=== PATIENT | male | born 1935 | race Caucasian/White ===

== ENCOUNTER → 2017-08-09 09:24 | Outpatient (CLI) | payer MEDICARE, SELFPAY ==
[2017-08-09 10:29] LABS: AST(SGOT) 42 U/L (15-37); Alanine Aminotransfer ALT/SGPT 37 U/L (16-61); Albumin, Serum 3.9 g/dL (3.2-5.0); Alkaline Phosphatase 66 U/L (45-117); Bilirubin, Direct 0.29 mg/dL (0.00-0.30); Cholesterol 109 mg/dL (200); High Density Lipoprotein 55 mg/dL; Protein, Total 6.9 g/dL (6.4-8.2); Triglycerides 60 mg/dL; Very Low Density Lipoprotein 12 mg/dL (5-40)
== END ==
PROVIDERS: Family Provider Family Medicine Geriatric Medicine; PCP Family Medicine Geriatric Medicine; Visit Provider Internal Medicine Cardiovascular Disease
DX: E78.00 Pure hypercholesterolemia, unspecified (principal)
CPT/HCPCS: 36415; 80061; 80076

== ENCOUNTER → 2017-08-15 10:15 | Outpatient (CLI) | payer MEDICARE, SELFPAY ==
[2017-08-15 13:43] LABS: Absolute Lymphocyte Count 0.82 X10^3/ul (0.83-4.51); Absolute Neutrophil Count 3.9 X10^3/uL (2.0-7.7); Basophil# 0.03 X10^3/uL; Basophil% 0.5 % (0-1); Eosinophils% 3.6 % (0-5); Hematocrit 41.7 % (40-54); Hemoglobin 14.1 g/dl (13.0-16.5); Lymphocyte # 0.82 X10^3/ul (4.0); Lymphocyte % 14.8 % (19-41); Mean Corp Hgb Conc 33.8 g/gl (32-36); Mean Corpuscular Hgb 30.3 pg (27.0-32.0); Mean Corpuscular Volume 89.5 fL (80-94); Mean Platelet Vol. 9.4 fl (6.2-12.0); Monocyte# 0.62 X10^3/uL; Monocyte% 11.2 % (0-10); Neutrophil # 3.86 X10^3/uL (2.7-7.7); Neutrophil % 69.5 % (47-70); POSITIVE COUNT NO; POSITIVE DIFFERENTIAL NO; POSITIVE MORPHOLOGY NO; Platelet Count 199 K/mm3 (150-450); RBC Distribution Width CV 14.3 % (11.6-14.6); RBC Distribution Width SD 46.4 fl (35.1-43.9); Red Blood Count 4.66 M/mm3 (4.6-6.2); White Blood Count 5.6 K/mm3 (4.4-11.0)
[2017-08-15 14:00] LABS: ALB/GLOB Ratio 1.3 RATIO (0.9-2.4); AST(SGOT) 45 U/L (15-37); Alanine Aminotransfer ALT/SGPT 50 U/L (16-61); Albumin, Serum 3.8 g/dL (3.2-5.0); Alkaline Phosphatase 59 U/L (45-117); Anion Gap 4 (5-15); BUN 15 mg/dL (7-18); BUN/Creat Ratio 14.3 RATIO (10-20); Calcium,Total 8.4 mg/dL (8.5-10.1); Chloride 107 mmol/L (98-107); Cholesterol 111 mg/dL (200); Creatinine, Serum 1.05 mg/dL (0.70-1.30); EST Glomerular Filtration Rate 72 mL/min (>60); Est Glom Filt Rate - Afr Amer 87 mL/min (>60); Globulin 2.9 g/dL (2.2-4.2); Glucose 94 mg/dL (74-106); High Density Lipoprotein 54 mg/dL; Potassium 4.6 mmol/L (3.5-5.1); Protein, Total 6.7 g/dL (6.4-8.2); Sodium Level 139 mmol/L (136-145); Thyroid Stim Hormone (TSH) 3.07 uIU/mL (0.358-3.74); Triglycerides 51 mg/dL; Very Low Density Lipoprotein 10 mg/dL (5-40)
[2017-08-16 09:57] LABS: Vitamin D,25 Hydroxy 23.2 ng/mL (29.95-100.01)
== END ==
PROVIDERS: Family Provider Family Medicine Geriatric Medicine; PCP Family Medicine Geriatric Medicine; Visit Provider Family Medicine Geriatric Medicine
DX: I10 Essential (primary) hypertension (principal); E78.4 Other hyperlipidemia; E55.9 Vitamin D deficiency, unspecified
CPT/HCPCS: 36415; 80053; 80061; 82306; 84443; 85025

== ENCOUNTER 2017-10-18 08:26 | Day surgery (SDC) | payer MEDICARE, SELFPAY ==
[2017-10-18] VITALS (9 sets, daily range): BP systolic 101–158; BP diastolic 64–89; PULSE 63–75; RESP 16–18; TEMP 36–36.3; O2SAT 93–98; BMI 25.1
--- NOTE | 2017-10-18 | COLBX_PTH ---
PATIENT: JR YE LOC: EN U#:[id number] AGE/SX: 82/M ROOM: RE10/18/[address]: Dr. Christiano Moreira MD : 1935 BED: DIS: 10/18/2017 SPEC #: [id number] RECD: 10/18/17 13:53 STATUS: KAVON MARIA M #: [id number] VAISHALI: 10/18/17 00:[address]: Christiano Moreira DEPT: SURGICAL PATHOLOGY RECD BY: Chriss Mixon ENTERED: 10/18/17 13:54 SP TYPE: COLON BX OTHR DR: MD Raymond Ramos MD Tissues: A - Duodenum, NOS B - Gastric mucous membrane C - Esophageal mucous membrane Procedures: Surgery Specimen Level IV HEADER OPERATION: Colonoscopy, EGD PRE-OP DIAGNOSIS: Nausea, change in bowel habits TISSUE SUBMITTED: A ? Duodenal biopsy, B ? Antral biopsy, C ? Distal esophageal biopsy MICROSCOPIC DIAGNOSIS A. 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 B. Antral biopsy: Mild gastritis. See microscopic description and comment. C. Distal esophageal biopsy: Fragments of squamous epithelium and mild chronic inflammation. SJ:kimo 10/21/17 COMMENT B. The results of immunohistochemistry for Helicobacter pylori will be reported separately ([id number]). MICROSCOPIC DESCRIPTION Slides are reviewed. B. The specimen shows fragments of gastric mucosa with chronic inflammatory cell infiltrates in the lamina propria consisting of lymphocytes and plasma cells, consistent with mild chronic gastritis. GROSS DESCRIPTION A - Received in fixative is one container labeled with the patient's name and designated duodenal biopsy. The specimen consists of two irregular fragments of light lee soft tissue that in aggregate measure 0.4 x 0.2 x 0.1 cm. The specimen is totally submitted in one cassette. B - Received in fixative is one container labeled with the patient's name and designated antral biopsy. The specimen consists of multiple irregular fragments of light lee soft tissue that in aggregate measure 0.5 x 0.2 x 0.1 cm. The specimen is totally submitted in one cassette. C - Received in fixative is one container labeled with the patient's name and designated distal esophageal biopsy. The specimen consists of two irregular fragments of light lee soft tissue that in aggregate measure 0.3 x 0.3 x 0.1 cm. The specimen is totally submitted in one cassette. / SJ:rg 10/18/17 TC:3 CPT: 19519 x3
--- NOTE | 2017-10-18 | IMM_PTH ---
PATIENT: JR YE LOC: EN U#:[id number] AGE/SX: 82/M ROOM: RE10/18/[address]: Dr. Christiano Moreira MD : 1935 BED: DIS: 10/18/2017 SPEC #: [id number] RECD: 10/21/17 11:53 STATUS: KAVON RECarolina #: [id number] VAISHALI: 10/18/17 00:[address]: Christiano Moreira DEPT: IMMUNOHISTOCHEMISTRY RECD BY: Rajeev Garcia ENTERED: 10/21/17 11:54 SP TYPE: IMMUNO OTHR DR: MD Raymond Ramos MD Tissues: Gastric mucous membrane Procedures: H Pylori (initial) PHYSICIAN & INSTITUTION [place] [id number] SPECIMEN INFORMATION: Tissue Source: B - Antral biopsy Clinical Info: Nausea, change in bowel habits Specimen Number: [id number] CPT code: 26413 METHODOLOGY: Deparaffinized sections of prefer/formalin-fixed tissue or PAP/DQ stained slides are incubated with monoclonal/polyclonal antibodies/oligonucleotide probes. Localization is made via biotin free immunoperoxidase method. Appropriate controls are performed and reacted as expected. Results on target cell population are indicated in the following table: RESULTS: ANTIBODY / CLONE RESULT H Pylori (polyclonal) negative These tests were developed and their performance characteristics determined by [facility]. They may not have been cleared or approved by the [place]. Food and Drug Administration. The FDA has determined that such clearance or approval is not necessary. INTERPRETATION: B. Antral biopsy: Negative for Helicobacter pylori organisms. SJ:kimo 10/22/17
--- NOTE | 2017-10-18 09:58 | PCM.OPRPT ---
Problem List (1) Change in bowel habit Status: Acute Report of Operation Date of Procedure: 10/18/17 Pre-Operative Diagnosis: Nausea, reflux symptoms, feeling of unwellness. Change of stool with pellet sized stool Post-Operative Diagnosis: Small hiatal hernia, minimal antral erythema, minimal duodenal erythema. Widely patent colorectal anastomosis, no acute colon pathology Surgery/Procedure Performed:: Esophagogastro duodenoscopy with cold forcep biopsies. colonoscopy Description of Surgical Findings:: Timeout and informed consent was obtained. 82-year-old gent was taken to the endoscopy suite. His oropharynx anesthetized with Topex. He was placed in a left lateral decubitus position. Throughout both the upper and lower procedure he received a total of 100 mg Demerol for 3.5 mg of Versed as intravenous sedation. Videogastroscope was inserted the proximal mid and even distal esophagus did not appear remarkable. The EG junction was at 41 cm. A small small hiatal hernia noted but I did not see any gross changes reflux. The scope was advanced in the stomach which had a very minimal amount of erythema of the antrum and body of the stomach. Scope was advanced through the pylorus. There was minimal erythema of the duodenum. The scope was nicely advanced in the second portion of the duodenum which otherwise did not appear to be remarkable. Scope was withdrawn back in the duodenal bulb and a biopsy was obtained. The scope was withdrawn back in the stomach and antral biopsy was obtained. The scope was retroflexed the EG junction cardia inspected. The small hiatal hernia noted. The scope was placed back in antegrade viewing position. The scope was withdrawn to the distal esophagus and a distal esophageal biopsy was obtained. The scope was then additionally removed without additional abnormality. The patient was kept in the left lateral decubitus position. Digital rectal exam performed. 2+ smooth prostate. No mass lesions. Flexible colonoscope inserted in the rectum advanced quite readily throughout the colon. The cecum ileocecal valve area was quite nicely achieved. Bowel prep was quite good. The cecum ileocecal valve was not remarkable. The scope was carefully withdrawn from the ascending transverse descending and rectosigmoid colon. There is evidence of a widely patent colon to distal rectosigmoid anastomosis at approximately 12 cm. Some remnant suture material noted in the small pouch. Widely patent anastomosis. No evidence of any obstruction whatsoever. Scope was retroflexed in the rectum this too was not remarkable. Excess fluid and air was aspirated free the procedure was completed with patient tolerating it well. Impression Very small hiatal hernia. Minimal erythema of the antrum and body of the stomach. Minimal erythema of the duodenum. None of these findings would seem to correlate well with the patient's symptoms. Biopsies are pending and the patient will be notified of results. Colon Appear to be quite normal. He has a remote history of colon polyps. Possible consideration for follow-up colonoscopy at 5 years pending the patient progress. Previous colonoscopy was July 16, 2012 The patient has known gallstones. Pending his progress might consider laparoscopic cholecystectomy if nausea persists. The patient may follow-up in the office at his discretion regarding that. Cc: Dr. Metcalf Medications were given at 0931. The upper scope was inserted 0934. The upper scope was completed at 0939. The colonoscopy was started at 0943. The cecum was reached at 0947. The procedure was completed at 0953 Christiano Moreira M.D., F.A.C.S. Type of Anesthesia:: IV Sedation
== END 2017-10-18 11:11 | disposition home or self-care (01) ==
LOC: EN 08:28 → AC 08:29
PROVIDERS: Family Provider Family Medicine; PCP Family Medicine; Visit Provider Surgery
PROC: 0DJD8ZZ Inspection of Lower Intestinal Tract, Via Natural or Artificial Opening Endoscopic (ICD-10-PCS; CPT 45378; principal; 2017-10-18 09:25)
DX: K29.70 Gastritis, unspecified, without bleeding (principal); K44.9 Diaphragmatic hernia without obstruction or gangrene; K57.30 Diverticulosis of large intestine without perforation or abscess without bleeding; K21.9 Gastro-esophageal reflux disease without esophagitis; I25.10 Atherosclerotic heart disease of native coronary artery without angina pectoris; G47.30 Sleep apnea, unspecified; E78.5 Hyperlipidemia, unspecified; I10 Essential (primary) hypertension; E07.9 Disorder of thyroid, unspecified; F41.9 Anxiety disorder, unspecified; F32.9 Major depressive disorder, single episode, unspecified; N40.0 Benign prostatic hyperplasia without lower urinary tract symptoms; Z79.82 Long term (current) use of aspirin; Z79.899 Other long term (current) drug therapy
CPT/HCPCS: 43239; 45378; 88305; 88342; 99152; 99153; J7120

== ENCOUNTER → 2017-11-26 09:33 | Outpatient (CLI) | payer MEDICARE, SELFPAY ==
[2017-11-27 08:50] LABS: Vitamin B12 377 pg/mL (211-911)
[2017-12-11 13:40] LABS: Fats, Neutral Normal (.); Fats, Total Normal (.)
== END ==
PROVIDERS: Family Provider Family Medicine; PCP Family Medicine; Visit Provider Family Medicine
DX: L30.9 Dermatitis, unspecified (principal); R19.4 Change in bowel habit
CPT/HCPCS: 36415; 82607; 82705

== ENCOUNTER → 2018-01-08 20:20 | Outpatient (CLI) | payer MEDICARE, SELFPAY ==
[2018-01-08] MEDS: Zolpidem Tartrate 5 MG Tablet PO (21:50)
== END ==
PROVIDERS: Family Provider Family Medicine; PCP Family Medicine; Visit Provider Internal Medicine Critical Care Medicine
DX: G47.33 Obstructive sleep apnea (adult) (pediatric) (principal)
CPT/HCPCS: 95811

== ENCOUNTER → 2018-01-15 14:11 | Outpatient (CLI) | payer MEDICARE, SELFPAY ==
[2018-01-21 04:08] LABS: Clam <0.10 kU/L (Class 0); Codfish <0.10 kU/L (Class 0); Corn <0.10 kU/L (Class 0); Egg, White <0.10 kU/L (Class 0); Milk (Cow) 0.17 kU/L (Class 0/I); Peanut <0.10 kU/L (Class 0); SCALLOP <0.10 kU/L (Class 0); Shrimp <0.10 kU/L (Class 0); Soybean <0.10 kU/L (Class 0); Walnut, (Food) <0.10 kU/L (Class 0); Wheat <0.10 kU/L (Class 0)
[2018-01-21 11:39] LABS: SESAME SEED <0.10 kU/L (Class 0)
== END ==
PROVIDERS: Family Provider Family Medicine; PCP Family Medicine; Referring Provider Otolaryngology; Visit Provider Otolaryngology
DX: T78.40XA Allergy, unspecified, initial encounter (principal)
CPT/HCPCS: 36415; 86003

== ENCOUNTER → 2018-03-03 15:52 | Outpatient (CLI) | payer MEDICARE, SELFPAY ==
[2018-03-03 17:10] LABS: Absolute Lymphocyte Count 0.95 X10^3/ul (0.83-4.51); Absolute Neutrophil Count 3.2 X10^3/uL (2.0-7.7); Basophil# 0.02 X10^3/uL; Basophil% 0.4 % (0-1); Eosinophil# 0.15 X10^3/uL; Eosinophils% 3.1 % (0-5); Hematocrit 39.8 % (40-54); Hemoglobin 13.1 g/dl (13.0-16.5); Lymphocyte # 0.95 X10^3/ul (4.0); Lymphocyte % 19.8 % (19-41); Mean Corp Hgb Conc 32.9 g/gl (32-36); Mean Corpuscular Hgb 29.8 pg (27.0-32.0); Mean Corpuscular Volume 90.5 fL (80-94); Mean Platelet Vol. 9.4 fl (6.2-12.0); Monocyte# 0.48 X10^3/uL; Neutrophil # 3.18 X10^3/uL (2.7-7.7); Neutrophil % 66.5 % (47-70); POSITIVE COUNT NO; POSITIVE DIFFERENTIAL NO; POSITIVE MORPHOLOGY NO; Platelet Count 177 K/mm3 (150-450); RBC Distribution Width CV 13.6 % (11.6-14.6); RBC Distribution Width SD 44.8 fl (35.1-43.9); White Blood Count 4.8 K/mm3 (4.4-11.0)
[2018-03-03 17:30] LABS: Vitamin D,25 Hydroxy 18.6 ng/mL (29.95-100.01)
[2018-03-03 17:32] LABS: ALB/GLOB Ratio 1.4 RATIO (0.9-2.4); AST(SGOT) 27 U/L (15-37); Alanine Aminotransfer ALT/SGPT 32 U/L (16-61); Albumin, Serum 3.7 g/dL (3.2-5.0); Alkaline Phosphatase 59 U/L (45-117); Anion Gap 10 (5-15); BUN 17 mg/dL (7-18); BUN/Creat Ratio 14.8 RATIO (10-20); Calcium,Total 8.1 mg/dL (8.5-10.1); Chloride 103 mmol/L (98-107); Cholesterol 117 mg/dL (200); Creatinine, Serum 1.15 mg/dL (0.70-1.30); EST Glomerular Filtration Rate 65 mL/min (>60); Est Glom Filt Rate - Afr Amer 79 mL/min (>60); Globulin 2.7 g/dL (2.2-4.2); Glucose 89 mg/dL (74-106); High Density Lipoprotein 47 mg/dL; Potassium 4.5 mmol/L (3.5-5.1); Protein, Total 6.4 g/dL (6.4-8.2); Sodium Level 139 mmol/L (136-145); Thyroid Stim Hormone (TSH) 3.25 uIU/mL (0.358-3.74); Triglycerides 167 mg/dL; Very Low Density Lipoprotein 33 mg/dL (5-40)
--- OUTSIDE RECORDS SUMMARY | 2018-04-15 14:27 | XMS RPT_ITS ---
:1935 Author Organization OHIP Support Name Relationship Address Phone SJ YE Unavailable Unavailable + EPHRAIM SJ Unavailable [address] + [place] [address] R Unavailable Unavailable Unavailable EPHRAIM SJ Unavailable [address] + [place] [address] R Unavailable Unavailable Unavailable DEMKEE SJ Unavailable [address] + [place] [address] R Unavailable Unavailable Unavailable DEMKEE, SJ Unavailable [address] + [place] [address] R Unavailable Unavailable Unavailable DEMKEE, SJ Unavailable [address] + [place] [address] R Unavailable Unavailable Unavailable DAVIDE SJ Unavailable [address] + [place] [address] R Unavailable Unavailable Unavailable CHRISTIEKEE SJ Unavailable Unavailable + EPHRAIM SJ Unavailable [address] + [place] [address] R Unavailable Unavailable Unavailable DEMKEE, SJ Unavailable [address] + [place] [address] R Unavailable Unavailable Unavailable DEMKEE, SJ Unavailable [address] + [place] [address] R Unavailable Unavailable Unavailable DEMKEE, SJ Unavailable [address] + [place] [address] R Unavailable Unavailable Unavailable DEMKEE, SJ Unavailable [address] + [place] [address] R Unavailable Unavailable Unavailable DEMKEE, SJ Unavailable [address] + [place] [address] R Unavailable Unavailable Unavailable DEMKEE, SJ Unavailable [address] + [place] [address] R Unavailable Unavailable Unavailable DEMKEE, SJ Unavailable [address] + [place] [address] R Unavailable Unavailable Unavailable DEMKEE, SJ Unavailable Unavailable + Care Team Providers Name Role Phone Christiano Moreira Attending Unavailable Dixon, Nj Chi Referring Unavailable Dixon, Nj Chi Primary Care Unavailable Kimberlyn Rosales Attending Unavailable Juan Eddie Attending Unavailable Dixon, Nj Chi Referring Unavailable Dixon, Nj Chi Primary Care Unavailable Blank Martinezl Attending Unavailable Juan, Menasha Referring Unavailable Dixon, Nj Chi Primary Care Unavailable Dixon, Nj Chi Attending Unavailable Dixon, Nj Chi Primary Care Unavailable Christiano Moreira Attending Unavailable Dixon, Nj Chi Referring Unavailable Dixon, Nj Chi Primary Care Unavailable CejeanlChristiano Attending Unavailable Cebul, Christiano Referring Unavailable Viera, Raymond Primary Care Unavailable CejeanlChristiano Attending Unavailable Cebul, Christiano Referring Unavailable Viera, Raymond Primary Care Unavailable Cejeanl Christiano Consulting Unavailable Viera, Raymond Attending Unavailable Viera, Raymond Primary Care Unavailable Phuc Stanley Attending Unavailable Dixon, Nj Chi Referring Unavailable Phuc Stanley Attending Unavailable Phuc Stanley Referring Unavailable Viera, Raymond Primary Care Unavailable Shayan Pedroza Attending Unavailable Shayan Pedroza Referring Unavailable Viera, Raymond Primary Care Unavailable Dixon, Nj Chi Attending Unavailable Phuc Stanley Attending Unavailable Dixon, Nj Chi Referring Unavailable STEPHANIE RAYGOZA Attending Unavailable STEPHANIE RAYGOZA Referring Unavailable Benitez Araiza Primary Care Unavailable STEPHANIE RAYGOZA Attending Unavailable STEPHANIE RAYGOZA Referring Unavailable Benitez Araiza Primary Care Unavailable STEPHANIE RAYGOZA Attending Unavailable *SELF, REFERRED Referring Unavailable Benitez Araiza Primary Care Unavailable PROBLEMS PROBLEMS DATE TYPE CONDITION / CODE ATTENDING STATUS SOURCE Unknown 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, 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 / Community E23.6(ICD-10) Hospital Repository Unknown E55.9 - Vitamin D Dixon, Nj Chi Active [place] 8 deficiency, unspecified / Community E55.9(ICD-10) Hospital Repository Unknown T78.40XA - Allergy, Shayan Pedroza Active [place] 8 unspecified, initial Community encounter / Hospital T78.40XA(ICD-10) Repository Unknown G47.33 - Obstructive Phuc Stanley Active [place] 8 sleep apnea (adult) Community (pediatric) / Hospital G47.33(ICD-10) Repository Unknown L30.9 - Dermatitis, Raymond Viera Active [place] 8 unspecified / Community L30.9(ICD-10) Hospital Repository Unknown R11.0 - Nausea / CebulChristiano Active [place] 8 R11.0(ICD-10) [facility] Hospital Repository Unknown R19.4 - Change in bowel CebulChristiano Active [place] 8 habit / R19.4(ICD-10) [facility] Hospital Repository Unknown E78.00 - Pure Juan, Eddie Active [place] 8 hypercholesterolemia, Community unspecified / Hospital E78.00(ICD-10) Repository Unknown E78.0 - Pure Juan, Menasha Active [place] 8 hypercholesterolemia / Community E78.0(ICD-10) Hospital Repository Unknown I10 - Essential (primary) Juan, Menasha Active [place] 8 hypertension / Community I10(ICD-10) Hospital Repository PROCEDURES PROCEDURES No Procedure Records FoundRESULTS RESULTS PULMONARY VISIT REPORT Observed: 03/11/2018 Status: F Source: [place] 9:05 AM [facility] of [address] [place] [address] OFFICE VISIT Date of Service: 03/11/18 MR#: [id number] Acct: [id number] Name: JR YE Rep #: [id number] : 1935 Provider: Phuc Stanley MD Age/Sex: 82/M Location: [facility] [place] Status: Signed Assessment AND Plan Problems 1. Obstructive sleep apnea syndrome G47.33 Plan Patient still has a significantly high AHI despite initiation of therapy. That being said, recommended pressures are very high. We will continue to step up pressure settings until recommended settings are achieved or patient's AHI is acceptable. Patient's pressure will be increased to 18/12 centimeters of water. Increased pressure settings. Follow with compliance reports. Plan Detail Follow Up 3 Months ([facility]) HPI 3 M FU: Chief Complaint: Follow-up test results Details: Patient is an 82-year-old male, currently in the care of Dr. Metcalf, who presents for evaluation secondary to recent test results. Since last visit, patient denies any ER visits, hospitalizations or prednisone burst. Patient has been initiated on BiPAP therapy and states that he has attempted it every night. Overall feels subjectively improved after initiation of BiPAP therapy. Patient feels that he rest better at night, but is still occasionally taking naps during the day. Patient has had to try a couple different mask, but in the end and ended up with his original design. Patient is currently being taken care of by [facility]. Patient denies any complications at the interface site, epistaxis or sore throat. No dry mouth has been reported. Patient states he actually turned off his ramp feel the pressure. Patient denies any change in weight. There is no increased dyspnea on exertion. Patient does feel that he wakes up approximately 1 time per night secondary to nocturia. Occasionally patient wake up at 5 AM and just stay up. Testing personally reviewed with the patient Split-night PSG (01/08/2018): Overall AHI of 16.9 events per hour titrated to BiPAP 20/14 centimeters of water. 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 DME Vendor: [facility] Accompanied by: Self Is patient in pain?: No Allergies No Known Allergies Allergy (Verified 03/11/18 07:10) Medications Levothyroxine [Synthroid] 75 mcg PO DAILY 03/19/14 [History Confirmed 03/11/18] B-complex with vitamin C tablet 1 tab PO QDAY 07/05/17 [History Confirmed 03/11/18] escitalopram 10 mg tablet 10 mg PO QDAY 07/05/17 [History Confirmed 03/11/18] folic acid 1 mg tablet 1 mg PO QDAY 07/05/17 [History Confirmed 03/11/18] lactobacillus combination no.8 3 billion cell capsule 3,000 mmu cells PO QDAY 07/05/17 [History Confirmed 03/11/18] lorazepam 1 mg tablet 1 mg PO QHS PRN tab 07/05/17 [History Confirmed 03/11/18] vitamin E (dl, acetate) 400 unit capsule 400 unit PO QDAY 07/05/17 [History Confirmed 03/11/18] zolpidem 5 mg tablet 5 mg PO HS PRN 07/05/17 [History Confirmed 03/11/18] clobetasol 0.05 % topical cream 0.05 applic TOPICAL PRN PRN 10 Days #45 08/09/17 [History Confirmed 03/11/18] coenzyme Q10 100 mg capsule 100 mg PO QDAY 08/09/17 [History Confirmed 03/11/18] Aspirin 81 mg PO DAILY 10/18/17 [History Confirmed 03/11/18] betamethasone dipropionate 0.05 % topical cream 1 applic TOPICAL DAILY PRN 11/28/17 [History Confirmed 03/11/18] colloidal oatmeal 2 % topical cream % TOPICAL QDAY PRN g 11/28/17 [History Confirmed 03/11/18] fluocinolone 0.01 % topical body oil 1 applic TOPICAL DAILY 11/28/17 [History Confirmed 03/11/18] vit C 250 mg-E 200 unit-zinc 40 mg-copper 1 di-pzjage-ygcegh capsule 1 tab PO ONCE cap 11/28/17 [History Confirmed 03/11/18] olmesartan 5 mg tablet 5 mg PO DAILY 11/29/17 [History Confirmed 03/11/18] Ultimate [place] 1 tab PO BID 03/11/18 [History Confirmed 03/11/18] atorvastatin 20 mg tablet 40 mg PO QHS tab 03/11/18 [History Confirmed 03/11/18] famotidine 20 mg tablet 20 mg PO DAILY 03/11/18 [History Confirmed 03/11/18] tacrolimus 0.1 % topical ointment 1 applic TOPICAL BID PRN g 03/11/18 [History Confirmed 03/11/18] PFSH Medical History Change in bowel habit (Acute) Nausea (Acute) Atherosclerotic heart disease of [place] coronary artery without angina pectoris (Chronic) Sleep apnea (Chronic) PVC's (premature ventricular contractions) (Chronic) Diverticular disease of colon (Chronic) Hyperlipidemia (Chronic) Hypertension (Chronic) Thyroid disease (Chronic) Extensor tendon laceration of hand with open wound (Acute) Back problem (Acute) Bronchitis (Acute) anxiety/dpression (Acute) BPH (benign prostatic hyperplasia) (Chronic) Chronic cough (Chronic) Coronary heart disease (Chronic) Depression (Chronic) Diverticulosis (Chronic) GERD (gastroesophageal reflux disease) (Chronic) Tinnitus (Chronic) Surgical History History of appendectomy (Chronic) Hx of squamous cell carcinoma excision (Chronic) Hx of transurethral resection of prostate (Chronic) H/O hernia repair (Resolved) History of colectomy (Resolved) Family History Father No problems noted. Social History household members: spouse housing: house current occupational status: retired pets and animals: No Smoking Status: Never smoker second hand exposure: No alcohol intake: current alcohol intake frequency: a few times a week Alcohol type: wine substance use type: does not use caffeine: Yes Type: coffee what type of physical activity do you participate in: other details: tredmill, walking frequency: 3-4 times per week duration: 30-45 minutes/day seatbelt use: always do you feel safe at home: Yes Review of Systems Const CONSTITUTIONAL: Negative anorexia, body ache, chills, daytime sleepiness, fever(s), night sweats, oral thrush, stops breathing during sleep, weight loss, sleeping in chair, fatigue, weight loss, weight gain, frequent colds, seasonal allergies, other, headache(s) or orthopnea EETM Ear Nose Throat Mouth: Positive hearing normal; negative hoarseness, dry mouth in morning, change in vision, itchy eyes, eye pain, swallowing Difficulty, ear pain, headache(s), mouth pain, nasal congestion, nasal discharge, sinus pain, sinus pressure, sore throat, other, hard of hearing, nose bleed or post nasal drip Cardio Cardiovascular: Negative chest pain, chest pain at rest, chest pain with activity, irregular heart rhythm, edema, shortness of breath when lying down, palpitations, other or murmur Resp Respiratory: Positive as per HPI; negative shortness of breath, pain with cough, wheezing, chest congestion, cough, chest tightness, pain on inspiration, inhalers, increase use of rescue inhalers, snoring, apnea or other Gastro Gastrointestional: Negative bloody stools, change in appetite, difficulty swallowing, reflux, hematemesis, melena stool, loose stool, constipation or other Genitourinary: Positive nocturia; negative blood in urine, pain with urination or other Musc Musculoskeletal: Negative body pain, back pain, neck pain or other Skin/Breast Skin/Breast: Negative dry skin, itching, unusual bruising, breast lump, other or rash Neuro Neurological: Negative restless legs, confusion, weakness or other Psych Psychocological: Negative abnormal sleep pattern, anxiety, thoughts of hurting self/others, hopelessness or other Lymph Lymphatic: Negative easy bleeding, easy bruising, other or swollen lymph nodes Exam Const Constitutional: Positive conversant, cooperative, in no acute respiratory distress, healthy appearing, well developed, well nourished and good hygiene; negative appears older than stated age, smells of smoke, wearing supplemental oxygen or ill appearing Head Head: Positive normocephalic and atraumatic; negative cyanosis of lips/distal nose, frontal sinus tenderness or maxillary sinus tenderness Eyes Eye: Positive clear conjunctiva; negative nystagmus, scleral abnormality or cataract present Ears Ear: Positive hearing normal and external ears normal; negative hard of hearing Nose Nose: Positive external nose normal, septum normal and no nasal discharge; negative epistaxis or nasal polyp Mouth Mouth: Positive oral mucosae normal, no lesions, good dentition and crowded posterior oropharynx; negative post nasal drip, malodorous breath or oral thrush present Mallampati Score: III: Mallampati Score Neck Neck: Positive normal visual inspection, full ROM and trachea midline; negative lymphadenopathy or JVD Chest Wall Chest: Positive normal inspection of the chest and symmetric chest movement; negative crepitus or tenderness Resp lung sounds: Positive clear to auscultation, good air exchange, normal expiratory time and normal respiratory effort; negative wheezes, rhonchi, rales, use of accessory muscles, wheeze present on forced exhalation or dullness to percussion Cardio Cardiac: Positive regular rate, regular rhythm, S1 normal and S2 normal; negative murmur, rub or gallop GI GI: Positive normal to inspection and normal bowel sounds; negative distended, ascites or epigastric tenderness Genitourinary: Positive deferred Musc Musculoskeletal: Positive steady gait; negative using an assistive device for ambulation, kyphosis or scoliosis Skin Pulmonary Skin Exam: Positive intact and dermal atrophy; negative rash, lesion, ulcers or erythema Pulses Pulse: Yes radial pulses present Extremities Extremities: Yes capillary refill normal, No clubbing, No cyanosis, No edema, No stasis dermatitis Neuro Neurologic: Yes conversant, Yes no focal neuro deficits, Yes normal concentration, Yes understands questions, Yes normal cognition, Yes normal coordination, Yes cooperative Lymph Lymphatic: No lymphadenopathy Psych Appearance: Positive grossly normal Mental Status: Positive mental status grossly normal Mood: Positive congruent mood Affect: Positive normal affect Coding Level of Care Code Off vis,est,level 3 Diagnoses Obstructive sleep apnea syndrome G47.33 Sleep apnea type: obstructive 03/11/18 0905 <Electronically signed by Phuc Stanley MD> Date Phuc Stanley MD Cosigner Signature: Date (if applicable) CC: Nj Metcalf MD CBC W/DIFF, AUTOMATED Collected: 03/03/2018 Status: F Source: [place] 3:55 PM [facility] REPOSITORY TYPE CODE TESTS RESULT OUT OF RANGE REFERENCE UNITS LAB L100.1000 4.4-11.0 K/mm3 Normal WBC 4.8 LAB L100.1200 4.6-6.2 M/mm3 Low RBC 4.40 LAB L100.1300 13.0-16.5 g/dl Normal HGB 13.1 LAB L100.1400 40-54 % Low HCT 39.8 LAB L100.1500 80-94 fL Normal MCV 90.5 LAB L100.1600 27.0-32.0 pg Normal MCH 29.8 LAB L100.1700 32-36 g/gl Normal MCHC 32.9 LAB L100.1810 11.6-14.6 % Normal RDW CV 13.6 LAB L100.1820 35.1-43.9 fl High RDW SD 44.8 LAB L100.1900 150-450 K/mm3 Normal PLT 177 LAB L100.2000 6.2-12.0 fl Normal MPV 9.4 LAB L100.2100 47-70 % Normal NEUT% 66.5 LAB L100.2200 19-41 % Normal LY% 19.8 LAB L100.2300 0-10 % Normal MONO% 10.0 LAB L100.2400 0-5 % Normal EO% 3.1 LAB L100.2500 0-1 % Normal BASO% 0.4 LAB L100.2550 0.0-0.9 % Normal IM GRAN % 0.200 Result Comment: IG% - Immature Granulocytes (promyelocytes, myelocytes and metamyelocytes) > 1% indicates that a LEFT SHIFT is Present. LAB L100.2620 2.0-7.7 X10 3/uL Normal Absolute Neut 3.2 LAB L100.2720 0.83-4.51 X10 3/ul Normal Absolute Lymph 0.95 Performed By: #### L100.0100 #### [facility] [address]. [place], [place], [address] VITAMIN D,25 HYDROXY Collected: 03/03/2018 Status: F Source: [place] 3:55 PM [facility] REPOSITORY TYPE CODE TESTS RESULT OUT OF REFERENCE UNITS RANGE LAB L506.1000 29.95-100.01 ng/mL Low Vitamin D 18.6 25-OH Result Comment: Vitamin D 25(OH) Status Range Deficiency <20 ng/mL (50nmol/L) Insuffciency 20 - 30 ng/mL (50 - 75 nmol/L) Sufficiency 30 - 100 ng/mL (75 - 250 nmol/L) Toxicity >100 ng/mL (>250 nmol/L) Performed By: #### L506.1000, L509.3000 #### [facility] [address] [place] [place], [address] TESTOSTERONE, SERUM TOTAL Collected: 03/03/2018 Status: F Source: [place] 3:55 PM [facility] REPOSITORY TYPE CODE TESTS RESULT OUT OF REFERENCE UNITS RANGE LAB L509.3000 ng/dL Testosterone Normal 168.73 Result Comment: NORMAL REFERENCE RANGES MALE AGE <50 123.06 - 813.86 ng/dL MALE AGE >50 89.98 - 780.10 ng/dL FEMALE PREMENOPAUSE AGE 21 - 60 9.01 - 47.94 ng/dL FEMALE POSTMENOPAUSE AGE 45 - 89 <7.00 - 45.62 ng/dL REFERENCE RANGE AND METHODOLOGY CHANGED 03/27/2017 Performed By: #### L506.1000, L509.3000 #### [facility] [place], [address] COMPREHENSIVE METABOLIC Collected: 03/03/2018 Status: F [facility] REPOS[facility] TYPE CODE TESTS RESULT OUT OF RANGE REFERENCE UNITS LAB L501.0100 74-106 mg/dL Normal GLU 89 Result Comment: Please note revised GLUCOSE reference range effective 2017. LAB L501.1000 7-18 mg/dL Normal BUN 17 LAB L501.1100 0.70-1.30 mg/dL Normal CREAT,SERUM 1.15 Result Comment: The validity of the calculated GFR AND GFRAA in patients over 70 years has not been determined. Clinical correlation is essential. LAB L501.1110 >60 mL/min Normal EST GFR 65 Result Comment: Non- GFR Calc LAB L501.1115 >60 mL/min Normal EST GFR - AA 79 Result Comment: GFR Calc LAB L501.1300 10-20 RATIO Normal BUN/CRE 14.8 LAB L501.1500 6.4-8.2 g/dL T Normal PROT 6.4 LAB L501.1800 3.2-5.0 g/dL Normal ALB 3.7 LAB L501.1950 2.2-4.2 g/dL Normal GLOB 2.7 LAB L501.2000 0.9-2.4 RATIO Normal A/G 1.4 LAB L501.2200 8.5-10.1 mg/dL Low CA 8.1 LAB L501.4100 15-37 U/L Normal AST 27 LAB L501.4305 45-117 U/L Normal ALK P 59 LAB L501.4405 16-61 U/L Normal ALT 32 LAB L501.4600 0.20-1.00 mg/dL High T BILI 1.10 LAB L501.5300 136-145 mmol/L NA Normal 139 LAB L501.5600 3.5-5.1 mmol/L K Normal 4.5 LAB L501.5900 98-107 mmol/L CL Normal 103 LAB L501.6100 21.0-32.0 mmol/L Normal CO2 26.0 LAB L501.6200 5-15 Normal GAP 10 Performed By: #### L500.4050, L500.4100, L501.9520 #### [facility] [address] [place], [place], [id number] LIPID PROFILE Collected: 03/03/2018 Status: F Source: [place] 3:55 PM [facility]POS[facility] TYPE CODE TESTS RESULT OUT OF RANGE REFERENCE UNITS LAB L501.4900 200 mg/dL Normal CHOL 117 Result Comment: <200 mg/dL Desirable 200-240 mg/dL Borderline >240 mg/dL High Risk LAB L501.5000 mg/dL Normal TRIG 167 Result Comment: The drugs N-Acetylcysteine and Metamizole may falsely depress this assay. Serum Triglycerides Reference Interval Normal <150 mg/dL Borderline high 150 - 199 mg/dL High 200 - 499 mg/dL Very High > or = 500 mg/dL LAB L501.6400 mg/dL Normal HDL 47 Result Comment: The drugs N-Acetylcysteine and Metamizole may falsely depress this assay. Reference Range HDL <40 mg/dL Low HDL Cholesterol HDL >or= 60 mg/dL High HDL Cholesterol LAB L501.6500 0-130 mg/dL Normal LDL 37 LAB L501.6600 5-40 mg/dL Normal VLDL 33 Performed By: #### L500.4050, L500.4100, L501.9520 #### [facility] [address] [place], [place], [id number] THYROID STIM HORMONE Collected: 03/03/2018 Status: F Source: [place] ([facility]) 3:55 PM [facility] REPOS[facility]ORY TYPE CODE TESTS RESULT OUT OF RANGE REFERENCE UNITS LAB L501.9520 0.358-3.74 uIU/mL Normal TSH 3.25 Performed By: #### L500.4050, L500.4100, L501.9520 #### [facility] [address] [place], [address] ALLERGEN, FOOD PROFILE Collected: 01/15/2018 Status: F Source: [place] 2:16 PM [facility]POS[facility] TYPE CODE TESTS RESULT OUT OF RANGE REFERENCE UNITS LAB L5500.3002 Class 0/I kU/L High MILK (COW) 0.17 LAB L5500.3004 Class 0 kU/L Normal WHEAT <0.10 LAB L5500.3008 Class 0 kU/L Normal CORN <0.10 LAB L5500.3013 Class 0 kU/L Normal PEANUT <0.10 LAB L5500.3014 Class 0 kU/L Normal SOYBEAN <0.10 LAB L5500.8100 . Normal RAST COMMENT Comment Result Comment: Levels of Specific IgE Class Description of Class ----- < 0.10 0 Negative 0.10 - 0.31 0/I Equivocal/Low 0.32 - 0.55 I Low 0.56 - 1.40 II Moderate 1.41 - 3.90 III High 3.91 - 19.00 IV Very High 19.01 - 100.00 V Very High >100.00 Very High LAB L5530.0430 Class 0 kU/L Normal CLAM <0.10 LAB L5530.0460 Class 0 kU/L Normal CODFISH <0.10 LAB L5530.0570 Class 0 kU/L Normal EGG,WHITE <0.10 LAB L5530.1430 Class 0 kU/L Normal Scallop <0.10 LAB L5530.1440 Class 0 kU/L Normal Sesame Seed <0.10 Result Comment: Performed at: - [facility] [address] [id number] Location Manager: Luís Alvarado MD, Phone: [phone] LAB L5530.1450 Class 0 kU/L Normal SHRIMP <0.10 LAB L5530.1650 Class 0 kU/L Normal WALNUT <0.10 Performed By: #### L5500.0410 #### [facility] (refer to report for specific site) refer to report for address and phone number PULMONARY VISIT REPORT Observed: 12/06/2017 Status: F Source: [place] 10:42 AM [facility] REPOS[facility] [place] [address] [place] [address] OFFICE VISIT Date of Service: 12/06/17 MR#: [id number] Acct: [id number] Name: JR YE Rep #: [id number] : 1935 Provider: Phuc Stanley MD Age/Sex: 82/M Location[place] [facility] Status: Signed Assessment AND Plan 1. Obstructive sleep apnea syndrome G47.33 Plan Patient has a very old CPAP machine. Patient denies any recent change in weight, but is requiring naps during the afternoon. Some concern the patient is continuing to have some obstructive symptoms. After review of the risks, benefits alternatives, patient has agreed to a split-night study. Await the results and then will provide a new machine. Patient may also change interface if another one is more comfortable Obtain split-night study Orders Orders: 2. 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 Patient does not give any trigger symptoms or nocturnal cough to suggest asthma at this time. After review the risks and benefits alternatives, patient was decided not to proceed with any pulmonary function testing. Patient is actively exercising and has noted no change in exercise tolerance through the various seasons. No workup at this time. PFT if patient develops allergy type symptoms. Plan Detail Follow Up 3 Months ([facility]) HPI COUGH,: Chief Complaint: Chronic cough Details: Patient is an 82-year-old male, currently under the care of Dr. Viera, who presents for evaluation secondary to a chronic cough. Patient reports a 3 to six-month history of chronic nonproductive cough that was sporadic throughout the day. Patient denies any trigger symptoms or nocturnal predominance. Patient does not wheeze on a routine basis. Patient states that he is an avid bike rider and has not noted any significant change in his exercise tolerance. Patient made his appointment and then his primary care physician and transitioned him from an VALDEMAR inhibitor to an ARB. In the interim, patient has had complete resolution of his chronic cough and has no cough during the day at this time. Patient does have a long history of obstructive sleep apnea. Patient is unclear as to his AHI her current pressure settings. Patient estimates that his machine is approximately 15 years old. Patient does report wearing a full facemask, but states he does occasionally have issues with leaking. Patient typically buys his supplies online. Patient is inquiring about the possibility of obtaining a new machine as technology is likely better, so the machine will be smaller quieter. Patient does report that he tends to take a nap approximately 130 2:00 every day. Patient is unclear if this is related to his age or failure of his CPAP to work efficiently. Documentation reviewed 3 pages of documentation were reviewed from Dr. Metcalf. Patient followed up with routine medical care. Patient was on an VALDEMAR inhibitor at baseline. Patient has been treated with testosterone shots in the past, but these were discontinued secondary to ineffectiveness. Intake Vital Signs12/06/17 Height 5 ft 11 in 12/06/17 Weight: 85.275 kg Intake Visit Reasons: COUGH, Accompanied by: Self Allergies No Known Allergies Allergy (Verified 12/06/17 09:56) Medications Levothyroxine [Synthroid] 75 mcg PO DAILY 03/19/14 [History Confirmed 11/28/17] B-complex with vitamin C tablet 1 tab PO QDAY 07/05/17 [History Confirmed 11/28/17] atorvastatin 20 mg tablet 20 mg PO QHS 07/05/17 [History Confirmed 11/28/17] escitalopram 10 mg tablet 10 mg PO QDAY 07/05/17 [History Confirmed 11/28/17] folic acid 1 mg tablet 1 mg PO QDAY 07/05/17 [History Confirmed 11/28/17] lactobacillus combination no.8 3 billion cell capsule 3,000 mmu cells PO QDAY 07/05/17 [History Confirmed 11/28/17] lorazepam 1 mg tablet 1 mg PO QHS PRN tab 07/05/17 [History Confirmed 11/28/17] vitamin E (dl, acetate) 400 unit capsule 400 unit PO QDAY 07/05/17 [History Confirmed 11/28/17] zolpidem 5 mg tablet 5 mg PO HS PRN 07/05/17 [History Confirmed 11/28/17] clobetasol 0.05 % topical cream 0.05 applic TOPICAL PRN PRN 10 Days #45 08/09/17 [History Confirmed 11/28/17] coenzyme Q10 100 mg capsule 100 mg PO QDAY 08/09/17 [History Confirmed 11/28/17] Aspirin 81 mg PO DAILY 10/18/17 [History Confirmed 11/28/17] betamethasone dipropionate 0.05 % topical cream 1 applic TOPICAL DAILY PRN 11/28/17 [History Confirmed 11/28/17] colloidal oatmeal 2 % topical cream % TOPICAL QDAY PRN g 11/28/17 [History Confirmed 11/28/17] escitalopram 10 mg tablet 10 mg PO DAILY 11/28/17 [History Confirmed 11/28/17] fluocinolone 0.01 % topical body oil 1 applic TOPICAL DAILY 11/28/17 [History Confirmed 11/28/17] tacrolimus 0.1 % topical ointment 1 applic TOPICAL TID g 11/28/17 [History Confirmed 11/28/17] vit C 250 mg-E 200 unit-zinc 40 mg-copper 1 by-etqahe-ngnizb capsule 1 tab PO ONCE cap 11/28/17 [History Confirmed 11/28/17] olmesartan 5 mg tablet 5 mg PO DAILY 11/29/17 [History] [facility] Medical History Change in bowel habit (Acute) Nausea (Acute) Atherosclerotic heart disease of [place] coronary artery without angina pectoris (Chronic) Sleep apnea (Chronic) PVC's (premature ventricular contractions) (Chronic) Diverticular disease of colon (Chronic) Hyperlipidemia (Chronic) Hypertension (Chronic) Thyroid disease (Chronic) Extensor tendon laceration of hand with open wound (Acute) Back problem (Acute) Bronchitis (Acute) anxiety/dpression (Acute) BPH (benign prostatic hyperplasia) (Chronic) Chronic cough (Chronic) Coronary heart disease (Chronic) Depression (Chronic) Diverticulosis (Chronic) GERD (gastroesophageal reflux disease) (Chronic) Tinnitus (Chronic) Surgical History History of appendectomy (Chronic) Hx of squamous cell carcinoma excision (Chronic) Hx of transurethral resection of prostate (Chronic) H/O hernia repair (Resolved) History of colectomy (Resolved) Family History Father No problems noted. Social History household members: spouse housing: house current occupational status: retired pets and animals: No Smoking Status: Never smoker second hand exposure: No alcohol intake: current alcohol intake frequency: a few times a week Alcohol type: wine substance use type: does not use caffeine: Yes Type: coffee what type of physical activity do you participate in: other details: tredmill, walking frequency: 3-4 times per week duration: 30-45 minutes/day seatbelt use: always do you feel safe at home: Yes Review of Systems Const CONSTITUTIONAL: Negative anorexia, body ache, chills, daytime sleepiness, fever(s), night sweats, oral thrush, stops breathing during sleep, weight loss, sleeping in chair, fatigue, weight loss, weight gain, frequent colds, seasonal allergies, other, orthopnea or headache(s) EETM Ear Nose Throat Mouth: Positive hard of hearing; negative hoarseness, dry mouth in morning, change in vision, itchy eyes, eye pain, swallowing Difficulty, ear pain, nose bleed, headache(s), mouth pain, nasal congestion, nasal discharge, post nasal drip, sinus pain, sinus pressure, sore throat or other Cardio Cardiovascular: Negative chest pain, chest pain at rest, chest pain with activity, irregular heart rhythm, edema, shortness of breath when lying down, palpitations, murmur or other Resp Respiratory: Positive as per HPI; negative shortness of breath, pain with cough, wheezing, chest congestion, cough, chest tightness, pain on inspiration, inhalers, increase use of rescue inhalers, snoring, apnea or other Gastro Gastrointestional: Negative bloody stools, change in appetite, difficulty swallowing, reflux, hematemesis, melena stool, loose stool, constipation or other Genitourinary: Negative blood in urine, nocturia, pain with urination or other Musc Musculoskeletal: Negative body pain, back pain, neck pain or other Skin/Breast Skin/Breast: Negative dry skin, itching, rash, unusual bruising, breast lump or other Neuro Neurological: Negative restless legs, confusion, weakness or other Psych Psychocological: Negative abnormal sleep pattern, anxiety, thoughts of hurting self/others, hopelessness or other Lymph Lymphatic: Negative easy bleeding, easy bruising, swollen lymph nodes or other Exam Const Constitutional: Positive conversant, cooperative, in no acute respiratory distress, healthy appearing, well developed, well nourished and good hygiene; negative wearing supplemental oxygen, ill appearing or dyspenic Head Head: Positive normocephalic and atraumatic; negative cyanosis of lips/distal nose, frontal sinus tenderness or maxillary sinus tenderness Eyes Eye: Positive clear conjunctiva; negative nystagmus, scleral abnormality or cataract present Ears Ear: Positive hard of hearing and external ears normal (Hearing aid in place) Nose Nose: Positive external nose normal, septum normal and no nasal discharge; negative epistaxis or nasal polyp Mouth Mouth: Positive oral mucosae normal and posterior oropharynx is adequate; negative post nasal drip, malodorous breath, no lesions or oral thrush present Mallampati Score: I: Mallampati Score Neck Neck: Positive normal visual inspection, full ROM and trachea midline; negative lymphadenopathy or JVD Chest Wall Chest: Positive normal inspection of the chest and symmetric chest movement; negative crepitus or tenderness Resp lung sounds: Positive clear to auscultation, good air exchange, normal expiratory time and normal respiratory effort; negative wheezes, rhonchi, rales, use of accessory muscles, dullness to percussion or wheeze present on forced exhalation Cardio Cardiac: Positive regular rate, regular rhythm, S1 normal and S2 normal; negative murmur, rub or gallop GI GI: Positive normal to inspection and normal bowel sounds; negative distended, ascites or epigastric tenderness Genitourinary: Positive deferred Musc Musculoskeletal: Positive steady gait; negative using an assistive device for ambulation, kyphosis or scoliosis Skin Pulmonary Skin Exam: Positive intact; negative rash, lesion, ulcers or erythema Pulses Pulse: Yes radial pulses present Extremities Extremities: Yes capillary refill normal, No clubbing, No cyanosis, No edema Neuro Neurologic: Yes conversant, Yes no focal neuro deficits, Yes normal concentration, Yes understands questions, Yes cooperative, Yes normal cognition, Yes normal coordination Lymph Lymphatic: No lymphadenopathy Psych Appearance: Positive grossly normal Mental Status: Positive mental status grossly normal Mood: Positive congruent mood Affect: Positive normal affect Coding Level of Care Code Off vis,new,level 3 Diagnoses Obstructive sleep apnea syndrome G47.33 Sleep apnea type: obstructive Chronic cough R05 12/06/17 1042 <Electronically signed by Phuc Stanley MD> Date Phuc Stanley MD Cosigner Signature: Date (if applicable) CC: aRymond Viera MD VITAMIN B12 Collected: 11/26/2017 Status: F Source: [place] 9:36 AM [facility] REPOSITORY TYPE CODE TESTS RESULT OUT OF RANGE REFERENCE UNITS LAB L503.0105 211-911 pg/mL Normal Vitamin B12 377 Performed By: #### L503.0105 #### [facility] [address] [place], [address] MISCELLANEOUS LAB Collected: 11/26/2017 Status: F Source: [place] PROCEDURE 9:36 AM [facility] REPOSITORY Order Comment: Comments: #[id number] OMEGA 3 FATTY ACID WB LAV RF Test(s) Ordered: B6 #4655 PLASMA FROZEN PFL TYPE CODE TESTS RESULT OUT OF RANGE REFERENCE UNITS LAB L801.1541 Normal [facility] TEST Result Comment: TEST RESULT LIMITS OmegaCheck(TM) (EPA+DPA+DHA) OmegaCheck(TM) 3.4 Low % by wt >5.4 Relative Risk: HIGH Increasing blood levels of long-chain n-3 fatty acids are associated with a lower risk of sudden cardiac (1). Based on the top (75th percentile) and bottom (25th percentile) quartiles of the CHL reference population, the following risk categories were established for OmegaCheck: A cut-off of >=5.5% by wt defines a population at low relative risk, 3.8-5.4% by wt defines a population at moderate relative risk, and <=3.7% by wt defines a population at high relative risk of sudden cardiac . The totality of the scientific evidence demonstrates that when consumption of fish oils is limited to 3 g/day or less of EPA and DHA, there is no significant risk for increased bleeding time beyond the normal range. A daily dosage of 1 gram of EPA and DHA lowers the circulating triglycerides by about 7-10% within 2 to 3 weeks. (Reference: 1-Kervin herrmann al. NEJ. 2002; 346: 6240-6967). Arachidonic Acid/EPA Ratio 25.8 High <5.0 Orrtanna-6/Orrtanna-3 Ratio 12.6 High <4.5 Orrtanna-3 total 3.4 % by wt EPA 0.5 Low % by wt >2.0 DPA 1.0 Low % by wt >1.0 DHA 1.9 Low % by wt >4.0 Orrtanna-6 total 42.7 % by wt [facility] measures a number of omega-6 fatty acids with AA and LA being the two most abundant forms reported. Arachidonic Acid 12.9 High % by wt <9.0 Linoleic Acid 26.2 High % by wt <20.0 This test is performed by a Liquid Chromatography-Tandem Mass Spectrometry (LC/MS/MS) method. This test was developed and its performance characteristics determined by the [facility] It has not been cleared or approved by the U.S. FDA. The [facility] is regulated under Clinical Laboratory Improvement Amendments (CLIA) as qualified to perform high-complexity testing. This test is used for clinical purposes. It should not be regarded as investigational or for research. TESTING PERFORMED AT [facility]. ORIGINAL REPORT ON FILE IN LAB CONTAINS ADDITIONAL TEST SITE INFORMATION. Performed By: #### L801.1541 #### [facility] [address] [place], [address] MISCELLANEOUS LAB Collected: 11/26/2017 Status: F Source: [place] PROCEDURE 2 9:36 AM [facility] REPOSITORY Order Comment: Comments: #[id number] OMEGA 3 FATTY ACID WB LAV RF List Test(s) Ordered by Physician: B3 #[id number] SERUM FROZEN TYPE CODE TESTS RESULT OUT OF RANGE REFERENCE UNITS LAB L801.1543 Normal [facility] TEST 2 Result Comment: TEST RESULT LIMITS Vitamin B3 (Niacin+Metabolite) Nicotinamide 6.6 ng/mL 5.2 - 72.1 Nicotinic Acid <5.0 ng/mL 0.0 - 5.0 TESTING PERFORMED AT [facility]. ORIGINAL REPORT ON FILE IN LAB CONTAINS ADDITIONAL TEST SITE INFORMATION. Performed By: #### L801.1543 #### [place] [facility] [address] [place], [id number] MISCELLANEOUS LAB Collected: 11/26/2017 Status: F Source: [place] PROCEDURE 3 9:36 AM [facility] REPOSITORY Order Comment: Comments: #[id number] OMEGA 3 FATTY ACID WB LAV RF List Test(s) Ordered by Physician: #[id number] OMEGA 3 FATTY ACID WB LAV RF TYPE CODE TESTS RESULT OUT OF RANGE REFERENCE UNITS LAB L801.1545 Normal [facility] TEST 3 Result Comment: TEST RESULT LIMITS Vitamin B6, Plasma Vitamin B6 22.4 ug/L 5.3 - 46.7 Disclaimer: This test was developed and its performance characteristics determined by [facility]. It has not been cleared or approved by the Food and Drug Administration. TESTING PERFORMED AT [facility]. ORIGINAL REPORT ON FILE IN LAB CONTAINS ADDITIONAL TEST SITE INFORMATION. Performed By: #### L801.1545 #### [place] [facility] [address] [place], [id number] FECAL FAT, QUALITATIVE Collected: 11/26/2017 Status: F Source: [place] 9:36 AM [facility] REPOSITORY TYPE CODE TESTS RESULT OUT OF RANGE REFERENCE UNITS LAB L7000.0400 . Normal FATS, NEUTRAL Normal Result Comment: Normal (<60 Droplets/HPF) LAB L7000.0500 . Normal FATS, TOTAL Normal Result Comment: Normal (<100 Droplets/HPF) Performed at: - [facility] [address] [id number] Location Manager: Tadeo Kinney PhD, Phone: [phone] Performed By: #### L7000.0300 #### [facility] (refer to report for specific site) refer to report for address and phone number OPERATIVE REPORT Observed: 10/18/2017 Status: F Source: [place] 10:06 AM [facility] REPOSITORY [facility] Medical Records Department [address] [place] [address] Operative Report 10/18/17 0958 MR#: [id number] Acct: [id number] Name: JR YE Rep #: [id number] : 1935 82 From: Christiano Moreira MD PCP: Maximiliano MERA,Raymond Status: [facility] [place] Location: [place] [address] Problem List (1) Change in bowel habit Status: Acute Report of Operation Date of Procedure: 10/18/17 Pre-Operative Diagnosis: Nausea, reflux symptoms, feeling of unwellness. Change of stool with pellet sized stool Post-Operative Diagnosis: Small hiatal hernia, minimal antral erythema, minimal duodenal erythema. Widely patent colorectal anastomosis, no acute colon pathology Surgery/Procedure Performed:: Esophagogastro duodenoscopy with cold forcep biopsies. colonoscopy Description of Surgical Findings:: Timeout and informed consent was obtained. 82-year-old gent was taken to the endoscopy suite. His oropharynx anesthetized with Topex. He was placed in a left lateral decubitus position. Throughout both the upper and lower procedure he received a total of 100 mg Demerol for 3.5 mg of Versed as intravenous sedation. Videogastroscope was inserted the proximal mid and even distal esophagus did not appear remarkable. The EG junction was at 41 cm. A small small hiatal hernia noted but I did not see any gross changes reflux. The scope was advanced in the stomach which had a very minimal amount of erythema of the antrum and body of the stomach. Scope was advanced through the pylorus. There was minimal erythema of the duodenum. The scope was nicely advanced in the second portion of the duodenum which otherwise did not appear to be remarkable. Scope was withdrawn back in the duodenal bulb and a biopsy was obtained. The scope was withdrawn back in the stomach and antral biopsy was obtained. The scope was retroflexed the EG junction cardia inspected. The small hiatal hernia noted. The scope was placed back in antegrade viewing position. The scope was withdrawn to the distal esophagus and a distal esophageal biopsy was obtained. The scope was then additionally removed without additional abnormality. The patient was kept in the left lateral decubitus position. Digital rectal exam performed. 2+ smooth prostate. No mass lesions. Flexible colonoscope inserted in the rectum advanced quite readily throughout the colon. The cecum ileocecal valve area was quite nicely achieved. Bowel prep was quite good. The cecum ileocecal valve was not remarkable. The scope was carefully withdrawn from the ascending transverse descending and rectosigmoid colon. There is evidence of a widely patent colon to distal rectosigmoid anastomosis at approximately 12 cm. Some remnant suture material noted in the small pouch. Widely patent anastomosis. No evidence of any obstruction whatsoever. Scope was retroflexed in the rectum this too was not remarkable. Excess fluid and air was aspirated free the procedure was completed with patient tolerating it well. Impression Very small hiatal hernia. Minimal erythema of the antrum and body of the stomach. Minimal erythema of the duodenum. None of these findings would seem to correlate well with the patient's symptoms. Biopsies are pending and the patient will be notified of results. Colon Appear to be quite normal. He has a remote history of colon polyps. Possible consideration for follow-up colonoscopy at 5 years pending the patient progress. Previous colonoscopy was July 16, 2012 The patient has known gallstones. Pending his progress might consider laparoscopic cholecystectomy if nausea persists. The patient may follow- up in the office at his discretion regarding that. Cc: Dr. Metcalf Medications were given at 0931. The upper scope was inserted 0934. The upper scope was completed at 0939. The colonoscopy was started at 0943. The cecum was reached at 0947. The procedure was completed at 0953 Christiano Moreira M.D., F.A.C.S. Type of Anesthesia:: IV Sedation 10/18/17 1006 <Electronically signed by Christiano Moreira MD> Date Christiano Moreira MD CC: Raymond Viera MD; Christiano Moreira MD; Nj Metcalf MD Signed COLON BIOPSY (CHOOSE Observed: 10/18/2017 Status: F Source: [place] SITE) 12:00 AM [facility] REPOSITORY Patient: JR YE : 1935 (82/M) Acct Num: [id number] Phys: Lillie MERA,Christiano Unit Num: [id number] Loc: EN Specimen: [id number] Received: 10/18/17 - 1353 Spec Type: COLON BX TISSUES TISSUES: A. Duodenum, NOS B. Gastric mucous membrane C. Esophageal mucous membrane COMMENT B. The results of immunohistochemistry for Helicobacter pylori will be reported separately ([id number]). GROSS DESCRIPTION A - Received in fixative is one container labeled with the patient's name and designated duodenal biopsy. The specimen consists of two irregular fragments of light lee soft tissue that in aggregate measure 0.4 x 0.2 x 0.1 cm. The specimen is totally submitted in one cassette. B - Received in fixative is one container labeled with the patient's name and designated antral biopsy. The specimen consists of multiple irregular fragments of light lee soft tissue that in aggregate measure 0.5 x 0.2 x 0.1 cm. The specimen is totally submitted in one cassette. C - Received in fixative is one container labeled with the patient's name and designated distal esophageal biopsy. The specimen consists of two irregular fragments of light lee soft tissue that in aggregate measure 0.3 x 0.3 x 0.1 cm. The specimen is totally submitted in one cassette. / RAMON:kimo 10/18/17 TC:3 CPT: 76195 x3 HEADER OPERATION: Colonoscopy, EGD PRE-OP DIAGNOSIS: Nausea, change in bowel habits TISSUE SUBMITTED: A Duodenal biopsy, B Antral biopsy, C Distal esophageal biopsy MICROSCOPIC DESCRIPTION Slides are reviewed. B. The specimen shows fragments of gastric mucosa with chronic inflammatory cell infiltrates in the lamina propria consisting of lymphocytes and plasma cells, consistent with mild chronic gastritis. MICROSCOPIC DIAGNOSIS A. 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 B. Antral biopsy: Mild gastritis. See microscopic description and comment. C. Distal esophageal biopsy: Fragments of squamous epithelium and mild chronic inflammation. SJ:kimo 10/21/17 Signed Castro Tyson 10/21/17 <signature on file> Performed By: #### PCOLBX #### [facility] [address] [place] [address]. [place], [place], [id number] IMMUNOHISTOCHEMISTRY Observed: 10/18/2017 Status: F Source: [place] 12:00 AM [facility] REPOSITORY Patient: JR YE : 1935 (82/M) Acct Num: [id number] Phys: Lillie MERA,Christiano Unit Num: [id number] Loc: EN Specimen: [id number] Received: 10/21/17 - 1153 Spec Type: IMMUNO TISSUES TISSUES: Gastric mucous membrane SPECIMEN INFORMATION: Tissue Source: B - Antral biopsy Clinical Info: Nausea, change in bowel habits Specimen Number: [id number] CPT code: 04354 METHODOLOGY: Deparaffinized sections of prefer/formalin-fixed tissue or PAP/DQ stained slides are incubated with monoclonal/polyclonal antibodies/oligonucleotide probes. Localization is made via biotin free immunoperoxidase method. Appropriate controls are performed and reacted as expected. Results on target cell population are indicated in the following table: RESULTS: ANTIBODY / CLONE RESULT H Pylori (polyclonal) negative These tests were developed and their performance characteristics determined by [facility]. They may not have been cleared or approved by the U.S. Food and Drug Administration. The FDA has determined that such clearance or approval is not necessary. INTERPRETATION: B. Antral biopsy: Negative for Helicobacter pylori organisms. SJ:kimo 10/22/17 [facility] [address] [address] Signed Castro Herrerain 10/22/17 <signature on file> Performed By: #### PIMM #### [facility] [address] [place], [address] SURGERY VISIT REPORT Observed: 10/08/2017 Status: F Source: [place] 1:18 PM [facility] REPOSITORY [facility] 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 Is patient in pain?: No Allergies No Known Allergies Allergy (Verified 10/08/17 12:37) Medications Levothyroxine [Synthroid] 75 mcg PO DAILY 03/19/14 [History Confirmed 10/08/17] lisinopril 10 mg tablet 10 mg PO DAILY #90 tab 04/02/17 [Rx Confirmed 10/08/17] B-complex with vitamin C tablet 1 tab PO QDAY 07/05/17 [History Confirmed 10/08/17] aspirin 325 mg tablet,delayed release 325 mg PO QDAY 07/05/17 [History Confirmed 10/08/17] atorvastatin 20 mg tablet 20 mg PO QHS 07/05/17 [History Confirmed 10/08/17] escitalopram 10 mg tablet 10 mg PO QDAY 07/05/17 [History Confirmed 10/08/17] folic acid 1 mg tablet 1 mg PO QDAY 07/05/17 [History Confirmed 10/08/17] lactobacillus combination no.8 3 billion cell capsule 3,000 mmu cells PO QDAY 07/05/17 [History Confirmed 10/08/17] lorazepam 1 mg tablet 1 mg PO QHS PRN tab 07/05/17 [History Confirmed 10/08/17] vitamin E (dl, acetate) 400 unit capsule 400 unit PO QDAY 07/05/17 [History Confirmed 10/08/17] vitamins A,C,B-tlkj-maleut 14,320 unit-226 mg-200 unit capsule cap PO .daily ea 07/05/17 [History Confirmed 10/08/17] zolpidem 5 mg tablet 5 mg PO HS PRN 07/05/17 [History Confirmed 10/08/17] clobetasol 0.05 % topical cream TOPICAL PRN 10 Days #45 08/09/17 [History Confirmed 10/08/17] coenzyme Q10 100 mg capsule 100 mg PO QDAY 08/09/17 [History Confirmed 10/08/17] PFSH Medical History Atherosclerotic heart disease of [place] coronary artery without angina pectoris (Chronic) Sleep apnea (Chronic) PVC's (premature ventricular contractions) (Chronic) Hyperlipidemia (Chronic) Hypertension (Chronic) Thyroid disease (Chronic) Extensor tendon laceration of hand with open wound (Acute) Back problem (Acute) anxiety/dpression (Acute) BPH (benign prostatic hyperplasia) (Chronic) Diverticulosis (Chronic) GERD (gastroesophageal reflux disease) (Chronic) Tinnitus (Chronic) Surgical History History of appendectomy (Chronic) History of colectomy (Chronic) Hx of squamous cell carcinoma excision (Chronic) Hx of transurethral resection of prostate (Chronic) Family History Father No problems noted. Social History Smoking Status: Never smoker alcohol intake: current alcohol intake frequency: a few times a week Alcohol type: wine substance use type: does not use caffeine: Yes Type: coffee what type of physical activity do you participate in: other details: tredmill, walking frequency: 3-4 times per week duration: 30-45 minutes/day seatbelt use: always do you feel safe at home: Yes HPI HPI HPI: JR YE, is a 82 M who presents to the office today for out of a concern that he more recently has not been feeling well. He complains of chronic nausea. This does not seem to be aggravated by food and in fact is improved by food. He has known cholelithiasis but a previous hepatobiliary scan demonstrated a normal ejection fraction. In addition to these symptoms he has had a change of bowel habits. His stool now is firm small palate in size. He has not had any bright red blood per rectum or melena. He has not had any unexpected weight loss. He does note that this is a distinct change in symptoms from his previous office visit of June 2017 which reflected the following: MR#:[id number] Name: JR YE [facility] #:[id number] : 1935 Provider:Christiano Moreira MD Age/Sex: 81/M Location:[facility] Status:Signed Intake Vital Signs 07/05/17 Height 5 ft 10 in 07/05/17 Weight: 185 lb 07/05/17 Body Mass Index (BMI) 26.5 07/05/17 Blood Pressure 133/74 07/05/17 Blood Pressure Location Rt brachial 07/05/17 Blood Pressure Position Sitting 07/05/17 Respiratory Rate 20 07/05/17 Pulse Rate 74 07/05/17 Pulse Source Monitor 07/05/17 Temperature 97.5 F 07/05/17 Temperature Source Oral 07/05/17 Pulse Ox 97 07/05/17 Oxygen Delivery Method room air Intake Visit Reasons: pt is requesting EGD/cscope 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 Is patient in pain?: No Allergies No Known Allergies Allergy (Verified 07/05/17 08:20) Medications Levothyroxine [Synthroid] 75 mcg PO DAILY 03/19/14 [History Confirmed 07/05/17] lisinopril 10 mg tablet 10 mg PO DAILY #90 tab 04/02/17 [Rx Confirmed 07/05/17] B-complex with vitamin C tablet 1 tab PO QDAY 07/05/17 [History Confirmed 07/05/17] aspirin 325 mg tablet,delayed release 325 mg PO QDAY 07/05/17 [History Confirmed 07/05/17] atorvastatin 20 mg tablet 20 mg PO QHS 07/05/17 [History Confirmed 07/05/17] escitalopram 10 mg tablet 10 mg PO QDAY 07/05/17 [History Confirmed 07/05/17] folic acid 1 mg tablet 1 mg PO QDAY 07/05/17 [History Confirmed 07/05/17] lactobacillus combination no.8 3 billion cell capsule 3,000 mmu cells PO QDAY 07/05/17 [History Confirmed 07/05/17] lorazepam 1 mg tablet 1 mg PO QHS PRN tab 07/05/17 [History Confirmed 07/05/17] vitamin E (dl, acetate) 400 unit capsule 400 unit PO QDAY 07/05/17 [History Confirmed 07/05/17] vitamins A,C,J-okcq-jvruma 14,320 unit-226 mg-200 unit capsule cap PO .daily ea 07/05/17 [History Confirmed 07/05/17] zolpidem 5 mg tablet 5 mg PO HS PRN 07/05/17 [History Confirmed 07/05/17] PFSH Medical History Hyperlipidemia (Chronic) Hypertension (Chronic) Thyroid disease (Chronic) Extensor tendon laceration of hand with open wound (Acute) Back problem (Acute) Diverticulosis (Acute) anxiety/dpression (Acute) Surgical History History of colectomy (Acute) Social History Smoking Status: Never smoker alcohol intake: current alcohol intake frequency: a few times a week substance use type: does not use HPI HPI HPI: JR YE, is a 81 M who presents to the office today for surgical consultation regarding possible screening colonoscopy I have records dated August 07, [address] Araiza. It states that Dr. Tyler Pollack June 2000 had performed a colonoscopy showing scattered diverticulosis but no other pathology. There is a office note dated September 29, [address] Araiza suggesting that a remote workup at the [facility] had also included an upper endoscopy showing some mild gastritis and a colonoscopy showing a colon polyp. There are no local records available suggesting what type of polyp that might of been. There is no continuation of trend throughout his charting to suggest the type of polyp. February 15, 2006 Dr. Byrd performed a upper and lower endoscopy. Those findings suggested antral gastritis. The colonoscopy suggested severe diverticular disease with some luminal narrowing. December 16, 2008 Dr. Byrd performed a upper and lower endoscopy. Small hiatal hernia noted. No active gastritis at that time. The colon did demonstrate a rectosigmoid anastomosis that was widely patent. Biopsies that time showed normal duodenum. Normal jejunum. Normal colon. It is of note that in approximately 2007 I performed a laparoscopic sigmoid colectomy for chronic non-resolving diverticular disease. There were no polyps or premalignancy at that time. The patient's most recent laboratory as February 14, 2017 shows a hemoglobin of 14.4 and a hematocrit of 41.7 The patient's most recent endoscopic examination was July 16, [address] Branden Otero. Upper endoscopy showed erythema of the antrum. Normal esophagus normal duodenum. The colonoscopy also performed at that time showed no remarkable findings. But then said return to GI clinic in 5 years. The biopsies obtained of the stomach showed reactive gastropathy with H pylori negative. More recently the patient has had some non-descriptive concerns about nausea. He is not able to pin down the symptoms. He does not suggest that they are postprandial in nature. He is vague about them. He denies epigastric or right upper quadrant pain. Because of the nausea on February 14, 2017 Dr. Metcalf had obtained a CT scan of the abdomen and pelvis at the [facility]. There are surgical changes noted in the distal colon. No acute inflammation. A few gallstones were noted in the gallbladder but no signs of acute inflammation. As of February 19, 2017 a gallbladder ultrasound also demonstrates some liver and renal cysts. Cholelithiasis noted with an uninflamed gallbladder. Finally on March 04, 2017 a hepatobiliary scan performed at the [facility] demonstrates an ejection fraction of 58% felt to be normal. Laboratory of February 14, 2017 demonstrates normal liver function tests.. ROS General General: No weight change, appetite, fatigue, colon cancer, breast cancer or weakness HEENT HEENT: No difficulty swallowing, eye injury, eye surgery, swollen glands or hoarseness Endo Endocrine: No thyroid disease, diabetes mellitus, thyroid cancer, Hair loss, heat intolerance or cold intolerance Skin Skin: No rash or changing moles Breast Breast: No left breast lump, right breast lump, nipple discharge, breast pain, abnormal mammogram, abnormal US or breast enlargement Musc Musculoskeletal: Yes back problems; no arthritis, rheumatoid arthritis, gout or joint pain Cardio Cardiovascular: Yes high blood pressure; no murmur, pacemaker, heart disease, atrial fibrillation, heart attack, heart stent, palpitations, shortness of breat with exertion or chest pain Psych Psychiatric: Yes depression and anxiety; no hearing voices Resp Respiratory: No shortness of breath, Yes sleep apnea, No cough, No COPD, No asthma, No emphysema, No wheezing Gastro Gastrointestinal: No abdominal pain, Yes nausea or vomiting, No diarrhea, No constipation, No blood in stool, Yes acid reflux, No hemorrhoids, No ulcers, Yes gallbladder problem, No black,tarry stools [place] Hematologic: No blood thinners, No blood disorders, No bleeding, No anemia, No blood clots Neuro Neurologic: No system reviewed and no additional complaints, except as docu, No as per HPI, No abnormal walking, No abnormal hearing, No abnormal movements, No abnormal speech, No behavioral changes, No burning sensations, No confusion, No seizure-like activity, No unsteadiness, No dizziness, No localized weakness, No frequent falls, No headache(s), No lack of coordination, No loss of vision, No memory loss, No numbness, No other visual disturbances, No radiating pain, No restless legs, No sensory deficit, No fainting, No tingling, No tremor(s), No weakness, No other Exam Const General: cooperative, healthy appearing, comfortable, no acute distress Nutritional Appearance: overweight Orientation: alert, awake [facility] Head: normal to inspection Eyes General: appearance normal, both eyes and all related structures Chest Chest palpation AND inspection: normal inspection of the chest Breast Palpation: No nipple discharge Resp Effort AND Inspection: normal respiratory effort Auscultation: clear to auscultation bilaterally Cardio Rate: regular rate Rhythm: regular rhythm Heart Sounds: no murmurs GI Inspection: normal to inspection Palpation: soft, no hepatosplenomegaly Auscultation: normal bowel sounds Other: Well-healed mini Pfannenstiel incision related to his previous colectomy for diverticular disease Neuro Cranial Nerves: CN's II-XI intact bilaterally Extrem General: no clubbing, cyanosis or edema Psych Affect: normal affect Assessment AND Plan 1. Diverticulosis of large intestine without hemorrhage K57.30 Plan 81-year-old gentleman. By tangential medical record reporting there is a suggestion of previous history of colon polyps dating prior to 2003. The patient has had at least 3 colonoscopies since that time with no polyps identified, he has had 3 upper endoscopies none demonstrating malignancy all consistent with mild gastritis. H. pylori has been negative. He has no family history of colon polyps or colon cancer. CT imaging has identified incidental cholelithiasis. I do not believe that he is symptomatic from that at this time. At this time I will not be recommending a screening colonoscopy to the patient. He is enjoying a good quality of life. One could certainly pursue future symptoms if warranted or perhaps consider screening colonoscopy in 2022. He has had an opportunity to ask and have questions answered. At this time I am also not recommending a elective laparoscopic cholecystectomy as his mild intermittent nausea is likely secondary to his already known chronic mild gastritis Cc: Dr. Dixon Moreira, Zohaib., F.A.C.S. Coding Level of Care Code Off vis,new,level 3 Diagnoses Diverticulosis of large intestine without hemorrhage K57.30 Diverticulosis bleeding: diverticulosis without bleeding 07/05/171807<Electronically signed by Christiano Moreira MD> Date Christiano Moreira MD ROS General General: No weight change, appetite, fatigue, colon cancer, breast cancer or weakness HEENT HEENT: No difficulty swallowing, eye injury, eye surgery, swollen glands or hoarseness Endo Endocrine: Yes thyroid disease; no diabetes mellitus, thyroid cancer, Hair loss, heat intolerance or cold intolerance Musc Musculoskeletal: Yes arthritis; no back problems, rheumatoid arthritis, gout or joint pain Cardio Cardiovascular: Yes high blood pressure; no murmur, pacemaker, heart disease, atrial fibrillation, heart attack, heart stent, palpitations, shortness of breat with exertion or chest pain Resp Respiratory: No shortness of breath, No sleep apnea, No cough, No COPD, No asthma, No emphysema, No wheezing Gastro Gastrointestinal: No abdominal pain, Yes nausea or vomiting, Yes diarrhea, Yes constipation, No blood in stool, No acid reflux, No hemorrhoids, No ulcers, No gallbladder problem, No black,tarry stools Neuro Neurologic: No weakness Exam Const General: cooperative, healthy appearing, well developed Nutritional Appearance: average body habitus Orientation: alert, awake [facility] Head: normal to inspection Eyes General: appearance normal, both eyes and all related structures Resp Effort AND Inspection: normal respiratory effort Auscultation: clear to auscultation bilaterally Cardio Rate: regular rate Rhythm: regular rhythm Heart Sounds: no murmurs GI Palpation: soft, no hepatosplenomegaly Auscultation: normal bowel sounds Neuro Cranial Nerves: CN's II-XI intact bilaterally Extrem General: no clubbing, cyanosis or edema Psych Affect: normal affect Assessment AND Plan Problems 1. Nausea R11.0 2. Change in bowel habit R19.4 Plan 82-year-old gentleman. He is very physically fit and active. He has noted a change in his feeling of well-being. The nausea and change of bowel habits. I am proposing for him a esophagogastroduodenoscopy with anticipated biopsies looking possibly for H. pylori or eosinophilic esophagitis. I am proposing for him a colonoscopy with possible biopsy or polypectomy is indicated. He has had a previous sigmoid colectomy for recurrent diverticular disease. Will carefully inspect the anastomosis and perform random biopsies if indicated. He has had an opportunity to ask and have questions answered. He remotely was on acid reducing medication but now only takes Tums on an as needed basis. He might require additional treatment in the future pending endoscopic findings. Christiano Moreira M.D., F.A.C.S. cc:Dr Metcalf Coding Level of Care Code Off vis,est,level 2 Diagnoses Nausea R11.0 Change in bowel habit R19.4 10/08/17 1318 <Electronically signed by Christiano Moreira MD> Date Christiano Moreira MD Cosigner Signature: Date (if applicable) CC: Nj Metcalf MD CBC W/DIFF, AUTOMATED Collected: 08/15/2017 Status: F Source: [place] 10:19 AM [facility] REPOSITORY TYPE CODE TESTS RESULT OUT OF RANGE REFERENCE UNITS LAB L100.1000 4.4-11.0 K/mm3 Normal WBC 5.6 LAB L100.1200 4.6-6.2 M/mm3 Normal RBC 4.66 LAB L100.1300 13.0-16.5 g/dl Normal HGB 14.1 LAB L100.1400 40-54 % Normal HCT 41.7 LAB L100.1500 80-94 fL Normal MCV 89.5 LAB L100.1600 27.0-32.0 pg Normal MCH 30.3 LAB L100.1700 32-36 g/gl Normal MCHC 33.8 LAB L100.1810 11.6-14.6 % Normal RDW CV 14.3 LAB L100.1820 35.1-43.9 fl High RDW SD 46.4 LAB L100.1900 150-450 K/mm3 Normal PLT 199 LAB L100.2000 6.2-12.0 fl Normal MPV 9.4 LAB L100.2100 47-70 % Normal NEUT% 69.5 LAB L100.2200 19-41 % Low LY% 14.8 LAB L100.2300 0-10 % High MONO% 11.2 LAB L100.2400 0-5 % Normal EO% 3.6 LAB L100.2500 0-1 % Normal BASO% 0.5 LAB L100.2550 0.0-0.9 % Normal IM GRAN % 0.400 Result Comment: IG% - Immature Granulocytes (promyelocytes, myelocytes and metamyelocytes) > 1% indicates that a LEFT SHIFT is Present. LAB L100.2620 2.0-7.7 X10 3/uL Normal Absolute Neut 3.9 LAB L100.2720 0.83-4.51 X10 3/ul Low Absolute Lymph 0.82 Performed By: #### L100.0100 #### [facility] [place], [address] COMPREHENSIVE METABOLIC Collected: 08/15/2017 Status: F Source: [facility] 10:19 AM [facility] REPOSITORY TYPE CODE TESTS RESULT OUT OF RANGE REFERENCE UNITS LAB L501.0100 74-106 mg/dL Normal GLU 94 Result Comment: Please note revised GLUCOSE reference range effective 2017. LAB L501.1000 7-18 mg/dL Normal BUN 15 LAB L501.1100 0.70-1.30 mg/dL Normal CREAT,SERUM 1.05 Result Comment: The validity of the calculated GFR AND GFRAA in patients over 70 years has not been determined. Clinical correlation is essential. LAB L501.1110 >60 mL/min Normal EST GFR 72 Result Comment: Non- GFR Calc LAB L501.1115 >60 mL/min Normal EST GFR - AA 87 Result Comment: GFR Calc LAB L501.1300 10-20 RATIO Normal BUN/CRE 14.3 LAB L501.1500 6.4-8.2 g/dL T Normal PROT 6.7 LAB L501.1800 3.2-5.0 g/dL Normal ALB 3.8 LAB L501.1950 2.2-4.2 g/dL Normal GLOB 2.9 LAB L501.2000 0.9-2.4 RATIO Normal A/G 1.3 LAB L501.2200 8.5-10.1 mg/dL Low CA 8.4 LAB L501.4100 15-37 U/L High AST 45 LAB L501.4305 45-117 U/L Normal ALK P 59 LAB L501.4405 16-61 U/L Normal ALT 50 LAB L501.4600 0.20-1.00 mg/dL High T BILI 1.40 LAB L501.5300 136-145 mmol/L NA Normal 139 LAB L501.5600 3.5-5.1 mmol/L K Normal 4.6 LAB L501.5900 98-107 mmol/L CL Normal 107 LAB L501.6100 21.0-32.0 mmol/L Normal CO2 28.0 LAB L501.6200 5-15 Low GAP 4 Performed By: #### L500.4050, L500.4100, L501.9520 #### [facility] [address] [place], [address] LIPID PROFILE Collected: 08/15/2017 Status: F Source: [place] 10:19 AM [facility] REPOSITORY TYPE CODE TESTS RESULT OUT OF RANGE REFERENCE UNITS LAB L501.4900 200 mg/dL Normal CHOL 111 Result Comment: <200 mg/dL Desirable 200-240 mg/dL Borderline >240 mg/dL High Risk LAB L501.5000 mg/dL Normal TRIG 51 Result Comment: The drugs N-Acetylcysteine and Metamizole may falsely depress this assay. Serum Triglycerides Reference Interval Normal <150 mg/dL Borderline high 150 - 199 mg/dL High 200 - 499 mg/dL Very High > or = 500 mg/dL LAB L501.6400 mg/dL Normal HDL 54 Result Comment: The drugs N-Acetylcysteine and Metamizole may falsely depress this assay. Reference Range HDL <40 mg/dL Low HDL Cholesterol HDL >or= 60 mg/dL High HDL Cholesterol LAB L501.6500 0-130 mg/dL Normal LDL 47 LAB L501.6600 5-40 mg/dL Normal VLDL 10 Performed By: #### L500.4050, L500.4100, L501.9520 #### [facility] [address] [place], [address] THYROID STIM HORMONE Collected: 08/15/2017 Status: F Source: [place] (TSH) 10:19 AM [facility] REPOSITORY TYPE CODE TESTS RESULT OUT OF RANGE REFERENCE UNITS LAB L501.9520 0.358-3.74 uIU/mL Normal TSH 3.07 Performed By: #### L500.4050, L500.4100, L501.9520 #### [facility] [address] [place], [address] VITAMIN D,25 HYDROXY Collected: 08/15/2017 Status: F Source: [place] 10:19 AM [facility] REPOSITORY TYPE CODE TESTS RESULT OUT OF REFERENCE UNITS RANGE LAB L506.1000 29.95-100.01 ng/mL Low Vitamin D 23.2 25-OH Result Comment: Vitamin D 25(OH) Status Range Deficiency <20 ng/mL (50nmol/L) Insuffciency 20 - 30 ng/mL (50 - 75 nmol/L) Sufficiency 30 - 100 ng/mL (75 - 250 nmol/L) Toxicity >100 ng/mL (>250 nmol/L) Performed By: #### L506.1000 #### [facility] [address] [place], [address] LIVER PROFILE Collected: 08/09/2017 Status: F Source: [place] 9:28 AM [facility] REPOSITORY Order Comment: Order Date: 07/23/16 Order Info: [id number] - *Lipid Profile CC PCP Comments: 12 hours fasting, may have water. TYPE CODE TESTS RESULT OUT OF RANGE REFERENCE UNITS LAB L501.1500 6.4-8.2 g/dL Normal T PROT 6.9 LAB L501.1800 3.2-5.0 g/dL Normal ALB 3.9 LAB L501.1950 2.2-4.2 g/dL Normal GLOB 3.0 LAB L501.4100 15-37 U/L High AST 42 LAB L501.4305 45-117 U/L Normal ALK P 66 LAB L501.4405 16-61 U/L Normal ALT 37 LAB L501.4600 0.20-1.00 mg/dL High T BILI 1.20 LAB L501.4700 0.00-0.30 mg/dL Normal D BILI 0.29 Performed By: #### L500.3400, L500.4100 #### [facility] [address] [place], [place], [id number] LIPID PROFILE Collected: 08/09/2017 Status: F Source: [place] 9:28 AM [facility] REPOSITORY Order Comment: Order Date: 07/23/16 Order Info: [id number] - *Lipid Profile CC PCP Comments: 12 hours fasting, may have water. TYPE CODE TESTS RESULT OUT OF RANGE REFERENCE UNITS LAB L501.4900 200 mg/dL Normal CHOL 109 Result Comment: <200 mg/dL Desirable 200-240 mg/dL Borderline >240 mg/dL High Risk LAB L501.5000 mg/dL Normal TRIG 60 Result Comment: The drugs N-Acetylcysteine and Metamizole may falsely depress this assay. Serum Triglycerides Reference Interval Normal <150 mg/dL Borderline high 150 - 199 mg/dL High 200 - 499 mg/dL Very High > or = 500 mg/dL LAB L501.6400 mg/dL Normal HDL 55 Result Comment: The drugs N-Acetylcysteine and Metamizole may falsely depress this assay. Reference Range HDL <40 mg/dL Low HDL Cholesterol HDL >or= 60 mg/dL High HDL Cholesterol LAB L501.6500 0-130 mg/dL Normal LDL 42 LAB L501.6600 5-40 mg/dL Normal VLDL 12 Performed By: #### L500.3400, L500.4100 #### [facility] [address] [place], [address] CARDIOLOGY VISIT Observed: 08/09/2017 Status: F Source: [place] REPORT 9:06 AM [facility] REPOSITORY [facility] [address] [place] [address] OFFICE VISIT Date of Service: 08/09/17 MR#: [id number] Acct: [id number] Name: JR YE Rep #: [id number] : 1935 Provider: Eddie Martinez MD Age/Sex: 81/M [place] [facility]: Signed HPI HPI Chief Complaint: Follow-up visit. Details: JR YE, is a 81 M who presents to the office today for follow-up visit. He is a gentleman with a history of hypertension minimal coronary artery disease hyperlipidemia on treatment who returns for follow-up visit. He denies any chest pain or shortness breath or paroxysmal nocturnal dyspnea pedal edema he still remains active around the house he has not had any major cardiac issues. He has been compliant with all his medications. His physical exam today demonstrates clear lung skelton regular rate and rhythm and no pedal edema. His blood pressure is under excellent control. Intake Vital Signs08/09/17 Height 5 ft 10 in 08/09/17 Weight: 187 lb 08/09/17 Body Mass Index (BMI) 26.8 08/09/17 Blood Pressure 112/72 08/09/17 Blood Pressure Location Lt brachial Intake Visit Reasons: 1 Y FU (we moved from -) 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 Accompanied by: None Is patient in pain?: No Allergies No Known Allergies Allergy (Verified 08/09/17 08:49) Medications Levothyroxine [Synthroid] 75 mcg PO DAILY 03/19/14 [History Confirmed 08/09/17] lisinopril 10 mg tablet 10 mg PO DAILY #90 tab 04/02/17 [Rx Confirmed 08/09/17] B-complex with vitamin C tablet 1 tab PO QDAY 07/05/17 [History Confirmed 08/09/17] aspirin 325 mg tablet,delayed release 325 mg PO QDAY 07/05/17 [History Confirmed 08/09/17] atorvastatin 20 mg tablet 20 mg PO QHS 07/05/17 [History Confirmed 08/09/17] escitalopram 10 mg tablet 10 mg PO QDAY 07/05/17 [History Confirmed 08/09/17] folic acid 1 mg tablet 1 mg PO QDAY 07/05/17 [History Confirmed 08/09/17] lactobacillus combination no.8 3 billion cell capsule 3,000 mmu cells PO QDAY 07/05/17 [History Confirmed 08/09/17] lorazepam 1 mg tablet 1 mg PO QHS PRN tab 07/05/17 [History Confirmed 08/09/17] vitamin E (dl, acetate) 400 unit capsule 400 unit PO QDAY 07/05/17 [History Confirmed 08/09/17] vitamins A,C,G-teru-zdpfni 14,320 unit-226 mg-200 unit capsule cap PO .daily ea 07/05/17 [History Confirmed 08/09/17] zolpidem 5 mg tablet 5 mg PO HS PRN 07/05/17 [History Confirmed 08/09/17] clobetasol 0.05 % topical cream TOPICAL PRN 10 Days #45 08/09/17 [History Confirmed 08/09/17] coenzyme Q10 100 mg capsule 100 mg PO QDAY 08/09/17 [History Confirmed 08/09/17] Ejection fraction %: 60 to 64 (63% per echo 08/17/2009 at [facility]) [facility] Medical History Atherosclerotic heart disease of [place] coronary artery without angina pectoris (Chronic) Sleep apnea (Chronic) PVC's (premature ventricular contractions) (Chronic) Hyperlipidemia (Chronic) Hypertension (Chronic) Thyroid disease (Chronic) Extensor tendon laceration of hand with open wound (Acute) Back problem (Acute) anxiety/dpression (Acute) BPH (benign prostatic hyperplasia) (Chronic) Diverticulosis (Chronic) GERD (gastroesophageal reflux disease) (Chronic) Tinnitus (Chronic) Surgical History History of appendectomy (Chronic) History of colectomy (Chronic) Hx of squamous cell carcinoma excision (Chronic) Hx of transurethral resection of prostate (Chronic) Family History Father No problems noted. Social History Smoking Status: Never smoker alcohol intake: current alcohol intake frequency: a few times a week Alcohol type: wine substance use type: does not use caffeine: Yes Type: coffee what type of physical activity do you participate in: other details: tredmill, walking frequency: 3-4 times per week duration: 30-45 minutes/day seatbelt use: always do you feel safe at home: Yes ROS Const Const: Negative for body ache, fever(s), chills, night sweats, daytime sleepiness, difficulty sleeping, weight gain, weight loss, increased appetite, poor appetite, anorexia, other, frequent falls, headache(s), weakness, fatigue or excessive sweating Eyes Eyes: Negative for blind spots, loss of peripheral vision, transient loss of vision, change in vision, floaters, tunnel vision, other, blurry vision or double vision ENT ENT: Positive for dry mouth; negative for hearing loss, tinnitus, Nosebleed/epistaxis, post nasal drip, bleeding gums, hoarseness, neck pain, other, balance problems, dizziness, headache(s), tongue swelling or lip swelling Cardio Chest Pain: No Palpitations: No Edema: None Muscle aches with walking: None Resp Respiratory: Negative for SOB with activity, SOB at rest, SOB orthopnea\SOB lying down, Cough, Coughing up blood/hemoptysis, chest congestion, pain on inspiration, snoring, stridor, wheezing, crackles, paroxysmal nocturnal dyspnea or other GI GI: Negative nausea, vomiting, heartburn, constipation, belching, bloating, cramping, vomiting blood/hematemesis, bright, red blood in stools, black,tarry stools, loose stools, Difficulty Swallowing or other : Negative for hematuria, frequent nighttime urination/ nocturia, erectile dysfunction or abnormal vaginal bleeding Musc Musc: Positive for muscle aches/ myalgia; negative for muscle weakness, joint pain or balance problems Skin Skin: Negative redness, non-healing lesions, unusual bruising, skin ulcer, wounds, jaundice, other or rash Neuro Neuro: Negative for dizziness, lightheadedness, near syncope, syncope, orthostatic symptoms, frequent falls, headache(s), weakness, confusion, memory loss, restless legs, blurry vision, double vision, vertigo, seizures, lack of coordination or other Morris Hematologic/Lymphatic: Negative for easy bleeding, easy bruising, enlarged lymph nodes or other Endo Endo: Negative for fatigue, cold intolerance, heat intolerance, excessive sweating, flushing, increased thirst/drinking, increased hunger, hair loss, hair growth or other Psych Psych: Positive for anxiety; negative for depression, thoughts of harming anyone, thoughts of harming yourself, visual hallucinations, panic attacks or audible hallucinations Allergy Allergy/Immunology: Negative for throat swelling, Negative for tongue swelling, Negative for hives, Negative for rash, Negative for lip swelling Cardiology Exam Const Appearance: cooperative, healthy appearing, well developed, well groomed and no acute distress Nutritional Appearance: well nourished and average body habitus Orientation: alert, awake and oriented x3 Head Head: normal to inspection, normocephalic and atraumatic Ears: hearing grossly normal bilaterally and external ears normal Nose: external nose normal, nasal mucous membranes and turbinates normal, nares normal, septum normal, no nasal discharge Face and Sinus: face symmetric Mouth: oral mucosae normal, tongue normal, oropharynx normal and moist mucous membranes Teeth and gingiva: dentition normal Throat: posterior oropharynx normal, tonsils normal and uvula midline Eyes General: appearance normal, both eyes and all related structures Eyelids: eyelids normal Conjunctivae: conjunctivae normal Pupils: PERRL, normal by confrontation and accommodation normal EOM: EOM intact bilaterally Neck Neck: normal visual inspection, trachea midline and no JVD JVD: +5 Carotids: normal carotid upstroke and bounding pulses Chest Chest inspection: normal inspection of the chest, symmetric chest movement and normal respiratory effort Auscultation: Bilateral: Clear to Auscultation Cardio Palpation: normal PMI Rate: regular rate Rhythm: regular rhythm Heart sounds: S1 normal, S2 normal and normal, physiologic split S2; negative rub, gallop or murmur GI GI: normal to inspection, soft, no hepatosplenomegaly and bowel sounds present Neuro General: alert, awake, oriented x3, no focal sensory deficit, gait normal and moves all extremities Skin Skin: no rashes or lesions noted Extremities Pulses: Normal: Right Femoral Pulse, Left Femoral Pulse, Right Dorsalis Pedis Pulse, Left Dorsalis Pedis Pulse, Right Posterior Tibial Pulse, Left Posterior Tibial Pulse, Right Radial Pulse, Left Radial Pulse Lower Extremity Edema: None: Bilateral Musculoskel Musculoskeletal: No joint tenderness Psych Psychological: normal affect Assessment AND Plan 1. Essential hypertension I10 Plan His blood pressure is under excellent control on the current medical therapy I would not recommend we make any changes 2. Pure hypercholesterolemia E78.00; E78.0 Plan His most recent lipid profile demonstrated a total cholesterol 118, LDL of 8 and HDL of 42. Liver function tests were within normal limits. A repeat lipid profile will be obtained. Thank you for allowing me to participate in the care of your patient. 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) Coding Level of Care Code Off vis,est,level 3 Diagnoses Essential hypertension I10 Hypertension type: essential hypertension Pure hypercholesterolemia E78.00; E78.0 Hyperlipidemia type: pure hypercholesterolemia Coding Level of Care Code Off vis,est,level 3 Diagnoses Essential hypertension I10 Hypertension type: essential hypertension Pure hypercholesterolemia E78.00; E78.0 Hyperlipidemia type: pure hypercholesterolemia 08/09/17 0906 <Electronically signed by Eddie Martinez MD> Date Eddie Martinez MD Cosigner Signature: Date (if applicable) CC: Nj Metcalf MD SURGERY VISIT REPORT Observed: 07/05/2017 Status: F Source: [place] 6:08 PM [facility] [address] [place] [address] OFFICE VISIT Date of Service: 07/05/17 MR#: [id number] Acct: [id number] Name: JR YE Rep #: [id number] : 1935 Provider: Christiano Moreira MD Age/Sex: 81/M Location: [facility] Status: Signed Intake Vital Signs07/05/17 Height 5 ft 10 in 07/05/17 Weight: 185 lb Intake Visit Reasons: pt is requesting EGD/cscope 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 Is patient in pain?: No Allergies No Known Allergies Allergy (Verified 07/05/17 08:20) Medications Levothyroxine [Synthroid] 75 mcg PO DAILY 03/19/14 [History Confirmed 07/05/17] lisinopril 10 mg tablet 10 mg PO DAILY #90 tab 04/02/17 [Rx Confirmed 07/05/17] B-complex with vitamin C tablet 1 tab PO QDAY 07/05/17 [History Confirmed 07/05/17] aspirin 325 mg tablet,delayed release 325 mg PO QDAY 07/05/17 [History Confirmed 07/05/17] atorvastatin 20 mg tablet 20 mg PO QHS 07/05/17 [History Confirmed 07/05/17] escitalopram 10 mg tablet 10 mg PO QDAY 07/05/17 [History Confirmed 07/05/17] folic acid 1 mg tablet 1 mg PO QDAY 07/05/17 [History Confirmed 07/05/17] lactobacillus combination no.8 3 billion cell capsule 3,000 mmu cells PO QDAY 07/05/17 [History Confirmed 07/05/17] lorazepam 1 mg tablet 1 mg PO QHS PRN tab 07/05/17 [History Confirmed 07/05/17] vitamin E (dl, acetate) 400 unit capsule 400 unit PO QDAY 07/05/17 [History Confirmed 07/05/17] vitamins A,C,F-llcd-qklbha 14,320 unit-226 mg-200 unit capsule cap PO .daily ea 07/05/17 [History Confirmed 07/05/17] zolpidem 5 mg tablet 5 mg PO HS PRN 07/05/17 [History Confirmed 07/05/17] PFSH Medical History Hyperlipidemia (Chronic) Hypertension (Chronic) Thyroid disease (Chronic) Extensor tendon laceration of hand with open wound (Acute) Back problem (Acute) Diverticulosis (Acute) anxiety/dpression (Acute) Surgical History History of colectomy (Acute) Social History Smoking Status: Never smoker alcohol intake: current alcohol intake frequency: a few times a week substance use type: does not use HPI HPI HPI: JR YE, is a 81 M who presents to the office today for surgical consultation regarding possible screening colonoscopy I have records dated August 07, [address] Araiza. It states that Dr. Tyler Pollack June 2000 had performed a colonoscopy showing scattered diverticulosis but no other pathology. There is a office note dated September 29, [address] Araiza suggesting that a remote workup at the [facility] had also included an upper endoscopy showing some mild gastritis and a colonoscopy showing a colon polyp. There are no local records available suggesting what type of polyp that might of been. There is no continuation of trend throughout his charting to suggest the type of polyp. February 15, 2006 Dr. Byrd performed a upper and lower endoscopy. Those findings suggested antral gastritis. The colonoscopy suggested severe diverticular disease with some luminal narrowing. December 16, 2008 Dr. Byrd performed a upper and lower endoscopy. Small hiatal hernia noted. No active gastritis at that time. The colon did demonstrate a rectosigmoid anastomosis that was widely patent. Biopsies that time showed normal duodenum. Normal jejunum. Normal colon. It is of note that in approximately 2007 I performed a laparoscopic sigmoid colectomy for chronic non-resolving diverticular disease. There were no polyps or premalignancy at that time. The patient's most recent laboratory as February 14, 2017 shows a hemoglobin of 14.4 and a hematocrit of 41.7 The patient's most recent endoscopic examination was July 16, [address] Branden Otero. Upper endoscopy showed erythema of the antrum. Normal esophagus normal duodenum. The colonoscopy also performed at that time showed no remarkable findings. But then said return to GI clinic in 5 years. The biopsies obtained of the stomach showed reactive gastropathy with H pylori negative. More recently the patient has had some non-descriptive concerns about nausea. He is not able to pin down the symptoms. He does not suggest that they are postprandial in nature. He is vague about them. He denies epigastric or right upper quadrant pain. Because of the nausea on February 14, 2017 Dr. Metcalf had obtained a CT scan of the abdomen and pelvis at the [facility]. There are surgical changes noted in the distal colon. No acute inflammation. A few gallstones were noted in the gallbladder but no signs of acute inflammation. As of February 19, 2017 a gallbladder ultrasound also demonstrates some liver and renal cysts. Cholelithiasis noted with an uninflamed gallbladder. Finally on March 04, 2017 a hepatobiliary scan performed at the [facility] demonstrates an ejection fraction of 58% felt to be normal. Laboratory of February 14, 2017 demonstrates normal liver function tests.. ROS General General: No weight change, appetite, fatigue, colon cancer, breast cancer or weakness HEENT HEENT: No difficulty swallowing, eye injury, eye surgery, swollen glands or hoarseness Endo Endocrine: No thyroid disease, diabetes mellitus, thyroid cancer, Hair loss, heat intolerance or cold intolerance Skin Skin: No rash or changing moles Breast Breast: No left breast lump, right breast lump, nipple discharge, breast pain, abnormal mammogram, abnormal US or breast enlargement Musc Musculoskeletal: Yes back problems; no arthritis, rheumatoid arthritis, gout or joint pain Cardio Cardiovascular: Yes high blood pressure; no murmur, pacemaker, heart disease, atrial fibrillation, heart attack, heart stent, palpitations, shortness of breat with exertion or chest pain Psych Psychiatric: Yes depression and anxiety; no hearing voices Resp Respiratory: No shortness of breath, Yes sleep apnea, No cough, No COPD, No asthma, No emphysema, No wheezing Gastro Gastrointestinal: No abdominal pain, Yes nausea or vomiting, No diarrhea, No constipation, No blood in stool, Yes acid reflux, No hemorrhoids, No ulcers, Yes gallbladder problem, No black,tarry stools Morris Hematologic: No blood thinners, No blood disorders, No bleeding, No anemia, No blood clots Neuro Neurologic: No system reviewed and no additional complaints, except as docu, No as per HPI, No abnormal walking, No abnormal hearing, No abnormal movements, No abnormal speech, No behavioral changes, No burning sensations, No confusion, No seizure-like activity, No unsteadiness, No dizziness, No localized weakness, No frequent falls, No headache(s), No lack of coordination, No loss of vision, No memory loss, No numbness, No other visual disturbances, No radiating pain, No restless legs, No sensory deficit, No fainting, No tingling, No tremor(s), No weakness, No other Exam Const General: cooperative, healthy appearing, comfortable, no acute distress Nutritional Appearance: overweight Orientation: alert, awake [facility] Head: normal to inspection Eyes General: appearance normal, both eyes and all related structures Chest Chest palpation AND inspection: normal inspection of the chest Breast Palpation: No nipple discharge Resp Effort AND Inspection: normal respiratory effort Auscultation: clear to auscultation bilaterally Cardio Rate: regular rate Rhythm: regular rhythm Heart Sounds: no murmurs GI Inspection: normal to inspection Palpation: soft, no hepatosplenomegaly Auscultation: normal bowel sounds Other: Well-healed mini Pfannenstiel incision related to his previous colectomy for diverticular disease Neuro Cranial Nerves: CN's II-XI intact bilaterally Extrem General: no clubbing, cyanosis or edema Psych Affect: normal affect Assessment AND Plan 1. Diverticulosis of large intestine without hemorrhage K57.30 Plan 81-year-old gentleman. By tangential medical record reporting there is a suggestion of previous history of colon polyps dating prior to 2003. The patient has had at least 3 colonoscopies since that time with no polyps identified, he has had 3 upper endoscopies none demonstrating malignancy all consistent with mild gastritis. H. pylori has been negative. He has no family history of colon polyps or colon cancer. CT imaging has identified incidental cholelithiasis. I do not believe that he is symptomatic from that at this time. At this time I will not be recommending a screening colonoscopy to the patient. He is enjoying a good quality of life. One could certainly pursue future symptoms if warranted or perhaps consider screening colonoscopy in 2022. He has had an opportunity to ask and have questions answered. At this time I am also not recommending a elective laparoscopic cholecystectomy as his mild intermittent nausea is likely secondary to his already known chronic mild gastritis Cc: Dr. Dixon Moreira M.D., F.A.C.S. Coding Level of Care Code Off vis,new,level 3 Diagnoses Diverticulosis of large intestine without hemorrhage K57.30 Diverticulosis bleeding: diverticulosis without bleeding 07/05/17 6395 <Electronically signed by Christiano Moreira MD> Date Christiano Moreira MD Cosigner Signature: Date (if applicable) CC: Nj Metcalf MD ALLERGIES ALLERGIES DATE TYPE / CODE NAME / CODE REACTION SEVERITY SOURCE 03/11/2018 Drug No Known Unknown [facility] Allergy/4160 Allergies/F00 Hospital 24601(SNOMED 7809385(RXNOR Repository CT) M) ENCOUNTERS ENCOUNTERS ADMIT/DISCHARGE ACCOUNT ADMITTING ENCOUNTER LOCATION SOURCE NUMBER CLASS 03/19/[id number] Repository 03/11/2018/03/11/20 [id number] Ambulatory BMSBuilding:B [place] 18 [facility] Repository 03/03/2018 [id number] Ambulatory [facility] Hospital ing:POLAB3 Repository 01/15/2018 [id number] Ambulatory [facility] Hospital ing:MTLAB Repository 01/08/2018 [id number] Ambulatory [facility] Hospital ing:SL Repository 12/06/2017/12/07/19 [id number] Ambulatory BMSBuilding:B [place] [facility] Repository 11/26/2017 [id number] Ambulatory [facility] Hospital ing:MFPLAB Repository 10/23/2017 [id number] Ambulatory [address] [place] [address] Repository 10/18/2017/10/19/19 [id number] Ambulatory [address] Hospital ing:EN Repository 10/18/2017 [id number] Ambulatory BMSBuilding:B [place] MS.[facility] Repository 10/08/2017/10/09/19 [id number] Ambulatory BMSBuilding:B [place] 18 [facility] Repository 08/15/2017 [id number] Ambulatory [facility] Hospital ing:POLAB3 Repository 08/09/2017 [id number] Ambulatory [facility] Hospital ing:LAB Repository 08/09/2017/08/10/19 [id number] Ambulatory BMSBuilding:B [place] 18 MS.[facility] Repository 08/05/2017 [id number] Ambulatory BMSBuilding:B [place] MS.[facility] Repository 07/05/2017/07/06/19 [id number] Ambulatory BMSBuilding:B [place] 18 MS.[facility] Repository 06/26/2017 [id number] Ambulatory [address] [place] [address] Repository PAYERS PAYERS ENCOUNTER GUARANTOR PAYER SUBSCRIBER SOURCE 03/19/2018 JR Mueller [facility] DEMKEEDOB: Insurance:[employer] Gold DEMKEEDOB: [facility] Number: [id number] [place] [address] [id number] [address] [place] [address] Date:Plan Name:[place], [place] [address]Rtg: [phone]: [phone] () 03/11/2018 JR E Primary JR Parekh [id number] Insurance:HUMANA DEMKEEDOB: Community [address] [employer] PPOPolicy [id number] Number: Repository [address]Nid: 330 [id number] [phone] () Date:[id number] [address]KR: 03/11/2018 Secondary NOT GIVENUNK [place] Insurance:SELF PAY [facility] Number: Effective Repository Date:2018-03-04 03/03/2018 JR E Primary JR E [place] [id number] Insurance:HUMANA DEMKEEDOB: Community [address] [employer] PPOPolicy [id number][place] Number: Repository [address]Lti: 330 [id number] [phone] () Date:[id number] [address]YR: 03/03/2018 Secondary NOT GIVENUNK [place] Insurance:SELF PAY [facility] Number: Effective Repository Date:2018-03-03 01/15/2018 JR E Primary JR E [place] [id number] Insurance:HUMANA DEMKEEDOB: Community [address] [employer] PPOPolicy [id number] Number: Repository [address]Peo: [phone] [id number] [phone] (HP) Date:4323-04-19ZI[address] [address]GT: 01/15/2018 Secondary NOT GIVENUNK [place] Insurance:SELF PAY [facility] Number: Effective Repository Date:2018-01-15 01/08/2018 JR E Primary JR E [place] [id number] Insurance:HUMANA DEMKEEDOB: Community [address] [employer] PPOPolicy [id number] [facility] [place] Number: Repository [address]Hne: 330 [id number] [phone] (HP) Date:3669-18-53TT [address] [address]YZ: 01/08/2018 Secondary NOT GIVENUNK [place] Insurance:SELF PAY [facility] Number: Effective Repository Date:2017-12-19 12/06/2017 JR E Primary JR E [place] [id number] Insurance:HUMANA DEMKEEDOB: Community [address] [employer] PPOPolicy [id number] [facility] Number: Repository [address]Dxc: 330 [id number] [phone] (HP) Date:7183-76-03ZV [address]4601WP: 12/06/2017 Secondary NOT GIVENUNK [place] Insurance:SELF PAY [facility] Number: Effective Repository Date:2017-11-28 11/26/2017 JR E Primary JR E [place] [id number] Insurance:HUMANA DEMKEEDOB: Community [address] [employer] PPOPolicy [id number] [facility]aritan [facility] Number: Repository [address]Hfz: 330 [id number] [phone] (HP) Date:2322-21-25WF [address] [address]YC: 11/26/2017 Secondary NOT GIVENUNK [place] Insurance:SELF PAY [facility] Number: Effective Repository Date:2017-11-25 10/23/2017 JR Primary [facility] DEMKEEDOB: Insurance:[employer] Gold DEMKEEDOB: [facility] Number: [id number] [place] [address] [id number] [address] [place] [address] Date:Plan Name:[facility] PAUL WIGGINS [address]Zso: [phone]: ([phone] (HP) 10/18/2017 JR E Primary JR E [place] [id number] Insurance:HUMANA DEMKEEDOB: Community [address] [employer] PPOPolicy [id number] Number: Repository [address]Gjp: 330 [id number] [phone] () Date:9294-42-44JN [address]4601WP: 10/18/2017 Secondary NOT GIVENUNK [place] Insurance:SELF PAY [facility] Number: Effective Repository Date:2017-10-08 10/18/2017 JR E Primary JR E [place] [id number] Insurance:HUMANA DEMKEEDOB: Community [address] [employer] PPOPolicy [id number] Number: Repository [address]Ygf: 330 [id number] [phone] () Date:6696-35-05PY [place] 622[address]WP: 10/18/2017 Secondary NOT GIVENUNK [place] Insurance:SELF PAY [facility] Number: Effective Repository Date:2017-10-18 10/08/2017 JR E Primary JR E [place] [id number] Insurance:HUMANA DEMKEEDOB: Community [address] [employer] PPOPolicy [id number], [place] Number: Repository [address]Ndh: 330 [id number] [phone] () Date:9028-34-01ZF [address] [address]LL: 10/08/2017 Secondary NOT GIVENUNK [place] Insurance:SELF PAY [facility] Number: Effective Repository Date:2017-10-08 08/15/2017 JR E Primary JR E [place] [id number] Insurance:HUMANA DEMKEEDOB: Community [address] [employer] PPOPolicy [id number] [facility] Number: Repository [address]Afo: [id number] [phone] Date:5624-67-49EL [address] () [address] [place] [address]WP: 08/15/2017 Secondary NOT GIVENUNK [place] Insurance:SELF PAY [facility] Number: Effective Repository Date:2017-08-15 08/09/2017 JR E Primary JR E [place] [id number] Insurance:HUMANA DEMKEEDOB: Community [address] [employer] PPOPolicy [id number] [facility]aritan [facility] Number: Repository [address]Fqo: [id number] [phone] Date:6412-30-59BH [address] () [address] [place], [place] [address]WP: 08/09/2017 Secondary NOT GIVENUNK [place] Insurance:SELF PAY [facility] Number: Effective Repository Date:2017-08-09 08/09/2017 JR E Primary JR E [place] [id number] Insurance:HUMANA DEMKEEDOB: Community [address] [employer] PPOPolicy [id number] [facility]aritan [facility] Number: Repository [address]Dra: [id number] [phone] Date:0965-65-51XS [address] () [id number] [place] [address]NN: 08/09/2017 Secondary NOT GIVENUNK [place] Insurance:SELF PAY [facility] Number: Effective Repository Date:2017-03-14 08/05/2017 JR E Primary JR E [place] [id number] Insurance:HUMANA DEMKEEDOB: Community [address] [employer] PPOPolicy [id number] [facility]aritan [facility] Number: Repository [address]Fok: [id number] [phone] Date:1252-84-74VB [address] () [address] [place] [address]JD: 08/05/2017 Secondary NOT GIVENUNK [place] Insurance:SELF PAY [facility] Effective Repository Date:2017-08-05 07/05/2017 [id number]:HUMANA DEMKEEDOB: Community [address] [employer] PPOPolicy [id number], [place] Number: Repository [id number]: [id number] [phone] Date:8103-85-04EU [address] () [address] [place] [address]CK: 07/05/2017 Secondary NOT GIVENUNK [place] Insurance:SELF PAY [facility] Number: Effective Repository Date:2017-07-04 06/26/2017 [facility] DEMKEEDOB: Insurance:[employer] Gold DEMKEEDOB: Hospitals [id number] [facility] Number: [id number] [place] [address] [id number] Date:Plan Name:[place], [place] [address]Uap: [phone]: () [phone]
== END ==
PROVIDERS: Visit Provider Family Medicine Geriatric Medicine
DX: E23.6 Other disorders of pituitary gland (principal); E55.9 Vitamin D deficiency, unspecified; I10 Essential (primary) hypertension; E78.49 Other hyperlipidemia
CPT/HCPCS: 36415; 80053; 80061; 82306; 84403; 84443; 85025

== ENCOUNTER → 2018-06-03 13:13 | Outpatient (CLI) | payer MEDICARE, SELFPAY ==
[2018-03-11 08:06] VITALS: BMI 26.9
== END ==
PROVIDERS: Family Provider Family Medicine Geriatric Medicine; PCP Family Medicine Geriatric Medicine; Referring Provider Nurse Practitioner Acute Care; Visit Provider Nurse Practitioner Acute Care
DX: R05 Cough (principal)
CPT/HCPCS: 87070; 87205; 87633

== ENCOUNTER → 2018-08-20 | Outpatient (CLI) | payer MEDICARE, SELFPAY ==
[2018-08-12 07:28] VITALS: BMI 27.1
--- NOTE | 2018-08-20 17:34 | STRESSREP ---
Stress Test Report Exercise stress test. Resting EKG demonstrates normal sinus rhythm with a rate of 63 bpm normal intervals are noted resting blood pressures 114/70 mmHg. The patient exercised according to regular Phuc protocol for total duration of 6 minutes and 30 seconds. The maximum heart rate attained was 120 bpm which was 85% of maximum predicted heart rate the maximum workload was 7.7 metabolic equivalents. At rest there were no ST or T wave changes noted suggest ischemia at peak exercise upsloping ST changes only were noted with no meet the criteria for ischemia. No clinical angina was noted. The test was terminated due to leg fatigue. There was good rate recovery post exercise. Conclusion: Exercise stress test with no EKG criteria for ischemia at a moderate workload.
== END | disposition home or self-care (01) ==
LOC: CVS 11:52
PROVIDERS: Family Provider Family Medicine Geriatric Medicine; PCP Family Medicine Geriatric Medicine; Visit Provider Internal Medicine Cardiovascular Disease
DX: I25.10 Atherosclerotic heart disease of native coronary artery without angina pectoris (principal)
CPT/HCPCS: 93017

== ENCOUNTER → 2018-09-02 09:11 | Outpatient (CLI) | payer MEDICARE, SELFPAY ==
[2018-08-12 07:28] VITALS: BMI 27.1
[2018-09-02 12:52] LABS: Basophil# 0.02 X10^3/uL; Basophil% 0.3 % (0-1); Eosinophil# 0.15 X10^3/uL; Eosinophils% 1.9 % (0-5); Hematocrit 38.8 % (40-54); Hemoglobin 12.9 g/dl (13.0-16.5); Lymphocyte % 11.6 % (19-41); Mean Corp Hgb Conc 33.2 g/gl (32-36); Mean Corpuscular Hgb 29.3 pg (27.0-32.0); Mean Corpuscular Volume 88.2 fL (80-94); Mean Platelet Vol. 9.1 fl (6.2-12.0); Monocyte# 0.67 X10^3/uL; Monocyte% 8.6 % (0-10); Neutrophil # 6.04 X10^3/uL (2.7-7.7); Neutrophil % 77.6 % (47-70); Platelet Count 198 K/mm3 (150-450); RBC Distribution Width CV 13.4 % (11.6-14.6); RBC Distribution Width SD 43.6 fl (35.1-43.9); White Blood Count 7.8 K/mm3 (4.4-11.0)
[2018-09-02 12:59] LABS: POSITIVE COUNT NO; POSITIVE DIFFERENTIAL NO; POSITIVE MORPHOLOGY NO
[2018-09-02 13:05] LABS: Vitamin D,25 Hydroxy 48.4 ng/mL (29.95-100.01)
[2018-09-02 13:18] LABS: Albumin, Serum 3.7 g/dL (3.2-5.0); BUN 15 mg/dL (7-18); EST Glomerular Filtration Rate 76 mL/min (>60); Est Glom Filt Rate - Afr Amer 92 mL/min (>60); Glucose 118 mg/dL (74-106); Protein, Total 6.7 g/dL (6.4-8.2)
[2018-09-02 13:19] LABS: ALB/GLOB Ratio 1.2 RATIO (0.9-2.4); AST(SGOT) 23 U/L (15-37); Alanine Aminotransfer ALT/SGPT 21 U/L (16-61); Alkaline Phosphatase 81 U/L (45-117); Anion Gap 5 (5-15); Calcium,Total 8.7 mg/dL (8.5-10.1); Chloride 104 mmol/L (98-107); Cholesterol 105 mg/dL (200); High Density Lipoprotein 49 mg/dL; Potassium 4.7 mmol/L (3.5-5.1); Sodium Level 136 mmol/L (136-145); Thyroid Stim Hormone (TSH) 2.97 uIU/mL (0.358-3.74); Triglycerides 66 mg/dL; Very Low Density Lipoprotein 13 mg/dL (5-40)
[2018-09-02 18:16] LABS: Erythrocyte Sedimentation Rate 9 mm/hr (0-20)
== END ==
PROVIDERS: Family Provider Family Medicine Geriatric Medicine; PCP Family Medicine Geriatric Medicine; Visit Provider Family Medicine Geriatric Medicine
DX: E55.9 Vitamin D deficiency, unspecified (principal); I10 Essential (primary) hypertension; M10.9 Gout, unspecified
CPT/HCPCS: 36415; 80053; 80061; 82306; 84403; 84443; 85025; 85652

== ENCOUNTER 2018-12-21 09:26 | Emergency (ER) | payer MEDICARE, SELFPAY ==
[2018-08-12 07:28] VITALS: BMI 27.1
[2018-12-21 09:28] VITALS: BP 101/54; PULSE 63; RESP 16; TEMP 36.4; O2SAT 96; BMI 25.7
--- NOTE | 2018-12-21 09:37 | NURSING ---
NO OLD EKGS
--- NOTE | 2018-12-21 09:47 | EKG12_ITS ---
Test Reason : NEAR SYNCOPE Blood Pressure : / mmHG Vent. Rate : 060 BPM Atrial Rate : 060 BPM P-R Int : 260 ms QRS Dur : 100 ms QT Int : 460 ms P-R-T Axes : 005 -37 -14 degrees QTc Int : 460 ms Sinus rhythm with 1st degree A-V block Left axis deviation Nonspecific ST and T wave abnormality Abnormal ECG Confirmed by DARVIN MERA, SHANT ([id number]), editor dictionary BILL LUONG ([id number]) on 12/22/2018 2:57:56 PM Referred By: HANNAH Confirmed By:SHANT BOSTON MD
--- NOTE | 2018-12-21 09:48 | ED.VIS.GEN ---
History of Present Illness Chief Complaint: Syncope Informant: Patient, Family Onset: Today Current Severity: Mild Narrative: History of hypertension pending left wrist carpal tunnel surgery tomorrow [facility] was in mu-ism today feeling fine when he suddenly felt slightly lightheaded he put his head down, other churchgoer's including a physician came to assess him they thought his pulse might be thready he was brought to the hospital, he indicates he did not have syncope he was awake and alert he has no head neck chest or abdominal pain he has been feeling fine he was fine when he went to mu-ism, fine when he woke up. He indicates he feels fine back to baseline now the reports he was quite active yesterday in the hot environment helping workers around the house with chores. He is eating and drinking well he has had normal bowel bladder habits he has no history of NV PE or DVT Past Medical History - Allergies and Home Meds Allergies/Adverse Reactions: Allergies No Known Allergies Allergy (Verified 12/21/18 09:32) Primary Care Physician: Nj Metcalf Chi, MD [Primary Care Provider] - Past Medical History: - Surgical History: appendectomy, colectomy - for diverticular disease. Smoking Status: Never smoker - Family History Paternal Family History: Family History (Last Reviewed 08/12/18 @ 09:01 by Eddie Martinez MD) Father No problems noted. Family History: Reports: No pertinent history Maternal Family History: Family History (Last Reviewed 08/12/18 @ 09:01 by Eddie Martinez MD) Father No problems noted. Family History: Reports: No pertinent history Review of Systems ROS: - As above General: Denies: Chills, Fever, Sweats Eyes: Denies: Visual changes - bilaterally, Diplopia ENT: Denies: Rhinorrhea, Sore throat Cardiovascular: Denies: Chest pain, Palpitations Respiratory: Denies: Dyspnea, Cough, Dyspnea on exertion Gastrointestinal: Denies: Abdominal pain, Nausea, Vomiting, Diarrhea, Melena, Hematochezia Genitourinary: Denies: Dysuria, Hematuria, Frequency Musculoskeletal: Denies: Back pain, Extremity Pain Skin: Denies: Rash, Wounds Neurological: Denies: Headache, Weakness, Numbness Physical Exam Vital Signs/Narrative: Vital Signs Temp Pulse Resp BP Pulse Ox 12/21/18 09:28 97.5 F L 63 16 101/54 L 96 General: Well nourished, Well developed, No Acute Distress Head: Normocephalic, Atraumatic Eyes: Perrl, EOMI ENT: Moist mucous membranes, No rhinorrhea Neck: Supple, Nontender Cardiovascular: Regular rate, Regular rhythm, No murmurs Respiratory: No distress, CTA bilaterally, Chest nontender Abdomen: Soft, Nontender, Nondistended, Normal bowel sounds Back: Nontender, Normal Inspection Extremities: Nontender, No edema Skin: Normal color, No rash Neurological: Alert, Oriented x3, Cranial nerves II-XII grossly intact, Normal Strength, Normal Sensation Psychological: Normal affect, Normal Mood Diagnostic/Tx/Re-eval - Medical Decision Making He is resting comfortably in the bed his blood pressure is 116/80 his pulse ox is 94% on room air he is eating chocolate cake indicating nothing is wrong with him he feels back to baseline His EKG shows a sinus rhythm rate 60 no acute injury pattern intervals are relatively within normal range nonacute Patient screening labs chest x-ray are all unremarkable he is walked around the emergency department room without any difficulty we discussed inpatient versus outpatient management he does not wish to be admitted he wants to go home, the physician who assisted him at the mu-ism did call in and thought that he was tachycardic, I discussed this with the patient the concept of SVT A. fib V. tach etc. discussed potential life-threatening nature of all the above with him and his discussed the concept of admission for the management again he prefers outpatient management he does not wish to be admitted he is going to have carpal tunnel surgery tomorrow I will provide him all of his labs his ALT EKG copy and he will follow-up with all of his outpatient providers and return for change in symptoms\ Final impression near syncope etiology unclear Home stable declined admission ED Disposition - Plan for ED Patient: Diagnosis: Syncope Instructions: SYNCOPE, Unk Cause, NEAR SYNCOPE, Vasovagal Referrals: Nj Metcalf Chi, MD [Primary Care Provider] -
--- NOTE | 2018-12-21 09:55 | RAD_ITS ---
STUDY: X-RAY CHEST REASON FOR EXAM: Male, 83 years old. Substernal chest pain TECHNIQUE: Single AP portable view of the chest. COMPARISON: 07/13/2016 FINDINGS: EKG leads overlie the chest. Stable elevation of the right hemidiaphragm. The lungs are clear and expanded. There is no demonstrated pleural abnormality. Normal size heart. Normal mediastinum and neisha. Normal visualized pulmonary arteries. Normal visualized aortic arch and descending thoracic aorta. Normal visualized thoracic spine. Normal visualized ribs, clavicles, and shoulders. There is no demonstrated abnormality of the visualized soft tissue structures of the upper abdomen. RAD/Chest 1 View (Portable) IMPRESSION: No acute pulmonary process Electronically Signed: Bossman Guzman MD at 10:20 EDT , Service support ,
[2018-12-21 10:00] LABS: Absolute Lymphocyte Count 0.78 X10^3/uL (0.83-4.51); Absolute Neutrophil Count 5.5 X10^3/uL (2.0-7.7); Basophil# 0.04 X10^3/uL; Basophil% 0.6 % (0-1); Eosinophil# 0.14 X10^3/uL; Eosinophils% 1.9 % (0-5); Hematocrit 37.9 % (40-54); Hemoglobin 12.8 g/dL (13.0-16.5); Lymphocyte # 0.78 X10^3/ul (4.0); Lymphocyte % 10.8 % (19-41); Mean Corp Hgb Conc 33.8 g/dL (32-36); Mean Corpuscular Volume 88.8 fL (80-94); Mean Platelet Vol. 8.8 fl (6.2-12.0); Monocyte# 0.72 X10^3/uL; Monocyte% 9.9 % (0-10); NRBC Flagged by Analyzer 0 % (0-5); Neutrophil # 5.52 X10^3/uL (2.7-7.7); Neutrophil % 76.2 % (47-70); Platelet Count 177 K/mm3 (150-450); RBC Distribution Width CV 13.3 % (11.6-14.6); RBC Distribution Width SD 43.8 fl (35.1-43.9); Red Blood Count 4.27 M/mm3 (4.6-6.2); White Blood Count 7.2 K/mm3 (4.4-11.0)
[2018-12-21 10:10] LABS: Anion Gap 6 (5-15); BUN 14 mg/dL (7-18); BUN/Creat Ratio 14.3 RATIO (10-20); Calcium,Total 8.5 mg/dL (8.5-10.1); Chloride 104 mmol/L (98-107); Creatinine, Serum 0.98 mg/dL (0.70-1.30); EST Glomerular Filtration Rate 78 mL/min (>60); Est Glom Filt Rate - Afr Amer 94 mL/min (>60); Estimated Creatinine Clearance 62.96 ml/min; Glucose 139 mg/dL (74-106); Potassium 4.1 mmol/L (3.5-5.1); Sodium Level 136 mmol/L (136-145)
[2018-12-21 10:52] LABS: BNP,B-Type NATRIURETIC PEPTIDE 18.6 pg/mL (0-100)
[2018-12-21 11:04] VITALS: BP 118/63; PULSE 61; RESP 17; O2SAT 95
[2018-12-21 11:29] VITALS: RESP 18
== END 2018-12-21 11:30 | disposition home or self-care (01) ==
LOC: ED 10:33
PROVIDERS: Emergency Provider Emergency Medicine; Family Provider Family Medicine Geriatric Medicine; PCP Family Medicine Geriatric Medicine
DX: R55 Syncope and collapse (principal)
CPT/HCPCS: 71045; 80048; 83880; 84484; 85025; 93005; 96360; 99285; J7030; J7040; A4216

== ENCOUNTER → 2018-12-24 | Outpatient (CLI) | payer MEDICARE, SELFPAY ==
[2018-12-21 09:28] VITALS: BMI 25.7
== END | disposition home or self-care (01) ==
LOC: PSN 11:27
PROVIDERS: Family Provider Family Medicine Geriatric Medicine; PCP Family Medicine Geriatric Medicine; Referring Provider Internal Medicine Cardiovascular Disease; Visit Provider Internal Medicine Cardiovascular Disease
DX: R55 Syncope and collapse (principal); I49.3 Ventricular premature depolarization; E78.5 Hyperlipidemia, unspecified; G47.30 Sleep apnea, unspecified; I10 Essential (primary) hypertension; I25.10 Atherosclerotic heart disease of native coronary artery without angina pectoris
CPT/HCPCS: 93225; 93226

== ENCOUNTER → 2019-03-18 12:48 | Outpatient (CLI) | payer MEDICARE, SELFPAY ==
[2019-03-18 14:19] LABS: Absolute Lymphocyte Count 0.88 X10^3/uL (0.83-4.51); Absolute Neutrophil Count 5.6 X10^3/uL (2.0-7.7); Basophil# 0.03 X10^3/uL; Basophil% 0.4 % (0-1); Eosinophil# 0.21 X10^3/uL; Eosinophils% 2.9 % (0-5); Hematocrit 42.6 % (40-54); Lymphocyte # 0.88 X10^3/ul (4.0); Mean Corp Hgb Conc 32.9 g/dL (32-36); Mean Corpuscular Hgb 29.7 pg (27.0-32.0); Mean Corpuscular Volume 90.4 fL (80-94); Mean Platelet Vol. 9.3 fl (6.2-12.0); Monocyte# 0.61 X10^3/uL; Monocyte% 8.3 % (0-10); NRBC Flagged by Analyzer 0 % (0-5); Neutrophil # 5.59 X10^3/uL (2.7-7.7); Neutrophil % 76.1 % (47-70); Platelet Count 200 K/mm3 (150-450); RBC Distribution Width CV 13.4 % (11.6-14.6); Red Blood Count 4.71 M/mm3 (4.6-6.2); White Blood Count 7.3 K/mm3 (4.4-11.0)
[2019-03-18 14:25] LABS: Vitamin D,25 Hydroxy 18.8 ng/mL (29.95-100.01)
[2019-03-18 14:30] LABS: ALB/GLOB Ratio 1.3 RATIO (0.9-2.4); AST(SGOT) 24 U/L (15-37); Alanine Aminotransfer ALT/SGPT 30 U/L (16-61); Albumin, Serum 3.9 g/dL (3.2-5.0); Alkaline Phosphatase 67 U/L (45-117); Anion Gap 6 (5-15); BUN 16 mg/dL (7-18); BUN/Creat Ratio 15.7 RATIO (10-20); Calcium,Total 8.3 mg/dL (8.5-10.1); Chloride 103 mmol/L (98-107); Cholesterol 123 mg/dL (200); Creatinine, Serum 1.02 mg/dL (0.70-1.30); EST Glomerular Filtration Rate 74 mL/min (>60); Est Glom Filt Rate - Afr Amer 90 mL/min (>60); Globulin 2.9 g/dL (2.2-4.2); Glucose 78 mg/dL (74-106); High Density Lipoprotein 53 mg/dL; Potassium 4.1 mmol/L (3.5-5.1); Protein, Total 6.8 g/dL (6.4-8.2); Sodium Level 137 mmol/L (136-145); Thyroid Stim Hormone (TSH) 3.34 uIU/mL (0.358-3.74); Triglycerides 105 mg/dL; Very Low Density Lipoprotein 21 mg/dL (5-40)
== END ==
PROVIDERS: Family Provider Family Medicine Geriatric Medicine; PCP Family Medicine Geriatric Medicine; Visit Provider Family Medicine Geriatric Medicine
DX: E23.6 Other disorders of pituitary gland (principal); E78.5 Hyperlipidemia, unspecified; E55.9 Vitamin D deficiency, unspecified; I10 Essential (primary) hypertension
CPT/HCPCS: 36415; 80053; 80061; 82306; 84403; 84443; 85025

== ENCOUNTER → 2019-09-16 | Outpatient (CLI) | payer MEDICARE, SELFPAY ==
[2019-09-16 12:32] LABS: Absolute Neutrophil Count 4.1 X10^3/uL (2.0-7.7); Basophil# 0.04 X10^3/uL; Basophil% 0.7 % (0-1); Eosinophil# 0.38 X10^3/uL; Eosinophils% 6.3 % (0-5); Hematocrit 36.4 % (40-54); Hemoglobin 12.4 g/dL (13.0-16.5); Lymphocyte % 13.3 % (19-41); Mean Corp Hgb Conc 34.1 g/dL (32-36); Mean Corpuscular Hgb 31.2 pg (27.0-32.0); Mean Corpuscular Volume 91.7 fL (80-94); Mean Platelet Vol. 9.4 fl (6.2-12.0); Monocyte# 0.63 X10^3/uL; Monocyte% 10.5 % (0-10); NRBC Flagged by Analyzer 0 % (0-5); Neutrophil # 4.14 X10^3/uL (2.7-7.7); Platelet Count 199 K/mm3 (150-450); RBC Distribution Width CV 13.1 % (11.6-14.6); RBC Distribution Width SD 43.8 fl (35.1-43.9); Red Blood Count 3.97 M/mm3 (4.6-6.2)
[2019-09-16 12:55] LABS: Vitamin D,25 Hydroxy 35.5 ng/mL
[2019-09-16 13:10] LABS: ALB/GLOB Ratio 1.5 RATIO (0.9-2.4); AST(SGOT) 25 U/L (15-37); Alanine Aminotransfer ALT/SGPT 27 U/L (16-61); Albumin, Serum 3.8 g/dL (3.2-5.0); Alkaline Phosphatase 64 U/L (45-117); Anion Gap 7 (5-15); BUN 12 mg/dL (7-18); BUN/Creat Ratio 11.5 RATIO (10-20); Calcium,Total 8.5 mg/dL (8.5-10.1); Chloride 100 mmol/L (98-107); Cholesterol 111 mg/dL (200); Creatinine, Serum 1.04 mg/dL (0.70-1.30); EST Glomerular Filtration Rate 73 mL/min (>60); Est Glom Filt Rate - Afr Amer 88 mL/min (>60); Globulin 2.6 g/dL (2.2-4.2); Glucose 103 mg/dL (74-106); High Density Lipoprotein 46 mg/dL; Potassium 4.4 mmol/L (3.5-5.1); Protein, Total 6.4 g/dL (6.4-8.2); Sodium Level 134 mmol/L (136-145); Triglycerides 93 mg/dL; Very Low Density Lipoprotein 19 mg/dL (5-40)
== END | disposition home or self-care (01) ==
LOC: POLAB3 11:23
PROVIDERS: PCP Family Medicine Geriatric Medicine; Visit Provider Family Medicine Geriatric Medicine
DX: E23.6 Other disorders of pituitary gland (principal); E78.5 Hyperlipidemia, unspecified; E55.9 Vitamin D deficiency, unspecified; I10 Essential (primary) hypertension
CPT/HCPCS: 36415; 80053; 80061; 82306; 84403; 84443; 85025

== ENCOUNTER → 2019-10-20 | Outpatient (CLI) | payer MEDICARE, SELFPAY ==
[2019-09-18 10:48] VITALS: BMI 25.7
== END | disposition home or self-care (01) ==
LOC: HPRAD 09:38
PROVIDERS: PCP Family Medicine Geriatric Medicine; Referring Provider Chiropractor; Visit Provider Chiropractor
DX: M99.03 Segmental and somatic dysfunction of lumbar region (principal)
CPT/HCPCS: 72100

== ENCOUNTER → 2020-02-01 | Outpatient (CLI) | payer MEDICARE, SELFPAY ==
[2020-01-06 08:37] VITALS: BMI 25.4
== END | disposition home or self-care (01) ==
LOC: MTDU 10:25
PROVIDERS: PCP Internal Medicine; Referring Provider Nurse Practitioner Family; Visit Provider Nurse Practitioner Family
DX: R05 Cough (principal); Z20.828 Contact with and (suspected) exposure to other viral communicable diseases
CPT/HCPCS: 87635; C9803; U0003

== ENCOUNTER → 2020-03-08 15:50 | Outpatient (CLI) | payer MEDICARE, SELFPAY ==
[2020-02-29 11:49] VITALS: BMI 25.4
--- NOTE | 2020-03-08 15:52 | CT_ITS ---
HISTORY: PELVIC PAIN. PARTIAL COLECTOMY DUE TO DIVERTICULITIS. APPENDECTOMY EXAMINATION: CT Pelvis W/ Contrast Injection TECHNIQUE: Helically acquired images were obtained of the pelvis. A radiation dose optimization technique was used for this scan. IV Contrast dosage and agent: Oral Tamp; IV Readi-CAT Tamp; 100mL Isovue-370 Oral contrast: None. COMPARISON: CT of the abdomen and pelvis on February 14, 2017 FINDINGS: LYMPH NODES: No enlarged pelvic lymph nodes. VISUALIZED BOWEL LOOPS: The visualized small bowel is unremarkable There is a prominent amount of fecal material seen within the rectum. There is an anastomosis seen at the rectosigmoid junction. Retained fecal material seen throughout the visualized portion of the colon Appendectomy URINARY BLADDER: Poorly distended REPRODUCTIVE ORGANS: No pelvic masses or pelvic ascites. ABDOMINAL WALL: No pelvic wall hernia. BONES: Degenerative changes are seen at L5-S1. Grade 1 anterior spondylolisthesis of L4 on L5 unchanged from prior study No acute osseous abnormality CT/Pelvis WITH IV Contrast IMPRESSION: Anastomosis at the rectosigmoid junction. There is a prominent amount of fecal material that is seen within the visualized colon including the rectum No wall thickening Degenerative changes in the lumbar spine similar to prior study Individualized dose optimization techniques were used for this CT. at 0307 Reported and signed by: Stephy Randle DO Electronically Signed: Stephy Randle DO at 3:06 EST Tel , Service support ,
[2020-03-08 16:11] LABS: CREATININE FINGERSTICK 0.9 mg/dL (0.70-1.30)
== END ==
PROVIDERS: PCP Internal Medicine; Referring Provider Surgery; Visit Provider Surgery
DX: R10.2 Pelvic and perineal pain (principal)
CPT/HCPCS: 72193; Q9967

== ENCOUNTER → 2020-03-10 | Outpatient (CLI) | payer MEDICARE, SELFPAY ==
[2020-02-29 11:49] VITALS: BMI 25.4
[2020-03-10 10:47] LABS: Bacteria 0 SEEN /hpf (None Seen); Mucous, Urine 0 SEEN /hpf (<or=2+); Red Blood Cells-Urine 0 SEEN /hpf (0-5); White Blood Cells 0 SEEN /hpf (0-5)
[2020-03-10 11:15] LABS: Glucose, Dipstick Normal (Normal); Ketone-Dipstick Negative (Negative); Leukocyte Esterase-Dipstick Negative /ul (Negative); Nitrite-Dipstick Negative (Negative); Protein-Dipstick Negative (Negative)
[2020-03-10 11:24] LABS: Color, Urine Yellow (Yellow); Occult Blood-Urine Negative /ul (Negative); Urine Bilirubin Dipstick Negative (Negative); Urine Clarity Clear (Clear); Urine Urobilinogen Normal (Normal)
[2020-03-10 11:40] LABS: Squamous Epithelial Cells - UA 0-5 SEEN /hpf (0-5); Transitional Epithelial - Ur 0 SEEN /hpf (0-5)
== END | disposition home or self-care (01) ==
LOC: LAB 10:45
PROVIDERS: PCP Internal Medicine; Referring Provider Surgery; Visit Provider Surgery
DX: N50.819 Testicular pain, unspecified (principal); R10.2 Pelvic and perineal pain
CPT/HCPCS: 81001

== ENCOUNTER → 2020-07-05 11:18 | Outpatient (CLI) | payer MEDICARE, SELFPAY ==
[2020-07-05 09:47] VITALS: BMI 24.8
[2020-07-05 12:08] LABS: Absolute Lymphocyte Count 0.91 X10^3/uL (0.83-4.51); Absolute Neutrophil Count 4.3 X10^3/uL (2.0-7.7); Basophil# 0.03 X10^3/uL; Basophil% 0.5 % (0-1); Eosinophil# 0.18 X10^3/uL; Hematocrit 42.3 % (40-54); Hemoglobin 13.9 g/dL (13.0-16.5); Lymphocyte # 0.91 X10^3/ul (4.0); Mean Corp Hgb Conc 32.9 g/dL (32-36); Mean Corpuscular Hgb 29.6 pg (27.0-32.0); Mean Corpuscular Volume 90.2 fL (80-94); Mean Platelet Vol. 9.1 fl (6.2-12.0); Monocyte% 9.9 % (0-10); NRBC Flagged by Analyzer 0 % (0-5); Neutrophil # 4.34 X10^3/uL (2.7-7.7); Neutrophil % 71.3 % (47-70); Platelet Count 201 K/mm3 (150-450); RBC Distribution Width CV 13.3 % (11.6-14.6); RBC Distribution Width SD 44.4 fl (35.1-43.9); Red Blood Count 4.69 M/mm3 (4.6-6.2); White Blood Count 6.1 K/mm3 (4.4-11.0)
[2020-07-05 13:12] LABS: ALB/GLOB Ratio 1.4 RATIO (0.9-2.4); AST(SGOT) 22 U/L (15-37); Alanine Aminotransfer ALT/SGPT 29 U/L (16-61); Alkaline Phosphatase 65 U/L (45-117); Anion Gap 3 (5-15); BUN 17 mg/dL (7-18); BUN/Creat Ratio 16.3 RATIO (10-20); Calcium,Total 9.5 mg/dL (8.5-10.1); Chloride 107 mmol/L (98-107); Cholesterol 132 mg/dL (200); Creatinine, Serum 1.04 mg/dL (0.70-1.30); EST Glomerular Filtration Rate 73 mL/min (>60); Est Glom Filt Rate - Afr Amer 88 mL/min (>60); Globulin 2.8 g/dL (2.2-4.2); Glucose 75 mg/dL (74-106); High Density Lipoprotein 51 mg/dL; PSA,Total - Annual Screen 0.46 ng/mL (0.00-4.00); Potassium 4.9 mmol/L (3.5-5.1); Protein, Total 6.8 g/dL (6.4-8.2); Sodium Level 138 mmol/L (136-145); Thyroid Stim Hormone (TSH) 3.23 uIU/mL (0.358-3.74); Triglycerides 108 mg/dL; Very Low Density Lipoprotein 22 mg/dL (5-40)
== END ==
PROVIDERS: PCP Internal Medicine; Referring Provider Internal Medicine; Visit Provider Internal Medicine
DX: E03.9 Hypothyroidism, unspecified (principal); E55.9 Vitamin D deficiency, unspecified; E78.5 Hyperlipidemia, unspecified; H93.19 Tinnitus, unspecified ear; I10 Essential (primary) hypertension; I25.10 Atherosclerotic heart disease of native coronary artery without angina pectoris; K21.9 Gastro-esophageal reflux disease without esophagitis; F32.9 Major depressive disorder, single episode, unspecified; F41.9 Anxiety disorder, unspecified; N40.0 Benign prostatic hyperplasia without lower urinary tract symptoms; Z12.5 Encounter for screening for malignant neoplasm of prostate
CPT/HCPCS: 36415; 80053; 80061; 82306; 84153; 84443; 85025; G0103

== ENCOUNTER → 2020-07-25 07:37 | Outpatient (CLI) | payer MEDICARE, SELFPAY ==
[2020-07-15 09:30] VITALS: BMI 25.0
--- NOTE | 2020-07-25 07:39 | ECHOD_ITS ---
Reason For Study: ABN EKG Procedure This was a 2D Doppler, Color Flow transthoracic echocardiogram. The study was technically difficult. Exam performed in department. Left Ventricle Normal LV size. Left ventricular systolic function is normal. The estimated ejection fraction is 60 %. Stage 1 diastolic dysfunction. No regional wall motion abnormalities noted. Right Ventricle Normal RV size. Normal systolic function. Atria Normal left atrium. Normal right atrium. Mitral Valve Normal mitral valve. Mild (1+) eccentric mitral valve insufficiency. Tricuspid Valve Normal tricuspid valve. Mild (1+) tricuspid valve insufficiency. Pulmonary artery systolic pressure is 30 mmHg. Aortic Valve Trisinus/trileaflet aortic valve. Mild diffuse aortic valve thickening. Mild (1+) aortic valve insufficiency. Pulmonic Valve Normal pulmonic valve. Trivial pulmonic valve insufficiency. Great Vessels Normal aortic root. The pulmonary artery is normal size. Normal inferior vena cava. Pericardium/Pleural No pericardial effusion. MMode/2D Measurements & Calculations LVIDd: 4.7 cm IVSd: 1.0 cm Ao root diam: 3.4 cm LVIDs: 3.0 cm LVPWd: 1.0 cm RVDd: 3.2 cm FS: 35.6 % LAV(MOD-bp): 31.1 ml LA A4 area: 11.8 cm2 LA dimension(2D): 4.1 cm LAV(MOD-bp) Indexed: 15.7 ml/m2 LAV(MOD-sp2): 45.4 ml LAV(MOD-sp4): 21.1 ml RA A4 area: 11.6 cm2 Time Measurements MV dec time: 0.39 sec Doppler Measurements & Calculations MV E max gabriele: 50.2 cm/sec Lat Peak E' Gabriele: 5.6 cm/sec Med Peak E' Gabriele: 4.3 cm/sec MV A max gabriele: 64.1 cm/sec E/E' lat: 8.9 E/E' med: 11.8 MV E/A: 0.78 Ao V2 max: 144.7 cm/sec AI max gabriele: 457.2 cm/sec LV V1 max: 92.2 cm/sec Ao max P.4 mmHg AI max P.6 mmHg LV V1 max P.4 mmHg AI dec slope: 229.2 cm/sec2 AI P1/2t: 584.2 msec PA V2 max: 78.8 cm/sec PI end-d gabriele: 116.7 cm/sec TR max gabriele: 259.1 cm/sec TR max P.9 mmHg ECHO/Echo Complete Interpretation Summary Normal LV size. Left ventricular systolic function is normal. The estimated ejection fraction is 60 %. Stage 1 diastolic dysfunction. Mild (1+) eccentric mitral valve insufficiency. Mild (1+) tricuspid valve insufficiency. Ordering Physician: Eddie Martinez Referring Physician: MAMADOU BOSE Performed By: Valorie Mendez, RDCS, RVT
== END ==
PROVIDERS: PCP Internal Medicine; Referring Provider Internal Medicine Cardiovascular Disease; Visit Provider Internal Medicine Cardiovascular Disease
DX: I25.10 Atherosclerotic heart disease of native coronary artery without angina pectoris (principal); I10 Essential (primary) hypertension; E78.5 Hyperlipidemia, unspecified; E03.9 Hypothyroidism, unspecified; K21.9 Gastro-esophageal reflux disease without esophagitis; G47.33 Obstructive sleep apnea (adult) (pediatric); R06.00 Dyspnea, unspecified; R94.31 Abnormal electrocardiogram [ECG] [EKG]
CPT/HCPCS: 93306

== ENCOUNTER → 2020-11-11 11:00 | Outpatient (CLI) | payer MEDICARE, SELFPAY ==
[2020-10-31 07:53] VITALS: BMI 24.1
== END ==
PROVIDERS: PCP Internal Medicine; Visit Provider Nurse Practitioner Acute Care
DX: R69 Illness, unspecified (principal)

== ENCOUNTER → 2020-11-21 | Outpatient (CLI) | payer MEDICARE, SELFPAY ==
[2020-11-21 12:41] VITALS: BMI 24.1
== END | disposition home or self-care (01) ==
LOC: LABSPEC 13:33
PROVIDERS: PCP Internal Medicine; Referring Provider Internal Medicine; Visit Provider Internal Medicine
DX: U07.1 COVID-19 (principal)
CPT/HCPCS: 87635; U0005; U0003

== ENCOUNTER 2020-11-23 15:19 | Outpatient (CLI) | payer MEDICARE, SELFPAY ==
[2020-11-23] MEDS: 0.9% Saline Lock 10 ML Syringe IV (15:33)
[2020-11-23 15:46] VITALS: BP 119/59; PULSE 60; RESP 16; TEMP 36.7; O2SAT 94; BMI 24.4
[2020-11-23 16:14] VITALS: BP 120/68; PULSE 59; RESP 16; TEMP 36.6; O2SAT 95
[2020-11-23 17:15] VITALS: BP 131/68; PULSE 60; RESP 16; TEMP 36.3
--- NOTE | 2020-11-23 17:52 | NURSING ---
Pt returned from ER. Pt deemed ok to finish infusion and dc home.
== END 2020-11-23 17:15 ==
LOC: ICUOUT 15:19 → ICU 15:20
PROVIDERS: PCP Internal Medicine; Referring Provider Nurse Practitioner Acute Care; Visit Provider Nurse Practitioner Acute Care
DX: Z23 Encounter for immunization (principal); U07.1 COVID-19
CPT/HCPCS: J7050; M0243; A4216; Q0244

== ENCOUNTER → 2021-01-03 10:26 | Outpatient (CLI) | payer MEDICARE, SELFPAY ==
[2021-01-03 12:28] LABS: Absolute Lymphocyte Count 0.77 X10^3/uL (0.83-4.51); Absolute Neutrophil Count 3.7 X10^3/uL (2.0-7.7); Basophil# 0.02 X10^3/uL; Basophil% 0.4 % (0-1); Eosinophil# 0.11 X10^3/uL; Eosinophils% 2.1 % (0-5); Hematocrit 40.1 % (40-54); Hemoglobin 13.2 g/dL (13.0-16.5); Lymphocyte # 0.77 X10^3/ul (0.83-4.51); Mean Corp Hgb Conc 32.9 g/dL (32-36); Mean Corpuscular Hgb 29.5 pg (27.0-32.0); Mean Corpuscular Volume 89.5 fL (80-94); Monocyte# 0.48 X10^3/uL; Monocyte% 9.4 % (0-10); NRBC Flagged by Analyzer 0 % (0-5); Neutrophil # 3.73 X10^3/uL (2.7-7.7); Neutrophil % 72.9 % (47-70); Platelet Count 215 K/mm3 (150-450); RBC Distribution Width CV 13.2 % (11.6-14.6); RBC Distribution Width SD 43.7 fl (35.1-43.9); Red Blood Count 4.48 M/mm3 (4.6-6.2); White Blood Count 5.1 K/mm3 (4.4-11.0)
[2021-01-03 13:04] LABS: ALB/GLOB Ratio 1.3 RATIO (0.9-2.4); AST(SGOT) 24 U/L (15-37); Alanine Aminotransfer ALT/SGPT 24 U/L (16-61); Albumin, Serum 3.9 g/dL (3.2-5.0); Alkaline Phosphatase 63 U/L (45-117); Anion Gap 6 (5-15); BUN 13 mg/dL (7-18); BUN/Creat Ratio 13.4 RATIO (10-20); Calcium,Total 8.7 mg/dL (8.5-10.1); Chloride 99 mmol/L (98-107); Creatinine, Serum 0.97 mg/dL (0.70-1.30); EST Glomerular Filtration Rate 79 mL/min (>60); Est Glom Filt Rate - Afr Amer 95 mL/min (>60); Glucose 111 mg/dL (74-106); Potassium 4.7 mmol/L (3.5-5.1); Protein, Total 6.9 g/dL (6.4-8.2); Sodium Level 133 mmol/L (136-145); Thyroid Stim Hormone (TSH) 3.48 uIU/mL (0.358-3.74)
[2021-01-04 12:33] LABS: Bilirubin, Direct 0.33 mg/dL (0.00-0.30)
== END ==
PROVIDERS: PCP Internal Medicine; Referring Provider Internal Medicine; Visit Provider Internal Medicine
DX: E03.9 Hypothyroidism, unspecified (principal); E78.00 Pure hypercholesterolemia, unspecified; I10 Essential (primary) hypertension; K21.9 Gastro-esophageal reflux disease without esophagitis; R17 Unspecified jaundice; R05 Cough
CPT/HCPCS: 36415; 80053; 82247; 82248; 84443; 85025

== ENCOUNTER 2021-02-09 08:55 | Outpatient (RCR) | payer MEDICARE, SELFPAY ==
--- NOTE | 2021-02-09 11:14 | HP.PTEVAL ---
Patient's Visit Information JR YE is a 85 year old M referred to Physical Therapy by Dr. Cassandra Keene MD with a diagnosis of Sciatica. Date of Evaluation: 02/09/21 Physical Therapist: Christine Burton DPT - Visit Plan Frequency: 2x /Week Duration: 4 Weeks Plan: Focus on LE and core strength/stabilization with functional mobility. Neutral spine exercises. HEP Given IE: Iso Abs, Bridge, Hip adduction, Hip abduction, postural education - Subjective Patient reports that he thinks that he is sciatica- it has started creeping up on him- he has had low back discomfort for a long time. If he does his exercises daily he is okay- (plank, superman, piriformis stretch). He works out in the basement at home. Sitting his symptoms are his low back is sore- and his left leg shows some weakness. Pain is located in the glut and does not radiate into the leg. Dully and achy pains. Worst: 5/10. Agg: walking up/down stairs- uses the railing more than he use to. He has lots of stairs in his home. Eases: nothing changes it it just goes away. Worst at night- side sleeper- hard to get comfortable. No N/T in the toes. He had x-rays taken about a year ago. Has had chiro with Dr. Correa but has not seen her in about a year. No MRI. No change in bowel or bladder. PMHx/Meds: see list. - Objective Sitting/Standing Posture: Fair- FH, RS, Increased kyphosis- can correct with verbal cues but unable to maintain. Gait: WFL no AD decreased trunk rotation. HR/TR: able with UE A. SLS: weight shift but no SLS due to lack of balance. ROM: WFL in all planes of lumbar and LE. Sensation: WFL. Reflex: 2+. Palpation: tender along gluts on the left side and parapsinals. Strength: Core: fair minus, Hip: Right: 4+/5 Left: 4/5, Knee: 4+/5 bilateral Ankle: 5/5. Flex: HS: severe, Gastroc: moderate. Special Test: Slump: negative, Dural Signs: negative - Balance/Special Test Scores Oswestry Low Back Score: 0 - Goals Goal 1:: Patient will be I with HEP and progression Goal Time Frame: 4-6 Weeks Goal 2:: Patient will maintain proper posture t/o tx session to demo increased core s/s Goal Time Frame: 4-6 Weeks Goal 3:: Patient will report no pain for 1 week Goal Time Frame: 4-6 Weeks - Rehabilitation Potential Physical Therapy Diagnosis: Patient presents with hypomobility- he has decreased LE and core strength/stabilization leading to poor posture and increased pain with ADL's. Rehabilitation Potential: Good - Anticipated Interventions Patient/Client Instruction: Educate patient on: Benefits of Fitness Program Therapeutic Exercise to Include: Strength training, Endurance training, Body mechanics, Postural training, Flexibilty training, Gait and locomotor training, Neuromotor development, Dynamic Lumbar Stabilization For the Purpose of:: To improve muscle performance and motor function Cryotherapy (ice pack, ice massage): Yes Thermo therapy (hot pack): Yes Thank you for the opportunity to evaluate your patient. For Medicare and Medicare HMO plans, please review the plan of care and approve it. It will need to be FAXED BACK to us at [phone] for Medicare purposes. For Medicare only, by signing this I certify the plan of care. Please let me know if there are questions or concerns regarding this plan of care. Physician Signature: Date:
--- NOTE | 2021-03-06 15:46 | HP.PT.NRP ---
JR YE was seen in my office for initial evaluation on 02/09/21. The following Plan of Care was established for this patient: Initial Frequency: 2x /Week Initial Duration: 4 Weeks Patient/Client Instruction: Educate patient on: Benefits of Fitness Program Therapeutic Exercise to Include: Strength training, Endurance training, Body mechanics, Postural training, Flexibilty training, Gait and locomotor training, Neuromotor development, Dynamic Lumbar Stabilization For the Purpose of:: To improve muscle performance and motor function Cryotherapy (ice pack, ice massage): Yes Thermo therapy (hot pack): Yes This patient was last seen in our office . Pertinent comments regarding their Physical therapy will appear below: Patient attended initial evaluation and has not returned for follow up visits. Appropriate for discharge and return to MD for further eval as needed. At this point I will be discontinuing this patient from physical therapy. I would be happy to see this patient again in the future if found appropriate by the physician. Thank you! Christine Burton, YANNAT Balance/Gait/Functional tests - Balance/Special Test Scores Oswestry Low Back Score: 0
== END 2021-02-09 19:00 | disposition home or self-care (01) ==
LOC: PT 08:55
PROVIDERS: PCP Internal Medicine; Referring Provider Internal Medicine; Visit Provider Internal Medicine
DX: M54.30 Sciatica, unspecified side (principal)
CPT/HCPCS: 97110; 97162

== ENCOUNTER → 2021-03-20 07:47 | Outpatient (CLI) | payer MEDICARE, SELFPAY ==
--- NOTE | 2021-03-20 07:48 | MRI_ITS ---
EXAM: MR HEAD WITHOUT INTRAVENOUS CONTRAST : 1935 CLINICAL INDICATION: Dementiamemory loss TECHNIQUE: Multiplanar and multisequence MR images of the brain were obtained without intravenous contrast. This report was created using [employer] technology. COMPARISON: None. FINDINGS: BRAIN AND EXTRA-AXIAL SPACES: Increased T2 signal intensity within the cerebral white matter consistent with gliosis/chronic microvascular disease. Ventricles and cortical sulci are prominent in size related to volume loss change. No intra- or extra-axial hemorrhage. No evidence of acute infarct. No intracranial mass or mass effect. There is preservation of the jameson/white matter interface. Posterior fossa structures are unremarkable. Basal cisterns are patent. SELLA: Unremarkable. Normal sella turcica, pituitary gland, infundibular stalk, optic chiasm and hypothalamus. AUDITORY SYSTEM: Unremarkable. The internal auditory canals are patent. BONES/JOINTS: Unremarkable. No discrete lytic or blastic abnormalities. SINUSES: Unremarkable as visualized. Clear. MASTOID AIR CELLS: Unremarkable as visualized. Clear. ORBITS: Unremarkable as visualized. Both globes, extraocular muscles, optic nerves and retrobulbar fat appear unremarkable. VASCULATURE: Unremarkable as visualized. Normal flow voids in the major intracranial circulation. MRI/Brain without Contrast IMPRESSION: 1. No acute abnormality. 2. Mild senescent changes. at 1103 Reported and signed by: Simon Ch MD Electronically Signed: Simon Ch MD at 11:02 EST Tel , Service support ,
== END ==
PROVIDERS: PCP Internal Medicine; Referring Provider Internal Medicine; Visit Provider Internal Medicine
DX: F03.90 Unspecified dementia, unspecified severity, without behavioral disturbance, psychotic disturbance, mood disturbance, and anxiety (principal)
CPT/HCPCS: 70551

== ENCOUNTER 2021-04-11 10:13 | Emergency (ER) | payer MEDICARE, SELFPAY ==
[2021-04-11 10:14] VITALS: BP 145/75; PULSE 55; RESP 18; TEMP 36; O2SAT 99; BMI 23.6
--- NOTE | 2021-04-11 11:05 | EKG12_ITS ---
Test Reason : CP Blood Pressure : / mmHG Vent. Rate : 056 BPM Atrial Rate : 056 BPM P-R Int : 262 ms QRS Dur : 104 ms QT Int : 468 ms P-R-T Axes : 011 -38 -21 degrees QTc Int : 451 ms Sinus bradycardia with 1st degree A-V block Left axis deviation Abnormal ECG Confirmed by CRUZ MERA, OZZY ([id number]), managing editor MAXX MONTIEL ([id number]) on 04/13/2021 11:04:03 AM Referred By: RONNIE Confirmed By:OZZY ARROYO MD
--- NOTE | 2021-04-11 11:06 | EDS_ITS ---
HPI History of Present Illness Chief Complaint: Chest Pain Informant: patient Onset/Context/Timing Onset: Today and Hours (Last several hours) Activity at onset: gradual and light activity (walking) Timing: Intermittent and Waxes and wanes Quality: Positive for Aching Location: - (left arm only) Current Severity: Gone Maximum Severity: Moderate Worsened By: Nothing Associated Symptoms: Positive for Nausea and Lightheadedness; Negative for Diaphoresis, Dyspnea, Cough, Fever, Acid Reflux and Palpitations Narrative Narrative: Patient was feeling well today, while doing some gentle walking he started having left arm discomfort and it has been off and on for the past hour and 1/2-2 hours since then. Mild lightheadedness no near syncope. No palpi tations, dyspnea, sweating. He is getting some dementia and is on donezepil for that, he states he did check his blood pressure but he cannot remember what it was. [facility] Medical History (Updated 04/11/21 @ 14:[address] Fady Lrema MD) Anxiety and depression Atherosclerotic heart disease of [place] coronary artery without angina pectoris Back problem BPH (benign prostatic hyperplasia) Bronchitis Candidiasis of mouth Change in bowel habit Chronic cough DDD (degenerative disc disease), lumbar Diverticulosis Eczema Eczema Essential (primary) hypertension Extensor tendon laceration of hand with open wound GERD (gastroesophageal reflux disease) Hyperlipidemia Hypothyroidism Nausea Obstructive sleep apnea PVC's (premature ventricular contractions) Right groin pain Scoliosis of lumbar spine Segmental and somatic dysfunction of lumbar region Segmental and somatic dysfunction of pelvic region Syncope and collapse Tinnitus Home Medications lactobacillus combination no.8 3 billion cell capsule 3,000 mmu cells PO QDAY 07/05/17 [History Last Taken 11/23/20] colloidal oatmeal 2 % topical cream 1 % TOPICAL QDAY PRN g 11/28/17 [History Last Taken Unknown] fluocinolone 0.01 % topical body oil 1 applic TOPICAL DAILY 11/28/17 [History Last Taken Unknown] Ultimate [place] 1 tab PO BID 03/11/18 [History Last Taken 11/23/20] tacrolimus 0.1 % topical ointment 1 applic TOPICAL BID PRN g 03/11/18 [History Last Taken Unknown] oxybutynin chloride 10 mg tablet,extended release 24 hr 10 mg PO DAILY 12/31/19 [History Last Taken 11/23/20] pimecrolimus 1 % topical cream 1 applic TOPICAL BID 12/31/19 [History Last Taken Unknown] olmesartan 5 mg tablet 5 mg PO DAILY #90 tab 07/05/20 [Rx Last Taken 11/23/20] atorvastatin 40 mg tablet 40 mg PO QHS #90 tab 12/14/20 [Rx Last Taken Unknown] escitalopram oxalate 10 mg tablet 10 mg PO DAILY #90 tab 12/14/20 [Rx Last Taken Unknown] betamethasone dipropionate 0.05 % topical cream 1 applic TOPICAL DAILY PRN 01/03/21 [History Last Taken Unknown] levothyroxine 75 mcg tablet 75 mcg PO DAILY #90 tablet 01/09/21 [Rx Last Taken Unknown] diazepam 5 mg tablet 5 mg PO QHS PRN #1 tab 03/08/21 [Rx Last Taken Unknown] donepezil 10 mg tablet 10 mg PO DAILY #30 tab 03/08/21 [Rx Last Taken Unknown] famotidine 40 mg tablet 40 mg PO DAILY 03/13/21 [History Last Taken Unknown] Allergy/AdvReac Type Severity Reaction Status Date / Time lactose Allergy Intermediate GI upset Verified 04/11/21 10:13 Family History Father No problems noted. Mother Alzheimer disease Anxiety Sister Alzheimer disease Surgical History H/O hernia repair History of appendectomy History of colectomy History of left heart catheterization (06/29/08) Hx of squamous cell carcinoma excision Hx of transurethral resection of prostate Social History household members: spouse housing: house current occupational status: retired pets and animals: No Smoking Status: Never smoker second hand exposure: No alcohol intake: current alcohol intake frequency: a few times a week Alcohol type: wine substance use type: does not use caffeine: Yes Type: coffee what type of physical activity do you participate in: walking and other details: tredmill frequency: 3-4 times per week duration: 30-45 minutes/day seatbelt use: always do you feel safe at home: Yes ROS ROS ED Constitutional Constitutional ED: Denies chills or fever(s) Eyes Eyes: Denies change in vision or diplopia ENT ENT ED: Denies rhinorrhea or sore throat Cardiovascular Cardiovascular: Denies chest pain or palpitations Respiratory/Chest Respiratory/Chest: Denies cough or dyspnea Gastrointestinal Gastrointestinal: Denies abdominal pain, diarrhea, nausea or vomiting Genitourinary Genitourinary ED: Denies dysuria or hematuria Musculoskeletal Musculoskeletal: Reports extremity pain; Denies back pain or neck pain Integumentary Denies abscess or rash Neurologic Neurologic: Denies headache(s), paresthesias or weakness Psychiatric Psychiatric: Denies anxiety or suicidal thoughts EXAM Physical Exam Const Vital Signs: 04/11/21 10:14 04/11/21 10:44 04/11/21 11:19 Temperature 96.8 F L Temperature Source Temporal Pulse Rate 55 L 58 L Respiratory Rate 18 17 Respiratory Effort Normal Non-Labored Respiratory Pattern Normal Blood Pressure 145/75 H 132/73 H Blood Pressure Mean 98 92 Pulse Ox 99 97 Oxygen Delivery Method Room Air Room Air 04/11/21 12:00 Temperature Temperature Source Pulse Rate 55 L Respiratory Rate 16 Respiratory Effort Respiratory Pattern Blood Pressure 136/72 H Blood Pressure Mean 93 Pulse Ox 98 Oxygen Delivery Method Room Air Positive well nourished and well developed General Appearance ED: well developed and NAD HEENT Reports moist mucous membranes normocephalic and atraumatic Eyes PERRL and EOMs intact bilaterally Neck full ROM and supple Resp normal respiratory effort and clear to auscultation bilaterally Cardio regular rate, regular rhythm and no murmurs Rate: bradycardia GI non-tender and non-distended Auscultation: normoactive bowel sounds Palpation: soft Back/Spine no CVA tenderness General Back: other FROM Extremity normal to inspection General Extremety ED: Negative for edema, pulses abnormal or tenderness General Extremity: Negative for edema or pulses abnormal Neuro oriented x3, CN's II-XII intact bilaterally and no sensory deficits noted Sensorium / Orientation: awake and alert Motor Exam: strength 5/5 throughout Skin no rashes or lesions noted and no wounds Heart Score History: Moderately Suspicious ECG: Nonspecific Repolarization Age: >/= 65 years Risk Factors: 1 or 2 Risk Factors Score: 5 MDM MDM MDM Narrative Medical decision making narrative: Patient did not have recurrent symptoms, his initial work-up was normal, I did a 2-hour delta troponin, it is negative as well, both troponins are negative, less than 3. Patient is stable clinically hemodynamically. I think he stable for discharge home, I would recommend outpatient follow-up possibly a stress test, he states his last one was 4 years ago. Discussed with his PCP Dr. Rincon who is in agreement, will see him as an outpatient in about a week, and request that he discontinue his Aricept in the meantime which is relatively new medication for him, as he sent a message to his PCP regarding some random symptoms such as coldness in his legs, muscle pains, that may or may not be related to this. Lab Data Attestation: I reviewed the patient's lab results. Labs: Laboratory Results - last 24 hr 04/11/21 04/11/21 04/11/21 11:20 11:20 13:35 WBC 6.8 RBC 4.51 L Hgb 13.4 Hct 39.8 L MCV 88.2 MCH 29.7 MCHC 33.7 RDW Std Deviation 42.4 RDW Coeff of [place] 13.2 Plt Count 167 MPV 8.9 Immature Gran % (Auto) 0.100 Neut % (Auto) 84.6 H Lymph % (Auto) 8.9 L [place] % (Auto) 5.6 Eos % (Auto) 0.4 Baso % (Auto) 0.4 Absolute Neuts (auto) 5.8 Absolute Lymphs (auto) 0.61 L Nucleated RBC % 0 Sodium 136 Potassium 4.2 Chloride 100 Carbon Dioxide 26.0 Anion Gap 10 BUN 13 Creatinine 1.02 Estim Creat Clear Calc 58.44 Est GFR (MDRD) Af Amer 90 Est GFR (MDRD) Non-Af 74 BUN/Creatinine Ratio 12.7 Glucose 122 H Calcium 9.2 Troponin I High Sens < 3 L < 3 L Radiography Diagnostic Testing: Clinical Impression(s) from Imaging Studies Chest X-Ray 04/11/21 11:25 IMPRESSION: Stable elevation of the right hemidiaphragm with stable increased linear markings at the right lung base suggestive of likely atelectasis and/or scarring. Electronically Signed: Moustapha Decker MD at 11:51 EST , Service support , EKG Initial EKG: Attestation: I personally reviewed and interpreted this EKG as follows: Interpretation: Sinus Bradycardia (56) and AV Block (1st deg) Prior EKG tracings: available for review Prior: Unchanged (AVB unchanged; axis more left now) Discharge Plan Triage Chief Complaint: Chest Pain ED Provider: Fady Lerma Dx/Rx/DC Orders Clinical Impression: Arm pain, left Instructions: ED Heart Disease Risk Factors Prescriptions: No Action lactobacillus combination no.8 [Adult Probiotic] 3 billion cell capsule 3,000 mmu cells PO QDAY RF: 0 colloidal oatmeal [Gold [employer] Ultimate Eczema Rlf] 2 % cream 1 % TOPICAL QDAY PRN (Reason: skin) RF: 0 fluocinolone 0.01 % topical body oil 0.01 % oil 1 applic TOPICAL DAILY RF: 0 tacrolimus 0.1 % ointment 1 applic TOPICAL BID PRN (Reason: Skin Cleansing) RF: 0 Ultimate [place] 1,280 mg capsule 1 tab PO BID RF: 0 oxybutynin chloride 10 mg tablet extended release 24hr 10 mg PO DAILY RF: 0 pimecrolimus 1 % cream 1 applic TOPICAL BID RF: 0 olmesartan [Benicar] 5 mg tablet 5 mg PO DAILY Qty: 90 RF: 1 betamethasone dipropionate 0.05 % cream 1 applic topical DAILY PRN (Reason: skin issue) RF: 0 donepezil [Aricept] 10 mg tablet 10 mg PO DAILY Qty: 30 RF: 2 diazepam [Valium] 5 mg tablet 5 mg PO QHS PRN (Reason: sedation) Qty: 1 RF: 0 famotidine 40 mg tablet 40 mg PO DAILY RF: 0 escitalopram oxalate 10 mg tablet 10 mg PO DAILY Qty: 90 RF: 3 atorvastatin 40 mg tablet 40 mg PO QHS Qty: 90 RF: 3 levothyroxine 75 mcg tablet 75 mcg PO DAILY Qty: 90 RF: 3 Primary Care Provider: Cassandra Keene Referrals: Cassandra Keene MD [Primary Care Provider] - 1 Week Activity Restrictions/Additional Instructions: Discontinue the Aricept and follow-up with your doctor Disposition Disposition: Home, Self Care
[2021-04-11 11:19] VITALS: BP 132/73; PULSE 58; RESP 17; O2SAT 97
--- NOTE | 2021-04-11 11:25 | RAD_ITS ---
STUDY: X-RAY CHEST REASON FOR EXAM: Male, 85 years old. Chest pain TECHNIQUE: Single AP portable view of the chest. COMPARISON: Comparison is made with prior study dated 12/21/2018. FINDINGS: EKG electrodes are seen. Stable elevation of the right hemidiaphragm with stable increased markings at the right lung base suggestive of a linear atelectasis and/or scarring. There is no demonstrated pleural abnormality. Normal size heart. Normal mediastinum and neisha. Normal visualized pulmonary arteries. Normal visualized aortic arch and descending thoracic aorta. There are degenerative changes of the visualized thoracic spine. Normal visualized ribs, clavicles, and shoulders. There is no demonstrated abnormality of the visualized soft tissue structures of the upper abdomen. RAD/Chest 1 View (Portable) IMPRESSION: Stable elevation of the right hemidiaphragm with stable increased linear markings at the right lung base suggestive of likely atelectasis and/or scarring. Electronically Signed: Moustapha Decker MD at 11:51 EST , Service support ,
[2021-04-11] MEDS: Aspirin 81 MG TAB.CHEW 324 MG PO (11:29)
[2021-04-11 11:30] LABS: Absolute Lymphocyte Count 0.61 X10^3/uL (0.83-4.51); Absolute Neutrophil Count 5.8 X10^3/uL (2.0-7.7); Basophil# 0.03 X10^3/uL; Basophil% 0.4 % (0-1); Eosinophil# 0.03 X10^3/uL; Eosinophils% 0.4 % (0-5); Hematocrit 39.8 % (40-54); Hemoglobin 13.4 g/dL (13.0-16.5); Lymphocyte # 0.61 X10^3/ul (0.83-4.51); Lymphocyte % 8.9 % (19-41); Mean Corp Hgb Conc 33.7 g/dL (32-36); Mean Corpuscular Hgb 29.7 pg (27.0-32.0); Mean Corpuscular Volume 88.2 fL (80-94); Mean Platelet Vol. 8.9 fl (6.2-12.0); Monocyte# 0.38 X10^3/uL; Monocyte% 5.6 % (0-10); NRBC Flagged by Analyzer 0 % (0-5); Neutrophil # 5.76 X10^3/uL (2.7-7.7); Neutrophil % 84.6 % (47-70); Platelet Count 167 K/mm3 (150-450); RBC Distribution Width CV 13.2 % (11.6-14.6); RBC Distribution Width SD 42.4 fl (35.1-43.9); Red Blood Count 4.51 M/mm3 (4.6-6.2); White Blood Count 6.8 K/mm3 (4.4-11.0)
[2021-04-11 11:45] LABS: Anion Gap 10 (5-15); BUN 13 mg/dL (7-18); BUN/Creat Ratio 12.7 RATIO (10-20); Calcium,Total 9.2 mg/dL (8.5-10.1); Chloride 100 mmol/L (98-107); Creatinine, Serum 1.02 mg/dL (0.70-1.30); EST Glomerular Filtration Rate 74 mL/min (>60); Est Glom Filt Rate - Afr Amer 90 mL/min (>60); Estimated Creatinine Clearance 58.44 ml/min; Glucose 122 mg/dL (74-106); Potassium 4.2 mmol/L (3.5-5.1); Sodium Level 136 mmol/L (136-145); Troponin-I HS < 3 pg/mL (3.0-78.0)
[2021-04-11 12:00] VITALS: BP 136/72; PULSE 55; RESP 16; O2SAT 98
[2021-04-11 13:00] VITALS: BP 138/75; PULSE 59; RESP 17; O2SAT 97
[2021-04-11 14:00] VITALS: BP 139/75; PULSE 57; RESP 18; O2SAT 96
[2021-04-11 14:22] LABS: Troponin-I HS < 3 pg/mL (3.0-78.0)
[2021-04-11 15:19] VITALS: BP 135/71; PULSE 58; RESP 16; O2SAT 97
== END 2021-04-11 15:20 | disposition home or self-care (01) ==
PROVIDERS: Emergency Provider Emergency Medicine; PCP Internal Medicine; Visit Provider Emergency Medicine
DX: M79.602 Pain in left arm (principal); F03.90 Unspecified dementia, unspecified severity, without behavioral disturbance, psychotic disturbance, mood disturbance, and anxiety; I25.10 Atherosclerotic heart disease of native coronary artery without angina pectoris; E78.5 Hyperlipidemia, unspecified; I10 Essential (primary) hypertension; R07.9 Chest pain, unspecified; R11.0 Nausea; R42 Dizziness and giddiness; N40.0 Benign prostatic hyperplasia without lower urinary tract symptoms; M51.36 Other intervertebral disc degeneration, lumbar region; K21.9 Gastro-esophageal reflux disease without esophagitis; G47.33 Obstructive sleep apnea (adult) (pediatric); M99.03 Segmental and somatic dysfunction of lumbar region; M99.05 Segmental and somatic dysfunction of pelvic region; M41.9 Scoliosis, unspecified; E03.9 Hypothyroidism, unspecified; Z79.899 Other long term (current) drug therapy; Z79.890 Hormone replacement therapy; I44.0 Atrioventricular block, first degree
CPT/HCPCS: 71045; 80048; 84484; 85025; 93005; 99285; A4216

== ENCOUNTER 2021-05-02 16:01 | Outpatient (CLI) | payer MEDICARE, SELFPAY | END 2021-05-02 23:59 | disposition short-term general hospital (02) | LOC: LABSPEC 16:01 | PROVIDERS: PCP Internal Medicine; Visit Provider Physician Assistant Surgical | DX: Z20.822 Contact with and (suspected) exposure to COVID-19 (principal) | CPT/HCPCS: 87635; U0003; U0005 ==

== ENCOUNTER 2021-07-04 08:57 | Outpatient (CLI) | payer MEDICARE, SELFPAY ==
[2021-07-04 12:47] LABS: ALB/GLOB Ratio 1.4 RATIO (0.9-2.4); AST(SGOT) 26 U/L (15-37); Alanine Aminotransfer ALT/SGPT 30 U/L (16-61); Alkaline Phosphatase 65 U/L (45-117); Anion Gap 5 (5-15); BUN 14 mg/dL (7-18); BUN/Creat Ratio 13.2 RATIO (10-20); Calcium,Total 8.8 mg/dL (8.5-10.1); Chloride 105 mmol/L (98-107); Creatinine, Serum 1.06 mg/dL (0.70-1.30); EST Glomerular Filtration Rate 71 mL/min (>60); Est Glom Filt Rate - Afr Amer 86 mL/min (>60); Globulin 2.8 g/dL (2.2-4.2); Glucose 112 mg/dL (74-106); Lipase 135 U/L (73-393); Potassium 4.2 mmol/L (3.5-5.1); Protein, Total 6.8 g/dL (6.4-8.2); Sodium Level 138 mmol/L (136-145)
== END 2021-07-04 23:59 | disposition home or self-care (01) ==
LOC: BIMLAB 08:58
PROVIDERS: PCP Internal Medicine; Referring Provider Internal Medicine; Visit Provider Internal Medicine
DX: R10.10 Upper abdominal pain, unspecified (principal)
CPT/HCPCS: 36415; 80053; 83690

== ENCOUNTER 2021-07-18 09:52 | Outpatient (CLI) | payer MEDICARE, SELFPAY ==
--- NOTE | 2021-07-18 09:56 | US_ITS ---
STUDY: ABDOMINAL ULTRASOUND - RIGHT UPPER QUADRANT REASON FOR VISIT: Male, 85 years old epigastric pain TECHNIQUE: Ultrasound evaluation of the right upper quadrant was performed with real-time and static jameson-scale imaging. TECHNICAL QUALITY: Limited. Examination limited by bowel gas. COMPARISON: None. FINDINGS: Liver: The liver is mildly enlarged and measures 18 cm. There is normal echogenicity of the liver. The bile ducts are within normal limits. There is hepatic color flow. The direction of portal flow is hepatopetal. There is a 1.2 cm x 1.1 cm x 1.1 cm cyst in the right lobe of the liver. Gallbladder: Normal distended gallbladder. The gallbladder wall measures 3.2 mm. There is a negative sonographic Pollack''s sign. There is no pericholecystic fluid. There is a solitary echogenic gallstone within the neck of the gallbladder. Common Bile Duct (C.B.D.): The common bile duct measures 4 mm. Pancreas: There is nonvisualization of the pancreas due to overlying bowel gas. Right Kidney: Normal size of the right kidney. The right kidney measures 9.8 cm x 5 cm x 4.7 cm. Normal renal cortex. The right cortex measures 1.6 cm. 2 renal cysts are seen measuring 1.5 cm x 1.5 cm x 1.3 cm. There is no right hydronephrosis. US/Gallbladder IMPRESSION: Mild degree of hepatomegaly. 1.2 cm x 1.1 cm x 1.1 cm cyst in the right lobe of the liver. Solitary gallstone measuring 1.8 cm x 1.7cm x 1.6 cm. This is in the region of the neck of the gallbladder. Electronically Signed: Moustapha Decker MD at 14:44 EDT ,
== END 2021-07-18 23:59 | disposition home or self-care (01) ==
LOC: US 09:55
PROVIDERS: PCP Internal Medicine; Referring Provider Surgery; Visit Provider Surgery
DX: R10.13 Epigastric pain (principal)
CPT/HCPCS: 76705

== ENCOUNTER 2021-09-20 08:22 | Day surgery (SDC) | payer MEDICARE, SELFPAY ==
--- NOTE | 2021-09-15 14:11 | EKG12_ITS ---
Test Reason : PREOP Blood Pressure : / mmHG Vent. Rate : 059 BPM Atrial Rate : 059 BPM P-R Int : 282 ms QRS Dur : 098 ms QT Int : 452 ms P-R-T Axes : 044 -40 -10 degrees QTc Int : 447 ms Sinus bradycardia with 1st degree A-V block Left axis deviation Abnormal ECG Confirmed by CRUZ MERA, OZZY ([id number]), photograph editor MARNIE FREEMAN ([id number]) on 09/18/2021 7:18:01 AM Referred By: Christiano Moreira Confirmed By:OZZY ARROYO MD
[2021-09-15 15:21] LABS: Hematocrit 37.2 % (40-54); Hemoglobin 12.8 g/dL (13.0-16.5); Mean Corp Hgb Conc 34.4 g/dL (32-36); Mean Corpuscular Hgb 30.4 pg (27.0-32.0); Mean Corpuscular Volume 88.4 fL (80-94); Mean Platelet Vol. 9.3 fl (6.2-12.0); Platelet Count 176 K/mm3 (150-450); RBC Distribution Width CV 13.1 % (11.6-14.6); RBC Distribution Width SD 42.2 fl (35.1-43.9); Red Blood Count 4.21 M/mm3 (4.6-6.2); White Blood Count 6.7 K/mm3 (4.4-11.0)
[2021-09-15 16:53] LABS: Anion Gap 5 (5-15); BUN 18 mg/dL (7-18); Calcium,Total 8.6 mg/dL (8.5-10.1); Chloride 104 mmol/L (98-107); EST Glomerular Filtration Rate 85 mL/min (>60); Est Glom Filt Rate - Afr Amer 103 mL/min (>60); Glucose 90 mg/dL (74-106); Potassium 4.3 mmol/L (3.5-5.1); Sodium Level 134 mmol/L (136-145); Thyroid Stim Hormone (TSH) 4.73 uIU/mL (0.358-3.74)
[2021-09-20] VITALS (8 sets, daily range): BP systolic 124–151; BP diastolic 57–86; PULSE 63–80; RESP 16; TEMP 36.2–36.8; O2SAT 92–96; BMI 24.5
--- NOTE | 2021-09-20 | GALL_PTH ---
PATIENT: JR YE [place] [facility] [id number] AGE/SX: 86/M ROOM: RE09/20/[address]: Dr. Christiano Moreira MD : [id number] BED: DIS: 09/20/2021 SPEC #: [id number] RECD: 09/20/21 13:44 STATUS: KAVON FRANZ #: [id number] VAISHALI: 09/20/21 00:[address]: Christiano Moreira DEPT: SURGICAL PATHOLOGY RECD BY: Chriss Mixon ENTERED: 09/21/21 08:48 SP TYPE: ROSAS HAWKINS DR: Dr. Cassandra Keene MD Tissues: Gallbladder, NOS Procedures: Surgery Specimen Level III HEADER OPERATION: Laparoscopic cholecystectomy with IOC PRE-OP DIAGNOSIS: Cholelithiasis with chronic cholecystitis TISSUE SUBMITTED: Gallbladder MICROSCOPIC DIAGNOSIS Gallbladder, cholecystectomy: Mild chronic cholecystitis and cholelithiasis. SJ:kimo 09/22/2021 MICROSCOPIC DESCRIPTION Slides are reviewed. GROSS DESCRIPTION Received is one container labeled with the patient's name and designated gallbladder. The specimen consists of a gallbladder measuring 6.5 cm in length and up to 2.5 cm in diameter. The external surface is pink-lee, smooth and glistening for the most part. Focally it is granular, hemorrhagic and contains cautery artifact. The gallbladder contains green-yellow mucoid bile and three irregular black stones measuring in aggregate 1.8 x 1 x 0.7 cm and 0.7 to 1 cm in greatest dimension. The mucosa is bile-stained and without any mass lesions. The gallbladder wall measures 0.1 cm in thickness. Orderlies Teacher sections from the gallbladder and the cystic duct are submitted in one cassette. / RAMON:kimo 09/21/2021 :3 [facility]: [id number]
[2021-09-20] MEDS: Lactated Ringers 1,000 ML 15 ML IV (08:40)
--- NOTE | 2021-09-20 09:58 | PCM.HP.BLA ---
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 g 11/28/17 [History Confirmed 07/20/21] fluocinolone 0.01 % topical body oil 1 applic TOPICAL DAILY 11/28/17 [History Confirmed 07/20/21] Ultimate [place] 1 tab PO BID 03/11/18 [History Confirmed 07/20/21] tacrolimus 0.1 % topical ointment 1 applic TOPICAL BID PRN? g 03/11/18 [History Confirmed 07/20/21] oxybutynin chloride 10 mg tablet,extended release 24 hr 10 mg PO DAILY 12/31/19 [History Confirmed 07/20/21] pimecrolimus 1 % topical cream 1 applic TOPICAL BID 12/31/19 [History Confirmed 07/20/21] atorvastatin 40 mg tablet 40 mg PO QHS #90 tab 12/14/20 [Rx Confirmed 07/20/21] escitalopram oxalate 10 mg tablet 10 mg PO DAILY #90 tab 12/14/20 [Rx Confirmed 07/20/21] betamethasone dipropionate 0.05 % topical cream 1 applic TOPICAL DAILY PRN 01/03/21 [History Confirmed 07/20/21] levothyroxine 75 mcg tablet 75 mcg PO DAILY #90 tablet 01/09/21 [Rx Confirmed 07/20/21] donepezil 10 mg tablet 10 mg PO DAILY #30 tab 03/08/21 [Rx Confirmed 07/20/21] famotidine 40 mg tablet 40 mg PO DAILY 03/13/21 [History Confirmed 07/20/21] olmesartan 5 mg tablet 5 mg PO DAILY #90 tab 04/19/21 [Rx Confirmed 07/20/21] PFSH Medical History? Anxiety and depression Arm pain, left Atherosclerotic heart disease of [place] coronary artery without angina pectoris Back problem BPH (benign prostatic hyperplasia) Bronchitis Candidiasis of mouth Change in bowel habit COVID-19 DDD (degenerative disc disease), lumbar Diverticulosis Eczema Essential (primary) hypertension Extensor tendon laceration of hand with open wound GERD (gastroesophageal reflux disease) Hyperlipidemia Hypothyroidism Nausea Obstructive sleep apnea PVC's (premature ventricular contractions) Right groin pain Sciatica Scoliosis of lumbar spine Segmental and somatic dysfunction of lumbar region Segmental and somatic dysfunction of pelvic region Syncope and collapse Tinnitus Surgical History? H/O hernia repair History of appendectomy History of colectomy History of left heart catheterization (06/29/08) Hx of squamous cell carcinoma excision Hx of transurethral resection of prostate Family History? Father ?? No problems noted. Mother Alzheimer disease AnxietySister Alzheimer disease Social History? household members:? spouse housing:? house current occupational status:? retired pets and animals:? No Smoking Status:? Never smoker second hand exposure:? No alcohol intake:? current alcohol intake frequency: a few times a week Alcohol type: wine substance use type:? does not use caffeine:? Yes Type: coffee what type of physical activity do you participate in:? walking and other details: tredmill frequency:? 3-4 times per week duration:? 30-45 minutes/day seatbelt use:? always do you feel safe at home:? Yes HPI HPI HPI: JR YE, is a 85 M who presents to the office today for surgical consultation regarding gallstone disease.? The patient is referred by Dr. Cassandra Keene written copy my surgical consult recommendations will return to him.? Dr. Cason was seen by Dr. Rincon on July 04, 2021.? This 85-year-old gentleman presented with chronic symptoms of GERD and hypothyroidism and hyperlipidemia and hypertension.? He has been having some intermittent upper abdominal pain.? He had had a gallbladder ultrasound done 2017 demonstrating gallstones with no wall thickening.? He had a hepatobiliary scan that had a normal ejection fraction.? His past history is that he had a laparoscopic sigmoid colectomy performed for chronic nonresolving diverticular disease.? His most recent upper and lower endoscopy dated October 18, 2017 as noted below.? Small hiatal hernia with minimal antral erythema.? The low colonic anastomosis widely patent.? No acute findings July 04, 2021 BUN 14 creatinine 1.06.? Total bilirubin 1.5.? AST 26, ALT 30, alkaline phosphatase 65, total protein 6.8, albumin 4, all normal.? Lipase 135 normal The patient notes that he has been having some abdominal pain and he points to approximately the right mid abdomen.? He does not detect a bulge or a mass.? He is able to still ride his bicycle without increased discomfort.? He does complain of fatty food intolerance aggravating the discomfort.? He notes that the discomfort can be in the right mid abdomen sometimes radiating to his back.? He has not any fever or chills.? There is been no nausea or vomiting.? No noted bright red blood per rectum or melena. He has had no history of COVID-19.? He has been vaccinated and he has received the fourth injection Date of Procedure: 10/18/17 Pre-Operative Diagnosis: Nausea, reflux symptoms, feeling of unwellness.? Change of stool with pellet sized stool Post-Operative Diagnosis: Small hiatal hernia, minimal antral erythema, minimal duodenal erythema.? Widely patent colorectal anastomosis, no acute colon pathology Surgery/Procedure Performed:: Esophagogastro duodenoscopy with cold forcep biopsies.? colonoscopy July 18, 2021 STUDY:? ABDOMINAL ULTRASOUND - RIGHT UPPER QUADRANT REASON FOR VISIT: ? Male, 85 years old? epigastric pain TECHNIQUE: ? Ultrasound evaluation of the right upper quadrant was performed with real-time and static jameson-scale imaging. TECHNICAL? QUALITY: ? Limited.? Examination limited by bowel gas. COMPARISON: ? None. FINDINGS: Liver:? The liver is mildly enlarged and measures 18 cm.? There is normal echogenicity of the liver.? The bile ducts are within normal limits.? There is hepatic color flow.? The direction of portal flow is hepatopetal.? There is a 1.2 cm x 1.1 cm x 1.1 cm cyst in the right lobe of the liver. Gallbladder:? Normal distended gallbladder.? The gallbladder wall measures 3.2 mm.? There is a negative sonographic Pollack''s sign.? There is no pericholecystic fluid.? There is a solitary echogenic gallstone within the neck of the gallbladder. Common Bile Duct (C.B.D.): ? The common bile duct measures 4 mm. Pancreas: ? There is nonvisualization of the pancreas due to overlying bowel gas. Right Kidney:? Normal size of the right kidney.? The right kidney measures 9.8 cm x 5 cm x 4.7 cm.? Normal renal cortex.? The right cortex measures 1.6 cm.? 2 renal cysts are seen measuring 1.5 cm x 1.5 cm x 1.3 cm.? There is no right hydronephrosis. US/Gallbladder IMPRESSION: Mild degree of hepatomegaly.? 1.2 cm x 1.1 cm x 1.1 cm cyst in the right lobe of the liver. Solitary gallstone measuring 1.8 cm x 1.7cm x 1.6 cm.? This is in the region of the neck of the gallbladder. ? Electronically Signed: Moustapha Decker MD at 14:44 EDT , ROS General General: No weight change, appetite, fatigue, colon cancer, breast cancer or weakness HEENT HEENT: No difficulty swallowing, eye injury, eye surgery, swollen glands or hoarseness Endo Endocrine: No thyroid disease, diabetes mellitus, thyroid cancer, Hair loss, heat intolerance or cold intolerance Skin Skin: Yes rash; No changing moles Breast Breast: No left breast lump, right breast lump, nipple discharge, breast pain, abnormal mammogram, abnormal US or breast enlargement Musc Musculoskeletal: Yes back problems; No arthritis, rheumatoid arthritis, gout or joint pain Cardio Cardiovascular: No murmur, pacemaker, heart disease, atrial fibrillation, high blood pressure, heart attack, heart stent, palpitations, shortness of breat with exertion or chest pain Psych Psychiatric: Yes depression and anxiety; No hearing voices Resp Respiratory: No shortness of breath, No sleep apnea, No cough, No COPD, No asthma, No emphysema and No wheezing Gastro Gastrointestinal: Yes abdominal pain, Yes nausea or vomiting, Yes diarrhea, No constipation, No blood in stool, No acid reflux, No hemorrhoids, No ulcers, Yes gallbladder problem and No black,tarry stools [place] Hematologic: No blood thinners, No blood disorders, No bleeding, No anemia and No blood clots Neuro Neurologic: No system reviewed and no additional complaints, except as documented, No as per HPI, No abnormal gait, No abnormal hearing, No abnormal movements, No abnormal speech, No behavioral changes, No burning sensations, No confusion, No convulsions, No disequilibrium, No dizziness, No localized weakness, No frequent falls, No headache(s), No lack of coordination, No loss of vision, No memory loss, No numbness, No other visual disturbances, No radicular pain, No restless legs, No sensory deficit, No syncope, No tingling, No tremor(s), No weakness and No other Exam Const General: cooperative, healthy appearing, comfortable and no acute distress Nutritional Appearance: overweight Orientation: alert and awake Other: Patient notes some slight memory deficit HENMT Head: normal to inspection Eyes General: appearance normal, both eyes and all related structures Neck Neck: normal visual inspection Resp Effort & Inspection: normal respiratory effort Auscultation: clear to auscultation bilaterally Cardio Rate: regular rate Rhythm: regular rhythm GI Palpation: soft and no hepatosplenomegaly Other: No palpable mass, no rebound, no guarding Musc Cervical Spine: normal cervical lordosis Skin General: no rashes or lesions noted Neuro General: patient alert and patient awake Extrem General: no calf tenderness Psych Appearance: grossly normal Assessment and Plan Assessment and Plan (1) Cholelithiasis with chronic cholecystitis: ?Status:?Chronic ?Qualifiers: ?Cholelithiasis location:?gallbladder??Biliary obstruction:?without biliary obstruction? Qualified Code(s):?K80.10 - Calculus of gallbladder with chronic cholecystitis without obstruction ?Plan - Dr. Christiano Moreira MD: 85-year-old gentleman with findings that seem to be consistent with biliary colic, chronic cholecystitis cholelithiasis.? I believe it is very reasonable to offer him a laparoscopic cholecystectomy with selective cholangiography and I have discussed technique, benefit, risk, alternatives.? He has had an opportunity to ask and have questions answered.? Fortunately the patient's health has been stable. There was confusion around his previous scheduling. After further discussion with him he has elected to reschedule and proceed. He has had an opportunity to ask and have questions answered. We will proceed as noted. Christiano Moreira M.D., F.A.C.S. Copy: Dr. Cassandra Moreira M.D., F.A.C.S
--- NOTE | 2021-09-20 10:32 | DCINST_ITS ---
Discharge Instructions Procedure General Surgery Diet Discharge Diet: Light diet - advance as tolerated (if you have questions about your diet instructions, please talk to you doctor.) Activity Discharge Activity: May Not Drive (for 3-5 days or while taking narcotic pain medicine.) May shower in (days): 1 Lifting Restrictions: 10 pounds Dressing / Incision Call your doctor if your incision/area has: Continuous Slow Oozing, Sudden Increased Bleeding, Increased Pain/ Swelling, Increased Redness and Foul Smelling Discharge Call your doctor if you observe: Fever of 101 or Higher Suture Line Care: Avoid Pulling/Pushing and Avoid Pinching/Bending Additional Dressing/Incision Instructions:: Change or remove dressing in 4 days. Leave steri-strips in place for 1 week. Follow Up Care Please Follow Up With: Christiano Moreira MD When: Call [phone] to make an appointment to be seen in about 7 days. Test Results: Test results from this visit will be discussed in further detail at your follow- up appointment, if applicable. Discharge Plan Admission Attending Provider: Christiano Moreira Primary Care Provider: Cassandra Keene Discharge Orders/Prescriptions Prescriptions: No Action colloidal oatmeal [Gold Barnes Ultimate Eczema Rlf] 2 % cream 1 % TOPICAL QDAY PRN (Reason: skin) fluocinolone 0.01 % topical body oil 0.01 % oil 1 applic TOPICAL DAILY tacrolimus 0.1 % ointment 1 applic TOPICAL BID PRN (Reason: Skin Cleansing) oxybutynin chloride 10 mg tablet extended release 24hr 10 mg PO DAILY pimecrolimus 1 % cream 1 applic TOPICAL BID betamethasone dipropionate 0.05 % cream 1 applic topical DAILY PRN (Reason: skin issue) donepezil [Aricept] 10 mg tablet 10 mg PO DAILY Qty: 30 2RF olmesartan 5 mg Tablet 5 mg PO QHS atorvastatin 40 mg tablet 40 mg PO QHS Qty: 90 3RF levothyroxine 75 mcg tablet 75 mcg PO DAILY Qty: 90 3RF Referrals / Follow Up: Cassandra Keene MD [Primary Care Provider] - Disposition Disposition (needs filled in before D/C Order can be placed): Home, Self Care
--- NOTE | 2021-09-20 10:35 | RAD_ITS ---
STUDY: INTRAOPERATIVE CHOLANGIOGRAM. REASON FOR EXAM: Male, 86 years old. PAIN, LAP ENDER WITH GRAMS FLUOROSCOPY TIME (if supplied): ( 24 seconds ) minutes/seconds. A cine loop of 168 images was submitted. TECHNIQUE: An intraoperative Cholangiogram was performed by the surgeon. Imaging was submitted. COMPARISON: None. FINDINGS: The visualized intrahepatic bile ducts are unremarkable. The common bile duct is not dilated. Free flow of contrast into the duodenum. No intraluminal filling defects are seen. RAD/Cholangiogram/ O R,Initial IMPRESSION: Unremarkable intraoperative cholangiogram. Electronically Signed: Moustapha Decker MD at 13:05 EDT ,
[2021-09-20] MEDS: Bupivacaine Mpf 0.5% 30 ML VIAL (10:39)
[2021-09-20] MEDS: Cefazolin 2 GM in 0.9% Normal Saline 100 ML IV (10:45)
--- NOTE | 2021-09-20 12:04 | PCM.OPRPT ---
Problems Associated Problem List Diagnoses (1) Cholelithiasis with chronic cholecystitis: Report of Operation Date of Procedure: 09/20/21 Pre-Operative Diagnosis: Chronic cholecystitis cholelithiasis Post-Operative Diagnosis: Same Surgery/Procedure Performed:: Laparoscopic cholecystectomy with cholangiograms Description of Surgical Findings:: Timeout informed consent was obtained. 86-year-old gentleman was taken to the operating placement table underwent general endotracheal intubation esthesia. Ancef 2 g were given intravenously. The abdomen sterilely prepped and draped. 0.5% Marcaine was used as a local anesthetic. Throughout the procedure total of 30 cc was used. Skin sites were. No ascites. A vertical infraumbilical incision was created holding sutures of 0 Vicryl placed varies needle inserted saline drop test performed the abdomen was inflated with CO2 to a pressure of 10 mmHg pressure. 10 mm trocar was inserted. 10 mm laparoscope inserted. No evidence of any trocar injuries. 5 mm ports were placed in the epigastric mid abdomen right upper quadrant. The gallbladder was distracted. Blunt dissection was used to release omental adhesions. Hemostasis was attained with Hem-o-gustavo clips. The infundibular was carefully dissected free until clearly the cystic duct cystic artery were identified. 2 Hem-o-gustavo clips were placed proximally 1 distally on the cystic artery prior to transecting it. Cystic duct was clipped by the gallbladder incision in the cystic duct and through a 14-gauge Angiocath cholangiogram catheter was inserted. Fluoroscopically controlled cholangiograms were obtained demonstrating normal ductal anatomy and free flow into the small bowel. Cholangiogram cath was removed and 2 Hem-o-gustavo clips were placed on the cystic duct stump prior to transecting it. The gallbladder was dissected free from the liver bed. Hem-o-gustavo clips were used for hemostasis. Very small amount of bile emanated from the dome of the gallbladder from the grasper sites. That was rapidly controlled. The gallbladder was released immediately placed in a retrieval bag. The right upper quadrant was irrigated and aspirated free of excess fluid. It was carefully inspected. Hemostasis was intact. The abdomen was allowed to deflate of the CO2. The gallbladder was released at the umbilicus. Remaining trochars were removed. The fascia at the umbilicus approximately 2-0 Vicryl [id number] suture. Skin edges approximated opted for Monocryl subdermal stitches. Steri-Strips Telfa OpSite dressings applied. Sponge and instrument and needle counts were reported to the surgeon to be correct. Specimen gallbladder. Drains none. Blood loss minimal. The patient was taken to the recovery area in satisfactory addition without apparent complication Christiano Moreira M.D., F.A.C.S. Surgeon: Christiano Moreira Type of Anesthesia: General and Local
--- NOTE | 2021-09-20 15:23 | SUR.PHASEII ---
PER DR. MARROQUIN VERBAL ORDER PT OK TO D/C AFTER PT VOIDS.
== END 2021-09-20 15:09 | disposition home or self-care (01) ==
LOC: SDC 08:23 → AC 08:24
PROVIDERS: PCP Internal Medicine; Referring Provider Surgery; Visit Provider Surgery
PROC: (CPT 47610; principal; 2021-09-20 10:15)
DX: K80.10 Calculus of gallbladder with chronic cholecystitis without obstruction (principal); K21.9 Gastro-esophageal reflux disease without esophagitis; I10 Essential (primary) hypertension; E03.9 Hypothyroidism, unspecified; E78.5 Hyperlipidemia, unspecified; I25.10 Atherosclerotic heart disease of native coronary artery without angina pectoris; N40.0 Benign prostatic hyperplasia without lower urinary tract symptoms; G47.33 Obstructive sleep apnea (adult) (pediatric); Z79.899 Other long term (current) drug therapy
CPT/HCPCS: 47563; 36415; 74300; 76000; 80048; 84443; 85027; 88304; 93005; J7120; J2405

== ENCOUNTER 2021-09-21 10:33 | Emergency (ER) | payer OTHER, SELFPAY ==
[2021-09-21 10:36] VITALS: BP 95/69; PULSE 67; RESP 14; TEMP 36.6; O2SAT 99; BMI 24.8
--- NOTE | 2021-09-21 10:54 | EDS_ITS ---
HPI <JONATHAN Leigh - Last Filed: 09/21/21 13:49> History of Present Illness Chief Complaint: Overdose Narrative Narrative: 86-year-old male had a cholecystectomy yesterday without complication and was discharged home. states he took one of her lorazepam at night as well as his sleep medication which she thinks is trazodone. She is also not sure if he took his prescribed narcotic medications after surgery. This morning he woke up around 5 AM and is very confused. He was stumbling and she had to catch him before he fell. He is not acting himself. No fever or illness, vomiting, diarrhea, or urinary complaints. [facility] <JONATHAN Leigh - Last Filed: 09/21/21 13:49> [facility] Medical History (Updated 09/21/21 @ 13:[address] Morales Coffey, ) Alcohol use Alzheimer disease Anxiety and depression Arm pain, left Atherosclerotic heart disease of [place] coronary artery without angina pectoris Back pain Back problem Bladder disease BPH (benign prostatic hyperplasia) Bronchitis Candidiasis of mouth Cardiology follow-up encounter Change in bowel habit COVID-19 CPAP (continuous positive airway pressure) dependence DDD (degenerative disc disease), lumbar Diverticulosis Eczema Essential (primary) hypertension Extensor tendon laceration of hand with open wound Gastric reflux GERD (gastroesophageal reflux disease) High cholesterol History of echocardiogram History of hiatal hernia History of Holter monitoring History of irregular heartbeat History of stress test Hyperlipidemia Hypertension Hypothyroidism Nausea Non-smoker Obstructive sleep apnea PVC's (premature ventricular contractions) Right groin pain Sciatica Scoliosis of lumbar spine Segmental and somatic dysfunction of lumbar region Segmental and somatic dysfunction of pelvic region Syncope and collapse Tinnitus Wears glasses Wears hearing aid Home Medications colloidal oatmeal 2 % topical cream (Gold Barnes Ultimate Eczema Relief) 1 % topical QDAY PRN skin 11/28/17 [History Last Taken Unknown] fluocinolone 0.01 % topical body oil 1 applic topical DAILY 11/28/17 [History Last Taken Unknown] tacrolimus 0.1 % topical ointment 1 applic topical BID PRN Skin Cleansing 03/11/18 [History Last Taken Unknown] oxybutynin chloride 10 mg tablet,extended release 24 hr 10 mg PO DAILY 12/31/19 [History Last Taken 11/23/20] pimecrolimus 1 % topical cream 1 applic topical BID 12/31/19 [History Last Taken Unknown] atorvastatin 40 mg tablet 40 mg PO QHS #90 tabs 12/14/20 [Rx Last Taken Unknown] betamethasone dipropionate 0.05 % topical cream 1 applic topical DAILY PRN skin issue 01/03/21 [History Last Taken Unknown] levothyroxine 75 mcg tablet 75 mcg PO DAILY #90 tabs 01/09/21 [Rx Last Taken 09/20/21] donepezil 10 mg tablet (Aricept) 10 mg PO DAILY #30 tabs 03/08/21 [Rx Last Taken Unknown] olmesartan 5 mg tablet 5 mg PO QHS 08/16/21 [History Last Taken Unknown] hydrocodone-acetaminophen 5-325mg 5mg-325mg 1 tab PO Q6H PRN pain 2 days #5 tabs 09/20/21 [Rx Last Taken Unknown] Allergy/AdvReac Type Severity Reaction Status Date / Time lactose Allergy Intermediate GI upset Verified 09/21/21 10:36 Family History Father No problems noted. Mother Alzheimer disease Anxiety Sister Alzheimer disease Surgical History (Updated 09/21/21 @ 11:12 by Kay Griffith) H/O hernia repair History of appendectomy History of colectomy History of left heart catheterization (06/29/08) Hx of cholecystectomy Hx of hand surgery Hx of squamous cell carcinoma excision Hx of transurethral resection of prostate Social History household members: spouse housing: house current occupational status: retired pets and animals: No Smoking Status: Never smoker second hand exposure: No alcohol intake: current alcohol intake frequency: a few times a week Alcohol type: wine substance use type: does not use caffeine: Yes Type: coffee what type of physical activity do you participate in: walking and other details: tredmill frequency: 3-4 times per week duration: 30-45 minutes/day seatbelt use: always do you feel safe at home: Yes ROS <JONATHAN Leigh - Last Filed: 09/21/21 13:49> ROS ED ROS Narrative Constitutional: Negative for fever, chills, malaise. Eyes: Negative for visual change. ENT: Negative for sore throat, ear pain, rhinorrhea. CVS: Negative for palpitations, chest pain, syncope. Respiratory: Negative for shortness of breath, cough, orthopnea. GI: Negative for abdominal pain, nausea, vomiting, diarrhea, constipation, melena, hematochezia. : Negative for dysuria, hematuria or frequency. Neuro: Negative for headache, motor/sensory dysfunction. Skin: Negative for rash, abscess, or wound. Musc: Negative for joint pain, swelling, trauma. Heme: Negative for easy bruising, bleeding, lymphadenopathy. EXAM <JONATHAN Leigh - Last Filed: 09/21/21 13:49> Physical Exam Narrative Exam Narrative: CONST: Patient sitting in no acute distress. EYES: Normal inspection. PERRLA, EOMI. ENT: Normal inspection, slightly dry mucous membranes. NECK: Normal inspection. RESP: No respiratory distress, CTAB. CVS: Regular rate and rhythm, no murmur, no gallop. ABD: Soft and nontender, no guarding or rebound, nondistended. Bandages over incisions intact with no bleeding or discharge. SKIN: Color normal, no rash, warm, dry, intact. EXTREMITIES: Normal appearance, no pedal edema. NEURO: Alert to self, states year is 2022, discussing tangential subjects. Moving all extremities, no upper or lower extremity drift. PSYCH: Normal affect. Const Vital Signs: 09/21/21 10:36 09/21/21 11:12 09/21/21 13:30 Temperature 98 F Temperature Source Temporal Pulse Rate 67 71 71 Respiratory Rate 14 16 16 Blood Pressure 95/69 140/60 H Blood Pressure Mean 77 86 Pulse Ox 99 98 98 Oxygen Delivery Method Room Air Room Air Room Air 09/21/21 14:00 Temperature Temperature Source Pulse Rate Respiratory Rate 18 Blood Pressure Blood Pressure Mean Pulse Ox Oxygen Delivery Method <Dr. Morales Coffey DO - Last Filed: 09/21/21 14:22> Physical Exam Const Vital Signs: 09/21/21 10:36 09/21/21 11:12 09/21/21 13:30 Temperature 98 F Temperature Source Temporal Pulse Rate 67 71 71 Respiratory Rate 14 16 16 Blood Pressure 95/69 140/60 H Blood Pressure Mean 77 86 Pulse Ox 99 98 98 Oxygen Delivery Method Room Air Room Air Room Air 09/21/21 14:00 Temperature Temperature Source Pulse Rate Respiratory Rate 18 Blood Pressure Blood Pressure Mean Pulse Ox Oxygen Delivery Method MDM <JONATHAN Leigh - Last Filed: 09/21/21 13:49> [facility] Narrative Medical decision making narrative: Patient presented with altered mental status after concern for polypharmacy. He has been on narcotics after cholecystectomy. He appears pleasantly confused but nontoxic. Alert to self only. Medical exam benign. Labs and UA are unremarkable. Urine drug screen positive for opiates. After IV fluids and observation in the ED patient was agitated and pulled out his IV. During reassessment he states he wants to go home. Initially, I was concerned he needs to stay for observation but he is AO x3 now and has a steady gait. feels comfortable taking him home but was counseled to call 911 if she has any new issues. He was discharged in stable condition. 1. Altered mental status 2. Medication side effects Lab Data Labs: Laboratory Results - last 24 hr 09/21/21 09/21/21 09/21/21 11:00 11:00 11:05 WBC 12.2 H RBC 4.17 L Hgb 12.4 L Hct 37.2 L MCV 89.2 MCH 29.7 MCHC 33.3 RDW Std Deviation 42.9 RDW Coeff of [place] 13.2 Plt Count 154 MPV 9.1 Immature Gran % (Auto) 0.300 Neut % (Auto) 80.2 H Lymph % (Auto) 10.5 L Tate % (Auto) 8.5 Eos % (Auto) 0.3 Baso % (Auto) 0.2 Absolute Neuts (auto) 9.8 H Absolute Lymphs (auto) 1.28 Nucleated RBC % 0 Sodium Potassium Chloride Carbon Dioxide Anion Gap BUN Creatinine Estim Creat Clear Calc Est GFR (MDRD) Af Amer Est GFR (MDRD) Non-Af BUN/Creatinine Ratio Glucose Calcium Total Bilirubin AST ALT Alkaline Phosphatase Total Protein Albumin Globulin Albumin/Globulin Ratio Urine Color Yellow Urine Clarity Clear Urine pH 6.0 Ur Specific [place] 1.010 Urine Protein Negative Urine Glucose (UA) Normal Urine Ketones Negative Urine Occult Blood Negative Urine Nitrite Negative Urine Bilirubin Negative Urine Urobilinogen Normal Ur Leukocyte Esterase Negative Urine RBC 0 SEEN Urine WBC 0 SEEN Ur Squamous Epith Cells 0 SEEN Urine Bacteria 0 SEEN Urine Mucus 0 SEEN Urine Opiates Screen POSITIVE H Urine Methadone Screen NEGATIVE Ur Barbiturates Screen NEGATIVE Ur Phencyclidine Scrn NEGATIVE Ur Amphetamines Screen NEGATIVE MDMA (Ecstasy) Screen NEGATIVE U Benzodiazepines Scrn NEGATIVE Urine Cocaine Screen NEGATIVE U Cannabinoids Screen NEGATIVE Ur Drug Screen Comment 09/21/21 11:05 WBC RBC Hgb Hct MCV MCH MCHC RDW Std Deviation RDW Coeff of [place] Plt Count MPV Immature Gran % (Auto) Neut % (Auto) Lymph % (Auto) Tate % (Auto) Eos % (Auto) Baso % (Auto) Absolute Neuts (auto) Absolute Lymphs (auto) Nucleated RBC % Sodium 133 L Potassium 4.7 Chloride 102 Carbon Dioxide 26.0 Anion Gap 5 BUN 11 Creatinine 1.03 Estim Creat Clear Calc 56.86 Est GFR (MDRD) Af Amer 89 Est GFR (MDRD) Non-Af 73 BUN/Creatinine Ratio 10.7 Glucose 99 Calcium 8.7 Total Bilirubin 1.20 H AST 73 H ALT 53 Alkaline Phosphatase 51 Total Protein 6.4 Albumin 3.6 Globulin 2.8 Albumin/Globulin Ratio 1.3 Urine Color Urine Clarity Urine pH Ur Specific [place] Urine Protein Urine Glucose (UA) Urine Ketones Urine Occult Blood Urine Nitrite Urine Bilirubin Urine Urobilinogen Ur Leukocyte Esterase Urine RBC Urine WBC Ur Squamous Epith Cells Urine Bacteria Urine Mucus Urine Opiates Screen Urine Methadone Screen Ur Barbiturates Screen Ur Phencyclidine Scrn Ur Amphetamines Screen MDMA (Ecstasy) Screen U Benzodiazepines Scrn Urine Cocaine Screen U Cannabinoids Screen Ur Drug Screen Comment Radiography Diagnostic Testing: Clinical Impression(s) from Imaging Studies Chest X-Ray 09/21/21 11:42 IMPRESSION: Stable examination. No acute abnormality is seen. Electronically Signed: Moustapha Decker MD at 12:30 EDT , <Dr. Morales Coffey, DO - Last Filed: 09/21/21 14:22> [facility] Narrative Medical decision making narrative: Patient presented with altered mental status after concern for polypharmacy. He has been on narcotics after cholecystectomy. He appears pleasantly confused but nontoxic. Alert to self only. Medical exam benign. Labs and UA are unremarkable. Urine drug screen positive for opiates. After IV fluids and observation in the ED patient was agitated and pulled out his IV. During reassessment he states he wants to go home. Initially, I was concerned he needs to stay for observation but he is AO x3 now and has a steady gait. feels comfortable taking him home but was counseled to call 911 if she has any new issues. He was discharged in stable condition. 1. Altered mental status 2. Medication side effects I performed a history and physical examination of the patient and discussed management plan with the physician assistant branch manager. I reviewed the physician assistant branch manager's note and agree with the documented findings and plan of care. Patient postop day 1 for a laparoscopic cholecystectomy by Dr. Moreira. states that he took an Ativan and possibly pain medication and trazodone. She found him confused. After several hours of observation and negative metabolic work-up he patient is ANO x3 he has improved thinking. He became agitated that he was in the department and he felt he did not need to be here did not believe that he had been confused so he took out his IV resulted in a lot of bleeding. Spoke to the and my thoughts were expressed that I think he should remain in the hospital until he is fully cleared. However he does not wish this and she states that she will take him home. I told her to please call 911 if there is any problems. Patient states he plans on going home eating and then going to bed. Morales Coffey DO, MS Lab Data Labs: Laboratory Results - last 24 hr 09/21/21 09/21/21 09/21/21 11:00 11:00 11:05 WBC 12.2 H RBC 4.17 L Hgb 12.4 L Hct 37.2 L MCV 89.2 MCH 29.7 MCHC 33.3 RDW Std Deviation 42.9 RDW Coeff of [place] 13.2 Plt Count 154 MPV 9.1 Immature Gran % (Auto) 0.300 Neut % (Auto) 80.2 H Lymph % (Auto) 10.5 L Tate % (Auto) 8.5 Eos % (Auto) 0.3 Baso % (Auto) 0.2 Absolute Neuts (auto) 9.8 H Absolute Lymphs (auto) 1.28 Nucleated RBC % 0 Sodium Potassium Chloride Carbon Dioxide Anion Gap BUN Creatinine Estim Creat Clear Calc Est GFR (MDRD) Af Amer Est GFR (MDRD) Non-Af BUN/Creatinine Ratio Glucose Calcium Total Bilirubin AST ALT Alkaline Phosphatase Total Protein Albumin Globulin Albumin/Globulin Ratio Urine Color Yellow Urine Clarity Clear Urine pH 6.0 Ur Specific [place] 1.010 Urine Protein Negative Urine Glucose (UA) Normal Urine Ketones Negative Urine Occult Blood Negative Urine Nitrite Negative Urine Bilirubin Negative Urine Urobilinogen Normal Ur Leukocyte Esterase Negative Urine RBC 0 SEEN Urine WBC 0 SEEN Ur Squamous Epith Cells 0 SEEN Urine Bacteria 0 SEEN Urine Mucus 0 SEEN Urine Opiates Screen POSITIVE H Urine Methadone Screen NEGATIVE Ur Barbiturates Screen NEGATIVE Ur Phencyclidine Scrn NEGATIVE Ur Amphetamines Screen NEGATIVE MDMA (Ecstasy) Screen NEGATIVE U Benzodiazepines Scrn NEGATIVE Urine Cocaine Screen NEGATIVE U Cannabinoids Screen NEGATIVE Ur Drug Screen Comment 09/21/21 11:05 WBC RBC Hgb Hct MCV MCH MCHC RDW Std Deviation RDW Coeff of [place] Plt Count MPV Immature Gran % (Auto) Neut % (Auto) Lymph % (Auto) Tate % (Auto) Eos % (Auto) Baso % (Auto) Absolute Neuts (auto) Absolute Lymphs (auto) Nucleated RBC % Sodium 133 L Potassium 4.7 Chloride 102 Carbon Dioxide 26.0 Anion Gap 5 BUN 11 Creatinine 1.03 Estim Creat Clear Calc 56.86 Est GFR (MDRD) Af Amer 89 Est GFR (MDRD) Non-Af 73 BUN/Creatinine Ratio 10.7 Glucose 99 Calcium 8.7 Total Bilirubin 1.20 H AST 73 H ALT 53 Alkaline Phosphatase 51 Total Protein 6.4 Albumin 3.6 Globulin 2.8 Albumin/Globulin Ratio 1.3 Urine Color Urine Clarity Urine pH Ur Specific [place] Urine Protein Urine Glucose (UA) Urine Ketones Urine Occult Blood Urine Nitrite Urine Bilirubin Urine Urobilinogen Ur Leukocyte Esterase Urine RBC Urine WBC Ur Squamous Epith Cells Urine Bacteria Urine Mucus Urine Opiates Screen Urine Methadone Screen Ur Barbiturates Screen Ur Phencyclidine Scrn Ur Amphetamines Screen MDMA (Ecstasy) Screen U Benzodiazepines Scrn Urine Cocaine Screen U Cannabinoids Screen Ur Drug Screen Comment Radiography Diagnostic Testing: Clinical Impression(s) from Imaging Studies Chest X-Ray 09/21/21 11:42 IMPRESSION: Stable examination. No acute abnormality is seen. Electronically Signed: Moustapha Decker MD at 12:30 EDT , Discharge Plan Triage Chief Complaint: Overdose ED Midlevel Provider: Denisse Gonzales ED Provider: Morales Coffey Dx/Rx/DC Orders Clinical Impression: Medication reaction, Delirium Instructions: What is Delirium? Prescriptions: No Action colloidal oatmeal [Gold Barnes Ultimate Eczema Rlf] 2 % cream 1 % TOPICAL QDAY PRN (Reason: skin) fluocinolone 0.01 % topical body oil 0.01 % oil 1 applic TOPICAL DAILY tacrolimus 0.1 % ointment 1 applic TOPICAL BID PRN (Reason: Skin Cleansing) oxybutynin chloride 10 mg tablet extended release 24hr 10 mg PO DAILY pimecrolimus 1 % cream 1 applic TOPICAL BID betamethasone dipropionate 0.05 % cream 1 applic topical DAILY PRN (Reason: skin issue) donepezil [Aricept] 10 mg tablet 10 mg PO DAILY Qty: 30 2RF olmesartan 5 mg Tablet 5 mg PO QHS hydrocodone-acetaminophen 5-325 mg tablet 1 tab PO Q6H PRN (Reason: pain) 2 Days Qty: 5 0RF atorvastatin 40 mg tablet 40 mg PO QHS Qty: 90 3RF levothyroxine 75 mcg tablet 75 mcg PO DAILY Qty: 90 3RF Primary Care Provider: Cassandra Keene Referrals: Cassandra Keene MD [Primary Care Provider] - As Needed Disposition Disposition: Home, Self Care Discharge Date/Time: 09/21/21 14:02
[2021-09-21] MEDS: 0.9% Normal Saline 1,000 ML 1000 ML IV (11:05)
[2021-09-21 11:12] VITALS: PULSE 71; RESP 16; O2SAT 98
[2021-09-21 11:17] LABS: Absolute Lymphocyte Count 1.28 X10^3/uL (0.83-4.51); Absolute Neutrophil Count 9.8 X10^3/uL (2.0-7.7); Basophil# 0.02 X10^3/uL; Basophil% 0.2 % (0-1); Eosinophil# 0.04 X10^3/uL; Eosinophils% 0.3 % (0-5); Hematocrit 37.2 % (40-54); Hemoglobin 12.4 g/dL (13.0-16.5); Lymphocyte # 1.28 X10^3/ul (0.83-4.51); Lymphocyte % 10.5 % (19-41); Mean Corp Hgb Conc 33.3 g/dL (32-36); Mean Corpuscular Hgb 29.7 pg (27.0-32.0); Mean Corpuscular Volume 89.2 fL (80-94); Mean Platelet Vol. 9.1 fl (6.2-12.0); Monocyte# 1.04 X10^3/uL; Monocyte% 8.5 % (0-10); NRBC Flagged by Analyzer 0 % (0-5); Neutrophil # 9.78 X10^3/uL (2.7-7.7); Neutrophil % 80.2 % (47-70); Platelet Count 154 K/mm3 (150-450); RBC Distribution Width CV 13.2 % (11.6-14.6); RBC Distribution Width SD 42.9 fl (35.1-43.9); Red Blood Count 4.17 M/mm3 (4.6-6.2); White Blood Count 12.2 K/mm3 (4.4-11.0)
[2021-09-21 11:34] LABS: ALB/GLOB Ratio 1.3 RATIO (0.9-2.4); AST(SGOT) 73 U/L (15-37); Alanine Aminotransfer ALT/SGPT 53 U/L (16-61); Albumin, Serum 3.6 g/dL (3.2-5.0); Alkaline Phosphatase 51 U/L (45-117); Anion Gap 5 (5-15); BUN 11 mg/dL (7-18); BUN/Creat Ratio 10.7 RATIO (10-20); Calcium,Total 8.7 mg/dL (8.5-10.1); Chloride 102 mmol/L (98-107); Creatinine, Serum 1.03 mg/dL (0.70-1.30); EST Glomerular Filtration Rate 73 mL/min (>60); Est Glom Filt Rate - Afr Amer 89 mL/min (>60); Estimated Creatinine Clearance 56.86 ml/min; Globulin 2.8 g/dL (2.2-4.2); Glucose 99 mg/dL (74-106); Potassium 4.7 mmol/L (3.5-5.1); Protein, Total 6.4 g/dL (6.4-8.2); Sodium Level 133 mmol/L (136-145)
[2021-09-21 11:42] LABS: Bacteria 0 SEEN /hpf (None Seen); Mucous, Urine 0 SEEN /hpf (<or=2+); Red Blood Cells-Urine 0 SEEN /hpf (0-5); Squamous Epithelial Cells - UA 0 SEEN /hpf (0-5); White Blood Cells 0 SEEN /hpf (0-5)
--- NOTE | 2021-09-21 11:42 | RAD_ITS ---
STUDY: X-RAY CHEST REASON FOR EXAM: Male, 86 years old. Confusion TECHNIQUE: Single AP portable view of the chest. COMPARISON: Comparison is made with prior study dated 04/11/2021. FINDINGS: Stable elevation of the diaphragm. Stable mild increased markings at the right lung base suggestive of a atelectasis and/or scarring. Stable blunting of the right costophrenic angle. Normal size heart. Normal mediastinum and neisha. Normal visualized pulmonary arteries. Normal visualized aortic arch and descending thoracic aorta. Normal visualized thoracic spine. Normal visualized ribs, clavicles, and shoulders. There is no demonstrated abnormality of the visualized soft tissue structures of the upper abdomen. RAD/Chest 1 View (Portable) IMPRESSION: Stable examination. No acute abnormality is seen. Electronically Signed: Moustapha Decker MD at 12:30 EDT ,
[2021-09-21 11:46] LABS: Color, Urine Yellow (Yellow); Glucose, Dipstick Normal (Normal); Ketone-Dipstick Negative (Negative); Leukocyte Esterase-Dipstick Negative /ul (Negative); Nitrite-Dipstick Negative (Negative); Occult Blood-Urine Negative /ul (Negative); Protein-Dipstick Negative (Negative); Urine Bilirubin Dipstick Negative (Negative); Urine Clarity Clear (Clear); Urine Urobilinogen Normal (Normal)
[2021-09-21 11:58] LABS: Amphetamine Urine VISTA NEGATIVE (<1000 ng/mL); Barbiturate Urine VISTA NEGATIVE (< 200 ng/mL); Benzodiazepine Urine VISTA NEGATIVE (< 200 ng/mL); Cocaine Urine VISTA NEGATIVE (< 300 ng/mL); Ecstacy Urine VISTA NEGATIVE (< 500 ng/mL); Methadone Urine VISTA NEGATIVE (< 300 ng/mL); PCP Urine VISTA NEGATIVE (< 25 ng/mL); THC Urine VISTA NEGATIVE (< 50 ng/mL); Vista UDS pH Range 6
[2021-09-21 13:30] VITALS: BP 140/60; PULSE 71; RESP 16; O2SAT 98
[2021-09-21 14:00] VITALS: RESP 18
== END 2021-09-21 14:02 | disposition home or self-care (01) ==
PROVIDERS: Physician Assistant; Emergency Provider Emergency Medicine; PCP Internal Medicine; Visit Provider Emergency Medicine
DX: R41.0 Disorientation, unspecified (principal); T50.905A Adverse effect of unspecified drugs, medicaments and biological substances, initial encounter; E78.00 Pure hypercholesterolemia, unspecified; I25.10 Atherosclerotic heart disease of native coronary artery without angina pectoris; E78.5 Hyperlipidemia, unspecified; Z90.49 Acquired absence of other specified parts of digestive tract; I10 Essential (primary) hypertension; Z86.16 Personal history of COVID-19; Z99.89 Dependence on other enabling machines and devices; G47.33 Obstructive sleep apnea (adult) (pediatric); Z79.899 Other long term (current) drug therapy
CPT/HCPCS: 71045; 80053; 80307; 81001; 85025; 96360; 96361; 99283; J7030; A4216

== ENCOUNTER → 2021-11-06 | Outpatient (CLI) | payer MEDICARE, OTHER, SELFPAY ==
--- NOTE | 2021-11-06 16:20 | RAD_ITS ---
STUDY: X-RAY - PELVIS AND BILATERAL HIP REASON FOR EXAM: Male, 86 years old. Bilateral hip arthritis, left greater than right TECHNIQUE: XR Hips Bilateral with Pelvis when performed; Min 5 Views COMPARISON: None. FINDINGS: There is a non-specific bowel gas pattern. Normal visualized soft tissue structures. There are degenerative changes of the lumbar spine. Normal bilateral iliac wings, sacroiliac joints and visualized sacrum. Normal bilateral superior and inferior pubic rami. Normal pubic symphysis. Normal bilateral ischial tuberosities. Normal visualized femoral head. Normal acetabulum. There is mild articular joint space narrowing of the hip. RAD/Hips B/L min 2 views w/ Pelvis IMPRESSION: There is mild articular joint space narrowing of the hip. Electronically Signed: Noel High MD at 16:34 EDT ,
[2021-11-06 17:40] LABS: Free T3 1.8 pg/mL (2.18-3.98); T4 Free Direct 0.98 ng/dL (0.76-1.46); Thyroid Stim Hormone (TSH) 5.35 uIU/mL (0.358-3.74)
== END | disposition home or self-care (01) ==
LOC: LAB 15:56
PROVIDERS: PCP Internal Medicine; Visit Provider Internal Medicine
DX: M16.0 Bilateral primary osteoarthritis of hip (principal); M25.552 Pain in left hip; E03.9 Hypothyroidism, unspecified
CPT/HCPCS: 36415; 73521; 84439; 84443; 84481

== ENCOUNTER → 2022-04-05 | Outpatient (CLI) | payer MEDICARE, SELFPAY ==
[2022-04-05 16:47] LABS: Absolute Lymphocyte Count 1.18 X10^3/uL (0.83-4.51); Absolute Neutrophil Count 5.4 X10^3/uL (2.0-7.7); Basophil# 0.03 X10^3/uL; Basophil% 0.4 % (0-1); Eosinophil# 0.22 X10^3/uL; Eosinophils% 2.9 % (0-5); Hematocrit 39.9 % (40-54); Hemoglobin 13.1 g/dL (13.0-16.5); Lymphocyte # 1.18 X10^3/ul (0.83-4.51); Lymphocyte % 15.4 % (19-41); Mean Corp Hgb Conc 32.8 g/dL (32-36); Mean Corpuscular Hgb 30.2 pg (27.0-32.0); Mean Corpuscular Volume 91.9 fL (80-94); Mean Platelet Vol. 9.3 fl (6.2-12.0); Monocyte# 0.86 X10^3/uL; Monocyte% 11.2 % (0-10); NRBC Flagged by Analyzer 0 % (0-5); Neutrophil # 5.38 X10^3/uL (2.7-7.7); Platelet Count 166 K/mm3 (150-450); RBC Distribution Width CV 13.6 % (11.6-14.6); Red Blood Count 4.34 M/mm3 (4.6-6.2); White Blood Count 7.7 K/mm3 (4.4-11.0)
[2022-04-05 17:20] LABS: ALB/GLOB Ratio 1.2 RATIO (0.9-2.4); AST(SGOT) 27 U/L (15-37); Alanine Aminotransfer ALT/SGPT 33 U/L (16-61); Albumin, Serum 3.7 g/dL (3.2-5.0); Alkaline Phosphatase 75 U/L (45-117); Anion Gap 3 (5-15); BUN 22 mg/dL (7-18); BUN/Creat Ratio 20.4 RATIO (10-20); Calcium,Total 8.7 mg/dL (8.5-10.1); Chloride 106 mmol/L (98-107); Creatinine, Serum 1.08 mg/dL (0.70-1.30); EST Glomerular Filtration Rate 69 mL/min (>60); Est Glom Filt Rate - Afr Amer 84 mL/min (>60); Globulin 3.1 g/dL (2.2-4.2); Glucose 114 mg/dL (74-106); Potassium 4.1 mmol/L (3.5-5.1); Protein, Total 6.8 g/dL (6.4-8.2); Sodium Level 139 mmol/L (136-145)
[2022-04-05 17:23] LABS: Vitamin B12 642 pg/mL (211-911)
[2022-04-11 12:22] LABS: Free T3 1.7 pg/mL (2.18-3.98); T4 Free Direct 1.08 ng/dL (0.76-1.46)
== END | disposition home or self-care (01) ==
LOC: LAB 15:59
PROVIDERS: PCP Internal Medicine; Referring Provider Internal Medicine; Visit Provider Internal Medicine
DX: I25.10 Atherosclerotic heart disease of native coronary artery without angina pectoris (principal); G31.84 Mild cognitive impairment of uncertain or unknown etiology; E78.5 Hyperlipidemia, unspecified; E03.9 Hypothyroidism, unspecified; R07.9 Chest pain, unspecified
CPT/HCPCS: 36415; 80053; 82607; 84439; 84443; 84481; 85025

== ENCOUNTER 2022-06-11 16:11 | Emergency (ER) | payer MEDICARE, SELFPAY ==
[2022-06-11 16:12] VITALS: BP 122/71; PULSE 70; RESP 14; TEMP 36.4; O2SAT 94; BMI 24.4
--- NOTE | 2022-06-11 16:34 | EKG12_ITS ---
Test Reason : Blood Pressure : / mmHG Vent. Rate : 067 BPM Atrial Rate : 067 BPM P-R Int : 260 ms QRS Dur : 098 ms QT Int : 428 ms P-R-T Axes : 027 -39 -04 degrees QTc Int : 452 ms Sinus rhythm with 1st degree A-V block Left axis deviation Low voltage QRS Cannot rule out Anterior infarct , age undetermined Abnormal ECG Confirmed by CRUZ MERA, OZZY ([id number]), videotape editor MARNIE FREEMAN ([id number]) on 06/13/2022 10:03:50 AM Referred By: JALIL Confirmed By:OZZY ARROYO MD
--- NOTE | 2022-06-11 16:47 | EDS_ITS ---
HPI History of Present Illness Chief Complaint: Confusion Informant: patient Narrative Narrative: Presents here for evaluation due to concerns of family per patient. 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 Has been helping her over the last 4 days. Reports he has been fatigued, yesterday due to fatigue he was walking bumped over a table. No injuries from this. There are concerns of him being confused however he states he is not confused he is just tired. Denies chest or abdominal pain. States mild cough, reports having urine frequency that is more than his typical baseline no fevers chills or sweats. No nausea or vomiting. PFSH PFSH Allergy/AdvReac Type Severity Reaction Status Date / Time No Known Allergies Allergy Verified 06/11/22 16:14 Social History Smoking Status: Unknown if ever smoked ROS ROS ED Constitutional Constitutional ED: Denies chills, fever(s) or sweats Eyes Eyes: Denies change in vision ENT ENT ED: Denies dysphagia or sore throat Cardiovascular Cardiovascular: Denies chest pain, leg edema, palpitations or racing heartbeat Respiratory/Chest Respiratory/Chest: Denies cough, dyspnea or dyspnea on exertion Gastrointestinal Gastrointestinal: Denies abdominal pain, diarrhea, nausea or vomiting Genitourinary Genitourinary ED: Reports urinary frequency; Denies dysuria or hematuria Musculoskeletal Musculoskeletal: Denies back pain, extremity pain or neck pain Integumentary Denies rash or wounds Neurologic Neurologic: Denies headache(s), paresthesias or weakness EXAM Physical Exam Const Vital Signs: 06/11/22 16:12 Temperature 97.6 F L Temperature Source Temporal Pulse Rate 70 Respiratory Rate 14 Blood Pressure 122/71 H Blood Pressure Mean 88 Pulse Ox 94 Oxygen Delivery Method Room Air Positive well nourished and well developed General Appearance ED: well developed and NAD HEENT Reports moist mucous membranes normocephalic and atraumatic Eyes PERRL, EOMs intact bilaterally and conjunctivae normal General Eye ED: Yes normal appearance of both eyes Neck no lymphadenopathy and supple General: Negative for tenderness Chest Wall Chest: Negative for tenderness Resp normal respiratory effort and normal air movement Effort and Inspection: symmetric chest movement; Negative for respiratory distress Cardio regular rate, regular rhythm and no murmurs Peripheral Pulses: pulses 2+ throughout GI normal to inspection, nondistended, normoactive bowel sounds and non-tender Palpation: Negative for guarding or rebound tenderness present Back/Spine no CVA tenderness and no thoracic nor lumbar tenderness Extremity normal to inspection General Extremety ED: Negative for edema or tenderness General Extremity: Negative for edema Neuro oriented x3, CN's II-XII intact bilaterally and no sensory deficits noted Sensorium / Orientation: awake and alert Skin no rashes or lesions noted and no wounds MDM MDM MDM Narrative Medical decision making narrative: Interventions / MDM: Differential diagnosis: UTI, electrolyte abnormalities, pneumonia Diagnosis considered but do not suspect: N/A My EKG interpretation: Sinus rate of 67, first-degree AV block, no ST changes or T wave inversions leads III and aVF. Imaging independently reviewed and interpreted by myself: 2 view chest x-ray: No acute process External documents reviewed: N/A Test considered but not ordered:N/A ED course: Patient a noted reported concerns for confusion. Reports urine frequency. Mild cough. Lab work-up stable sodium 132. Mixup in registration as a pull of his previous medical record number he had similar findings. Urine negative action chest ray negative. He is ambulating in the room with no difficulties. I did note from records years Alzheimer's dementia, currently A&O 3, he consented I reach out to his spouse who confirms she did recently have surgery he is helping somewhat however there is other help at home. She is concerned of him being unstable yesterday. I discussed results with her with things being stable and he is ambulating no difficulty. She confirmed that he did drive himself here. I discussed with her with Alzheimer's, family discussion needs to be discussed if he should be driving in the near future for safety reasons. She understands this. He will follow-up with his doctor. All questions were answered. Re-evaluation: stable Disposition discussed with patient/family/significant other: Patient and significant other Case discussed with consulting clinician: N/A History & Record Review Discussion w/independent historian: Patient Additional record(s) reviewed:: Prior outpatient record Lab Data Attestation: I reviewed the patient's lab results. Labs: Laboratory Results - last 24 hr 06/11/22 06/11/22 06/11/22 16:48 16:48 17:10 WBC 7.4 RBC 4.16 L Hgb 12.7 L Hct 37.3 L MCV 89.7 MCH 30.5 MCHC 34.0 RDW Std Deviation 42.3 RDW Coeff of [place] 12.9 Plt Count 248 MPV 8.7 Immature Gran % (Auto) 0.400 Neut % (Auto) 73.2 H Lymph % (Auto) 14.2 L [place] % (Auto) 9.9 Eos % (Auto) 1.9 Baso % (Auto) 0.4 Absolute Neuts (auto) 5.4 Absolute Lymphs (auto) 1.05 Nucleated RBC % 0 Sodium 132 L Potassium 4.3 Chloride 101 Carbon Dioxide 23.0 Anion Gap 8 BUN 16 Creatinine 1.12 Estim Creat Clear Calc 52.29 Est GFR (MDRD) Af Amer 80 Est GFR (MDRD) Non-Af 66 BUN/Creatinine Ratio 14.3 Glucose 116 H Calcium 8.3 L Urine Color Yellow Urine Clarity Clear Urine pH 6.5 Ur Specific [place] 1.010 Urine Protein Negative Urine Glucose (UA) Normal Urine Ketones Negative Urine Occult Blood Negative Urine Nitrite Negative Urine Bilirubin Negative Urine Urobilinogen Normal Ur Leukocyte Esterase Negative Urine RBC 0 SEEN Urine WBC 0 SEEN Ur Squamous Epith Cells 0 SEEN Urine Bacteria 0 SEEN Urine Mucus 0 SEEN Radiography Diagnostic Testing: Clinical Impression(s) from Imaging Studies Chest X-Ray 06/11/22 18:00 IMPRESSION: 1. Elevated right hemidiaphragm right basilar atelectasis. Electronically Signed: True Moreira DO at 18:33 EST Reading Location ID and State: [address] [place] [address] Tel [phone], Service support , Discharge Plan Triage Chief Complaint: Confusion ED Provider: Fausto Collins Dx/Rx/DC Orders Clinical Impression: Encounter for medical assessment, Fatigue, Hyponatremia Instructions: ED Hyponatremia Primary Care Provider: Cassandra Keene Referrals: Cassandra Keene MD [Primary Care Provider] - 3-5 Days Activity Restrictions/Additional Instructions: Chest x-ray negative urine negative for infection. Labs sodium 132 stable from previous. Follow-up with your doctor, return if worsening symptoms. Disposition Disposition: Home, Self Care Discharge Date/Time: 06/11/22 18:59
[2022-06-11 16:56] LABS: Absolute Lymphocyte Count 1.05 X10^3/uL (0.83-4.51); Absolute Neutrophil Count 5.4 X10^3/uL (2.0-7.7); Basophil# 0.03 X10^3/uL; Basophil% 0.4 % (0-1); Eosinophil# 0.14 X10^3/uL; Eosinophils% 1.9 % (0-5); Hematocrit 37.3 % (40-54); Hemoglobin 12.7 g/dL (13.0-16.5); Lymphocyte # 1.05 X10^3/ul (0.83-4.51); Lymphocyte % 14.2 % (19-41); Mean Corpuscular Hgb 30.5 pg (27.0-32.0); Mean Corpuscular Volume 89.7 fL (80-94); Mean Platelet Vol. 8.7 fl (6.2-12.0); Monocyte# 0.73 X10^3/uL; Monocyte% 9.9 % (0-10); NRBC Flagged by Analyzer 0 % (0-5); Neutrophil % 73.2 % (47-70); Platelet Count 248 K/mm3 (150-450); RBC Distribution Width CV 12.9 % (11.6-14.6); RBC Distribution Width SD 42.3 fl (35.1-43.9); Red Blood Count 4.16 M/mm3 (4.6-6.2); White Blood Count 7.4 K/mm3 (4.4-11.0)
[2022-06-11 17:15] LABS: Anion Gap 8 (5-15); BUN 16 mg/dL (7-18); BUN/Creat Ratio 14.3 RATIO (10-20); Calcium,Total 8.3 mg/dL (8.5-10.1); Chloride 101 mmol/L (98-107); Creatinine, Serum 1.12 mg/dL (0.70-1.30); EST Glomerular Filtration Rate 66 mL/min (>60); Est Glom Filt Rate - Afr Amer 80 mL/min (>60); Estimated Creatinine Clearance 52.29 ml/min; Glucose 116 mg/dL (74-106); Potassium 4.3 mmol/L (3.5-5.1); Sodium Level 132 mmol/L (136-145)
[2022-06-11 17:17] LABS: Bacteria 0 SEEN /hpf (None Seen); Mucous, Urine 0 SEEN /hpf (<or=2+); Red Blood Cells-Urine 0 SEEN /hpf (0-5); Squamous Epithelial Cells - UA 0 SEEN /hpf (0-5); White Blood Cells 0 SEEN /hpf (0-5)
[2022-06-11 17:42] LABS: Color, Urine Yellow (Yellow); Glucose, Dipstick Normal (Normal); Ketone-Dipstick Negative (Negative); Leukocyte Esterase-Dipstick Negative /ul (Negative); Nitrite-Dipstick Negative (Negative); Occult Blood-Urine Negative /ul (Negative); Protein-Dipstick Negative (Negative); Urine Bilirubin Dipstick Negative (Negative); Urine Clarity Clear (Clear); Urine Urobilinogen Normal (Normal); Urine pH 6.5 (5.0 - 8.0)
--- NOTE | 2022-06-11 18:00 | RAD_ITS ---
STUDY: X-RAY CHEST REASON FOR EXAM: Male, 86 years old. Cough. TECHNIQUE: PA and lateral views of the chest. COMPARISON: None. FINDINGS: Elevation of the right hemidiaphragm with right basilar atelectasis. The lungs appear otherwise clear. There is no demonstrated pleural abnormality. Normal size heart. Normal mediastinum and neisha. Normal visualized pulmonary arteries. Normal visualized aortic arch and descending thoracic aorta. There are diffuse degenerative changes of the visualized thoracic spine. Normal visualized ribs, clavicles, and shoulders. There is no demonstrated abnormality of the visualized soft tissue structures of the upper abdomen. RAD/Chest PA and Lateral IMPRESSION: 1. Elevated right hemidiaphragm right basilar atelectasis. Electronically Signed: True Moreira DO at 18:33 EST ,
== END 2022-06-11 18:59 | disposition home or self-care (01) ==
PROVIDERS: Emergency Provider Emergency Medicine; PCP Internal Medicine; Visit Provider Emergency Medicine
DX: R41.0 Disorientation, unspecified (principal); I44.0 Atrioventricular block, first degree; R35.0 Frequency of micturition; E87.6 Hypokalemia; R53.83 Other fatigue
CPT/HCPCS: 71046; 80048; 81001; 85025; 93005; 99283; A4216

== ENCOUNTER → 2022-06-26 | Outpatient (CLI) | payer MEDICARE, SELFPAY ==
[2022-06-26 11:04] LABS: BNP,B-Type NATRIURETIC PEPTIDE 45.1 pg/mL (0-100)
[2022-06-26 11:05] LABS: AST(SGOT) 27 U/L (15-37); Alanine Aminotransfer ALT/SGPT 26 U/L (16-61); Albumin, Serum 3.6 g/dL (3.2-5.0); Alkaline Phosphatase 65 U/L (45-117); Anion Gap 6 (5-15); BUN 13 mg/dL (7-18); BUN/Creat Ratio 11.6 RATIO (10-20); Bilirubin, Direct 0.29 mg/dL (0.00-0.30); Calcium,Total 8.6 mg/dL (8.5-10.1); Chloride 109 mmol/L (98-107); Cholesterol 105 mg/dL (200); Creatinine, Serum 1.12 mg/dL (0.70-1.30); EST Glomerular Filtration Rate 66 mL/min (>60); Est Glom Filt Rate - Afr Amer 80 mL/min (>60); Globulin 2.7 g/dL (2.2-4.2); Glucose 99 mg/dL (74-106); High Density Lipoprotein 40 mg/dL; Potassium 4.3 mmol/L (3.5-5.1); Protein, Total 6.3 g/dL (6.4-8.2); Sodium Level 141 mmol/L (136-145); Triglycerides 103 mg/dL; Very Low Density Lipoprotein 21 mg/dL (5-40)
[2022-06-26 11:23] LABS: T4 Free Direct 1.31 ng/dL (0.76-1.46); Thyroid Stim Hormone (TSH) 0.87 uIU/mL (0.358-3.74)
== END | disposition home or self-care (01) ==
PROVIDERS: PCP Internal Medicine; Referring Provider Internal Medicine Cardiovascular Disease; Visit Provider Internal Medicine Cardiovascular Disease
DX: R06.02 Shortness of breath (principal); I25.10 Atherosclerotic heart disease of native coronary artery without angina pectoris; R05.9 Cough, unspecified; R68.83 Chills (without fever); E03.9 Hypothyroidism, unspecified; Z20.822 Contact with and (suspected) exposure to COVID-19
CPT/HCPCS: 36415; 80048; 80061; 80076; 83880; 84439; 84443; 84481; 87635; C9803; U0003; U0005

== ENCOUNTER → 2022-08-08 | Outpatient (CLI) | payer MEDICARE, SELFPAY ==
--- NOTE | 2022-08-08 12:40 | CT_ITS ---
STUDY: CT ORBITS WITHOUT CONTRAST REASON FOR EXAM: Male, 86 years old. R ORBITAL PAIN. Sinus pain/pressure. RADIATION DOSAGE (If Supplied By Facility): CTDIvol = ( 29.38 ) mGy, DLP = ( 378.50 ) mGycm TECHNIQUE: The patient was scanned in a multi detector CT scanner. Transaxial imaging was performed without the administration of intravenous contrast material. Sagittal and coronal images were reconstructed. Individualized dose optimization techniques were used for this CT. COMPARISON: None. FINDINGS: Normal globes. Normal intraconal spaces. Normal optic nerve sheath complex. Normal bilateral extraocular muscles. Normal lacrimal glands. Normal bilateral medial and inferior orbital wal[place]. Normal bilateral maxillary bones. Normal bilateral frontozygomatic arches. Normal bilateral zygomatic temporal arches. Normal frontal sinus. Normal ethmoidal sinuses. Normal maxillary sinuses. Normal sphenoid sinuses. Nasal septal deviation towards the right side of the midline. Normal soft tissue structures. CT/Orb Sella Post Fossa Ear w/o IMPRESSION: No acute abnormality is seen. Nasal septal deviation towards the right side of the midline. Electronically Signed: Moustapha Decker MD at 14:38 EDT ,
== END | disposition home or self-care (01) ==
LOC: CT 12:38
PROVIDERS: PCP Internal Medicine; Referring Provider Ophthalmology; Visit Provider Ophthalmology
DX: H57.11 Ocular pain, right eye (principal)
CPT/HCPCS: 70480

== ENCOUNTER → 2022-10-20 | Outpatient (CLI) | payer MEDICARE, SELFPAY ==
--- NOTE | 2022-10-20 08:25 | MRI_ITS ---
STUDY: MRI BRAIN WITHOUT CONTRAST REASON FOR EXAM: Male, 87 years old. Dementia TECHNIQUE: Standardized multiplanar fat and water weighted pulse sequences were obtained. COMPARISON: 03/20/2021. BRAIN AND EXTRA-AXIAL SPACES: No intracranial mass, mass effect, or midline shift. No hemorrhage, territorial infarct or acute ischemia. White matter is unremarkable. Moderate cerebral atrophy with widening of the extra-axial spaces and ventricular dilation. No significant change. Basal cisterns are unremarkable. SELLA: Pituitary gland is normal in height. AUDITORY SYSTEM: Unremarkable. BONES/JOINTS: Unremarkable. SINUSES: Unremarkable as visualized. Clear. MASTOID AIR CELLS: Unremarkable as visualized. Clear. ORBITS: Unremarkable as visualized. VASCULATURE: Normal flow voids in the major intracranial circulation. MRI/Brain without Contrast IMPRESSION: 1. No acute findings. 2. Moderate atrophy. Electronically Signed: Lashae Dent MD at 23:08 EDT Reading Location ID and State: [id number] / Tel , Service support ,
== END | disposition home or self-care (01) ==
LOC: MRI 07:15
PROVIDERS: PCP Internal Medicine; Referring Provider Psychiatry & Neurology Neurology; Visit Provider Psychiatry & Neurology Neurology
DX: F03.90 Unspecified dementia, unspecified severity, without behavioral disturbance, psychotic disturbance, mood disturbance, and anxiety (principal)
CPT/HCPCS: 70551

== ENCOUNTER → 2022-11-01 | Outpatient (CLI) | payer MEDICARE, SELFPAY ==
[2022-11-01 10:09] LABS: Hematocrit 39.3 % (40-54); Hemoglobin 13.4 g/dL (13.0-16.5); Mean Corp Hgb Conc 34.1 g/dL (32-36); Mean Corpuscular Hgb 29.7 pg (27.0-32.0); Mean Corpuscular Volume 87.1 fL (80-94); Mean Platelet Vol. 9.9 fl (6.2-12.0); Platelet Count 212 K/mm3 (150-450); RBC Distribution Width CV 13.2 % (11.6-14.6); Red Blood Count 4.51 M/mm3 (4.6-6.2); White Blood Count 5.9 K/mm3 (4.4-11.0)
[2022-11-01 10:46] LABS: Vitamin B12 524 pg/mL (211-911)
[2022-11-01 11:08] LABS: ALB/GLOB Ratio 1.2 RATIO (0.9-2.4); AST(SGOT) 36 U/L (15-37); Alanine Aminotransfer ALT/SGPT 37 U/L (16-61); Albumin, Serum 3.5 g/dL (3.2-5.0); Alkaline Phosphatase 91 U/L (45-117); Anion Gap 6 (5-15); BUN 14 mg/dL (7-18); BUN/Creat Ratio 13.7 RATIO (10-20); Calcium,Total 8.6 mg/dL (8.5-10.1); Chloride 104 mmol/L (98-107); Creatinine, Serum 1.02 mg/dL (0.70-1.30); EST Glomerular Filtration Rate 74 mL/min (>60); Est Glom Filt Rate - Afr Amer 89 mL/min (>60); Globulin 2.9 g/dL (2.2-4.2); Glucose 106 mg/dL (74-106); Potassium 4.1 mmol/L (3.5-5.1); Protein, Total 6.4 g/dL (6.4-8.2); Sodium Level 136 mmol/L (136-145); T4 Free Direct 1.12 ng/dL (0.76-1.46); Thyroid Stim Hormone (TSH) 5.92 uIU/mL (0.358-3.74)
[2022-11-03 15:07] LABS: Vitamin D 1,25-Dihydroxy 38.5 pg/mL (24.8-81.5)
[2022-11-04 18:07] LABS: Vitamin B1, Thiamine 152.4 nmol/L (66.5-200.0)
== END | disposition home or self-care (01) ==
LOC: MTLAB 07:38
PROVIDERS: PCP Internal Medicine; Visit Provider Psychiatry & Neurology Neurology
DX: I10 Essential (primary) hypertension (principal); G30.9 Alzheimer's disease, unspecified; F02.80 Dementia in other diseases classified elsewhere, unspecified severity, without behavioral disturbance, psychotic disturbance, mood disturbance, and anxiety; E03.9 Hypothyroidism, unspecified; E55.9 Vitamin D deficiency, unspecified
CPT/HCPCS: 36415; 80053; 82607; 82652; 82746; 84425; 84439; 84443; 84481; 85027

== ENCOUNTER 2022-11-08 16:20 | Emergency (ER) | payer MEDICARE, SELFPAY ==
[2022-11-08 16:21] VITALS: BP 136/109; PULSE 65; RESP 17; TEMP 36.2; O2SAT 98; BMI 25.4
--- NOTE | 2022-11-08 16:58 | CT_ITS ---
INDICATION: abdominal pain, constipation EXAMINATION: CT Abdomen And Pelvis W/ Contrast Injection TECHNIQUE: Helically acquired images were obtained of the abdomen and pelvis after IV contrast. A radiation dose optimization technique was used for this scan. IV Contrast dosage and agent: IV 100mL [id number] Oral contrast: None. COMPARISON: None. FINDINGS: Visualized lung bases: Unremarkable Liver: Scattered subcentimeter hypodensities are too small to characterize but most likely cysts. Gallbladder: Surgically absent. Spleen: Unremarkable Pancreas: Unremarkable Adrenal Glands: Unremarkable Kidneys: Multiple bilateral simple cysts. Vasculature: Severe aortoiliac atherosclerotic disease. GI Tract: Colonic interposition. Lymphadenopathy: None Peritoneum: No ascites. Bladder: Unremarkable Reproductive organs: Unremarkable Bones/Soft tissues: There are diffuse degenerative changes of the spine. CT/Abdomen/Pelvis W IV Cont ONLY IMPRESSION: No acute abnormalities in the abdomen or pelvis. Electronically Signed: Yandel Solano MD at 19:09 EDT ,
--- NOTE | 2022-11-08 17:18 | EX.ED.DYSGE1 ---
HPI <JONATHAN Gonzalez - Last Filed: 11/08/22 21:40> History of Present Illness Chief Complaint: Constipation Narrative Narrative: Patient presenting today with concerns for constipation that he has had over the past 5 days. He reports that he had several bouts of loose stool 2 or 3 days ago but other than that has not had a solid bowel movement. He normally has a bowel movement every other day. He was sent in by his surgeon, Dr. Dooley with concerns for bowel obstruction. He denies any prior history of bowel obstruction. He reports that overall he just does not feel well and has had chills. He reports minimal abdominal pain to his left upper quadrant and nausea. He denies any vomiting, fever, and blood in the stool. He has not tried taking any asah-tps-midwohz medication for his constipation. 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 Back pain Bladder disease BPH (benign prostatic hyperplasia) Bronchitis Candidiasis of mouth Cardiology follow-up encounter Change in bowel habit Cholelithiasis with chronic cholecystitis COVID-19 (11/11/21) CPAP (continuous positive airway pressure) dependence DDD (degenerative disc disease), lumbar Diverticulosis Eczema Essential (primary) hypertension Extensor tendon laceration of hand with open wound Gastric reflux GERD (gastroesophageal reflux disease) History of echocardiogram History of hiatal hernia History of Holter monitoring History of irregular heartbeat History of stress test Hyperlipidemia Hypothyroidism Left hip pain Left-sided chest pain Nausea Non-smoker Obstructive sleep apnea PVC's (premature ventricular contractions) Right groin pain Sciatica Scoliosis of lumbar spine Segmental and somatic dysfunction of lumbar region Segmental and somatic dysfunction of pelvic region Syncope and collapse Tinnitus Wears glasses Wears hearing aid Home Medications tacrolimus 0.1 % topical ointment 1 applic topical BID PRN Skin Cleansing 03/11/18 [History Last Taken Unknown] olmesartan 5 mg tablet 5 mg PO QHS 08/16/21 [History Last Taken Unknown] Fishoil - [place] PO 1XD 11/06/21 [History Last Taken Unknown] PB8 PO 1XD 11/06/21 [History Last Taken Unknown] atorvastatin 40 mg tablet 40 mg PO QHS #90 tabs 12/26/21 [Rx Last Taken Unknown] cereve moisrurizing lotion topical 02/26/22 [History Last Taken Unknown] triamcinolone acetonide 0.1 % topical cream 1 applic topical DAILY PRN 02/26/22 [History Last Taken Unknown] escitalopram oxalate 10 mg tablet 10 mg PO DAILY 07/02/22 [History Last Taken Unknown] folic acid 1 mg tablet 1 mg PO DAILY 07/02/22 [History Last Taken Unknown] lysine 500 mg tablet (L-Lysine) 500 mg PO DAILY 07/02/22 [History Last Taken Unknown] pimecrolimus 1 % topical cream 1 applic topical BID PRN 07/02/22 [History Last Taken Unknown] fljobineph-OQ-ZZ-acetaminophen 6.25-5-10-325 mg/15 mL oral liquids,seq (Vicks DayQuil-NyQuil Cold-Flu) ml PO PRN 07/19/22 [History Last Taken Unknown] cholecalciferol (vitamin D3) 25 mcg (1,000 unit) capsule 25 mcg PO DAILY #90 caps 08/30/22 [Rx Last Taken Unknown] doxepin 25 mg capsule 25 mg PO QHS PRN sleep #30 caps 08/30/22 [Rx Last Taken Unknown] alprazolam 0.5 mg tablet 0.5 mg PO .COMPLEX #1 TAB 10/02/22 [Rx Last Taken Unknown] donepezil 5 mg tablet 5 mg PO QAM #30 tabs 10/23/22 [Rx Last Taken Unknown] levothyroxine 100 mcg tablet 100 mcg PO DAILY #90 tabs 11/01/22 [Rx Last Taken Unknown] famotidine 40 mg tablet 40 mg PO DAILY PRN 11/05/22 [History Last Taken Unknown] ondansetron 4 mg disintegrating tablet 4 mg PO Q8H PRN PRN Nausea #10 tabs 11/08/22 [Rx Last Taken Unknown] Allergy/AdvReac Type Severity Reaction Status Date / Time lactose AdvReac Intermediate GI upset Verified 11/08/22 16:21 milk AdvReac Intermediate Upset Verified 11/08/22 16:21 Stomach Family History Father No problems noted. Mother Alzheimer disease Anxiety Sister Alzheimer disease Surgical History H/O hernia repair History of appendectomy History of colectomy History of left heart catheterization (06/29/08) Hx of cholecystectomy Hx of hand surgery Hx of squamous cell carcinoma excision Hx of transurethral resection of prostate S/P laparoscopic cholecystectomy Social History household members: spouse housing: house current occupational status: retired pets and animals: No Smoking Status: Never smoker second hand exposure: No alcohol intake: current alcohol intake frequency: a few times a week Alcohol type: wine substance use type: does not use caffeine: Yes Type: coffee Number of servings: 1 what type of physical activity do you participate in: walking and other details: tredmill frequency: 3-4 times per week duration: 30-45 minutes/day seatbelt use: always do you feel safe at home: Yes ROS <JONATHAN Gonzalez - Last Filed: 11/08/22 21:40> ROS ED Constitutional Constitutional ED: Reports chills; Denies fever(s) or sweats Cardiovascular Cardiovascular: Denies chest pain or palpitations Respiratory/Chest Respiratory/Chest: Denies cough, dyspnea, tachypnea or wheezing Gastrointestinal Gastrointestinal: Reports abdominal pain, constipation and nausea; Denies diarrhea or vomiting Genitourinary Genitourinary ED: Denies dysuria, hematuria or urinary urgency Musculoskeletal Musculoskeletal: Denies arthralgias or myalgias Integumentary Denies abscess, Abrasions or rash Neurologic Neurologic: Denies paresthesias or weakness EXAM <JONATHAN Gonzalez - Last Filed: 11/08/22 21:40> Physical Exam Const Vital Signs: 11/08/22 16:21 11/08/22 19:46 11/08/22 19:46 Temperature 97.1 F L Temperature Source Temporal Pulse Rate 65 78 78 Respiratory Rate 17 16 16 Blood Pressure 136/109 H 127/68 H 127/68 H Blood Pressure Mean 118 87 Pulse Ox 98 98 98 Oxygen Delivery Method Room Air Positive well nourished, well developed and no apparent distress General Appearance ED: well developed HEENT Reports normocephalic and head/scalp atraumatic Mouth ED: Yes moist mucous membranes normal Eyes PERRL and EOMs intact bilaterally Neck full ROM and supple Chest Wall inspection of chest normal Resp normal respiratory effort and clear to auscultation bilaterally Cardio regular rate and regular rhythm GI soft to palpation, non-tender, non-distended and no masses GI Narrative: Minimal pain to palpation to the left upper quadrant without any rigidity or guarding. Auscultation: hypoactive bowel sounds Back/Spine normal ROM and normal to inspection Extremity normal to inspection and full ROM Neuro oriented x3, CN's II-XII intact bilaterally, moves all extremities, no focal motor deficits and no sensory deficits noted Sensorium / Orientation: awake and alert Psych mental status grossly normal and thought process normal Skin no rashes or lesions noted and no wounds <Dr. Sona Smith DO - Last Filed: 11/09/22 11:11> Physical Exam Const Vital Signs: 11/08/22 16:21 11/08/22 19:46 11/08/22 19:46 Temperature 97.1 F L Temperature Source Temporal Pulse Rate 65 78 78 Respiratory Rate 17 16 16 Blood Pressure 136/109 H 127/68 H 127/68 H Blood Pressure Mean 118 87 Pulse Ox 98 98 98 Oxygen Delivery Method Room Air [facility] <JONATHAN Gonzalez - Last Filed: 11/08/22 21:40> [facility] Narrative Medical decision making narrative: Patient presenting today with constipation that he has had for the past 5 days. He also reports that overall he just does not feel well and has had chills. He was sent in by his doctor with concerns for bowel obstruction. He is well-appearing and in no acute distress and vitals are unremarkable. He denies prior history of a bowel obstruction but he does have a history of diverticular disease as well as a sigmoid resection. He is reporting minimal left upper quadrant pain and has minimal pain to palpation to this area. He had several bouts of loose stool 2 or 3 days ago. Labs will be obtained to rule out leukocytosis, anemia, electrolyte abnormality, JSAON, and UTI. CT of the abdomen pelvis will be obtained to rule out bowel obstruction, diverticulitis, and other abnormality. He was given IV Zofran. CT and labs are unremarkable. On reexamination patient reports that he would like to go home. I have encouraged him to try taking MiraLAX for his constipation and I have given him a prescription for Zofran. He will be discharged home in stable condition and is comfortable with plan. He is to follow-up with his PCP and has been given return instructions. Lab Data Attestation: I reviewed the patient's lab results. Labs: Laboratory Results - last 24 hr 11/08/22 11/08/22 17:25 Unknown WBC 6.7 RBC 4.39 L Hgb 12.9 L Hct 38.0 L MCV 86.6 MCH 29.4 MCHC 33.9 RDW Std Deviation 41.7 RDW Coeff of [place] 13.2 Plt Count 200 MPV 9.1 Immature Gran % (Auto) 0.400 Neut % (Auto) 73.3 H Lymph % (Auto) 15.6 L [place] % (Auto) 8.8 Eos % (Auto) 1.5 Baso % (Auto) 0.4 Absolute Neuts (auto) 4.9 Absolute Lymphs (auto) 1.05 Nucleated RBC % 0 Sodium 138 Potassium 4.2 Chloride 104 Carbon Dioxide 25.0 Anion Gap 9 BUN 15 Creatinine 0.96 Estim Creat Clear Calc 58.09 Est GFR (MDRD) Af Amer 95 Est GFR (MDRD) Non-Af 79 BUN/Creatinine Ratio 15.6 Glucose 115 H Calcium 8.7 Total Bilirubin 1.30 H AST 30 ALT 35 Alkaline Phosphatase 85 Total Protein 6.6 Albumin 3.6 Globulin 3.0 Albumin/Globulin Ratio 1.2 Lipase 84 H Urine Color Straw Urine Clarity Clear Urine pH 7.0 Ur Specific [place] 1.005 Urine Protein 15 H Urine Glucose (UA) Normal Urine Ketones Negative Urine Occult Blood Negative Urine Nitrite Negative Urine Bilirubin Negative Urine Urobilinogen Normal Ur Leukocyte Esterase Negative Urine RBC 0 SEEN Urine WBC 0 SEEN Ur Squamous Epith Cells 0 SEEN Urine Bacteria 0 SEEN Urine Mucus 0 SEEN Radiography Diagnostic Testing: Clinical Impression(s) from Imaging Studies Abdomen/Pelvis CT 11/08/22 16:58 IMPRESSION: No acute abnormalities in the abdomen or pelvis. Electronically Signed: Yandel Solano MD at 19:09 EDT , <Dr. Sona Smith, DO - Last Filed: 11/09/22 11:11> [facility] MDM Narrative Medical decision making narrative: Patient presenting today with constipation that he has had for the past 5 days. He also reports that overall he just does not feel well and has had chills. He was sent in by his doctor with concerns for bowel obstruction. He is well-appearing and in no acute distress and vitals are unremarkable. He denies prior history of a bowel obstruction but he does have a history of diverticular disease as well as a sigmoid resection. He is reporting minimal left upper quadrant pain and has minimal pain to palpation to this area. He had several bouts of loose stool 2 or 3 days ago. Labs will be obtained to rule out leukocytosis, anemia, electrolyte abnormality, JASON, and UTI. CT of the abdomen pelvis will be obtained to rule out bowel obstruction, diverticulitis, and other abnormality. He was given IV Zofran. CT and labs are unremarkable. On reexamination patient reports that he would like to go home. I have encouraged him to try taking MiraLAX for his constipation and I have given him a prescription for Zofran. He will be discharged home in stable condition and is comfortable with plan. He is to follow-up with his PCP and has been given return instructions. I have personally performed a face to face assessment of the patient and have reviewed the ANETTE Note. I performed a substantive portion of the visit including all aspects of the following. My sandoval findings include: History is patient is a 89-year-old male with history of Alzheimer's dementia, hypertension, diverticulitis and prior cholecystectomy presenting with constipation. Patient not had a bowel movement the past 5 days. Has generalized malaise and chills. Complains of mild pain in his left upper quadrant. Denies a history of bowel obstruction. Exam is largely benign. He is well-appearing. Abdomen nondistended. Vital signs are normal. He does not appear to actually any means. Differential includes constipation, small bowel obstruction, diverticulitis. Lab work as well as CT of the abdomen pelvis is obtained. Lab work largely normal as well as urinalysis. CT of the abdomen and pelvis shows no acute abnormality. Likely this is uncomplicated constipation. Is no obvious signs of infection she does not have a leukocytosis, fever or other more localizing symptoms. He has not really been taking his MiraLAX or anything else for constipation. We will restart MiraLAX and is also given a prescription for Zofran. Patient not eager to go home with . Given return precautions. They verbalized agreement of transplant. Patient discharged home in stable condition. Other additions or changes: [None] Lab Data Labs: Laboratory Results - last 24 hr 11/08/22 11/08/22 17:25 Unknown WBC 6.7 RBC 4.39 L Hgb 12.9 L Hct 38.0 L MCV 86.6 MCH 29.4 MCHC 33.9 RDW Std Deviation 41.7 RDW Coeff of [place] 13.2 Plt Count 200 MPV 9.1 Immature Gran % (Auto) 0.400 Neut % (Auto) 73.3 H Lymph % (Auto) 15.6 L [place] % (Auto) 8.8 Eos % (Auto) 1.5 Baso % (Auto) 0.4 Absolute Neuts (auto) 4.9 Absolute Lymphs (auto) 1.05 Nucleated RBC % 0 Sodium 138 Potassium 4.2 Chloride 104 Carbon Dioxide 25.0 Anion Gap 9 BUN 15 Creatinine 0.96 Estim Creat Clear Calc 58.09 Est GFR (MDRD) Af Amer 95 Est GFR (MDRD) Non-Af 79 BUN/Creatinine Ratio 15.6 Glucose 115 H Calcium 8.7 Total Bilirubin 1.30 H AST 30 ALT 35 Alkaline Phosphatase 85 Total Protein 6.6 Albumin 3.6 Globulin 3.0 Albumin/Globulin Ratio 1.2 Lipase 84 H Urine Color Straw Urine Clarity Clear Urine pH 7.0 Ur Specific [place] 1.005 Urine Protein 15 H Urine Glucose (UA) Normal Urine Ketones Negative Urine Occult Blood Negative Urine Nitrite Negative Urine Bilirubin Negative Urine Urobilinogen Normal Ur Leukocyte Esterase Negative Urine RBC 0 SEEN Urine WBC 0 SEEN Ur Squamous Epith Cells 0 SEEN Urine Bacteria 0 SEEN Urine Mucus 0 SEEN Radiography Diagnostic Testing: Clinical Impression(s) from Imaging Studies Abdomen/Pelvis CT 11/08/22 16:58 IMPRESSION: No acute abnormalities in the abdomen or pelvis. Electronically Signed: Yandel Solano MD at 19:09 EDT , Discharge Plan Triage Chief Complaint: Constipation ED Midlevel Provider: Saida Parker ED Provider: Sona Smith Dx/Rx/DC Orders Clinical Impression: Nausea, Constipation Instructions: ED Constipation (Adult) Prescriptions: New ondansetron 4 mg tablet,disintegrating 4 mg PO Q8H PRN PRN (Reason: Nausea) Qty: 10 0RF No Action tacrolimus 0.1 % ointment 1 applic TOPICAL BID PRN (Reason: Skin Cleansing) Fishoil - [place] PO 1XD PB8 PO 1XD triamcinolone acetonide 0.1 % cream 1 applic topical DAILY PRN cereve moisrurizing lotion topical Rx Instructions: BID Vicks DayQuil-NyQuil Cold-Flu 6.25-5-10-325 mg/15 mL liquid, sequential PO PRN alprazolam 0.5 mg tablet 0.5 mg PO .COMPLEX Qty: 1 0RF Rx Instructions: Take 1 tablet orally 30 minutes prior to MRI. donepezil 5 mg tablet 5 mg PO QAM Qty: 30 4RF cholecalciferol (vitamin D3) 25 mcg (1,000 unit) capsule 25 mcg PO DAILY Qty: 90 3RF doxepin 25 mg capsule 25 mg PO QHS PRN (Reason: sleep) Qty: 30 0RF famotidine 40 mg tablet 40 mg PO DAILY PRN olmesartan 5 mg Tablet 5 mg PO QHS atorvastatin 40 mg tablet 40 mg PO QHS Qty: 90 3RF escitalopram oxalate 10 mg tablet 10 mg PO DAILY lysine [L-Lysine] 500 mg tablet 500 mg PO DAILY folic acid 1 mg tablet 1 mg PO DAILY pimecrolimus 1 % cream 1 applic topical BID PRN levothyroxine 100 mcg tablet 100 mcg PO DAILY Qty: 90 1RF Primary Care Provider: Cassandra Keene Referrals: Cassandra Keene MD [Primary Care Provider] - 3-5 Days Disposition Disposition: Home, Self Care Discharge Date/Time: 11/08/22 19:55
[2022-11-08 17:44] LABS: Absolute Lymphocyte Count 1.05 X10^3/uL (0.83-4.51); Absolute Neutrophil Count 4.9 X10^3/uL (2.0-7.7); Basophil# 0.03 X10^3/uL; Basophil% 0.4 % (0-1); Eosinophils% 1.5 % (0-5); Hemoglobin 12.9 g/dL (13.0-16.5); Lymphocyte # 1.05 X10^3/ul (0.83-4.51); Lymphocyte % 15.6 % (19-41); Mean Corp Hgb Conc 33.9 g/dL (32-36); Mean Corpuscular Hgb 29.4 pg (27.0-32.0); Mean Corpuscular Volume 86.6 fL (80-94); Mean Platelet Vol. 9.1 fl (6.2-12.0); Monocyte# 0.59 X10^3/uL; Monocyte% 8.8 % (0-10); NRBC Flagged by Analyzer 0 % (0-5); Neutrophil # 4.91 X10^3/uL (2.7-7.7); Neutrophil % 73.3 % (47-70); Platelet Count 200 K/mm3 (150-450); RBC Distribution Width CV 13.2 % (11.6-14.6); RBC Distribution Width SD 41.7 fl (35.1-43.9); Red Blood Count 4.39 M/mm3 (4.6-6.2); White Blood Count 6.7 K/mm3 (4.4-11.0)
[2022-11-08 18:01] LABS: ALB/GLOB Ratio 1.2 RATIO (0.9-2.4); AST(SGOT) 30 U/L (15-37); Alanine Aminotransfer ALT/SGPT 35 U/L (16-61); Albumin, Serum 3.6 g/dL (3.2-5.0); Alkaline Phosphatase 85 U/L (45-117); Anion Gap 9 (5-15); BUN 15 mg/dL (7-18); BUN/Creat Ratio 15.6 RATIO (10-20); Calcium,Total 8.7 mg/dL (8.5-10.1); Chloride 104 mmol/L (98-107); Creatinine, Serum 0.96 mg/dL (0.70-1.30); EST Glomerular Filtration Rate 79 mL/min (>60); Est Glom Filt Rate - Afr Amer 95 mL/min (>60); Estimated Creatinine Clearance 58.09 ml/min; Glucose 115 mg/dL (74-106); Lipase 84 U/L (13-75); Potassium 4.2 mmol/L (3.5-5.1); Protein, Total 6.6 g/dL (6.4-8.2); Sodium Level 138 mmol/L (136-145)
--- NOTE | 2022-11-08 18:02 | CM.ED ---
Social Work SW performed chart review, HCPOA and LW documents on file as of 2006. Patient's HCPOA is his , Gina with his alternates being his sons Liam and Micha. Carol Car MSW, OBDULIA
[2022-11-08] MEDS: Ondansetron 4 MG/2 ML Vial IV (18:06)
[2022-11-08 19:04] LABS: Bacteria 0 SEEN /hpf (None Seen); Mucous, Urine 0 SEEN /hpf (<or=2+); Red Blood Cells-Urine 0 SEEN /hpf (0-5); Squamous Epithelial Cells - UA 0 SEEN /hpf (0-5); White Blood Cells 0 SEEN /hpf (0-5)
[2022-11-08 19:15] LABS: Color, Urine Straw (Yellow); Glucose, Dipstick Normal (Normal); Ketone-Dipstick Negative (Negative); Leukocyte Esterase-Dipstick Negative /ul (Negative); Nitrite-Dipstick Negative (Negative); Occult Blood-Urine Negative /ul (Negative); Protein-Dipstick 15 mg/dl (Negative); Specific Gravity, Urine 1.005 (1.002-1.030); Urine Bilirubin Dipstick Negative (Negative); Urine Clarity Clear (Clear); Urine Urobilinogen Normal (Normal)
[2022-11-08 19:46] VITALS: BP 127/68; PULSE 78; RESP 16; O2SAT 98
== END 2022-11-08 19:55 | disposition home or self-care (01) ==
PROVIDERS: Physician Assistant; Emergency Provider Emergency Medicine; PCP Internal Medicine; Visit Provider Emergency Medicine
DX: K59.00 Constipation, unspecified (principal); E78.5 Hyperlipidemia, unspecified; R11.0 Nausea; I25.10 Atherosclerotic heart disease of native coronary artery without angina pectoris; I10 Essential (primary) hypertension; Z79.899 Other long term (current) drug therapy; F41.8 Other specified anxiety disorders; Z99.89 Dependence on other enabling machines and devices; E03.9 Hypothyroidism, unspecified; Z90.49 Acquired absence of other specified parts of digestive tract
CPT/HCPCS: 74177; 80053; 81001; 83690; 85025; 96374; 99282; Q9967; A4216; J2405

== ENCOUNTER 2022-11-12 14:04 | Outpatient (RCR) | payer MEDICARE, SELFPAY ==
--- NOTE | 2022-11-12 16:11 | HP.PTEVAL_ITS ---
Patient's Visit Information Visit Information Visit Information: JR YE is a 87 year old M referred to Physical Therapy by Dr. Cassandra Keene MD with a diagnosis of Left Hip Pain. Date of Evaluation: 11/12/22 Physical Therapist: Christine Burton DPT Visit Plan Frequency: 2x /Week Duration: 4 Weeks Plan: Focus on Posture and Core Strength/Stabilization HEP Given IE: Seated Marching, TA contraction, glut set, hip add, hip abd, HR/TR- posture while sitting watching TV Subjective Subjective: Patient reports that his left hip is bothering him for a couple of years- the pain comes and goes. The pain is located on the outside of the hip- and radiates to the mid thigh- and into the buttock area. He describes the pain as dull and achy. Worst: 7/10 Describes the pain as sore. Eases: getting up and moving around Agg: laying on it. Best: 0/10. Sleep: hard to get comfortable- can't sleep on the left side- back sleeper or right side. He does exercises at home every other day- all laying down. He is not very active anymore- the last 10 years he has not been very active. He sits in a soft sofa at home- it makes his lower back feel better-He has no N/T or back issues. MD took x-rays which were negative for OA. PMHx/Meds: no changes since ED visit. Objective Objective: Posture: FH, RS- can correct with verbal and tactile cues but does not maintain in sitting or standing Gait: slightly antalgic with a decreased stride length on the left- no AD HR/TR: able with UE A SLS: able with UE A- mild pelvic drop and reports discomfort on the left side ROM: Lumbar: WFL but does report discomfort with side bending and rotation to the left. Hip: IR/ER: diminished by 25 % with discomfort on the left. Strength: Core: fair minus, Hip: flexion: 4/5, Abd: 4/5, IR/ER: 4-/5, Extn: 4/5, Add: 4+/5, Knee: 4+/5, Ankle: 4+/5 Flex: HS: severe, Gastroc: moderate Palpation: tender along ITBand from the mid thigh to the greater troch on the left- into the glut med to the SI joint- to the lumbar parapsinals. Special Tests L/S Slump test left side: Positive L/S Left Straight Leg Raise: Negative R Hip Scour: Negative R Hip RADU - Intraarticular Pathology: Negative R Hip FADDIR - Labrum: Negative R Hip Trendelenberg - Glut Medius: Negative R Hip Elder - IT Band: Negative L Hip Scour: Positive L Hip RADU - Intraarticular Pathology: Positive L Hip FADDIR - Labrum: Positive L Hip Impingement Provocation - Labrum: Negative L Hip Trendelenberg - Glut Medius: Positive L Hip Elder - IT Band: Positive Balance/Special Test Scores Lower Extremity Functional Score: 45 Goals Goal 1:: Patient will be I with HEP and progression Goal Time Frame: 4-6 Weeks Goal 2:: Patient will maintain proper posture t/o tx session to demo increased core s/s Goal Time Frame: 4-6 Weeks Goal 3:: Patient will have no hip pain for 1 week Goal Time Frame: 4-6 Weeks Goal 4:: Patient will report sitting for no more than 1 hour at time Goal Time Frame: 4-6 Weeks Goal 5:: Patient will report 80% improvement Goal Time Frame: 4-6 Weeks Rehabilitation Potential Physical Therapy Diagnosis: Patient presents with hypomobility- he has decreased LE pain free ROM, LE and core strength/stabilization, flex and muscular endurance leading to poor posture and increased pain with ADL's. Rehabilitation Potential: Good Anticipated Interventions Patient/Client Instruction: Educate patient on: Benefits of Fitness Program Therapeutic Exercise to Include: Strength training, Endurance training, Balance training, Coordination, Agility training, Body mechanics, Postural training, Flexibilty training, Gait and locomotor training, Neuromotor development, Dynamic Lumbar Stabilization and Scapular Strength/Stabilization For the Purpose of:: To improve muscle performance and motor function Manual Therapy Techniques to Include: Soft tissue mobilization TENS: Yes Cryotherapy (ice pack, ice massage): Yes Thermo therapy (hot pack): Yes Ultrasound (thermal/non thermal): Yes For the Purpose of:: To decrease pain and To improve nutrient delivery to tissue Text: Thank you for the opportunity to evaluate your patient. For Medicare and Medicare HMO plans, please review the plan of care and approve it. It will need to be FAXED BACK to us at [phone] for Medicare purposes. For Medicare only, by signing this I certify the plan of care. Please let me know if there are questions or concerns regarding this plan of care. Physician Signature: Date:
--- NOTE | 2022-12-17 10:38 | HP.PT.NRP ---
Patient Information Patient Information: JR YE was seen in my office for initial evaluation on 11/12/22. The following Plan of Care was established for this patient: POC Established Initial Frequency: 2x /Week Initial Duration: 4 Weeks Anticipated Interventions Patient/Client Instruction: Educate patient on: Benefits of Fitness Program Therapeutic Exercise to Include: Strength training, Endurance training, Balance training, Coordination, Agility training, Body mechanics, Postural training, Flexibilty training, Gait and locomotor training, Neuromotor development, Dynamic Lumbar Stabilization and Scapular Strength/Stabilization For the Purpose of:: To improve muscle performance and motor function Manual Therapy Techniques to Include: Soft tissue mobilization TENS: Yes Cryotherapy (ice pack, ice massage): Yes Thermo therapy (hot pack): Yes Ultrasound (thermal/non thermal): Yes For the Purpose of:: To decrease pain and To improve nutrient delivery to tissue Last Seen Last Seen: This patient was last seen in our office . Pertinent comments regarding their Physical therapy will appear below: Patient has not attended PT due to illness and is appropriate to be d/c at this time. At this point I will be discontinuing this patient from physical therapy. I would be happy to see this patient again in the future if found appropriate by the physician. Thank you! Christine Burton, DPT Balance/Gait/Functional tests Balance/Special Test Scores Lower Extremity Functional Score: 45
== END 2022-11-12 19:00 | disposition home or self-care (01) ==
LOC: PT 14:04
PROVIDERS: PCP Internal Medicine; Referring Provider Internal Medicine; Visit Provider Internal Medicine
DX: M25.552 Pain in left hip (principal)
CPT/HCPCS: 97110; 97162

== ENCOUNTER → 2022-12-13 | Outpatient (CLI) | payer MEDICARE, SELFPAY ==
[2022-12-13 12:38] LABS: Absolute Lymphocyte Count 0.61 X10^3/uL (0.83-4.51); Absolute Neutrophil Count 5.3 X10^3/uL (2.0-7.7); Basophil# 0.02 X10^3/uL; Basophil% 0.3 % (0-1); Eosinophil# 0.06 X10^3/uL; Eosinophils% 0.9 % (0-5); Hematocrit 37.3 % (40-54); Hemoglobin 12.7 g/dL (13.0-16.5); Lymphocyte # 0.61 X10^3/ul (0.83-4.51); Lymphocyte % 9.1 % (19-41); Mean Corpuscular Hgb 29.9 pg (27.0-32.0); Mean Corpuscular Volume 87.8 fL (80-94); Monocyte# 0.73 X10^3/uL; Monocyte% 10.9 % (0-10); NRBC Flagged by Analyzer 0 % (0-5); Neutrophil # 5.28 X10^3/uL (2.7-7.7); Neutrophil % 78.5 % (47-70); Platelet Count 216 K/mm3 (150-450); RBC Distribution Width CV 13.7 % (11.6-14.6); RBC Distribution Width SD 44.1 fl (35.1-43.9); Red Blood Count 4.25 M/mm3 (4.6-6.2); White Blood Count 6.7 K/mm3 (4.4-11.0)
[2022-12-13 12:53] LABS: Vitamin B12 510 pg/mL (211-911); Vitamin D,25 Hydroxy 44.1 ng/mL
[2022-12-13 12:59] LABS: ALB/GLOB Ratio 1.3 RATIO (0.9-2.4); AST(SGOT) 32 U/L (15-37); Alanine Aminotransfer ALT/SGPT 32 U/L (16-61); Albumin, Serum 3.5 g/dL (3.2-5.0); Alkaline Phosphatase 74 U/L (45-117); Anion Gap 5 (5-15); BUN 15 mg/dL (7-18); BUN/Creat Ratio 15.2 RATIO (10-20); Calcium,Total 8.6 mg/dL (8.5-10.1); Chloride 105 mmol/L (98-107); Cholesterol 120 mg/dL (200); Creatinine, Serum 0.98 mg/dL (0.70-1.30); EST Glomerular Filtration Rate 77 mL/min (>60); Est Glom Filt Rate - Afr Amer 93 mL/min (>60); Globulin 2.7 g/dL (2.2-4.2); Glucose 123 mg/dL (74-106); High Density Lipoprotein 51 mg/dL; Potassium 4.1 mmol/L (3.5-5.1); Protein, Total 6.2 g/dL (6.4-8.2); Sodium Level 134 mmol/L (136-145); Triglycerides 80 mg/dL; Very Low Density Lipoprotein 16 mg/dL (5-40)
== END | disposition home or self-care (01) ==
LOC: MFPLAB 10:55
PROVIDERS: PCP Family Medicine; Visit Provider Family Medicine
DX: E78.00 Pure hypercholesterolemia, unspecified (principal); E03.9 Hypothyroidism, unspecified; I10 Essential (primary) hypertension; F32.9 Major depressive disorder, single episode, unspecified; R41.3 Other amnesia
CPT/HCPCS: 36415; 80053; 80061; 82306; 82607; 82746; 84443; 85025

== ENCOUNTER → 2023-01-31 | Outpatient (CLI) | payer MEDICARE, SELFPAY ==
--- NOTE | 2023-01-31 13:40 | ART_ITS ---
Reason For Study: Poor circulation of extremity Procedure A bilateral lower extremity continuous wave Doppler with analog waveform analysis,segmental pressures,and ankle brachial indexes with exercise. Left Segmental Pressures Left brachial= 159mmHg. Left posterior tibial artery = 226mmHg. Left dorsalis pedis artery = 225mmHg. Left digit = 179 mmHg. The left dorsalis pedis waveforms are triphasic. The left posterior tibial artery waveforms are triphasic. Right Segmental Pressures Right brachial= 164mmHg. Right posterior tibial artery = 223mmHg. Right dorsalis pedis artery = 224mmHg. Right digit = 182 mmHg. The right dorsalis pedis waveforms are triphasic. The right posterior tibial artery waveforms are triphasic. Indices The right ankle brachial index by the dorsalis pedis is 1.37. The right ankle brachial index by the posterior tibial artery is 1.36. The right digital-brachial index is 1.11. The right post exercise ankle brachial index is 1.41. The left ankle brachial index by the dorsalis pedis is 1.37. The left ankle brachial index by the posterior tibial artery is 1.38. The left digital-brachial index is 1.09. The left post exercise ankle brachial index is 1.55. VL/Lower Ext Art Exam w/ Exercise Interpretation Summary Right MOHAN 1.37, normal. TBI and Doppler/PVR waveforms of the right leg normal a t rest. Right lower extremity exhibits normal response to exercise. Left MOHAN 1.38, normal. TBI and Doppler/PVR waveforms of the left leg normal at rest. Left lower extremity exhibits normal response to exercise. Ordering Physician: Chetan Varghese Referring Physician: CHETAN VARGHESE MD Performed By: Nancy Norman RVT
== END | disposition home or self-care (01) ==
PROVIDERS: PCP Family Medicine; Referring Provider Family Medicine; Visit Provider Family Medicine
DX: R09.89 Other specified symptoms and signs involving the circulatory and respiratory systems (principal)
CPT/HCPCS: 93924

== ENCOUNTER → 2023-03-07 | Outpatient (CLI) | payer MEDICARE, SELFPAY | END | disposition home or self-care (01) | LOC: LABSPEC 16:22 | PROVIDERS: PCP Family Medicine; Referring Provider Urology; Visit Provider Urology | DX: R30.0 Dysuria (principal) | CPT/HCPCS: 87086 ==

== ENCOUNTER → 2023-03-26 | Outpatient (CLI) | payer MEDICARE, SELFPAY ==
--- NOTE | 2023-03-26 10:12 | RAD_ITS ---
STUDY: X-RAY - SACRUM/COCCYX REASON FOR EXAM: Male, 87 years old. BACK PAIN TECHNIQUE: 3 view(s) of the sacrum and coccyx were obtained. COMPARISON: None. FINDINGS: Normal bilateral sacroiliac joints. Normal visualized sacral ala and fused sacral bodies. Normal sacrococcygeal junction with a normal angulation. Normal coccygeal segments. The presacral soft tissue structures are unremarkable. RAD/Sacrum-Coccyx min 2 Views IMPRESSION: Normal x-rays of the sacrum and coccyx. Electronically Signed: Hugo Best MD at 19:26 EST ,
--- NOTE | 2023-03-26 10:24 | RAD_ITS ---
STUDY: X-RAY - LUMBAR SPINE REASON FOR EXAM: Male, 87 years old. BACK PAIN TECHNIQUE: 4 view(s) of the lumbar spine were obtained. COMPARISON: 10/20/2019 FINDINGS: Normal lumbar lordosis. Mild dextroscoliosis centered at L3. 2 mm of anterolisthesis of L4 on L5 which is unchanged. There is multilevel endplate spondylosis of the lumbar vertebrae. There is multi-level degenerative disc disease with multi-level disc space narrowing. There is multilevel facet hypertrophy. The soft tissue structures are unremarkable. RAD/L/S Spine Min 4 Views IMPRESSION: Mild dextroscoliosis with degenerative disc disease with 2 mm of anterolisthesis of L4 on L5 which is unchanged. MRI may be useful. Electronically Signed: Hugo Best MD at 19:24 EST ,
== END | disposition home or self-care (01) ==
LOC: MTRAD 10:10
PROVIDERS: PCP Family Medicine; Referring Provider Family Medicine; Visit Provider Family Medicine
DX: M54.50 Low back pain, unspecified (principal)
CPT/HCPCS: 72110; 72220

== ENCOUNTER → 2023-05-30 | Outpatient (CLI) | payer MEDICARE, SELFPAY ==
--- OUTSIDE RECORDS SUMMARY | 2023-05-30 08:40 | XMS RPT_ITS | CCD ---
Author Name Unknown Address [address] [place] [address] Organization [facility] Care Team Providers Care Real Estate Job Titles Name Role Phone STEPHANIE RAYGOZA Unavailable Unavailable STEPHANIE RAYGOZA Unavailable Unavailable Benitez Araiza Unavailable Unavailable STEPHANIE RAYGOZA Unavailable Unavailable STEPHANIE RAYGOZA Unavailable Unavailable Benitez Araiza Unavailable Unavailable STEPHANIE RAYGOZA Unavailable Unavailable *SELF, REFERRED Unavailable Unavailable Benitez Araiza Unavailable Unavailable Mamadou Keene MD Primary Care Provider MAMADOU KEENE Primary Care Unavailable CAROLINE FREIRE Referring Unavailable MAMADOU KEENE Primary Care Unavailable Medications Completed/Discontinued Medications Medication Drug Class(es) Dates Sig (Normalized) Sig (Original) aspirin 325 mg delayed release oral tablet (2 sources) Platelet Aggregation Inhibitor, Nonsteroidal Anti-inflammatory Drug Start: 03-22-2016 take 1 tablet by mouth once daily at mealtime aspirin, enteric coated (ECOTRIN) 325 mg EC tablet Take 1 tablet by mouth once daily. Take with food. 30 tablet 11 03/22/2016 Active Problems Active Problems Problem Classification Problem Date Documented Da te Episodic/Chronic Anxiety disorders (2 sources) Anxiety; Translations: [Anxiety disorder, unspecified] Onset: 06-30-2013 06-30-2013 Chronic Disorders of lipid metabolism (2 sources) Mixed hyperlipidemia; Translations: [Mixed hyperlipidemia] Onset: 01-08-2005 03-18-2015 Chronic Diverticulosis and diverticulitis (2 sources) Diverticulosis of colon; Translations: [Diverticulosis of large intestine without perforation or abscess without bleeding] 10-10-2005 Chronic Essential hypertension (2 sources) Essential hypertension; Translations: [Essential (primary) hypertension] Onset: 11-16-2014 03-18-2015 Chronic Nonspecific chest pain (2 sources) Pain of intercostal space; Translations: [Intercostal pain] Onset: 04-10-2022 Episodic Osteoarthritis (2 sources) Degenerative joint disease involving multiple joints; Translations: [Polyosteoarthritis, unspecified] Onset: 08-05-2007 08-05-2007 Chronic Other gastrointestinal disorders (2 sources) Irritable bowel syndrome; Translations: [Irritable bowel syndrome without diarrhea] Onset: 01-25-2006 01-25-2006 Chronic Other male genital disorders (2 sources) Male erectile dysfunction, unspecified; Translations: [Impotence of organic origin] Onset: 10-26-2010 10-26-2010 Chronic Residual codes; unclassified (2 sources) Obstructive sleep apnea syndrome; Translations: [Obstructive sleep apnea (adult) (pediatric)] Onset: 08-21-2013 08-21-2013 Chronic Spondylosis; intervertebral disc disorders; other back problems (4 sources) Degeneration of cervical intervertebral disc; Translations: [Other cervical disc degeneration, unspecified cervical region] Onset: 12-03-2012 12-03-2012 Chronic Thyroid disorders (2 sources) Acquired hypothyroidism; Translations: [Hypothyroidism, unspecified] Onset: 10-10-2005 03-18-2015 Chronic Past or Other Problems Problem Classification Problem Date Documented Da te Episodic/Chronic Diabetes mellitus without complication (2 sources) Hyperglycemia; Translations: [Hyperglycemia, unspecified] Onset: 07-02-2011 07-02-2011 Episodic Genitourinary symptoms and ill-defined conditions (2 sources) Nocturia; Translations: [Nocturia] Onset: 03-15-2010 03-15-2010 Episodic Residual codes; unclassified (2 sources) Insomnia; Translations: [Insomnia, unspecified] Onset: 01-25-2006 01-25-2006 Episodic Results Test Name Value Interpretation Reference Range Facil ity Vital Signs Date Time Vital Sign Value Performing Clinician Hai martinez 04-10-2022 08:47-0500 Body temperature 98.71 [degF] Caroline Freire APRN.CNP Work Phone: [facility] 04-10-2022 08:47-0500 Body weight 83.01 kg Caroline Freire APRN.CNP Work Phone: [facility] 04-10-2022 08:47-0500 Diastolic blood pressure 72 mm[Hg] Caroline Freire APRN.REINA Work Phone: [facility] 04-10-2022 08:47-0500 Heart rate 68 /min Caroline Freire FARM CONTRACTOR BUYER.DITCHING MACHINE OPERATOR Work Phone: [facility] 04-10-2022 08:47-0500 Respiratory rate 16 /min Caroline Freire FARM CONTRACTOR BUYER.DITCHING MACHINE OPERATOR Work Phone: [facility] 04-10-2022 08:47-0500 SaO2% (BldA) [Mass fraction] 95 % Caroline Freire FARM CONTRACTOR BUYER.DITCHING MACHINE OPERATOR Work Phone: [facility] 04-10-2022 08:47-0500 Systolic blood pressure 130 mm[Hg] Caroline Freire APRN.DITCHING MACHINE OPERATOR Work Phone: [facility] Encounters Encounter Date Encounter Type Care Provider Facility Start: 04-11-2022 Telephone encounter Caroline Browning APRN.DITCHING MACHINE OPERATOR Work Phone: [facility] Plan of Treatment Date Care Activity Detail Author Start: 03-10-2028 Urine microalbumin profile DTA P,TDAP,TD (4 - Td or Tdap) [facility] Start: 04-08-2022 ADVANCE DIRECTIVE DISCUSSION ADVANCE DIRECTIVE DISCUSSION [facility] Start: 04-08-2022 DEPRESSION ASSESSMENT DEPRESSION ASS ESSMENT [facility] Start: 02-15-2018 DIABETES SCREEN DIABETES SCREEN [facility] Start: 05-19-2008 SHINGRIX VACCINE (2 of 3) MORGAN GRIX VACCINE (2 of 3) [facility] Immunizations Immunization Date Immunization Notes Care Provider Sánchez madera 04-02-2022 COVID-19 original vaccine, full dose, monovalent (MODERNA) Caroline Freire APRN.DITCHING MACHINE OPERATOR Work Phone: [facility] 12-05-2020 influenza, high dose seasonal, preservative-free Caroline Freire FARM CONTRACTOR BUYER.DITCHING MACHINE OPERATOR Work Phone: [facility] 11-30-2019 influenza, high dose seasonal, preservative-free Caroline Freire FARM CONTRACTOR BUYER.DITCHING MACHINE OPERATOR Work Phone: [facility] Work Phone: 03-10-2018 pneumococcal polysaccharide vaccine, 23 valent Caroline Praisler-Wood FARM CONTRACTOR BUYER.DITCHING MACHINE OPERATOR Work Phone: [facility] 03-10-2018 tetanus toxoid, redu robinson diphtheria toxoid, and acellular pertussis vaccine, adsorbed Caroline Praisler-Wood FARM CONTRACTOR BUYER.DITCHING MACHINE OPERATOR Work Phone: [facility] 01-13-2018 influenza, high dose seasonal, preservative-free Caroline Praisler-Wood FARM CONTRACTOR BUYER.DITCHING MACHINE OPERATOR Work Phone: [facility] 02-18-2017 influenza, seasonal, injectable Caroline Praisler-Wood FARM CONTRACTOR BUYER.DITCHING MACHINE OPERATOR Work Phone: [facility] Work Phone: 02-18-2017 pneumococcal conjuga te vaccine, 13 valent Caroline Praisler-Wood FARM CONTRACTOR BUYER.DITCHING MACHINE OPERATOR Work Phone: [facility] Work Phone: 02-18-2017 tetanus toxoid, redu robinson diphtheria toxoid, and acellular pertussis vaccine, adsorbed Caroline Praisler-Wood FARM CONTRACTOR BUYER.[facility] Work Phone: [facility] Work Phone: 12-11-2016 influenza, high dose seasonal, preservative-free Caroline Praisler-Wood FARM CONTRACTOR BUYER.DITCHING MACHINE OPERATOR Work Phone: [facility] 01-25-2015 influenza, high dose seasonal, preservative-free Caroline Praisler-Wood FARM CONTRACTOR BUYER.DITCHING MACHINE OPERATOR Work Phone: [facility] 08-09-2014 pneumococcal conjuga te vaccine, 13 valent Caroline Praisler-Wood FARM CONTRACTOR BUYER.DITCHING MACHINE OPERATOR Work Phone: [facility] 12-23-2013 influenza, high dose seasonal, preservative-free Caroline Praisler-Wood FARM CONTRACTOR BUYER.DITCHING MACHINE OPERATOR Work Phone: [facility] 11-30-2012 influenza virus vacc ine, unspecified formulation Caroline Praisler-Wood FARM CONTRACTOR BUYER.DITCHING MACHINE OPERATOR Work Phone: [facility] 02-07-2012 influenza virus vacc ine, unspecified formulation Caroline Freire APRN.DITCHING MACHINE OPERATOR Work Phone: [facility] 03-24-2008 zoster vaccine, live Caroline Freire APRN.DITCHING MACHINE OPERATOR Work Phone: [facility] 02-12-2008 diphtheria and tetan us toxoids, adsorbed for pediatric use Caroline Freire APRN.DITCHING MACHINE OPERATOR Work Phone: [facility] Work Phone: 02-14-2006 influenza virus vacc ine, unspecified formulation Caroline Freire APRN.DITCHING MACHINE OPERATOR Work Phone: [facility] 02-06-2003 pneumococcal polysaccharide vaccine, 23 valent Caroline rFeire APRN.DITCHING MACHINE OPERATOR Work Phone: [facility] Payers Date Payer Category Payer Unknown [facility] [id number] 2021-Present [phone] [address] [place] [address] [facility] [id number] 2021 Unknown [id number] 1935 Unknown [id number] 1935 Unknown [id number] 1935 Unknown [id number] Private Health Insurance [id number] Social History Date Type Detail Facility Start: 09-14-2013 Tobacco smoking stat [email or web address] Never smoked tobacco [facility] Start: 09-14-2013 Tobacco use and exposure Smoke less tobacco non-user [facility] Start: 04-10-2022 Alcohol intake Current drinke r of alcohol (finding) [facility] Start: 04-10-2022 [facility] Start: 07-14-2012 Alcohol Comment 3-4 [facility] Start: 1935 Sex Assigned At Not on file C [facility] Note 04-11-2022 Telephone Encounter - Charlotte Hernandez MA - 04/11/2022 7:39 PM ESTTelephone Encounter - Charlotte Hernandez MA - 04/11/2022 7:17 PM EST Note Date & Type Note Facility 04-11-2022 Miscellaneous Notes Formattin g of this note might be different from the original. Left message for pt to call back. Charlotte Hernandez MA ----- Message from Caroline Freire APRN.DITCHING MACHINE OPERATOR sent at 04/10/2022 9:53 AM EST ----- Please advise patient the chest xray did not show any clear cause for his left sided chest pain. If his pain worsens he should be seen in the ER. Otherwise, follow up with his PCP. I did place a referral for him to establish care as a new patient if he wishes to obtain a PCP with [facility]. documented in this encounter [facility] Progress note 04-10-2022 Note Date & Type Note Facility 04-10-2022 Note HNO ID: [id number] Author: RT Dylon(R) Service: ? Author Type: Apron Operator Type: Progress Notes Filed: 04/10/2022 9:03 AM Note Text: Radiology Service Progress Note PATIENT NAME: Willy Pillai DATE OF SERVICE: April 10, 2022 TIME: 8:51 AM PATIENT IDENTITY VERIFICATION COMPLETED USING TWO (2) IDENTIFIERS: Name and Date of confirmed by patient verbally. FALL SCREENING: Has the patient had 2 falls in the last year or 1 fall with injury or currently using an Ambulatory Assistive Device (Walker, Cane, Wheelchair, Crutches, etc.)? No PATIENT GENDER DATA: Male PATIENT RELEVANT IMPLANT DATA REVIEWED: Yes RADIOLOGY DEPARTMENT: General X-ray: Exam(s) Completed: Chest X-Ray PERIPHERAL IV DATA: Not applicable SIGNED BY: Yuki Millan, RT(R) April 10, 2022 8:51 AM [facility] Progress note 04-10-2022 Note Date & Type Note Facility 04-10-2022 Note HNO ID: [id number] Author: Caroline Freire APRN.DITCHING MACHINE OPERATOR Service: ? Author Type: Nurse Practitioner Type: Progress Notes Filed: 04/10/2022 9:54 AM Note Text: Subjective HPI Willy Pillai is a 86 year old male who presents with 2 months of left sided chest pain. He is a patient of Dr. Keene of [facility] and Dr. Martinez for cardiology. He denies any associated cough, fever, diaphoresis. He states the pain occasionally radiates to his left arm. He has not taken any medication for this pain. Review of Systems Constitutional: Negative for chills and fever. Respiratory: Negative for cough and shortness of breath. Cardiovascular: Positive for chest pain. Musculoskeletal: Negative for myalgias. BP 130/72 Pulse 68 Temp 37.1 ?C (98.7 ?F) Resp 16 Wt 83 kg (183 lb) SpO2 95% BMI 27.83 kg/m? PAST MEDICAL HISTORY Diagnosis Date Cervicalgia 08/13/2007 Diverticulitis of colon (without mention of hemorrhage)(562.11) 07/25/2006 Diverticulosis of colon (without mention of hemorrhage) Esophageal reflux Generalized osteoarthrosis, unspecified site 08/05/2007 Hemorrhage of gastrointestinal tract, unspecified Hypertrophy of prostate without urinary obstruction and other lower urinary tract symptoms (LUTS) Insomnia, unspecified 01/25/2006 Internal hemorrhoids without mention of complication Intestinal infection due to Clostridium difficile 08/02/2006 Irritable bowel syndrome 01/25/2006 Other and unspecified hyperlipidemia Personal history of colonic polyps SCC (squamous cell carcinoma) Right jaw area Unspecified constipation Unspecified hypothyroidism 10/10/2005 PAST SURGICAL HISTORY Procedure Laterality Date COLONOSCOPY FLX DX W/COLLJ SPEC WHEN PFRMD 06/10/00 Colonoscopy COLONOSCOPY FLX DX W/COLLJ SPEC WHEN PFRMD 02/15/2006 Colonoscopy COLONOSCOPY FLX DX W/COLLJ SPEC WHEN PFRMD 12/16/08 Colonoscopy COLONOSCOPY FLX DX W/COLLJ SPEC WHEN PFRMD 07/16/12 Colonoscopy ESOPHAGOGASTRODUODENOSCOPY TRANSORAL DIAGNOSTIC 02/23/02 EGD ESOPHAGOGASTRODUODENOSCOPY TRANSORAL DIAGNOSTIC 02/15/2006 EGD ESOPHAGOGASTRODUODENOSCOPY TRANSORAL DIAGNOSTIC 12/16/08 EGD ESOPHAGOGASTRODUODENOSCOPY TRANSORAL DIAGNOSTIC 07/16/12 EGD LAPAROSCOPY COLECTOMY PARTIAL W/ANASTOMOSIS 07/29/06 LAPS MOBLJ SPLENIC FLXR PFRMD W/PRTL COLECTOMY 07/29/06 PAST SURGICAL HISTORY OF 1963 hernia repair PAST SURGICAL HISTORY OF 1997 cardiac cath PAST SURGICAL HISTORY OF 11/25/03 IANDD L lower leg PAST SURGICAL HISTORY OF 03/19/2014 Repair extensor digitorum communis tendon laceration, dorsum right hand at MP joint. [facility] TETANUS DIPTHERIA STRESS TEST 11/15/14 [facility] Dr Martinez ALLERGIES Patient has no known allergies. MEDICATIONS oxybutynin ER (DITROPAN XL) 10 mg 24 hr tablet olmesartan (BENICAR) 5 mg tablet Fluocinolone Acetonide 0.01 % external oil Betamethasone Dipropionate 0.05 % lotion levothyroxine (SYNTHROID) 75 mcg tablet take 1 tablet by mouth once daily ketoconazole (NIZORAL) 2 % shampoo Lather and apply to skin for 3 to 5 minutes then rinse off daily as needed zolpidem (AMBIEN) 10 mg tab Take 1 tablet by mouth at bedtime as needed. LORazepam (ATIVAN) 1 mg tablet Take 1 tablet by mouth daily at bedtime. escitalopram oxalate (LEXAPRO) 10 mg tablet Take 1 tablet by mouth once daily. dispense generic triamcinolone acetonide (KENALOG) 0.1 % ointment Apply to affected areas twice daily x 2 weeks on 1 week off as needed aspirin, enteric coated (ECOTRIN) 325 mg EC tablet Take 1 tablet by mouth once daily. Take with food. methylcellulose, with sugar, (CITRUCEL, SUCROSE,) oral powder Take 2 scoops by mouth once daily. Not with sugar lisinopril (ZESTRIL, PRINIVIL) 10 mg tablet Take 1 tablet by mouth once daily. alpha tocopheryl acetate (VITAMIN E) 400 unit capsule Take 1 capsule by mouth twice daily. COMPOUNDED PRESCRIPTION chobani 5.2 qd COMPOUNDED PRESCRIPTION preser vision- areds lutein 1 tab qd COMPOUNDED PRESCRIPTION CPAP supplies folic acid 1 mg tablet Take 1 mg by mouth once daily. atorvastatin (LIPITOR) 40 mg tablet Take 1 tablet (40 mg) every other day and 1/2 tablet (20 mg) on the other days. vitamin b complex (SUPER B-50 COMPLEX PLUS) Tab Take 1 tablet by mouth once daily. FAMILY HISTORY Problem Relation Age of Onset other (Glaucoma [Other]) Mother Emphysema Father Alzheimer's Disease Sister Social History Tobacco Use Smoking status: Never Smokeless tobacco: Never Substance Use Topics Alcohol use: Yes Alcohol/week: 1.7 standard drinks Comment: 3-4 Drug use: No Objective Physical Exam Vitals and nursing note reviewed. Constitutional: Appearance: Normal appearance. Cardiovascular: Rate and Rhythm: Normal rate and regular rhythm. Heart sounds: Normal heart sounds. Pulmonary: Effort: Pulmonary effort is normal. No respiratory distress. Breath sounds: Normal breath sounds. No wheezing or rales. Skin: General: Skin i (more content not included)... [facility] Instructions 04-10-2022 Patient Instructions Note Date & Type Note Facility 04-10-2022 Instructions Caroline Freire APRN.DITCHING MACHINE OPERATOR - 04/10/2022 9:48 AM EST ASSESSMENT/PLAN: 1. Intercostal pain - ICD9: 786.59, ICD10: R07.82 Atypical chest pain, symptoms are not consistent with cardiac ischemia due to nonexertional nature of symptom, pleuritic nature of pain, and localization of the pain possible etiology include Costochondritis/chest wall pain, musculoskeletal, and Pleurisy - XR CHEST 2V FRONTAL/LAT. Radiologist RESULT: Lines, tubes, and devices: None. Lungs and pleura: Elevation of the right hemidiaphragm. Right basilar atelectasis. No consolidation. No lung mass. No pleural effusion. No pneumothorax. Cardiomediastinal silhouette: Normal cardiomediastinal silhouette. Bones and soft tissues: Unremarkable. IMPRESSION: Elevation of the right hemidiaphragm. Right basilar atelectasis. Mold Shaker: BRYAN Transcribe Date/Time: Apr 10 2022 9:31A Dictated by : CHELSEY SUBRAMANIAN MD - ESTABLISH WITH PRIMARY CARE - NEW PATIENT Caroline Freire APRN.DITCHING MACHINE OPERATOR documented in this encounter [facility] History of Present illness Narrative 04-10-2022 Caroline RAJI Freire - 04/10/2022 8:46 AM EST Note Date & Type Note Facility 04-10-2022 History of Presen t illness Narrative Subjective HPI Willy Pillai is a 86 year old male who presents with 2 months of left sided chest pain. He is a patient of Dr. Keene of [facility] and Dr. Martinez for cardiology. He denies any associated cough, fever, diaphoresis. He states the pain occasionally radiates to his left arm. He has not taken any medication for this pain. Review of Systems Constitutional: Negative for chills and fever. Respiratory: Negative for cough and shortness of breath. Cardiovascular: Positive for chest pain. Musculoskeletal: Negative for myalgias. BP 130/72 Pulse 68 Temp 37.1 C (98.7 F) Resp 16 Wt 83 kg (183 lb) SpO2 95% BMI 27.83 kg/m PAST MEDICAL HISTORY Diagnosis Date Cervicalgia 08/13/2007 Diverticulitis of colon (without mention of hemorrhage)(562.11) 07/25/2006 Diverticulosis of colon (without mention of hemorrhage) Esophageal reflux Generalized osteoarthrosis, unspecified site 08/05/2007 Hemorrhage of gastrointestinal tract, unspecified Hypertrophy of prostate without urinary obstruction and other lower urinary tract symptoms (LUTS) Insomnia, unspecified 01/25/2006 Internal hemorrhoids without mention of complication Intestinal infection due to Clostridium difficile 08/02/2006 Irritable bowel syndrome 01/25/2006 Other and unspecified hyperlipidemia Personal history of colonic polyps SCC (squamous cell carcinoma) Right jaw area Unspecified constipation Unspecified hypothyroidism 10/10/2005 PAST SURGICAL HISTORY Procedure Laterality Date COLONOSCOPY FLX DX W/COLLJ SPEC WHEN PFRMD 06/10/00 Colonoscopy COLONOSCOPY FLX DX W/COLLJ SPEC WHEN PFRMD 02/15/2006 Colonoscopy COLONOSCOPY FLX DX W/COLLJ SPEC WHEN PFRMD 12/16/08 Colonoscopy COLONOSCOPY FLX DX W/COLLJ SPEC WHEN PFRMD 07/16/12 Colonoscopy ESOPHAGOGASTRODUODENOSCOPY TRANSORAL DIAGNOSTIC 02/23/02 EGD ESOPHAGOGASTRODUODENOSCOPY TRANSORAL DIAGNOSTIC 02/15/2006 EGD ESOPHAGOGASTRODUODENOSCOPY TRANSORAL DIAGNOSTIC 12/16/08 EGD ESOPHAGOGASTRODUODENOSCOPY TRANSORAL DIAGNOSTIC 07/16/12 EGD LAPAROSCOPY COLECTOMY PARTIAL W/ANASTOMOSIS 07/29/06 LAPS MOBLJ SPLENIC FLXR PFRMD W/PRTL COLECTOMY 07/29/06 PAST SURGICAL HISTORY OF 1963 hernia repair PAST SURGICAL HISTORY OF 1997 cardiac cath PAST SURGICAL HISTORY OF 11/25/03 I&D L lower leg PAST SURGICAL HISTORY OF 03/19/2014 Repair extensor digitorum communis tendon laceration, dorsum right hand at MP joint. PCHG TETANUS DIPTHERIA STRESS TEST 11/15/14 [facility] Dr Martinez ALLERGIES Patient has no known allergies. MEDICATIONS oxybutynin ER (DITROPAN XL) 10 mg 24 hr tablet olmesartan (BENICAR) 5 mg tablet Fluocinolone Acetonide 0.01 % external oil Betamethasone Dipropionate 0.05 % lotion levothyroxine (SYNTHROID) 75 mcg tablet take 1 tablet by mouth once daily ketoconazole (NIZORAL) 2 % shampoo Lather and apply to skin for 3 to 5 minutes then rinse off daily as needed zolpidem (AMBIEN) 10 mg tab Take 1 tablet by mouth at bedtime as needed. LORazepam (ATIVAN) 1 mg tablet Take 1 tablet by mouth daily at bedtime. escitalopram oxalate (LEXAPRO) 10 mg tablet Take 1 tablet by mouth once daily. dispense generic triamcinolone acetonide (KENALOG) 0.1 % ointment Apply to affected areas twice daily x 2 weeks on 1 week off as needed aspirin, enteric coated (ECOTRIN) 325 mg EC tablet Take 1 tablet by mouth once daily. Take with food. methylcellulose, with sugar, (CITRUCEL, SUCROSE,) oral powder Take 2 scoops by mouth once daily. Not with sugar lisinopril (ZESTRIL, PRINIVIL) 10 mg tablet Take 1 tablet by mouth once daily. alpha tocopheryl acetate (VITAMIN E) 400 unit capsule Take 1 capsule by mouth twice daily. COMPOUNDED PRESCRIPTION chobani 5.2 qd COMPOUNDED PRESCRIPTION preser vision- areds lutein 1 tab qd COMPOUNDED PRESCRIPTION CPAP supplies folic acid 1 mg tablet Take 1 mg by mouth once daily. atorvastatin (LIPITOR) 40 mg tablet Take 1 tablet (40 mg) every other day and 1/2 tablet (20 mg) on the other days. vitamin b complex (SUPER B-50 COMPLEX PLUS) Tab Take 1 tablet by mouth once daily. FAMILY HISTORY Problem Relation Age of Onset other (Glaucoma [Other]) Mother Emphysema Father Alzheimer's Disease Sister Social History Tobacco Use Smoking status: Never Smokeless tobacco: Never Substance Use Topics Alcohol use: Yes Alcohol/week: 1.7 standard drinks Comment: 3-4 Drug use: No Objective Physical Exam Vitals and nursing note reviewed. Constitutional: Appearance: Normal appearance. Cardiovascular: Rate and Rhythm: Normal rate and regular rhythm. Heart sounds: Normal heart sounds. Pulmonary: Effort: Pulmonary effort is normal. No respiratory distress. Breath sounds: Normal breath sounds. No wheezing or rales. Skin: General: Skin is warm and dry. Findings: No erythema or rash. Neurological: Mental Status: He is alert. ASSESSMENT/PLAN: 1. Intercostal pain - ICD9: 786.59, ICD10: R07.82 Atypical chest pain, symptoms are not consistent with cardiac ischemia due to nonexertional nature of symptom, pleuritic nature of pain, and localization of the pain possible etiology include Costochondritis/chest wall pain, musculoskeletal, and Pleurisy - XR CHEST 2V FRONTAL/LAT. Radiologist RESULT: Lines, tubes, and devices: None. Lungs and pleura: Elevation of the right hemidiaphragm. Right basilar atelectasis. No consolidation. No lung mass. No pleural effusion. No pneumothorax. Cardiomediastinal silhouette: Normal cardiomediastinal silhouette. Bones and soft tissues: Unremarkable. IMPRESSION: Elevation of the right hemidiaphragm. Right basilar atelectasis. Mold Shaker: BRYAN Transcribe Date/Time: Apr 10 2022 9:31A Dictated by : CHELSEY SUBRAMANIAN MD - ESTABLISH WITH PRIMARY CARE - NEW PATIENT Caroline Freire APRN.DITCHING MACHINE OPERATOR documented in this encounter [facility] History of Past illness Narrative 11-16-2014 Note Date & Type Note Facility documented as of this encounter (statuses as of 04/12/2022) [facility] History of Past illness Narrative 11-16-2014 Note Date & Type Note Facility documented as of this encounter (statuses as of 04/13/2022) [facility] Evaluation note Note Date & Type Note Facility documented in this encounter [facility] Summary Purpose Family History No Family History Records FoundNo Family History Records Found Advance Directives No Advanced Directives Records FoundNo Advanced Directives Records Found Reason for Referral Specialty Diagnoses / Procedures Referred By Mario t Referred To Contact Diagnoses Intercostal pain Procedures ESTABLISH WITH PRIMARY CARE NEW PATIENT OFFICE/OUTPATIENT NEW HIGH MDM 60-74 MINUTES Caroline Freire APRN.DITCHING MACHINE OPERATOR [address] [place] [address] Referral ID Status Reason Start Date Expiration Date Visits Requested Visits Authorized [id number] Pending Review PCP Requested Referral 04/10/2022 04/10/2023 1 1 Additional Source Comments (unrecognized sect ion and content) No Status Records FoundNo Status Records Found INFORMATION SOURCE (unrecogn ized section and content) DATE CREATED AUTHOR AUTHOR'S ORGANIZ ATION 04/13/2022 [facility] Source Comments (unrecognize d section and content) In the event this informatio n is protected by the Federal Confidentiality of Alcohol and Drug Abuse Patient Records regulations: The Federal rules restrict any use of the information to criminally investigate or prosecute any alcohol or drug abuse patient.[facility] the event this information is protected by the Federal Confidentiality of Alcohol and Drug Abuse Patient Records regulations: The Federal rules restrict any use of the information to criminally investigate or prosecute any alcohol or drug abuse patient.[facility] Reason for Visit (unrecogniz ed section and content) Reason Comments Results Care Teams (unrecognized sec tion and content) [employer] Estate Job Titles Relationship Specialty Start Date End Date Mamadou Keene MD [address] [place] [address] PCP - General Internal Medicine 04/10/22 FOR RECORDS PERTAINING TO PATIENTS WHO ARE OR HAVE BEEN ENROLLED IN A CHEMICAL DEPENDENCY/SUBSTANCEABUSE PROGRAM, SOME INFORMATION MAY BE OMITTED. This clinical summary was aggregated from multiple sources. Caution should be exercised in using it in the provision of clinical care. This summary normalizes information from multiple sources, and as a consequence, information in this document may materially change the coding, format and clinical context of patient data. In addition, data may be omitted in some cases. CLINICAL DECISIONS SHOULD BE BASED ON THE PRIMARY CLINICAL RECORDS. [facility]. provides no warranty or guarantee of the accuracy or completeness of information in this document.
== END | disposition home or self-care (01) ==
LOC: SL 08:16
PROVIDERS: PCP Family Medicine; Referring Provider Nurse Practitioner Acute Care; Visit Provider Nurse Practitioner Acute Care
DX: Z00.00 Encounter for general adult medical examination without abnormal findings (principal)

== ENCOUNTER → 2023-08-05 | Outpatient (CLI) | payer MEDICARE, SELFPAY ==
--- NOTE | 2023-08-05 14:40 | STRESSREP_ITS ---
Stress Test Report Exercise myocardial perfusion stress test. 87-year-old man with a history of chest pain Stress protocol: Resting EKG demonstrates normal sinus rhythm with a rate of 60 bpm resting blood pressure is 118/82 mmHg. The patient exercised according to the regular Phuc protocol for a total duration of 6 minutes and 15 seconds attaining a maximum heart rate of 105 bpm which was 90% of maximum predicted heart rate; the maximum workload was 7.7 metabolic equivalents. At rest there were no ST or T wave changes noted to suggest ischemia and at peak exercise upsloping ST changes only were noted which did not meet the criteria for ischemia. No clinical angina was noted the test was terminated due to the target heart rate being achieved/fatigu e. The peak blood pressure was 152/74 mmHg. Rate-pressure product was 15,700. Myocardial perfusion protocol. 11.6 mCi of technetium 99m sestamibi was injected at rest. The patient exercised according to regular Phuc protocol for total duration of 6 minutes and 15 seconds and at peak exercise 33.3 mCi of technetium 99m sestamibi was injected stress images were obtained stress and rest images were reconstructed in comparing the short axis vertical long and horizontal long axis. Gated images were also obtained. Perfusion SPECT analysis: Review of the stress images demonstrate normal uptake of tracer noted in all areas of the myocardium. The resting images similarly demonstrate normal uptake of tracer noted in all areas of the myocardium. No areas of reversibility are noted to suggest ischemia no previous infarct was noted. Gated SPECT analysis: The gated ejection fraction is 73%. Conclusion: Normal exercise myocardial perfusion stress test at a moderate workload Preserved ejection fraction.
== END | disposition home or self-care (01) ==
LOC: CVS 06:31
PROVIDERS: PCP Family Medicine; Referring Provider Internal Medicine Cardiovascular Disease; Visit Provider Internal Medicine Cardiovascular Disease
DX: I25.10 Atherosclerotic heart disease of native coronary artery without angina pectoris (principal)
CPT/HCPCS: 78452; 93017; A9500; A4216

== ENCOUNTER → 2023-09-19 | Outpatient (CLI) | payer MEDICARE, SELFPAY ==
--- NOTE | 2023-09-19 09:20 | RAD_ITS ---
EXAM: XR CHEST, 2 VIEWS CLINICAL INDICATION: Productive cough TECHNIQUE: Frontal and lateral views of the chest. COMPARISON: June 11, 2022 FINDINGS: LUNGS AND PLEURAL SPACES: Elevated right hemidiaphragm with pleural parenchymal scarring at both lung bases. No pleural effusion. No consolidation. No pneumothorax. Central bronchial wall thickening. HEART: Unremarkable. Cardiac silhouette not enlarged. MEDIASTINUM: Central airways and mediastinal contour are unremarkable. BONES/JOINTS: Degenerative changes of the spine. Degenerative changes of the acromioclavicular joints. No acute fracture. SOFT TISSUES: Unremarkable. VASCULATURE: Atherosclerotic calcifications of the nonenlarged thoracic aortic arch. RAD/Chest PA and Lateral IMPRESSION: 1. No acute cardiopulmonary disease. 2. Bronchitis, age-indeterminate. 3. Ancillary findings as above. Electronically Signed: Dusty Calle MD at 4:29 EDT ,
== END | disposition home or self-care (01) ==
LOC: MTRAD 09-09 13:22 → RAD 09:17 → MTRAD 09:19
PROVIDERS: PCP Family Medicine; Referring Provider Family Medicine; Visit Provider Family Medicine
DX: R05.8 Other specified cough (principal)
CPT/HCPCS: 71046

== ENCOUNTER → 2023-10-16 | Outpatient (CLI) | payer MEDICARE, SELFPAY ==
--- NOTE | 2023-10-16 13:38 | CT_ITS ---
STUDY: CT FACIAL BONES WITH CONTRAST REASON FOR EXAM: Male, 88 years old. PAIN BEHIND R EYE RADIATION DOSAGE (If Supplied By Facility): CTDIvol = ( 33.06 ) mGy, DLP = ( 858.64 ) mGycm TECHNIQUE: The patient was scanned in a multi detector CT scanner. Transaxial imaging was performed following the intravenous administration of iv-100 ml [id number]. Sagittal and coronal images were reconstructed. Individualized dose optimization techniques were used for this CT. COMPARISON: None. FINDINGS: Normal soft tissue structures. Normal orbital walton and orbital contents. Normal nasal bones and anterior nasal spine. Normal facial bones. There is no demonstrated fracture. Normal visualized paranasal sinuses. Nasal septal deviation towards the left side of the midline. CT/Sinus/Facial Bone WITH Contras IMPRESSION: Normal enhanced CT of the facial bones. Electronically Signed: Moustapha Decker MD at 15:50 EDT ,
--- NOTE | 2023-10-16 13:38 | CT_ITS ---
STUDY: CT ORBITS WITH CONTRAST REASON FOR EXAM: Male, 88 years old. Chronic intermittent right orbital pain. RADIATION DOSAGE (If Supplied By Facility): CTDIvol = ( 67.58 ) mGy, DLP = ( 612.03 ) mGycm TECHNIQUE: The patient was scanned in a multi detector CT scanner. Transaxial imaging was performed following the intravenous administration of iv-100 ml [id number]. Sagittal and coronal images were reconstructed. Individualized dose optimization techniques were used for this CT. COMPARISON: None. FINDINGS: Normal globes. Normal intraconal spaces. Normal optic nerve sheath complex. Normal bilateral extraocular muscles. Normal lacrimal glands. Normal bilateral medial and inferior orbital walton. Normal bilateral maxillary bones. Normal bilateral frontozygomatic arches. Normal bilateral zygomatic temporal arches. Normal frontal sinus. Normal ethmoidal sinuses. Normal maxillary sinuses. Normal sphenoid sinuses. Normal soft tissue structures. There is no demonstrated abnormal enhancement. Atherosclerotic calcification of the cavernous portions of the internal carotid arteries bilaterally. CT/Orb Sella Post Fossa Ear W/CON IMPRESSION: Normal enhanced CT examination of the bilateral orbits. Electronically Signed: Moustapha Decker MD at 15:47 EDT ,
[2023-10-16 14:04] LABS: CREATININE FINGERSTICK 1.1 mg/dL (0.70-1.30); EGFR FINGERSTICK > 60.0000 mL/min (>60)
== END | disposition home or self-care (01) ==
LOC: CT 13:36
PROVIDERS: PCP Family Medicine; Referring Provider Ophthalmology; Visit Provider Ophthalmology
DX: H57.11 Ocular pain, right eye (principal)
CPT/HCPCS: 70481; 70487; Q9967

== ENCOUNTER → 2024-01-03 | Outpatient (CLI) | payer MEDICARE, SELFPAY ==
--- NOTE | 2024-01-03 12:55 | RAD_ITS ---
STUDY: X-RAY - LUMBAR SPINE REASON FOR EXAM: Male, 88 years old. Back pain with numbness in legs TECHNIQUE: 3 view(s) of the lumbar spine were obtained. COMPARISON: None FINDINGS: Normal lumbar lordosis. Mild dextroscoliosis centered at L2/L3. There is a normal alignment of the vertebrae. There is multilevel endplate spondylosis of the lumbar vertebrae. There is multi-level degenerative disc disease with multi-level disc space narrowing. There is multilevel facet hypertrophy. The soft tissue structures are unremarkable. RAD/Lumbar Spine 2 or 3 Views IMPRESSION: Mild dextroscoliosis with diffuse degenerative disc disease. Electronically Signed: Hugo Best MD at 19:55 EDT ,
--- NOTE | 2024-01-03 13:20 | RAD_ITS ---
STUDY: X-RAY - ACUTE ABDOMINAL SERIES REASON FOR EXAM: Male, 88 years old. LUQ pain TECHNIQUE: Single view of the chest. Supine, and erect view(s) of the abdomen were obtained. COMPARISON: None. FINDINGS: The lungs are clear and expanded. Elevated right hemidiaphragm. Normal size heart. Normal mediastinum and neisha. Normal visualized pulmonary arteries. Normal visualized aortic arch and descending thoracic aorta. There is a non-specific bowel gas pattern. The soft tissue structures of the abdomen and pelvis are unremarkable. Dextroscoliosis of the lumbar spine. RAD/Acute Abdomen Inc Chest IMPRESSION: Normal x-ray examination of the chest, abdomen, and pelvis. Electronically Signed: Hugo Best MD at 17:54 EDT ,
[2024-01-03 15:15] LABS: Absolute Lymphocyte Count 1.07 X10^3/uL (0.83-4.51); Basophil# 0.05 X10^3/uL; Basophil% 0.8 % (0-1); Eosinophil# 0.22 X10^3/uL; Eosinophils% 3.7 % (0-5); Hematocrit 36.6 % (40-54); Hemoglobin 11.9 g/dL (13.0-16.5); Lymphocyte # 1.07 X10^3/ul (0.83-4.51); Lymphocyte % 18.1 % (19-41); Mean Corp Hgb Conc 32.5 g/dL (32-36); Mean Corpuscular Hgb 29.5 pg (27.0-32.0); Mean Corpuscular Volume 90.8 fL (80-94); Mean Platelet Vol. 9.3 fl (6.2-12.0); Monocyte# 0.54 X10^3/uL; Monocyte% 9.2 % (0-10); NRBC Flagged by Analyzer 0 % (0-5); Neutrophil # 4.01 X10^3/uL (2.7-7.7); Platelet Count 175 K/mm3 (150-450); RBC Distribution Width CV 13.2 % (11.6-14.6); RBC Distribution Width SD 43.8 fl (35.1-43.9); Red Blood Count 4.03 M/mm3 (4.6-6.2); White Blood Count 5.9 K/mm3 (4.4-11.0)
[2024-01-03 16:13] LABS: ALB/GLOB Ratio 1.4 RATIO (0.9-2.4); AST(SGOT) 23 U/L (15-37); Alanine Aminotransfer ALT/SGPT 23 U/L (16-61); Albumin, Serum 3.8 g/dL (3.2-5.0); Alkaline Phosphatase 79 U/L (45-117); Anion Gap 5 (5-15); BUN 14 mg/dL (7-18); Calcium,Total 8.7 mg/dL (8.5-10.1); Chloride 104 mmol/L (98-107); Cholesterol 98 mg/dL (200); Creatinine, Serum 1.08 mg/dL (0.70-1.30); EST Glomerular Filtration Rate 69 mL/min (>60); Est Glom Filt Rate - Afr Amer 83 mL/min (>60); Globulin 2.7 g/dL (2.2-4.2); Glucose 93 mg/dL (74-106); High Density Lipoprotein 47 mg/dL; PSA,Total - Annual Screen 0.23 ng/mL (0.00-4.00); Potassium 4.4 mmol/L (3.5-5.1); Protein, Total 6.5 g/dL (6.4-8.2); Sodium Level 135 mmol/L (136-145); Triglycerides 141 mg/dL; Very Low Density Lipoprotein 28 mg/dL (5-40)
== END | disposition home or self-care (01) ==
LOC: MTRAD 12:55 → MTLAB 12:58
PROVIDERS: PCP Family Medicine; Referring Provider Family Medicine; Visit Provider Family Medicine
DX: Z12.5 Encounter for screening for malignant neoplasm of prostate (principal); E03.9 Hypothyroidism, unspecified; I10 Essential (primary) hypertension
CPT/HCPCS: 36415; 72100; 74022; 80053; 80061; 84153; 84443; 85025; G0103

== ENCOUNTER 2024-01-17 09:50 | Inpatient (IN) | payer MEDICARE, SELFPAY ==
[2024-01-17] VITALS (14 sets, daily range): BP systolic 146–184; BP diastolic 64–87; PULSE 61–78; RESP 16–22; TEMP 36.2–37; O2SAT 92–100; BMI 25.2
[2024-01-17] MEDS: Lidocaine 1% (20 ml mdv) 20 ML Vial 10 ML INFILT (10:29)
[2024-01-17] MEDS: Ondansetron 4 MG/2 ML Vial IV (10:29)
[2024-01-17] MEDS: Morphine 4 MG/ML Syringe IV ×2 (10:29→11:57)
[2024-01-17 10:30] LABS: Absolute Lymphocyte Count 0.82 X10^3/uL (0.83-4.51); Absolute Neutrophil Count 7.6 X10^3/uL (2.0-7.7); Basophil# 0.03 X10^3/uL; Basophil% 0.3 % (0-1); Eosinophil# 0.05 X10^3/uL; Eosinophils% 0.6 % (0-5); Hematocrit 39.4 % (40-54); Hemoglobin 13.5 g/dL (13.0-16.5); Lymphocyte # 0.82 X10^3/ul (0.83-4.51); Lymphocyte % 9.1 % (19-41); Mean Corp Hgb Conc 34.3 g/dL (32-36); Mean Corpuscular Hgb 29.9 pg (27.0-32.0); Mean Corpuscular Volume 87.2 fL (80-94); Mean Platelet Vol. 8.8 fl (6.2-12.0); Monocyte% 5.5 % (0-10); NRBC Flagged by Analyzer 0 % (0-5); Neutrophil # 7.61 X10^3/uL (2.7-7.7); Neutrophil % 84.3 % (47-70); Platelet Count 207 K/mm3 (150-450); RBC Distribution Width CV 12.9 % (11.6-14.6); Red Blood Count 4.52 M/mm3 (4.6-6.2)
--- NOTE | 2024-01-17 10:52 | NURSING ---
CONSENT SIGNED. AT 1040 DR MATHEW, DR. 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 VITALS STABLE (SEE CHART). LIDOCAINE GIVEN AT [phone]. [phone] INCISION MADE AND 16 F CHEST TUBE PLACED BY DR. MATHEW. PTS VITALS STABLE (SEE CHART). DR. MATHEW SECURED THE CHEST TUBE AND SET UP TO SUCTION. X-RAY TO BE ORDERED TO VERIFY PLAACEMENT
[2024-01-17 10:56] LABS: Anion Gap 7 (5-15); BUN 13 mg/dL (7-18); BUN/Creat Ratio 12.5 RATIO (10-20); Calcium,Total 8.9 mg/dL (8.5-10.1); Chloride 96 mmol/L (98-107); Creatinine, Serum 1.04 mg/dL (0.70-1.30); EST Glomerular Filtration Rate 72 mL/min (>60); Est Glom Filt Rate - Afr Amer 87 mL/min (>60); Glucose 149 mg/dL (74-106); Potassium 4.2 mmol/L (3.5-5.1); Sodium Level 128 mmol/L (136-145); Troponin-I HS < 3 pg/mL (3.0-78.0)
--- NOTE | 2024-01-17 11:05 | RAD_ITS ---
STUDY: X-RAY CHEST REASON FOR EXAM: Male, 88 years old. S/p chest tube TECHNIQUE: Single AP portable view of the chest. COMPARISON: Comparison is made with prior chest radiograph earlier today. FINDINGS: A right-sided small caliber chest tube has been placed. The tip of the chest tube is in the right lateral upper abdomen. Stable appearance of the large right pneumothorax. RAD/Chest 1 View (Portable) IMPRESSION: Stable large right pneumothorax. The tip of the small caliber chest tube is in the right upper quadrant laterally. Electronically Signed: Moustapha Decker MD at 12:53 EDT ,
--- OUTSIDE RECORDS SUMMARY | 2024-01-17 11:33 | XMS RPT_ITS | CCD ---
Author Organization [facility] Care Team Providers Care Jockey Room Custodian Name Role Phone STEPHANIE RAYGOZA Unavailable Unavailable STEPHANIE RAYGOZA Unavailable Unavailable Benitez Araiza Unavailable Unavailable STEPHANIE RAYGOZA Unavailable Unavailable STEPHANIE RAYGOZA Unavailable Unavailable Benitez Araiza Unavailable Unavailable STEPHANIE RAYGOZA Unavailable Unavailable *SELF, REFERRED Unavailable Unavailable Benitez Araiza Unavailable Unavailable Mamadou Bose MD Primary Care Provider MAMADOU BOSE Primary Care Unavailable CAROLINE FREIRE Referring Unavailable MAMADOU BOSE Primary Care Unavailable Mamadou Bose MD Primary Care Provider Medications Current Medications Medication Drug Class(es) Dates Sig (Normalized) Sig (Original) aspirin 325 mg delayed release oral tablet (3 sources) Platelet Aggregation Inhibitor, Nonsteroidal Anti-inflammatory Drug Start: 03-22-2016 take 1 tablet by mouth once daily at mealtime aspirin, enteric coated (ECOTRIN) 325 mg EC tablet Take 1 tablet by mouth once daily. Take with food. 30 tablet 11 03/22/2016 Active Comment on above: Take 1 tablet by tremaine once daily. Take with food. atorvastatin 40 mg oral tablet (3 sources) HMG-CoA Reductase Inhibitor Start: 11-29-2015 atorvastatin (LIPITOR) 40 mg tablet Take 1 tablet (40 mg) every other day and 1/2 tablet (20 mg) on the other days. 90 tablet 3 11/29/2015 Active Comment on above: Take 1 tablet (40 mg ) every other day and 1/2 tablet (20 mg) on the other days. betamethasone 0.5 mg/ml topical lotion (3 sources) Corticosteroid Start: 02-13-2019 Betamethasone Dipropionate 0.05 % lotion 02/13/2019 Active COMPOUNDED PRESCRIPTION (9 sources) Start: 02-04-2014 COMPOUNDED PRESCRIPTION chobani 5.2 qd 0 02/04/2014 Active Start: 02-04-2014 COMPOUNDED PRE SCRIPTION preser vision- areds lutein 1 tab qd 0 02/04/2014 Active Start: 08-21-2013 COMPOUNDED PRE SCRIPTION CPAP supplies 1 Units 0 08/21/2013 Active Comment on above: CPAP supplies chobani 5.2 qd preser vision- areds lutein 1 tab qd escitalopram 10 mg oral tablet (3 sources) Serotonin Reuptake Inhibitor Start: take 1 tablet by mouth once daily escitalopram oxalate (LEXAPRO) 10 mg tablet Take 1 tablet by mouth once daily. dispense generic 30 tablet 11 08/27/2016 Active Comment on above: Take 1 tablet by tremaine th once daily. dispense generic fluocinolone acetonide 0.1 mg/ml topical oil (3 sources) Corticosteroid Start: Fluocinolone Acetonide 0.01 % external oil 04/27/2019 Active folic acid 1 mg oral tablet (3 sources) take 1 tablet by mouth once daily folic acid 1 mg tablet Take 1 mg by mouth once daily. Active Comment on above: Take 1 mg by mouth o nce daily. ketoconazole 20 mg/ml medicated shampoo (3 sources) Azole Antifungal Start: ketoconazole (NIZORAL) 2 % shampoo Lather and apply to skin for 3 to 5 minutes then rinse off daily as needed 120 mL 1 12/11/2016 Active Comment on above: Lather and apply to skin for 3 to 5 minutes then rinse off daily as needed levothyroxine sodium 0.075 mg oral tablet (3 sources) l-Thyroxine Start: 018 take 1 tablet by mouth once daily levothyroxine (SYNTHROID) 75 mcg tablet take 1 tablet by mouth once daily 90 tablet 1 08/20/2017 Active Comment on above: take 1 tablet by tremaine th once daily lisinopril 10 mg oral tablet (3 sources) Angiotensin Converting Enzyme Inhibitor Start: 015 take 1 tablet by mouth once daily lisinopril (ZESTRIL, PRINIVIL) 10 mg tablet Take 1 tablet by mouth once daily. 90 tablet 3 03/28/2015 Active Comment on above: Take 1 tablet by tremaine th once daily. LORazepam 1 mg oral tablet (3 sources) Benzodiazepine Start: 017 take 1 tablet by mouth once daily at bedtime LORazepam (ATIVAN) 1 mg tablet Take 1 tablet by mouth daily at bedtime. 90 tablet 11/02/2016 Active Comment on above: Take 1 tablet by tremaine daily at bedtime. methylcellulose 2000 mg powder for oral suspension (3 sources) Start: 016 methylcellulose, with sugar, (CITRUCEL, SUCROSE,) oral powder Take 2 scoops by mouth once daily. Not with sugar 0 10/27/2015 Active Comment on above: Take 2 scoops by tremaine once daily. Not with sugar olmesartan medoxomil 5 mg oral tablet (3 sources) Angiotensin 2 Receptor Laura Start: olmesartan (BENICAR) 5 mg tablet 05/05/2019 Active 24 hr oxybutynin chloride 10 mg extended release oral tablet (3 sources) Cholinergic Muscarinic Antagonist Start: 020 oxybutynin ER (DITROPAN XL) 10 mg 24 hr tablet 05/04/2019 Active triamcinolone acetonide 0.001 mg/mg topical ointment (3 sources) Corticosteroid Start: 017 triamcinolone acetonide (KENALOG) 0.1 % ointment Apply to affected areas twice daily x 2 weeks on 1 week off as needed 85 g 2 07/30/2016 Active Comment on above: Apply to affected ar eas twice daily x 2 weeks on 1 week off as needed Vitamin B Complex (3 sources) Start: 012 take 1 tablet by mouth once daily vitamin b complex (SUPER B-50 COMPLEX PLUS) Tab Take 1 tablet by mouth once daily. 0 11/16/2011 Active Comment on above: [facility] vitamin e 268 mg oral capsule (3 sources) Start: 014 take 1 capsule by mouth twice daily alpha tocopheryl acetate (VITAMIN E) 400 unit capsule Take 1 capsule by mouth twice daily. 0 02/04/2014 Active Comment on above: Take 1 capsule by mo [facility] twice daily. zolpidem tartrate 10 mg oral tablet (3 sources) gamma-Aminobutyric Acid-ergic Agonist Start: 017 take 1 tablet by mouth every twenty-four hours as needed zolpidem (AMBIEN) 10 mg tab Take 1 tablet by mouth at bedtime as needed. 90 tablet 1 12/11/2016 Active Comment on above: Take 1 tablet by tremaine th at bedtime as needed. Problems Active Problems Problem Classification Problem Date Documented Da te Episodic/Chronic Anxiety disorders (3 sources) Anxiety; Translations: [Anxiety disorder, unspecified] Onset: 06-30-2013 06-30-2013 Chronic Disorders of lipid metabolism (3 sources) Mixed hyperlipidemia; Translations: [Mixed hyperlipidemia] Onset: 01-08-2005 03-18-2015 Chronic Diverticulosis and diverticulitis (4 sources) Diverticulosis of colon; Translations: [Diverticulosis of large intestine without perforation or abscess without bleeding] Onset: 07-25-2006 Resolved: 05-12-2008 10-10-2005 Chronic Essential hypertension (3 sources) Essential hypertension; Translations: [Essential (primary) hypertension] Onset: 11-16-2014 03-18-2015 Chronic Nonspecific chest pain (4 sources) Pain of intercostal space; Translations: [Intercostal pain] Onset: 11-16-2014 Resolved: 03-22-2016 Episodic Osteoarthritis (3 sources) Degenerative joint disease involving multiple joints; Translations: [Polyosteoarthritis, unspecified] Onset: 08-05-2007 08-05-2007 Chronic Other gastrointestinal disorders (3 sources) Irritable bowel syndrome; Translations: [Irritable bowel syndrome without diarrhea] Onset: 01-25-2006 01-25-2006 Chronic Other male genital disorders (3 sources) Male erectile dysfunction, unspecified; Translations: [Impotence of organic origin] Onset: 10-26-2010 10-26-2010 Chronic Residual codes; unclassified (3 sources) Obstructive sleep apnea syndrome; Translations: [Obstructive sleep apnea (adult) (pediatric)] Onset: 08-21-2013 08-21-2013 Chronic Spondylosis; intervertebral disc disorders; other back problems (6 sources) Degeneration of cervical intervertebral disc; Translations: [Other cervical disc degeneration, unspecified cervical region] Onset: 12-03-2012 12-03-2012 Chronic Thyroid disorders (3 sources) Acquired hypothyroidism; Translations: [Hypothyroidism, unspecified] Onset: 10-10-2005 03-18-2015 Chronic Past or Other Problems Problem Classification Problem Date Documented Da te Episodic/Chronic Abdominal pain (3 sources) Abdominal pain; Translations: [Unspecified abdominal pain] Onset: 6 Resolved: 4 05-12-2008 Episodic Allergic reactions (2 sources) Radiation-induced dermatosis; Translations: [Other skin changes due to chronic exposure to nonionizing radiation] Onset: 7 Resolved: 6 06-14-2013 Episodic Coronary atherosclerosis and other heart disease (1 source) Disorder of cardiovascular system; Translations: [Atherosclerotic heart disease of [place] coronary artery without angina pectoris] Onset: 6 Resolved: 6 03-22-2016 Chronic Diabetes mellitus without complication (3 sources) Hyperglycemia; Translations: [Hyperglycemia, unspecified] Onset: 2 07-02-2011 Episodic Diseases of mouth; excluding dental (1 source) Disorder of lip; Translations: [Diseases of lips] Onset: 7 Resolved: 6 03-22-2016 Episodic Esophageal disorders (1 source) Gastroesophageal reflux disease; Translations: [Gastro-esophageal reflux disease without esophagitis] Onset: 6 Resolved: 9 05-12-2008 Chronic Genitourinary symptoms and ill-defined conditions (4 sources) Nocturia; Translations: [Nocturia] Onset: 5 Resolved: 9 03-15-2010 Episodic Hemorrhoids (1 source) Thrombosed external hemorrhoids; Translations: [Perianal venous thrombosis] Onset: 2 Resolved: 6 03-22-2016 Episodic Hyperplasia of prostate (1 source) Benign prostatic hypertrophy without outflow obstruction; Translations: [Benign prostatic hyperplasia without lower urinary tract symptoms] Onset: 5 Resolved: 9 05-12-2008 Chronic Intestinal infection (1 source) Enterocolitis due to Clostridium difficile, not specified as recurrent; Translations: [Intestinal infection due to Clostridium difficile] Onset: 7 Resolved: 9 05-12-2008 Episodic Mycoses (1 source) Candidiasis; Translations: [Candidiasis of skin and nail] Onset: 7 Resolved: 4 06-14-2013 Episodic Other and unspecified benign neoplasm (1 source) History of polyp of colon; Translations: [Personal history of colonic polyps] Resolved: 9 05-12-2008 Episodic Other and unspecified benign neoplasm (1 source) Blue nevus of skin; Translations: [Other benign neoplasm of skin, unspecified] Onset: 0 Resolved: 6 03-22-2016 Episodic Other gastrointestinal disorders (1 source) Flatulence, eructation and gas pain; Translations: [Flatulence] Onset: 6 Resolved: 9 05-12-2008 Episodic Other gastrointestinal disorders (2 sources) Diarrhea; Translations: [Diarrhea, unspecified] Onset: 6 Resolved: 4 05-12-2008 Episodic Other gastrointestinal disorders (1 source) Constipation; Translations: [Constipation, unspecified] Onset: 6 Resolved: 9 05-12-2008 Episodic Other injuries and conditions due to external causes (1 source) Open wound; Translations: [Other injury of unspecified body region, initial encounter] Onset: 1 Resolved: 4 06-14-2013 Episodic Other lower respiratory disease (1 source) Cough; Translations: [Cough] Onset: 8 Resolved: 9 05-12-2008 Episodic Other skin disorders (1 source) Actinic keratosis; Translations: [Actinic keratosis] Onset: 7 Resolved: 6 03-22-2016 Episodic Other skin disorders (1 source) Seborrheic keratosis; Translations: [Other seborrheic keratosis] Onset: 7 Resolved: 6 03-22-2016 Episodic Other skin disorders (1 source) Disorder of skin pigmentation; Translations: [Disorder of pigmentation, unspecified] Onset: 7 Resolved: 4 06-14-2013 Episodic Other skin disorders (2 sources) Inflamed seborrheic keratosis; Translations: [Inflamed seborrheic keratosis] Onset: 0 Resolved: 6 06-08-2013 Episodic Other skin disorders (1 source) Foreign body granuloma of skin; Translations: [Foreign body granuloma of the skin and subcutaneous tissue] Onset: 0 Resolved: 6 03-22-2016 Episodic Other skin disorders (1 source) Solar lentigo; Translations: [Other melanin hyperpigmentation] Onset: 4 Resolved: 6 03-22-2016 Episodic Other skin disorders (1 source) Superficial ulcer of skin; Translations: [Disorder of the skin and subcutaneous tissue, unspecified] Onset: 4 Resolved: 6 03-22-2016 Episodic Residual codes; unclassified (3 sources) Insomnia; Translations: [Insomnia, unspecified] Onset: 6 01-25-2006 Episodic Spondylosis; intervertebral disc disorders; other back problems (1 source) Neck pain; Translations: [Cervicalgia] Onset: 8 Resolved: 9 05-12-2008 Episodic Results Test Name Value Interpretation Reference Range Facility [facility] 04-11-2022 CNPN Telephone (UCWSTR) JR PILLAI ([id number]) 1935 M Date Time Provider Department 04/11/22 CAROLINE FREIRE [facility] During your visit today, we recorded the following information about you: Charlotte Hernandez MA 04/11/2022 7:17 PM Signed ----- Message from Caroline Freire APRN.STOCK CHASER sent at 04/10/2022 9:53 AM EST ----- [...] he wishes to obtain a PCP with [facility]. Charlotte Hernandez MA 04/11/2022 7:40 PM Signed Left message for pt to call back. JURGEN Rubi MA 04/13/2022 7:05 AM Signed Second call attempt, left instructing patient to return call to receive results. Will also send letter to listed address today. Maureen Bradley MA Allergies As of Date: 04/11/2022 (No Known Allergies) Date Reviewed: 04/10/2022 Reviewed by: Karrie Espinoza - Fully Assessed Reason for Visit: Results [95] Prescriptions as of 04/13/2022 - oxybutynin ER (DITROPAN XL) 10 mg 24 hr tablet - olmesartan (BENICAR) 5 mg tablet - Fluocinolone Acetonide 0.01 % external oil - Betamethasone Dipropionate 0.05 % lotion - levothyroxine (SYNTHROID) 75 mcg tablet take 1 tablet by mouth once daily - ketoconazole (NIZORAL) 2 % shampoo Lather and apply to skin for 3 to 5 minutes then rinse off daily as needed - zolpidem (AMBIEN) 10 mg tab Take 1 tablet by mouth at bedtime as needed. - LORazepam (ATIVAN) 1 mg tablet Take 1 tablet by mouth daily at bedtime. - escitalopram oxalate (LEXAPRO) 10 mg tablet Take 1 tablet by mouth once daily. dispense generic - triamcinolone acetonide (KENALOG) 0.1 % ointment Apply to affected areas twice daily x 2 weeks on 1 week off as needed - aspirin, enteric coated (ECOTRIN) 325 mg EC tablet Take 1 tablet by mouth once daily. Take with food. - atorvastatin (LIPITOR) 40 mg tablet Take 1 tablet (40 mg) every other day and 1/2 tablet (20 mg) on the other days. - methylcellulose, with sugar, (CITRUCEL, SUCROSE,) oral powder Take 2 scoops by mouth once daily. Not with sugar - lisinopril (ZESTRIL, PRINIVIL) 10 mg tablet Take 1 tablet by mouth once daily. - alpha tocopheryl acetate (VITAMIN E) 400 unit capsule Take 1 capsule by mouth twice daily. - COMPOUNDED PRESCRIPTION chobani 5.2 qd - COMPOUNDED PRESCRIPTION preser vision- areds lutein 1 tab qd - COMPOUNDED PRESCRIPTION CPAP supplies - folic acid 1 mg tablet Take 1 mg by mouth once daily. - vitamin b complex (SUPER B-50 COMPLEX PLUS) Tab Take 1 tablet by mouth once daily. Meds Comments as of 05/08/2010: listed allergy of baycol removed from list per patient request, stated not an allergy he quit the drug because so many people had problems with it 05/08/2010- pt states stopped all meds except metoprolol d/t tinnitus. Junito Cain Faith Doctor Problem List As Of Date 04/11/2022 Noted Resolved BPH W/O URINARY OBS/LUTS [N40.0] 01/08/2005 05/12/2008 NOCTURIA [R35.1] 01/08/2005 05/12/2008 Mixed hyperlipidemia [E78.2] 01/08/2005 PERS HX COLONIC POLYPS [Z86.010] 05/12/2008 DIVERTICULOSIS OF COLON W/O BLEED [K57.30] Unspecified cardiovascular disease [I25.10] 10/10/2005 03/22/2016 Acquired hypothyroidism [E03.9] 10/10/2005 ABDOMINAL PAIN UNSPEC SITE [R10.9] 01/25/2006 05/12/2008 IRRITABLE COLON [K58.9] 01/25/2006 INSOMNIA NOS [G47.00] 01/25/2006 ESOPHAGEAL REFLUX [K21.9] 02/07/2006 05/12/2008 ABDOMINAL BLOATING [R14.3, R14.1, R14.2] 02/07/2006 05/12/2008 DIARRHEA NOS [R19.7] 02/07/2006 05/12/2008 CONSTIPATION NOS [K59.00] 02/07/2006 05/12/2008 ABDOMINAL PAIN( Left Lower Quadrant) [R10.32] 02/07/2006 05/12/2008 DIVERTICULITIS COLON - NO HEMORRHAGE [K57.32] 07/25/2006 05/12/2008 CLOSTRIDIUM ENTERITIS [A04.72] 08/02/2006 05/12/2008 ACTINIC KERATOSES (Premalignant AK's) [L57.0] 01/24/2007 03/22/2016 Seborrheic Keratoses [L82.1] 01/24/2007 03/22/2016 CHEILITIS///DISEASES OF LIPS [K13.0] 01/24/2007 03/22/2016 Candidiasis of skin and nails [B37.2] 01/24/2007 06/14/2013 ACTINIC DAMAGE///CHR SOLAR SKIN DAMAGE NOS [L57*01/24/2007 06/14/2013 SOLAR LENTIGINES///DYSCHROMI A OTHER [L81.9] 01/24/2007 06/14/2013 GENERAL OSTEOARTHROSIS [M15.9] 08/05/2007 CERVICALGIA [M54.2] 08/13/2007 05/12/2008 COUGH [R05.9] 09/24/2007 05/12/2008 Abdominal pain, epigastric [R10.13] 12/16/2008 06/08/2013 Diarrhea [R19.7] 12/16/2008 06/08/2013 Irritated//Inflamed Seborrheic Keratosis [L82.0]12/20/2009 06/08/2013 Blue Nevus: melanocytic nevi moles vs ?NUB-?DN *12/20/2009 03/22/2016 Foreign body granuloma of skin [L92.3] 12/20/2009 03/22/2016 Nocturia [R35.1] 03/15/2010 Open wound(s) (multiple) of unspecified site(s)*05/08/2010 06/14/2013 ED (erectile dysfunction) [N52. (more content not included)... Normal [facility] CNOVon 04-10-2022 CNOV Office Visit (UCWSTR ) JR PILLAI ([id number]) 1935 M Date Time Provider Department 04/10/22 8:45 AM [facility] your visit today, we recorded the following information about you: Temperature Pulse Respiration Blood pressure 98.7 degrees 68/minute 16/minute 130/72 Weight 83 kg Caroline Freire APRN.STOCK CHASER 04/10/2022 9:54 AM Signed Subjective HPI Jr Pillai is a 86 year old male who presents with 2 months of left sided chest pain. He is a patient of Dr. Bose of [facility] and Dr. Martinez for cardiology. He denies [...] DX W/COLLJ SPEC WHEN PFRMD 07/16/12 Colonoscopy ESOPHAGOGASTRODUODENOS COPY TRANSORAL DIAGNOSTIC 02/23/02 EGD ESOPHAGOGASTRODUODENOS COPY TRANSORAL DIAGNOSTIC 02/15/2006 EGD ESOPHAGOGASTRODUODENOS COPY TRANSORAL DIAGNOSTIC 12/16/08 EGD ESOPHAGOGASTRODUODENOS COPY TRANSORAL DIAGNOSTIC 07/16/12 EGD LAPAROSCOPY COLECTOMY PARTIAL W/ANASTOMOSIS 07/29/06 LAPS MOBLJ SPLENIC FLXR PFRMD W/PRTL COLECTOMY 07/29/06 PAST SURGICAL HISTORY OF 1963 hernia repair PAST SURGICAL HISTORY OF 1997 cardiac cath PAST SURGICAL HISTORY OF 11/25/03 IANDD L lower leg PAST SURGICAL HISTORY OF 03/19/2014 Repair extensor digitorum communis tendon laceration, dorsum right hand at MP joint. PCHG TETANUS DIPTHERIA STRESS TEST 11/15/[address] [facility] [address] Martinez ALLERGIES Patient has no known [...] Exam Vitals and nursing note reviewed. Constitutional: Appeara (more content not included)... Normal [facility] XR CHEST 2V FRONTAL/LATon XR CHEST 2V FRONTAL/LAT * * *Final Report* * * DATE OF EXAM: Apr 10 2022 9:03AM WOX [id number] - XR CHEST 2V FRONTAL/LAT / PROCEDURE REASON: Intercostal pain * * * * Physician Interpretation * * * * EXAMINATION: CHEST RADIOGRAPH (2 VIEW FRONTAL and LATERAL) CLINICAL HISTORY: Intercostal pain MQ: XC2_6 EXAM DATE/TIME: 04/10/2022 9:03 AM COMPARISON: No relevant prior studies available. RESULT: Lines, tubes, and devices: None. Lungs and pleura: Elevation of the right hemidiaphragm. Right basilar atelectasis. No consolidation. No lung mass. No pleural effusion. No pneumothorax. Cardiomediastinal silhouette: Normal cardiomediastinal silhouette. Bones and soft tissues: Unremarkable. IMPRESSION: Elevation of the right hemidiaphragm. Right basilar atelectasis. Coffee Blender: [employer] Transcribe Date/Time: Apr 10 2022 9:31A Dictated by : CHELSEY SUBRAMANIAN MD This examination was interpreted and the report reviewed and electronically signed by: CHELSEY SUBRAMANIAN MD on Apr 10 2022 9:34AM EST [id number] Normal [facility] XR Chest PA and Lateralon IMPRESSION: Elevation of the right hemidiaphragm. Right basilar atelectasis. Coffee Blender: [employer] Transcribe Date/Time: Apr 10 2022 9:31A Dictated by : CHELSEY SUBRAMANIAN MD This examination was interpreted and the report reviewed and electronically signed by: CHELSEY SUBRAMANIAN MD on Apr 10 2022 9:34AM EST DIVISION OF RADIOLOGY * * *Final Report* * * DATE OF EXAM: Apr 10 2022 9:03AM WOX [id number] - XR CHEST 2V FRONTAL/LAT / PROCEDURE REASON: Intercostal pain * * * * Physician Interpretation * * * * EXAMINATION: CHEST RADIOGRAPH (2 VIEW FRONTAL & LATERAL) CLINICAL HISTORY: Intercostal pain MQ: XC2_6 EXAM DATE/TIME: 04/10/2022 9:03 AM COMPARISON: No relevant prior studies available. RESULT: Lines, tubes, and devices: None. Lungs and pleura: Elevation of the right hemidiaphragm. Right basilar atelectasis. No consolidation. No lung mass. No pleural effusion. No pneumothorax. Cardiomediastinal silhouette: Normal cardiomediastinal silhouette. Bones and soft tissues: Unremarkable. DIVISION OF RADIOLOGY Provider, Mathieu [facility] - 04/10/2022 * * *Final Report* * * DATE OF EXAM: Apr 10 2022 9:03AM WOX [id number] - XR CHEST 2V FRONTAL/LAT / PROCEDURE REASON: Intercostal pain * * * * Physician Interpretation * * * * EXAMINATION: CHEST RADIOGRAPH (2 VIEW FRONTAL & LATERAL) CLINICAL HISTORY: Intercostal pain MQ: XC2_6 EXAM DATE/TIME: 04/10/2022 9:03 AM COMPARISON: No relevant prior studies available. RESULT: Lines, tubes, and devices: None. Lungs and pleura: Elevation of the right hemidiaphragm. Right basilar atelectasis. No consolidation. No lung mass. No pleural effusion. No pneumothorax. Cardiomediastinal silhouette: Normal cardiomediastinal silhouette. Bones and soft tissues: Unremarkable. IMPRESSION IMPRESSION: Elevation of the right hemidiaphragm. Right basilar atelectasis. Coffee Blender: BRYAN Transcribe Date/Time: Apr 10 2022 9:31A Dictated by : CHELSEY SUBRAMANIAN MD This examination was interpreted and the report reviewed and electronically signed by: CHELSEY SUBRAMANIAN MD on Apr 10 2022 9:34AM EST [facility] Radiology Study observation (narrative) [facility] XR Chest PA and LateralOrder ed By: [facility]cf Provider on 04-10-2022 [facility] Vital Signs Date Time Vital Sign Value Performing Clinician Sandrai juan 04-10-2022 08:47-0500 Body temperature 98.71 [degF] Caroline Freire APRN.CNP Work Phone: [facility] 04-10-2022 08:47-0500 Body weight 83.01 kg Caroline Praisler-Wood [employer] SUPERVISOR.STOCK CHASER Work Phone: [facility] 04-10-2022 08:47-0500 Diastolic blood pressure 72 mm[Hg] Caroline Praisler-Wood [employer] SUPERVISOR.STOCK CHASER Work Phone: [facility] 04-10-2022 08:47-0500 Heart rate 68 /min Caroline Praisler-Wood [employer] SUPERVISOR.STOCK CHASER Work Phone: [facility] 04-10-2022 08:47-0500 Respiratory rate 16 /min Caroline Praisler-Wood [employer] SUPERVISOR.STOCK CHASER Work Phone: [facility] 04-10-2022 08:47-0500 SaO2% (BldA) [Mass fraction] 95 % Caroline Praisler-Wood [employer] SUPERVISOR.STOCK CHASER Work Phone: [facility] 04-10-2022 08:47-0500 Systolic blood pressure 130 mm[Hg] Caroline Praisler-Wood [employer] SUPERVISOR.STOCK CHASER Work Phone: [facility] Encounters Encounter Date Encounter Type Care Provider Facility Start: 04-11-2022 Telephone encounter Carolinesaba alonzo-Fran [employer] SUPERVISOR.STOCK CHASER Work Phone: [facility] Comment on above: Results Start: 04-10-2022 End: 04-10-2022 ambulatory MAMADOU BOSE Facility:[facility] Start: 04-10-2022 End: 04-10-2022 Subsequent hospital visit by physician Dequan [facility] Work Phone: Radiology Comment on above: Intercostal pain [R0 7.82] Start: 04-10-2022 End: 04-10-2022 Patient encounter procedure Caroline Praisler-Wood [employer] SUPER[employer]OR.STOCK CHASER Work Phone: [facility] Comment on above: Intercostal pain (Pr imary Dx) Start: 03-19-2018 Patient encounter procedure STEPHANIE RAYGOZA Facility:[id number] Start: 10-23-2017 Patient encounter procedure STEPHANIE Nava RAYGOZA Facility:[id number] Start: 06-26-2017 Patient encounter procedure STEPHANIE RAYGOZA Facility:[id number] Start: 10-06-2013 End: 03-22-2016 Patient encounter procedure Xr [place] Work Phone: [facility] Procedures Date Procedure Procedure Detail Performing Clinician Start: 04-10-2022 Radiologic exam ches t 2 views Caroline Freire APRN.CNP Work Phone: Plan of Treatment Date Care Activity Detail Author Start: 03-10-2028 Urine microalbumin profile [facility] Start: 12-08-2023 Covid-19 Vaccine () Covid-19 Vaccine () [facility] Start: 12-08-2023 Influenza vaccination Influenza Vacc ine (#1) [facility] Start: 04-08-2023 Advance Directive Discussion Advance Directive Discussion [facility] Start: 04-08-2022 ADVANCE DIRECTIVE DISCUSSION ADVANCE DIRECTIVE DISCUSSION [facility] Start: 04-08-2022 DEPRESSION ASSESSMENT DEPRESSION ASS ESSMENT [facility] Start: 02-15-2018 DIABETES SCREEN DIABETES SCREEN [facility] Start: 02-15-2018 Diabetes Screening Diabetes Screenin g [facility] Start: 2012 RSV Vaccine (1 - 1-d ose 75+ series) RSV Vaccine (1 - 1-dose 75+ series) [facility] Start: 05-19-2008 SHINGRIX VACCINE (2 of 3) MORGAN GRIX VACCINE (2 of 3) [facility] Start: [birth year]-31-1955 Depression Screening Depression Scre ening [facility] Immunizations Immunization Date Immunization Notes Care Provider Fa santy 04-02-2022 COVID-19 original vaccine, full dose, monovalent (MODERNA) Caroline Freire APRN.CNP Work Phone: [facility] 12-27-2021 influenza virus vacc ine, unspecified formulation Xr [place] Work Phone: [facility] 12-05-2020 influenza, high dose seasonal, preservative-free Caroline Freire APRN.STOCK CHASER Work Phone: [facility] 11-30-2019 influenza, high dose seasonal, preservative-free Caroline Freire APRN.REINA Work Phone: [facility] Work Phone: 03-10-2018 pneumococcal polysaccharide vaccine, 23 valent Caroline Praisler-Wood [employer]ANT SUPERVISOR.STOCK CHASER Work Phone: [facility] 03-10-2018 tetanus toxoid, redu robinson diphtheria toxoid, and acellular pertussis vaccine, adsorbed Caroline Praisler-Wood [employer] SUPERVISOR.STOCK CHASER Work Phone: [facility] 01-13-2018 influenza, high dose seasonal, preservative-free Caroline Praisler-Wood [employer] SUPERVISOR.STOCK CHASER Work Phone: [facility] 02-18-2017 influenza, seasonal, injectable Caroline Praisler-Wood [employer] SUPERVISOR.STOCK CHASER Work Phone: [facility] Work Phone: 02-18-2017 pneumococcal conjuga te vaccine, 13 valent Caroline Praisler-Wood [employer]UM[employer] SUPERVISOR.STOCK CHASER Work Phone: [facility] Work Phone: 02-18-2017 tetanus toxoid, redu robinson diphtheria toxoid, and acellular pertussis vaccine, adsorbed Caroline Praisler-Wood [employer]ANT SUPERVISOR.STOCK CHASER Work Phone: [facility] Work Phone: 12-11-2016 influenza, high dose seasonal, preservative-free Caroline Praisler-Wood ALUM[employer] PLANT SUPERVISOR.STOCK CHASER Work Phone: [facility] 01-25-2015 influenza, high dose seasonal, preservative-free Caroline Praisler-Wood AL[employer]ANT SUPERVISOR.STOCK CHASER Work Phone: [facility] 08-09-2014 pneumococcal conjuga te vaccine, 13 valent Caroline Praisler-Wood AL[employer]ANT SUPERVISOR.STOCK CHASER Work Phone: [facility] 12-23-2013 influenza, high dose seasonal, preservative-free Caroline Praisler-Wood [employer]ANT SUPERVISOR.STOCK CHASER Work Phone: [facility] 11-30-2012 influenza virus vacc ine, unspecified formulation Caroline Praisler-Wood [employer] SUPERVISOR.STOCK CHASER Work Phone: [facility] 02-07-2012 influenza virus vacc ine, unspecified formulation Caroline Praisler-Wood [employer] SUPERVISOR.STOCK CHASER Work Phone: [facility] 03-24-2008 zoster vaccine, live Caroline Freire APRN.STOCK CHASER Work Phone: [facility] 02-12-2008 diphtheria and tetan us toxoids, adsorbed for pediatric use Caroline Freire APRN.STOCK CHASER Work Phone: [facility] Work Phone: 02-14-2006 influenza virus vacc ine, unspecified formulation Caroline Freire APRN.STOCK CHASER Work Phone: [facility] 02-06-2003 pneumococcal polysaccharide vaccine, 23 valent Caroline Freire APRN.STOCK CHASER Work Phone: [facility] Payers Date Payer Category Payer Unknown [id number] 2021 Unknown [id number] 1935 Unknown [id number] 1935 Unknown [id number] 1935 Unknown [id number] Private Health Insurance [id number] Social History Date Type Detail Facility [facility]: [facility] Start: 09-14-2013 Tobacco use and exposure Smoke less tobacco non-user [facility] Start: 04-10-2022 Alcohol intake Current drinke r of alcohol (finding) [facility] Start: 04-10-2022 Alcohol intake [facility] Start: 07-14-2012 [facility] Start: 1935 Sex Assigned At Not on file [facility] Start: 04-10-2022 Tobacco use panel [facility] Note 04-11-2022 Telephone Encounter - Charlotte Hernandez MA - 04/11/2022 7:39 PM ESTTelephone Encounter - Charlotte Hernandez MA - 04/11/2022 7:17 PM EST Note Date & Type Note Facility 04-11-2022 Miscellaneous Notes Formattin g of this note might be different from the original. Left message for pt to call back. Charlotte Hernandez MA ----- Message from Caroline Freire APRN.STOCK CHASER sent at 04/10/2022 9:53 AM EST ----- [...] he wishes to obtain a PCP with [facility]. documented in this encounter [facility] Progress note 04-10-2022 Note Date & Type Note Facility 04-10-2022 Note HNO ID: [id number] Author: RT Dylon(R) Service: ? Author Type: Senior Materials Planner Type: Progress Notes Filed: 04/10/2022 9:03 AM Note Text: Radiology Service Progress Note PATIENT NAME: Jr Pillai DATE OF SERVICE: April 10, 2022 [...] PERIPHERAL IV DATA: Not applicable SIGNED BY: RT Dylon(R) April 10, 2022 8:51 AM [facility] Progress note 04-10-2022 Note Date & Type Note Facility 04-10-2022 Note HNO ID: [id number] Author: Caroline Freire APRN.STOCK CHASER Service: ? Author Type: Nurse Practitioner Type: Progress Notes Filed: 04/10/2022 9:54 AM Note Text: Subjective HPI Jr Pillai is a 86 year old male who presents with 2 months of left sided chest pain. He is a patient of Dr. Bose of [facility] and Dr. Martinez for cardiology. He denies [...] joint. PCHG TETANUS DIPTHERIA STRESS TEST 11/15/[address] [facility] [address] Martinez ALLERGIES Patient has no known [...] General: Skin i (more content not included)... [facility] Instructions 04-10-2022 Patient Instructions Note Date & Type Note Facility 04-10-2022 Instructions Caroline Freire APRN.REINA - 04/10/2022 9:48 AM EST ASSESSMENT/PLAN: 1. [...] of the right hemidiaphragm. Right basilar atelectasis. Coffee Blender: BRYAN Transcribe Date/Time: Apr 10 2022 9:31A Dictated by : CHELSEY SUBRAMANIAN MD - ESTABLISH WITH PRIMARY CARE - NEW PATIENT Caroline Freire APRN.REINA documented in this encounter [facility] History of Present illness Narrative 04-10-2022 Caroline Freire APRN.STOCK CHASER - 04/10/2022 8:46 AM EST Note Date & Type Note Facility 04-10-2022 History of Presen t illness Narrative Subjective HPI Jr Pillai is a 86 year old male who presents with 2 months of left sided chest pain. He is a patient of Dr. Bose of [facility] and Dr. Martinez for cardiology. He denies [...] joint. PCHG TETANUS DIPTHERIA STRESS TEST 11/15/[address] [facility] [address] Martinez ALLERGIES Patient has no known [...] of the right hemidiaphragm. Right basilar atelectasis. Coffee Blender: BRYAN Transcribe Date/Time: Apr 10 2022 9:31A Dictated by : CHELSEY SUBRAMANIAN MD - ESTABLISH WITH PRIMARY CARE - NEW PATIENT Caroline Freire APRN.STOCK CHASER documented in this encounter [facility] History of Past illness Narrative 11-16-2014 Note Date & Type Note Facility 11-16-2014 History of Past i llness Narrative Problem Noted Date Resolved Date Exertional chest pain 11/16/2014 03/22/2016 Overview: Stress Test 11/15/[address] [facility] [address] Martinez (scanned) No evidence of ischemia noted at a high workload. Good functional work capacity. Nuclear image no evidence of ischemia. No arrhythmias noted. Preserved ejection fraction present. Medicare annual wellness visit, initial 10/07/19 14 03/22/2016 Skin erosion 07/30/2013 03/22/2016 Irritated//Inflamed Seborrheic Keratoses 014 03/22/2016 Overview: Actinic skin damage 06/14/2013 03/22/2016 Solar Lentigines 06/14/2013 03/22/2016 Thrombosed external hemorrhoid 06/03/2011 1 05/23/2015 Open wound(s) (multiple) of unspecified site(s), without mention of complication 05/08/2010 06/14/2013 Irritated//Inflamed Seborrheic Keratosis 010 06/08/2013 Blue Nevus: melanocytic nevi moles vs ?NUB-?DN 0 12/20/2009 03/22/2016 Foreign body granuloma of skin 12/20/2009 1 05/23/2015 Abdominal pain, epigastric 12/16/200806/08 Diarrhea 12/16/2008 06/08/2013 Cough 09/24/2007 05/12/2008 Cervicalgia 08/13/2007 05/12/2008 ACTINIC KERATOSES (Premalignant AK's) 01/24/2007 03/22/2016 Seborrheic Keratoses 01/24/2007 03/22/2016 CHEILITIS///DISEASES OF LIPS 01/24/2007 Candidiasis of skin and nails 01/24/2007 ACTINIC DAMAGE///CHR SOLAR SKIN DAMAGE NOS 01/2406/14/2013 SOLAR LENTIGINES///DYSCHROMIA OTHER 01/24/2007 06/14/2013 CLOSTRIDIUM ENTERITIS 08/02/2006 05/12/2008 DIVERTICULITIS COLON - NO HEMORRHAGE 07/25/2006 05/12/2008 Esophageal reflux 02/07/2006 05/12/2008 ABDOMINAL BLOATING 02/07/2006 05/12/2008 Diarrhea 02/07/2006 05/12/2008 Unspecified constipation 02/07/2006 009 ABDOMINAL PAIN( Left Lower Quadrant) 02/07/2006 05/12/2008 Abdominal pain, unspecified site 01/25/2006 05/12/2008 Unspecified cardiovascular disease 10/10/2005 03/22/2016 Hypertrophy of prostate with out urinary obstruction and other lower urinary tract symptoms (LUTS) 01/08/2005 05/12/2008 Nocturia 01/08/2005 05/12/2008 Personal history of colonic polyps 05/12/2008 documented as of this encounter (statuses as of 04/12/2022) [facility] History of Past illness Narrative 11-16-2014 Note Date & Type Note Facility 11-16-2014 History of Past i llness Narrative Problem Noted Date Resolved Date Exertional chest pain 11/16/2014 03/22/2016 Overview: Stress Test 11/15/[address] [facility] [address] Martinez (scanned) No evidence of ischemia noted at a high workload. Good functional work capacity. Nuclear image no evidence of ischemia. No arrhythmias noted. Preserved ejection fraction present. Medicare annual wellness visit, initial 10/07/19 14 03/22/2016 Skin erosion 07/30/2013 03/22/2016 Irritated//Inflamed Seborrheic Keratoses 014 03/22/2016 Overview: Actinic skin damage 06/14/2013 03/22/2016 Solar Lentigines 06/14/2013 03/22/2016 Thrombosed external hemorrhoid 06/03/2011 1 05/23/2015 Open wound(s) (multiple) of unspecified site(s), without mention of complication 05/08/2010 06/14/2013 Irritated//Inflamed Seborrheic Keratosis 010 06/08/2013 Blue Nevus: melanocytic nevi moles vs ?NUB-?DN 0 12/20/2009 03/22/2016 Foreign body granuloma of skin 12/20/2009 1 05/23/2015 Abdominal pain, epigastric 12/16/200806/08 Diarrhea 12/16/2008 06/08/2013 Cough 09/24/2007 05/12/2008 Cervicalgia 08/13/2007 05/12/2008 ACTINIC KERATOSES (Premalignant AK's) 01/24/2007 03/22/2016 Seborrheic Keratoses 01/24/2007 03/22/2016 CHEILITIS///DISEASES OF LIPS 01/24/2007 Candidiasis of skin and nails 01/24/2007 ACTINIC DAMAGE///CHR SOLAR SKIN DAMAGE NOS 01/2406/14/2013 SOLAR LENTIGINES///DYSCHROMIA OTHER 01/24/2007 06/14/2013 CLOSTRIDIUM ENTERITIS 08/02/2006 05/12/2008 DIVERTICULITIS COLON - NO HEMORRHAGE 07/25/2006 05/12/2008 Esophageal reflux 02/07/2006 05/12/2008 ABDOMINAL BLOATING 02/07/2006 05/12/2008 Diarrhea 02/07/2006 05/12/2008 Unspecified constipation 02/07/2006 009 ABDOMINAL PAIN( Left Lower Quadrant) 02/07/2006 05/12/2008 Abdominal pain, unspecified site 01/25/2006 05/12/2008 Unspecified cardiovascular disease 10/10/2005 03/22/2016 Hypertrophy of prostate with out urinary obstruction and other lower urinary tract symptoms (LUTS) 01/08/2005 05/12/2008 Nocturia 01/08/2005 05/12/2008 Personal history of colonic polyps 05/12/2008 documented as of this encounter (statuses as of 04/13/2022) [facility] Evaluation note Note Date & Type Note Facility Evaluation note Diagnosis Intercostal pain- Primary Other chest pain documented in this encounter [facility] Evaluation note Note Date & Type Note Facility Evaluation note Diagnosis Intercostal pain Other chest pain documented in this encounter [facility] Summary Purpose Family History No Family History Records FoundNo Family History Records Found Advance Directives No Advanced Directives Records FoundNo Advanced Directives Records Found Reason for Referral Specialty Diagnoses / Procedures Referred By Contac t Referred To Contact Diagnoses Intercostal pain Procedures ESTABLISH WITH PRIMARY CARE NEW PATIENT OFFICE/OUTPATIENT [facility] MDM 60-74 MINUTES Caroline Freire, ALUMINA PLANT SUPERVISOR.STOCK CHASER [address] [place] [address] Referral ID Status Reason Start Date Expiration Date Visits Requested Visits Authorized [id number] Pending Review PCP Requested Referral 04/10/2022 04/10/2023 1 1 Additional Source Comments (unrecognized sect ion and content) No Status Records FoundNo Status Records Found INFORMATION SOURCE (unrecogn ized section and content) DATE CREATED AUTHOR 03/21/2018 [facility] DATE CREATED AUTHOR 'S ORGANIZ ATION 04/13/2022 [facility] Source Comments (unrecognize d section and content) In the event this informatio n is protected by the Federal Confidentiality of Alcohol and Drug Abuse Patient Records regulations: The Federal rules restrict any use of the information to criminally investigate or prosecute any alcohol or drug abuse patient.[facility] the event this information is protected by the Federal Confidentiality of Alcohol and Drug Abuse Patient Records regulations: The Federal rules restrict any use of the information to criminally investigate or prosecute any alcohol or drug abuse patient.[facility] the event this information is protected by the Federal Confidentiality of Alcohol and Drug Abuse Patient Records regulations: The Federal rules restrict any use of the information to criminally investigate or prosecute any alcohol or drug abuse patient.[facility] Reason for Visit (unrecogniz ed section and content) Reason Comments Pain chest area x several months Reason Comments Results Care Teams (unrecognized sec tion and content) Jockey Room Custodian Relationship Specialty Start Date End Date Mamadou Bose MD [address] [place] [address] PCP - General Internal Medicine 04/10/22 Jockey Room Custodian Relationship Specialty Start Date End Date Mamadou Bose MD [address] [place], [place] [id number] PCP - General Internal Medicine 04/10/22 Jockey Room Custodian Relationship Specialty Start Date End Date Mamadou Bose MD [address] [place], [place] [id number] PCP - General Internal Medicine 04/10/22 FOR [...] BE BASED ON THE PRIMARY CLINICAL RECORDS. [employer] [facility]. provides no warranty or guarantee of the accuracy or completeness of information in this document.
--- NOTE | 2024-01-17 13:21 | RAD_ITS ---
STUDY: X-RAY CHEST REASON FOR EXAM: Male, 88 years old. Chest tube eval TECHNIQUE: Single AP portable view of the chest. COMPARISON: Comparison is made with prior examination done earlier today. FINDINGS: A small caliber right-sided chest tube is seen overlying the inferior right chest. Elevation of the right hemidiaphragm. The right-sided pneumothorax has improved although there is residual 20% pneumothorax with bibasilar atelectasis. RAD/Chest 1 View (Portable) IMPRESSION: Elevation of the right hemidiaphragm. The small-caliber right-sided chest tube is seen overlying the right lower chest. Residual 20% right pneumothorax. Electronically Signed: Moustapha Decker MD at 13:46 EDT ,
--- NOTE | 2024-01-17 13:42 | CT_ITS ---
STUDY: CT CHEST WITHOUT CONTRAST REASON FOR EXAM: Male, 88 years old. pneumothorax RADIATION DOSAGE (If Supplied By Facility): CTDIvol = ( 15.85 ) mGy, DLP = ( 562.51 ) mGycm TECHNIQUE: Transaxial imaging was performed without the administration of intravenous contrast material. Multiplanar coronal and sagittal images were reformatted. Individualized dose optimization techniques were used for this CT. COMPARISON: Comparison made with prior chest radiograph done earlier today. FINDINGS: CHEST There is elevation of the right hemidiaphragm. Residual 10% right apical pneumothorax. Atelectasis and/or infiltrate in the right lower lobe. There are calcifications of the coronary arteries. Normal mediastinum. Normal hilar regions. Normal unenhanced pulmonary arteries. There is atherosclerotic calcification of the aortic arch. There are degenerative changes of the thoracic spine. There is no demonstrated abnormality of the visualized upper abdomen. CT/Chest without Contrast IMPRESSION: Persistent 10% right apical pneumothorax. Elevation of the right hemidiaphragm with atelectasis and/or infiltrate in the right lower lobe. Electronically Signed: Moustapha Decker MD at 15:06 EDT ,
--- NOTE | 2024-01-17 13:42 | CT_ITS ---
STUDY: CT ABDOMEN AND PELVIS WITH CONTRAST REASON FOR EXAM: Male, 88 years old. Eval of chest tube RADIATION DOSAGE (If Supplied By Facility): CTDIvol = ( 15.21 ) mGy, DLP = ( 1029.45 ) mGycm TECHNIQUE: Transaxial images were obtained from the dome of the diaphragm to the symphysis pubis without oral contrast. IV 100mL Isovue-300 was administered. Sagittal and coronal images were reconstructed. Individualized dose optimization techniques were used for this CT. COMPARISON: None. FINDINGS: Right lower lobe consolidation and/or infiltrate. Small residual anterior pneumothorax. The right-sided small caliber chest tube is seen along the inferior lateral aspect of the right pleural space. There is elevation of the right hemidiaphragm. Status post cholecystectomy. Small hepatic cysts. Normal spleen. Normal pancreas. Normal bilateral adrenal glands. Bilateral renal cysts. Normal visualized stomach. Normal small intestine. Moderate amount of fecal material is seen throughout the colon. The appendix is visualized and appears normal. There is diffuse atherosclerotic calcification of the abdominal aorta, without a demonstrated aneurysm. Normal inferior vena cava. Normal retroperitoneum. Distended urinary bladder. Normal abdominal wall. There are diffuse degenerative changes of the visualized lumbar spine. CT/Abdomen/Pelvis W IV Cont ONLY IMPRESSION: The tip of the small caliber right-sided chest tube is noted in the inferior lateral aspect of the right pleural space. Hepatic cysts. Bilateral renal cysts. Electronically Signed: Moustapha Decker MD at 15:09 EDT ,
--- NOTE | 2024-01-17 14:48 | EX.ED.DYSGE1 ---
HPI History of Present Illness Chief Complaint: Shortness of Breath Narrative Narrative: Patient is a 88-year-old male with a past medical history of Alzheimer's disease, cell carcinoma, alcohol use, hypothyroidism, hypertension who presents to the emergency department with a chief complaint of collapsed lung. According to the patient he was sent in by his primary care physician for a pneumothorax. Patient states that he has been feeling short of breath for approximately 4 to 5 days now. He states that on Saturday he felt some discomfort in the right side of his chest and had progressively worsening shortness of breath. He originally followed up with cardiology team and was sent home he then followed up with her primary care physician today who did a chest x-ray saw the pneumothorax sent him here. He states that he does have some shortness of breath still. [facility] Medical History SCC (squamous cell carcinoma) Left-sided chest pain COVID-19 (11/11/21) Left hip pain Wears glasses Wears hearing aid Alzheimer disease Alcohol use Bladder disease Back pain History of hiatal hernia Gastric reflux Non-smoker CPAP (continuous positive airway pressure) dependence History of Holter monitoring History of echocardiogram History of stress test History of irregular heartbeat Cardiology follow-up encounter Cholelithiasis with chronic cholecystitis Arm pain, left Sciatica Eczema Obstructive sleep apnea Right groin pain Scoliosis of lumbar spine DDD (degenerative disc disease), lumbar Segmental and somatic dysfunction of pelvic region Segmental and somatic dysfunction of lumbar region Syncope and collapse Hypothyroidism Anxiety and depression Candidiasis of mouth Essential (primary) hypertension Bronchitis Change in bowel habit Nausea Tinnitus GERD (gastroesophageal reflux disease) BPH (benign prostatic hyperplasia) Atherosclerotic heart disease of [place] coronary artery without angina pectoris PVC's (premature ventricular contractions) Diverticulosis Hyperlipidemia Extensor tendon laceration of hand with open wound Home Medications ?Medication ?Instructions ?Recorded ?Last Taken ?Type olmesartan 5 mg tablet 5 mg PO QHS 08/16/21 Unknown History atorvastatin 40 mg tablet 40 mg PO QHS #90 tabs 12/26/21 Unknown Rx cereve moisrurizing lotion topical 02/26/22 Unknown History pimecrolimus 1 % topical cream 1 applic topical BID PRN 07/02/22 Unknown History cholecalciferol (vitamin D3) 25 25 mcg PO DAILY #90 caps 08/30/22 Unknown Rx mcg (1,000 unit) capsule famotidine 40 mg tablet 40 mg PO DAILY PRN 11/05/22 Unknown History donepezil 5 mg tablet 5 mg PO 05/28/23 Unknown History levothyroxine 100 mcg tablet 112 mcg PO DAILY 05/28/23 Unknown History sertraline 50 mg tablet 50 mg PO QDAY 01/09/24 Unknown History Allergy/AdvReac Type Severity Reaction Status Date / Time lactose AdvReac Intermediate GI upset Verified 01/17/24 09:56 milk AdvReac Intermediate Upset Verified 01/17/24 09:56 Stomach Family History Father No problems noted. Mother Alzheimer disease Anxiety Sister Alzheimer disease Surgical History S/P laparoscopic cholecystectomy Hx of cholecystectomy Hx of hand surgery History of left heart catheterization (06/29/08) H/O hernia repair Hx of squamous cell carcinoma excision Hx of transurethral resection of prostate History of appendectomy History of colectomy Social History household members: spouse housing: house current occupational status: retired pets and animals: No Smoking Status: Never smoker second hand exposure: No alcohol intake: current alcohol intake frequency: a few times a week Alcohol type: wine substance use type: does not use caffeine: Yes Type: coffee Number of servings: 1 what type of physical activity do you participate in: walking and other details: tredmill frequency: 3-4 times per week duration: 30-45 minutes/day seatbelt use: always do you feel safe at home: Yes ROS ROS ED ROS Narrative Constitutional: Denies any fevers, chills, headaches, lightness, dizziness Eyes: Denies change in vision double vision blurry vision Cardiovascular: Denies chest pain or palpitations Respiratory: Complains of shortness of breath denies coughing wheezing Abdomen: Denies abdominal pain nausea vomit diarrhea : Denies any urinary symptoms Neurological: Denies numbness, wheeze, tingling Musculoskeletal: Denies back pain Skin: Denies rashes or lesions EXAM Physical Exam Narrative Exam Narrative: General: Patient lying in bed rest comfortably did not appear to be acute distress Head: Atraumatic, normocephalic Eyes: PERRL bilateral, EOMI bladder, no conjunctival injection noted Neck: Soft, supple, trachea midline Cardiovascular: Regular rate and rhythm no murmurs gallops rubs noted Respiratory: Clear to auscultation bilaterally no rales rhonchi or wheezes noted Abdomen: Soft, nondistended, nontender to palpation, bowel sounds present x 4 Extremities: +5/5 strength noted in the bilateral upper and lower extremities, no pedal edema no exam Neurological: Patient is following commands knew that he was at [facility] year is 2023 Skin: Warm, dry, intact Const Vital Signs: 01/17/24 09:53 01/17/24 10:20 01/17/24 10:40 Temperature 98 F Temperature Source Oral Pulse Rate 65 62 Respiratory Rate 18 17 Blood Pressure 184/64 H 149/79 H Blood Pressure Mean 104 102 Pulse Ox 92 99 97 Oxygen Delivery Method Room Air Nasal Cannula Nasal Cannula Oxygen Flow Rate (L/min) 2 2 01/17/24 10:45 01/17/24 11:00 01/17/24 12:00 Temperature Temperature Source Pulse Rate 63 69 65 Respiratory Rate 17 22 H 16 Blood Pressure 160/87 H 153/78 H 167/76 H Blood Pressure Mean 111 103 106 Pulse Ox 97 93 93 Oxygen Delivery Method Nasal Cannula Room Air Room Air Oxygen Flow Rate (L/min) 2 01/17/24 13:00 01/17/24 14:00 01/17/24 15:00 Temperature Temperature Source Pulse Rate 69 78 69 Respiratory Rate 16 16 18 Blood Pressure 147/76 H 146/78 H 150/86 H Blood Pressure Mean 99 100 107 Pulse Ox 94 94 95 Oxygen Delivery Method Room Air Room Air Room Air Oxygen Flow Rate (L/min) 01/17/24 15:47 01/17/24 15:48 Temperature 98.6 F 98.6 F Temperature Source Oral Pulse Rate 69 69 Respiratory Rate 18 18 Blood Pressure 150/86 H 157/78 H Blood Pressure Mean 107 104 Pulse Ox 95 100 Oxygen Delivery Method Non-Rebreather Oxygen Flow Rate (L/min) MDM MDM MDM Narrative Medical decision making narrative: Patient is a 88-year-old male who presented to the emergency department from his primary care physician for the chief complaint of a pneumothorax. Patient's chest x-ray was reviewed and did reveal evidence of pneumothorax. Once again the patient states that he did not have any fall or traumas and approximately on Saturday noted that he had some discomfort on the right side of his chest with progressive shortness of breath through the week. Patient will have a pigtail catheter placed and then have a repeat x-ray obtained. Blood work will be obtained. Patient CBC reviewed and was largely unremarkable no evidence leukocytosis white blood count normal at 9, hemoglobin stable 13.5, platelet count normal at 207. Patient sodium was noted to be 128 indicating hyponatremia, potassium was normal at 4.2, creatinine normal at 1.04. Patient's troponin was noted to be normal at less than 3. Patient's EKG was reviewed as well and showed sinus rhythm with a rate of 65 bpm. Patient's post pigtail catheter placement was reviewed and was read as stable large right pneumothorax tip is small caliber chest tube is in the right upper quadrant laterally. I had low suspicion for this being in his abdomen in the right upper quadrant as I placed this in the fourth fifth intercostal space at the nipple line anterior axillary line with minimal entrance into the chest cavity with the pigtail catheter needle. I then laid the patient down in preparation to take his chest tube out and he had persistent leak noted into the atrium I laid him down for approximately 15 minutes and repeated a chest x-ray. The repeat chest x-ray showed elevation of the right hemidiaphragm small caliber right-sided chest tube seen overlying the right lower chest residual 20% right pneumothorax noted. I then added on a CT chest abdomen pelvis to further evaluate his pigtail catheter on the right side. Patient CT abdomen pelvis with IV contrast was reviewed and showed to be a small caliber right-sided chest tube is noted inferior lateral aspect of the right pleural space hepatic cyst bilateral renal cyst noted. Patient CT chest showed a persistent 10% right apical pneumothorax with elevation of the right hemidiaphragm with atelectasis and/or infiltrate in the right lower lobe. This is likely atelectasis from his lung being collapsed for several days. I called and discussed case with on-call general surgery Dr. Snell and he states to place the patient on oxygen which she was placed on nonrebreather and observe the patient. Did discuss case with hospitalist Dr. Quezada who accept patient for admission. I discussed the results with the patient and significant other at bedside. They are agreeable with the plan all question concerns answered bedside. Patient states that he does feel much improved currently. Lab Data Labs: Laboratory Results - last 24 hr 01/17/24 10:00 WBC 9.0 RBC 4.52 L Hgb 13.5 Hct 39.4 L MCV 87.2 MCH 29.9 MCHC 34.3 RDW Std Deviation 41.0 RDW Coeff of [place] 12.9 Plt Count 207 MPV 8.8 Immature Gran % (Auto) 0.200 Neut % (Auto) 84.3 H Lymph % (Auto) 9.1 L Rogers % (Auto) 5.5 Eos % (Auto) 0.6 Baso % (Auto) 0.3 Absolute Neuts (auto) 7.6 Absolute Lymphs (auto) 0.82 L Nucleated RBC % 0 Sodium 128 L Potassium 4.2 Chloride 96 L Carbon Dioxide 25.0 Anion Gap 7 BUN 13 Creatinine 1.04 Estim Creat Clear Calc 54.30 Est GFR (MDRD) Af Amer 87 Est GFR (MDRD) Non-Af 72 BUN/Creatinine Ratio 12.5 Glucose 149 H Calcium 8.9 Troponin I High Sens < 3 L Radiography Diagnostic Testing: Clinical Impression(s) from Imaging Studies Chest X-Ray 01/17/24 11:05 IMPRESSION: Stable large right pneumothorax. The tip of the small caliber chest tube is in the right upper quadrant laterally. Electronically Signed: Moustapha Decker MD at 12:53 EDT , Chest X-Ray 01/17/24 13:21 IMPRESSION: Elevation of the right hemidiaphragm. The small-caliber right-sided chest tube is seen overlying the right lower chest. Residual 20% right pneumothorax. Electronically Signed: Moustapha Decker MD at 13:46 EDT , Abdomen/Pelvis CT 01/17/24 13:42 IMPRESSION: The tip of the small caliber right-sided chest tube is noted in the inferior lateral aspect of the right pleural space. Hepatic cysts. Bilateral renal cysts. Electronically Signed: Moustapha Decker MD at 15:09 EDT , Chest CT 01/17/24 13:42 IMPRESSION: Persistent 10% right apical pneumothorax. Elevation of the right hemidiaphragm with atelectasis and/or infiltrate in the right lower lobe. Electronically Signed: Moustapha Decker MD at 15:06 EDT , Discharge Plan Triage Chief Complaint: Shortness of Breath ED Provider: Jake Allison Dx/Rx/DC Orders Clinical Impression: Pneumothorax on right Prescriptions: No Action cereve moisrurizing lotion topical Rx Instructions: BID cholecalciferol (vitamin D3) 25 mcg (1,000 unit) capsule 25 mcg PO DAILY Qty: 90 3RF famotidine 40 mg tablet 40 mg PO DAILY PRN donepezil 5 mg tablet 5 mg PO Patient Comments: TAKE 1 TABLET BY MOUTHYONCE DAILYDY levothyroxine 100 mcg tablet 112 mcg PO DAILY sertraline 50 mg tablet 50 mg PO QDAY olmesartan 5 mg Tablet 5 mg PO QHS atorvastatin 40 mg tablet 40 mg PO QHS Qty: 90 3RF pimecrolimus 1 % cream 1 applic topical BID PRN Primary Care Provider: Chetan Varghese Referrals: Chetan Varghese MD [Primary Care Provider] - Print Language: Tongan
--- OUTSIDE RECORDS SUMMARY | 2024-01-17 15:59 | XMS RPT_ITS | CCD ---
Author Organization [facility] Care Team Providers Care Integrity Analyst Name Role Phone STEPHANIE RAYGOZA Unavailable Unavailable STEPHANIE RAYGOZA Unavailable Unavailable Benitez Araiza Unavailable Unavailable STEPHANIE RAYGOZA Unavailable Unavailable STEPHANIE RAYGOZA Unavailable Unavailable Benitez Araiza Unavailable Unavailable STEPHANIE RAYGOZA Unavailable Unavailable *SELF, REFERRED Unavailable Unavailable Benitez Araiza Unavailable Unavailable Mamadou Bose MD Primary Care Provider [phone] MAMADOU BOSE Primary Care Unavailable CAROLINE FREIRE [...] Comment on above: [facility]. vitamin e 268 mg oral capsule (3 sources) Start: 014 take 1 capsule by mouth twice daily alpha tocopheryl acetate (VITAMIN E) 400 unit capsule Take 1 capsule by mouth twice daily. 0 02/04/2014 Active Comment on above: Take 1 capsule by mo [facility] twice daily. zolpidem tartrate 10 mg oral [...] cardiovascular system; Translations: [Atherosclerotic heart disease of [place] coronary artery without angina pectoris] Onset: 6 [...] Test Name Value Interpretation Reference Range Facility [facility] 04-11-2022 CNPN Telephone (UCWSTR) JR PILLAI ([id number]) 1935 M Date Time Provider Department 04/11/22 CAROLINE FREIRE [facility] During your visit today, we recorded the following information about you: Charlotte Hernandez MA 04/11/2022 7:17 PM Signed ----- Message from Caroline Freire APRN.SYNTHETIC STAPLE EXTRUDER sent at 04/10/2022 9:53 AM EST ----- [...] he wishes to obtain a PCP with [facility]. Charlotte Hernandez MA 04/11/2022 7:40 [...] meds except metoprolol d/t tinnitus. Junito Cain Search Optimization Analyst Problem List As Of Date 04/11/2022 Noted [...] dysfunction) [N52. (more content not included)... Normal [facility] CNOVon 04-10-2022 CNOV Office Visit (UCWSTR ) JR PILLAI ([id number]) 1935 M Date Time Provider Department 04/10/22 8:45 AM CAR[facility]INE [facility] During your visit today, we recorded the following information about you: Temperature Pulse Respiration Blood pressure 98.7 degrees 68/minute 16/minute 130/72 Weight 83 kg Caroline Freire APRN.SYNTHETIC STAPLE EXTRUDER 04/10/2022 9:54 AM Signed Subjective HPI Jr Pillai is a 86 year old male who presents with 2 months of left sided chest pain. He is a patient of Dr. Bose of [facility] and Dr. Martinez for cardiology. He denies [...] joint. PCHG TETANUS DIPTHERIA STRESS TEST 11/15/[address] [facility] [address] Martinez ALLERGIES Patient has no [...] Constitutional: Appeara (more content not included)... Normal [facility] XR CHEST 2V FRONTAL/LATon XR CHEST 2V [...] of the right hemidiaphragm. Right basilar atelectasis. Percussion Instrument Tuner: [employer] Transcribe Date/Time: Apr 10 2022 9:31A Dictated by : CHELSEY SUBRAMANIAN MD This examination was interpreted and the report reviewed and electronically signed by: CHELSEY SUBRAMANIAN MD on Apr 10 2022 9:34AM EST [id number] Normal [facility] XR Chest PA and Lateralon IMPRESSION: Elevation of the right hemidiaphragm. Right basilar atelectasis. Percussion Instrument Tuner: [employer] Transcribe Date/Time: Apr 10 2022 9:31A Dictated [...] tissues: Unremarkable. DIVISION OF RADIOLOGY Provider, Math[facility] - 04/10/2022 * * *Final Report* * [...] of the right hemidiaphragm. Right basilar atelectasis. Percussion Instrument Tuner: BRYAN Transcribe Date/Time: Apr 10 2022 9:31A Dictated by : CHELSEY SUBRAMANIAN MD This examination was interpreted and the report reviewed and electronically signed by: CHELSEY SUBRAMANIAN MD on Apr 10 2022 9:34AM EST [facility] Radiology Study observation (narrative) [facility] XR Chest PA and LateralOrder ed By: Ccf Provider on 04-10-2022 [facility] Vital Signs Date Time Vital Sign Value Performing Clinician Sandrai juan 04-10-2022 08:47-0500 Body temperature 98.71 [degF] Caroline Freire APRN.CNP Work Phone: [facility] 04-10-2022 08:47-0500 Body weight 83.01 kg Caroline Praisler-Wood SUPERVISOR STATEMENT CLERKS.SYNTHETIC STAPLE EXTRUDER Work Phone: [facility] 04-10-2022 08:47-0500 Diastolic blood pressure 72 mm[Hg] Caroline Praisler-Wood SUPERVISOR STATEMENT CLERKS.SYNTHETIC STAPLE EXTRUDER Work Phone: [facility] 04-10-2022 08:47-0500 Heart rate 68 /min Caroline Praisler-Wood SUPERVISOR STATEMENT CLERKS.SYNTHETIC STAPLE EXTRUDER Work Phone: [facility] 04-10-2022 08:47-0500 Respiratory rate 16 /min Caroline Praisler-Wood SUPERVISOR STATEMENT CLERKS.SYNTHETIC STAPLE EXTRUDER Work Phone: [facility] 04-10-2022 08:47-0500 SaO2% (BldA) [Mass fraction] 95 % Caroline Praisler-Wood SUPERVISOR STATEMENT CLERKS.SYNTHETIC STAPLE EXTRUDER Work Phone: [facility] 04-10-2022 08:47-0500 Systolic blood pressure 130 mm[Hg] Caroline Praisler-Wood SUPERVISOR STATEMENT CLERKS.SYNTHETIC STAPLE EXTRUDER Work Phone: [facility] Encounters Encounter Date Encounter Type Care Provider Facility Start: 04-11-2022 Telephone encounter Carolinesaba alonzo-Fran SUPERVISOR STATEMENT CLERKS.SYNTHETIC STAPLE EXTRUDER Work Phone: [facility] Comment on above: Results Start: 04-10-2022 End: 04-10-2022 ambulatory MAMADOU BOSE Facility:[facility] Start: 04-10-2022 End: 04-10-2022 Subsequent hospital visit by physician Dequan [facility] [place] Work Phone: Radiology Comment on above: Intercostal pain [R0 7.82] Start: 04-10-2022 End: 04-10-2022 Patient encounter procedure Caroline Praisler-Wood SUPERVISOR STATEMENT CLERKS.SYNTHETIC STAPLE EXTRUDER Work Phone: [facility] Comment on above: Intercostal pain (Pr imary Dx) Start: 03-19-2018 Patient encounter procedure STEPHANIE RAYGOZA Facility:[id number] Start: 10-23-2017 Patient encounter procedure STEPHANIE Nava RAYGOZA Facility:[id number] Start: 06-26-2017 Patient encounter procedure STEPHANIE RAYGOZA Facility:[id number] Start: 10-06-2013 End: 03-22-2016 Patient encounter procedure Xr [facility] Work Phone: [facility] Procedures Date Procedure Procedure Detail Performing Clinician Start: 04-10-2022 Radiologic exam ches t 2 views Caroline Freire APRN.CNP Work Phone: Plan of Treatment Date Care Activity Detail Author Start: 03-10-2028 Urine microalbumin profile [facility] Start: 12-08-2023 Covid-19 Vaccine () Covid-19 Vaccine () [facility] Start: 12-08-2023 Influenza vaccination Influenza Vacc ine (#1) [facility] Start: 04-08-2023 Advance Directive Discussion Advance Directive Discussion [facility] Start: 04-08-2022 ADVANCE DIRECTIVE DISCUSSION ADVANCE DIRECTIVE DISCUSSION [facility] Start: 04-08-2022 DEPRESSION ASSESSMENT DEPRESSION ASS ESSMENT [facility] Start: 02-15-2018 DIABETES SCREEN DIABETES SCREEN [facility] Start: 02-15-2018 Diabetes Screening Diabetes Screenin g [facility] Start: 2012 RSV Vaccine (1 - 1-d ose 75+ series) RSV Vaccine (1 - 1-dose 75+ series) [facility] Start: 05-19-2008 SHINGRIX VACCINE (2 of 3) MORGAN GRIX VACCINE (2 of 3) [facility] Start: 08-31-1955 Depression Screening Depression Scre ening [facility] Immunizations Immunization Date Immunization Notes Care Provider Fa santy 04-02-2022 COVID-19 original vaccine, full dose, monovalent (MODERNA) Caroline Freire APRN.CNP Work Phone: [facility] 12-27-2021 influenza virus vacc ine, unspecified formulation Xr [facility] Work Phone: [facility] 12-05-2020 influenza, high dose seasonal, preservative-free Caroline Freire APRN.SYNTHETIC STAPLE EXTRUDER Work Phone: [facility] 11-30-2019 influenza, high dose seasonal, preservative-free Caroline Freire APRN.REINA Work Phone: [facility] Work Phone: 03-10-2018 pneumococcal polysaccharide vaccine, 23 valent Caroline Praisler-Wood SUPERVISOR STATEMENT CLERKS.SYNTHETIC STAPLE EXTRUDER Work Phone: [facility] 03-10-2018 tetanus toxoid, redu robinson diphtheria toxoid, and acellular pertussis vaccine, adsorbed Caroline Praisler-Wood SUPERVISOR STATEMENT CLERKS.SYNTHETIC STAPLE EXTRUDER Work Phone: [facility] 01-13-2018 influenza, high dose seasonal, preservative-free Caroline Praisler-Wood SUPERVISOR STATEMENT CLERKS.SYNTHETIC STAPLE EXTRUDER Work Phone: [facility] 02-18-2017 influenza, seasonal, injectable Caroline Praisler-Wood SUPERVISOR STATEMENT CLERKS.SYNTHETIC STAPLE EXTRUDER Work Phone: [facility] Work Phone: 02-18-2017 pneumococcal conjuga te vaccine, 13 valent Caroline Praisler-Wood SUPERVISOR STATEMENT CLERKS.SYNTHETIC STAPLE EXTRUDER Work Phone: [facility] Work Phone: 02-18-2017 tetanus toxoid, redu robinson diphtheria toxoid, and acellular pertussis vaccine, adsorbed Caroline Praisler-Wood SUPERVISOR STATEMENT CLERKS.SYNTHETIC STAPLE EXTRUDER Work Phone: [facility] Work Phone: 12-11-2016 influenza, high dose seasonal, preservative-free Caroline Praisler-Wood SUPERVISOR STATEMENT CLERKS.SYNTHETIC STAPLE EXTRUDER Work Phone: [facility] 01-25-2015 influenza, high dose seasonal, preservative-free Caroline Praisler-Wood SUPERVISOR STATEMENT CLERKS.SYNTHETIC STAPLE EXTRUDER Work Phone: [facility] 08-09-2014 pneumococcal conjuga te vaccine, 13 valent Caroline Praisler-Wood SUPERVISOR STATEMENT CLERKS.SYNTHETIC STAPLE EXTRUDER Work Phone: [facility] 12-23-2013 influenza, high dose seasonal, preservative-free Caroline Praisler-Wood SUPERVISOR STATEMENT CLERKS.SYNTHETIC STAPLE EXTRUDER Work Phone: [facility] 11-30-2012 influenza virus vacc ine, unspecified formulation Caroline Praisler-Wood SUPERVISOR STATEMENT CLERKS.SYNTHETIC STAPLE EXTRUDER Work Phone: [facility] 02-07-2012 influenza virus vacc ine, unspecified formulation Caroline Praisler-Wood SUPERVISOR STATEMENT CLERKS.SYNTHETIC STAPLE EXTRUDER Work Phone: [facility] 03-24-2008 zoster vaccine, live Caroline Freire APRN.SYNTHETIC STAPLE EXTRUDER Work Phone: [facility] 02-12-2008 diphtheria and tetan us toxoids, adsorbed for pediatric use Caroline Freire APRN.SYNTHETIC STAPLE EXTRUDER Work Phone: [facility] Work Phone: 02-14-2006 influenza virus vacc ine, unspecified formulation Caroline Freire APRN.SYNTHETIC STAPLE EXTRUDER Work Phone: [facility] 02-06-2003 pneumococcal polysaccharide vaccine, 23 valent Caroline Freire APRN.SYNTHETIC STAPLE EXTRUDER Work Phone: [facility] Payers Date Payer Category Payer Unknown [id number] 2021 Unknown [id number] 1935 Unknown [id number] 1935 Unknown [id number] 1935 Unknown [id number] [id number] Private Health Insurance [id number] Social History Date Type Detail Facility Start: 09-14-2013 [facility] Start: 09-14-2013 Tobacco use and exposure Smoke less tobacco non-user [facility] Start: 04-10-2022 Alcohol intake Current drinke r of alcohol (finding) [facility] Start: 04-10-2022 Alcohol intake Yandy griffin [facility] Start: 07-14-2012 [facility] Start: 1935 Sex Assigned At Not on file [facility] Start: 04-10-2022 Tobacco use panel [facility] Note 04-11-2022 Telephone Encounter - Charlotte Hernandez MA - 04/11/2022 7:39 PM ESTTelephone Encounter - Charlotte Hernandez MA - 04/11/2022 7:17 PM EST Note Date & Type Note Facility 04-11-2022 Miscellaneous Notes Formattin g of this note might be different from the original. Left message for pt to call back. Charlotte Hernandez MA ----- Message from Caroline Freire APRN.SYNTHETIC STAPLE EXTRUDER sent at 04/10/2022 9:53 AM EST ----- [...] he wishes to obtain a PCP with [facility]. documented in this encounter [facility] Progress note 04-10-2022 Note Date & Type Note Facility 04-10-2022 Note HNO ID: [id number] Author: RT Dylon(R) Service: ? Author Type: Guest Relations Representative Type: Progress Notes Filed: 04/10/2022 9:03 AM [...] RT Dylon(R) April 10, 2022 8:51 AM [facility] Progress note 04-10-2022 Note Date & Type Note Facility 04-10-2022 Note HNO ID: [id number] Author: Caroline Freire APRN.SYNTHETIC STAPLE EXTRUDER Service: ? Author Type: Nurse Practitioner Type: Progress Notes Filed: 04/10/2022 9:54 AM Note Text: Subjective HPI Jr Pillai is a 86 year old male who presents with 2 months of left sided chest pain. He is a patient of Dr. Bose of [facility] and Dr. Martinez for cardiology. He denies [...] joint. PCHG TETANUS DIPTHERIA STRESS TEST 11/15/[address] [facility] [address] Martinez ALLERGIES Patient has no [...] General: Skin i (more content not included)... [facility] Instructions 04-10-2022 Patient Instructions Note Date & [...] of the right hemidiaphragm. Right basilar atelectasis. Percussion Instrument Tuner: BRYAN Transcribe Date/Time: Apr 10 2022 9:31A Dictated by : CHELSEY SUBRAMANIAN MD - ESTABLISH WITH PRIMARY CARE - NEW PATIENT Caroline Freire APRN.REINA documented in this encounter [facility] History of Present illness Narrative 04-10-2022 Caroline Freire APRN.SYNTHETIC STAPLE EXTRUDER - 04/10/2022 8:46 AM EST Note Date & Type Note Facility 04-10-2022 History of Presen t illness Narrative Subjective HPI Jr Pillai is a 86 year old male who presents with 2 months of left sided chest pain. He is a patient of Dr. Bose of [facility] and Dr. Martinez for cardiology. He denies [...] joint. PCHG TETANUS DIPTHERIA STRESS TEST 11/15/[address] [facility] [address] Martinez ALLERGIES Patient has no [...] of the right hemidiaphragm. Right basilar atelectasis. Percussion Instrument Tuner: BRYAN Transcribe Date/Time: Apr 10 2022 9:31A Dictated by : CHELSEY SUBRAMANIAN MD - ESTABLISH WITH PRIMARY CARE - NEW PATIENT Caroline Freire APRN.SYNTHETIC STAPLE EXTRUDER documented in this encounter [facility] History of Past illness Narrative 11-16-2014 Note Date & Type Note Facility 11-16-2014 History of Past i llness Narrative Problem Noted Date Resolved Date Exertional chest pain 11/16/2014 03/22/2016 Overview: Stress Test 11/15/[address] [facility] [address] Martinez (scanned) No evidence of [...] of this encounter (statuses as of 04/12/2022) [facility] History of Past illness Narrative 11-16-2014 Note Date & Type Note Facility 11-16-2014 History of Past i llness Narrative Problem Noted Date Resolved Date Exertional chest pain 11/16/2014 03/22/2016 Overview: Stress Test 11/15/[address] [facility] [address] Martinez (scanned) No evidence of [...] of this encounter (statuses as of 04/13/2022) [facility] Evaluation note Note Date & Type Note Facility Evaluation note Diagnosis Intercostal pain- Primary Other chest pain documented in this encounter [facility] Evaluation note Note Date & Type Note Facility Evaluation note Diagnosis Intercostal pain Other chest pain documented in this encounter [facility] Summary Purpose Family History No Family History Records FoundNo Family History Records Found Advance Directives No Advanced Directives Records FoundNo Advanced Directives Records Found Reason for Referral Specialty Diagnoses / Procedures Referred By Contac t Referred To Contact Diagnoses Intercostal pain Procedures ESTABLISH WITH PRIMARY CARE NEW PATIENT OFFICE/OUTPATIENT [facility] MDM 60-74 MINUTES Caroline Freire, SUPERVISOR STATEMENT CLERKS.SYNTHETIC STAPLE EXTRUDER [address] [place] [address] Referral ID Status Reason Start Date Expiration Date Visits Requested Visits Authorized [id number] Pending Review PCP Requested Referral 04/10/2022 04/10/2023 1 1 Additional Source Comments (unrecognized sect ion and content) No Status Records FoundNo Status Records Found INFORMATION SOURCE (unrecogn ized section and content) DATE CREATED AUTHOR 03/21/2018 [facility] DATE CREATED AUTHOR 'S ORGANIZ ATION 04/13/2022 [facility] Source Comments (unrecognize d section and content) In the event this informatio n is protected by the Federal Confidentiality of Alcohol and Drug Abuse Patient Records regulations: The Federal rules restrict any use of the information to criminally investigate or prosecute any alcohol or drug abuse patient.[facility] the event this information is protected by the Federal Confidentiality of Alcohol and Drug Abuse Patient Records regulations: The Federal rules restrict any use of the information to criminally investigate or prosecute any alcohol or drug abuse patient.[facility] the event this information is protected by the Federal Confidentiality of Alcohol and Drug Abuse Patient Records regulations: The Federal rules restrict any use of the information to criminally investigate or prosecute any alcohol or drug abuse patient.[facility] Reason for Visit (unrecogniz ed section and content) Reason Comments Pain chest area x several months Reason Comments Results Care Teams (unrecognized sec tion and content) Integrity Analyst Relationship Specialty Start Date End Date Mamadou Bose MD [address] [place] [address] PCP - General Internal Medicine 04/10/22 Integrity Analyst Relationship Specialty Start Date End Date Mamadou Bose MD [address] [place], [place] [id number] PCP - General Internal Medicine 04/10/22 Integrity Analyst Relationship Specialty Start Date End Date Mamadou Bose MD [address] [place], [place] [id number] PCP - General Internal Medicine 04/10/22 FOR [...] BE BASED ON THE PRIMARY CLINICAL RECORDS. [employer] [facility]. provides no warranty or guarantee of the accuracy or completeness of information in this document.
--- NOTE | 2024-01-17 16:17 | PCM.HP.STD ---
HPI - General General Date of Admission: 01/17/24 Date of Service: 01/17/24 Chief Complaint: SOB, pneumothorax HPI Narrative JR YE, is a 88 M with history of GERD, hypothyroidism, hypertension who presented [facility] ED 01/17/2024 with concerns of right-sided pneumothorax. On Saturday he began feeling unwell, Saturday he had some right sided chest pain and then Saturday he began to have some shortness of breath. Today he saw his primary care physician and there was concern for pneumothorax so they obtained a chest x-ray which did not indeed show pneumothorax so he was sent to the ED. In the ED he had chest tube placed and hospitalist contacted for admission. Patient reports feeling much better now, earlier this morning he was nauseous and had a headache but the symptoms have improved and currently has no focal complaints. Denies any fever cough. No longer feeling short of breath [facility], LAT[facility] Medical History SCC (squamous cell carcinoma) Left-sided chest pain COVID-19 (11/11/21) Left hip pain Wears glasses Wears hearing aid Alzheimer disease Alcohol use Bladder disease Back pain History of hiatal hernia Gastric reflux Non-smoker CPAP (continuous positive airway pressure) dependence History of Holter monitoring History of echocardiogram History of stress test History of irregular heartbeat Cardiology follow-up encounter Cholelithiasis with chronic cholecystitis Arm pain, left Sciatica Eczema Obstructive sleep apnea Right groin pain Scoliosis of lumbar spine DDD (degenerative disc disease), lumbar Segmental and somatic dysfunction of pelvic region Segmental and somatic dysfunction of lumbar region Syncope and collapse Hypothyroidism Anxiety and depression Candidiasis of mouth Essential (primary) hypertension Bronchitis Change in bowel habit Nausea Tinnitus GERD (gastroesophageal reflux disease) BPH (benign prostatic hyperplasia) Atherosclerotic heart disease of [place] coronary artery without angina pectoris PVC's (premature ventricular contractions) Diverticulosis Hyperlipidemia Extensor tendon laceration of hand with open wound Home Medications ?Medication ?Instructions ?Recorded ?Last Taken ?Type olmesartan 5 mg tablet 5 mg PO QHS 08/16/21 Unknown History atorvastatin 40 mg tablet 40 mg PO QHS #90 tabs 12/26/21 Unknown Rx cereve moisrurizing lotion topical 02/26/22 Unknown History pimecrolimus 1 % topical cream 1 applic topical BID PRN 07/02/22 Unknown History cholecalciferol (vitamin D3) 25 25 mcg PO DAILY #90 caps 08/30/22 Unknown Rx mcg (1,000 unit) capsule famotidine 40 mg tablet 40 mg PO DAILY PRN 11/05/22 Unknown History donepezil 5 mg tablet 5 mg PO 05/28/23 Unknown History levothyroxine 100 mcg tablet 112 mcg PO DAILY 05/28/23 Unknown History sertraline 50 mg tablet 50 mg PO QDAY 01/09/24 Unknown History Allergy/AdvReac Type Severity Reaction Status Date / Time lactose AdvReac Intermediate GI upset Verified 01/17/24 09:56 milk AdvReac Intermediate Upset Verified 01/17/24 09:56 Stomach Family History Father No problems noted. Mother Alzheimer disease Anxiety Sister Alzheimer disease Surgical History S/P laparoscopic cholecystectomy Hx of cholecystectomy Hx of hand surgery History of left heart catheterization (06/29/08) H/O hernia repair Hx of squamous cell carcinoma excision Hx of transurethral resection of prostate History of appendectomy History of colectomy Social History household members: spouse housing: house current occupational status: retired pets and animals: No Smoking Status: Never smoker second hand exposure: No alcohol intake: current alcohol intake frequency: a few times a week Alcohol type: wine substance use type: does not use caffeine: Yes Type: coffee Number of servings: 1 what type of physical activity do you participate in: walking and other details: tredmill frequency: 3-4 times per week duration: 30-45 minutes/day seatbelt use: always do you feel safe at home: Yes ROS ROS Narrative General: Denies fever/chills HENT: Denies headache, denies stuffy nose, denies sore throat EYES: Denies changes in vision Resp: Denies cough, shortness of breath improved Cardiac: Denies chest pain GI: Denies abdominal pain, denies changes in bowel, denies nausea/vomiting : Denies changes in urination Extremity: Denies swelling MSK: Denies weakness Neuro: Denies any numbness/tingling Heme: Denies any bleeding or bruising Skin: Denies rashes Psychiatric: No complaints voiced Vital Signs Vital Signs Vital Signs: 01/17/24 09:53 01/17/24 10:20 01/17/24 10:40 Temperature 98 F Temperature Source Oral Pulse Rate 65 62 Respiratory Rate 18 17 Blood Pressure 184/64 H 149/79 H Blood Pressure Mean 104 102 Pulse Ox 92 99 97 Oxygen Delivery Method Room Air Nasal Cannula Nasal Cannula Oxygen Flow Rate (L/min) 2 2 01/17/24 10:45 01/17/24 11:00 01/17/24 12:00 Temperature Temperature Source Pulse Rate 63 69 65 Respiratory Rate 17 22 H 16 Blood Pressure 160/87 H 153/78 H 167/76 H Blood Pressure Mean 111 103 106 Pulse Ox 97 93 93 Oxygen Delivery Method Nasal Cannula Room Air Room Air Oxygen Flow Rate (L/min) 2 01/17/24 13:00 01/17/24 14:00 01/17/24 15:00 Temperature Temperature Source Pulse Rate 69 78 69 Respiratory Rate 16 16 18 Blood Pressure 147/76 H 146/78 H 150/86 H Blood Pressure Mean 99 100 107 Pulse Ox 94 94 95 Oxygen Delivery Method Room Air Room Air Room Air Oxygen Flow Rate (L/min) 01/17/24 15:47 01/17/24 15:48 Temperature 98.6 F 98.6 F Temperature Source Oral Pulse Rate 69 69 Respiratory Rate 18 18 Blood Pressure 150/86 H 157/78 H Blood Pressure Mean 107 104 Pulse Ox 95 100 Oxygen Delivery Method Non-Rebreather Oxygen Flow Rate (L/min) Weight Weight: 82.2 kg Body Mass Index (BMI) 25.2 Physical Exam Narrative General: Alert, oriented, no apparent distress HEENT: Atraumatic, normocephalic Eyes: Anicteric, normal conjunctiva, extraocular movements grossly intact Neck: Supple Respiratory: Chest tube noted, no wheezes or rhonchi, normal respiratory effort Cardiovascular: Regular rate and rhythm GI: Soft, nontender, nondistended Extremities: No edema Musculoskeletal: Moving all extremities Neuro: No overt focal neurological deficits Skin: No rashes appreciated Psych: Cooperative Results Lab / Micro Data 01/17/24 10:00 01/17/24 10:00 Labs: Laboratory Results - last 24 hr 01/17/24 10:00: WBC 9.0, RBC 4.52 L, Hgb 13.5, Hct 39.4 L, MCV 87.2, MCH 29.9, MCHC 34.3, RDW Std Deviation 41.0, RDW Coeff of [place] 12.9, Plt Count 207, MPV 8.8, Immature Gran % (Auto) 0.200, Neut % (Auto) 84.3 H, Lymph % (Auto) 9.1 L, [place] % (Auto) 5.5, Eos % (Auto) 0.6, Baso % (Auto) 0.3, Absolute Neuts (auto) 7.6, Absolute Lymphs (auto) 0.82 L, Nucleated RBC % 0, Sodium 128 L, Potassium 4.2, Chloride 96 L, Carbon Dioxide 25.0, Anion Gap 7, BUN 13, Creatinine 1.04, Estim Creat Clear Calc 54.30, Est GFR (MDRD) Af Amer 87, Est GFR (MDRD) Non-Af 72, BUN/Creatinine Ratio 12.5, Glucose 149 H, Calcium 8.9, Troponin I High Sens < 3 L Imaging Radiology Impression Chest X-Ray 01/17/24 11:05 IMPRESSION: Stable large right pneumothorax. The tip of the small caliber chest tube is in the right upper quadrant laterally. Electronically Signed: Moustapha Decker MD at 12:53 EDT , Chest X-Ray 01/17/24 13:21 IMPRESSION: Elevation of the right hemidiaphragm. The small-caliber right-sided chest tube is seen overlying the right lower chest. Residual 20% right pneumothorax. Electronically Signed: Moustapha Decker MD at 13:46 EDT , Abdomen/Pelvis CT 01/17/24 13:42 IMPRESSION: The tip of the small caliber right-sided chest tube is noted in the inferior lateral aspect of the right pleural space. Hepatic cysts. Bilateral renal cysts. Electronically Signed: Moustapha Decker MD at 15:09 EDT , Chest CT 01/17/24 13:42 IMPRESSION: Persistent 10% right apical pneumothorax. Elevation of the right hemidiaphragm with atelectasis and/or infiltrate in the right lower lobe. Electronically Signed: Moustapha Decker MD at 15:06 EDT , Assessment & Plan Assessment/Plan (1) Pneumothorax on right: PLAN: Plan # Spontaneous right-sided pneumothorax -Seen on chest x-ray -Chest tube placed in ED -Pain control -Surgery consult for further chest tube management -There was some right lower lobe atelectasis on CT scan, patient denied any fevers or cough or infectious symptoms do not think that this was pneumonia and do not think patient needs empirically treated with antibiotics #Hypothyroidism -Continue Synthroid #Hypertension -Continue olmesartan, awaiting home med reconciliation verification # MCI -Continue donepezil #DVT ppx: SCDs Beckie Quezada MD Charges/Coding Visit Charges Inpatient E&M: 89649 Init Hosp L1
[2024-01-17] MEDS: Donepezil HCl 5 MG Tablet PO (20:58)
[2024-01-17] MEDS: Acetaminophen 500 MG Tablet 1000 MG PO (20:58)
[2024-01-17] MEDS: Atorvastatin Calcium 40 MG Tablet PO (20:58)
[2024-01-18 04:00] VITALS: BP 115/69; PULSE 60; RESP 15; TEMP 36.6; O2SAT 96
[2024-01-18] MEDS: Acetaminophen 500 MG Tablet 1000 MG PO ×2 (05:03→13:51)
[2024-01-18] MEDS: Levothyroxine 112 MCG Tablet PO (05:03)
--- NOTE | 2024-01-18 06:05 | RAD_ITS ---
STUDY: X-RAY CHEST REASON FOR EXAM: Male, 88 years old. Known pneumothorax TECHNIQUE: Single AP portable view of the chest. COMPARISON: Yesterday FINDINGS: EKG leads overlie the chest. A previously noted right-sided pneumothorax has decreased in size since the previous study. Subjectively it affects approximately 5% of the right hemithorax. There is no mediastinal shift. There is stable elevation of the right hemidiaphragm with persistent atelectatic change in the right phrenic angle The left lung is clear and expanded. There is no demonstrated pleural abnormality. Normal size heart. Normal mediastinum and neisha. Normal visualized pulmonary arteries. Normal visualized aortic arch and descending thoracic aorta. Normal visualized thoracic spine. Normal visualized ribs, clavicles, and shoulders. There is no demonstrated abnormality of the visualized soft tissue structures of the upper abdomen. RAD/Chest 1 View (Portable) IMPRESSION: Small right-sided pneumothorax with significant decrease in size since the previous study. No mediastinal shift Stable right cardiophrenic angle atelectasis Left lung is clear Electronically Signed: Bossman Guzman MD at 15:30 EDT ,
[2024-01-18 07:08] LABS: Absolute Lymphocyte Count 0.75 X10^3/uL (0.83-4.51); Absolute Neutrophil Count 6.4 X10^3/uL (2.0-7.7); Basophil# 0.01 X10^3/uL; Basophil% 0.1 % (0-1); Eosinophil# 0.11 X10^3/uL; Eosinophils% 1.4 % (0-5); Hematocrit 34.5 % (40-54); Hemoglobin 11.8 g/dL (13.0-16.5); Lymphocyte # 0.75 X10^3/ul (0.83-4.51); Lymphocyte % 9.5 % (19-41); Mean Corp Hgb Conc 34.2 g/dL (32-36); Mean Corpuscular Hgb 29.7 pg (27.0-32.0); Mean Corpuscular Volume 86.9 fL (80-94); Mean Platelet Vol. 8.8 fl (6.2-12.0); Monocyte# 0.64 X10^3/uL; Monocyte% 8.1 % (0-10); NRBC Flagged by Analyzer 0 % (0-5); Neutrophil # 6.39 X10^3/uL (2.7-7.7); Neutrophil % 80.5 % (47-70); Platelet Count 184 K/mm3 (150-450); RBC Distribution Width CV 12.7 % (11.6-14.6); RBC Distribution Width SD 40.5 fl (35.1-43.9); Red Blood Count 3.97 M/mm3 (4.6-6.2); White Blood Count 7.9 K/mm3 (4.4-11.0)
[2024-01-18 08:28] LABS: ALB/GLOB Ratio 1.6 RATIO (0.9-2.4); AST(SGOT) 109 U/L (15-37); Alanine Aminotransfer ALT/SGPT 139 U/L (16-61); Albumin, Serum 3.6 g/dL (3.2-5.0); Alkaline Phosphatase 103 U/L (45-117); Anion Gap 9 (5-15); BUN 12 mg/dL (7-18); BUN/Creat Ratio 14.5 RATIO (10-20); Calcium,Total 8.6 mg/dL (8.5-10.1); Chloride 95 mmol/L (98-107); Creatinine, Serum 0.82 mg/dL (0.70-1.30); EST Glomerular Filtration Rate 94 mL/min (>60); Est Glom Filt Rate - Afr Amer 114 mL/min (>60); Estimated Creatinine Clearance 66.77 ml/min; Globulin 2.2 g/dL (2.2-4.2); Glucose 108 mg/dL (74-106); Potassium 4.1 mmol/L (3.5-5.1); Protein, Total 5.8 g/dL (6.4-8.2); Sodium Level 127 mmol/L (136-145)
[2024-01-18 10:00] VITALS: BP 142/65; PULSE 58; RESP 16; TEMP 36.9; O2SAT 97
[2024-01-18] MEDS: Losartan Potassium 25 MG Tablet 12.5 MG PO (10:31)
[2024-01-18] MEDS: Sertraline 50 MG Tablet PO (10:32)
--- NOTE | 2024-01-18 11:00 | CASEMGMT ---
MICHELLE FITZGERALD Face to Face with patient for initial transition planning/care coordination assessment. RN CM introduced self and role at [facility]. Patient sitting in chair, alert and oriented, at bedside. Patient and willing to participate in assessment and is able to answer all questions appropriately. Care providers, pharmacy, and demographics verified. Strata: 1 PCP: Abimael Specialists: Juan, concrete puddler; Zion, urologist; Preferred Pharmacy: [facility] Retail Insurance: [employer] Prescription Benefit: yes Living Will/HPOA: yes, Gina Pillai LNOK: Living Arrangements: Patient lives with in a 2 story home. Patient states he is independent and able to ambulate stairs at home. Transportation: DME/HHC: Zenia has grab bars, cpap, and pulse ox at home. No previous HHC or SNF. Will monitor for home oxygen, prefers [employer]. Patient wishes to discharge home, denies need for home health at this time. Patient states he has no further needs or concerns at this time. CM to follow for discharge planning needs that may arise. Disposition Plan: Patient to discharge home with family support and follow-up plans in place. Nancy SCHWAB, RN, CM
--- NOTE | 2024-01-18 11:45 | EX.PCM.CON.S ---
Assessment & Plan Assessment/Plan (1) Pneumothorax on right: PLAN: Plan The patient is an 88-year-old male who was admitted for a right sided spontaneous pneumothorax. He denied any type of fall or recent trauma. He has no previous history of lung issues or smoking history. A right-sided chest tube was successfully placed in the emergency department. Patient has been on -20 suction since last evening. Repeat chest x-ray this morning was performed. I do not appreciate any obvious right-sided pneumothorax however final radiologist reading is still pending. He remains clinically without shortness of breath or chest pain since chest tube placement. My recommendation would be to possibly place chest tube to waterseal if indeed there is no residual pneumothorax on today's chest x-ray. I would repeat another chest x-ray tomorrow to be sure that the right lung remained inflated. I talked to the patient and his and stated that if we do place the chest tube to waterseal today, that if he has any shortness of breath or chest pains he should notify his nurse and the chest tube could be placed back to suction. We will continue to follow along and advise accordingly. Thank you for this consultation. HPI Consult Data Date of Consult: 01/18/24 HPI Narrative Reason for Consultation: Spontaneous right sided pneumothorax/chest tube management HPI Narrative: JR YE, is a 88 M who presented yesterday to the [facility] emergency department for concerns of a right-sided pneumothorax. He has a past medical history of gastroesophageal reflux, hypothyroidism, and hypertension. He denies any lung issues such as COPD, emphysema or significant smoking history. Earlier this week on Saturday he began feeling unwell and then on Saturday he began having some right sided chest pains. By Saturday of this week he developed some shortness of breath. Yesterday he saw his primary care physician and there was concern for possible pneumothorax. Chest x-ray was performed and confirmed pneumothorax. He was sent to the emergency department for further evaluation and treatment. When seen in the emergency room, the ER physician was able to place a right-sided chest tube. This provided significant improvement to the patient's symptoms. Immediate postprocedure chest x-ray showed about a 20% remaining pneumothorax. Chest CT was then performed and showed a 10% remaining pneumothorax. I was contacted at that point by the ER staff and recommended admission. I did not feel that any additional chest tube was warranted at that time. Instead I recommended -20 suction and repeat chest x-ray in a.m. This morning he states he continues to do well. He denies any shortness of breath or chest pain or discomfort. A general surgery consult was obtained to assist with chest tube management [facility] Medical History SCC (squamous cell carcinoma) Left-sided chest pain COVID-19 (11/11/21) Left hip pain Wears glasses Wears hearing aid Alzheimer disease Alcohol use Bladder disease Back pain History of hiatal hernia Gastric reflux Non-smoker CPAP (continuous positive airway pressure) dependence History of Holter monitoring History of echocardiogram History of stress test History of irregular heartbeat Cardiology follow-up encounter Cholelithiasis with chronic cholecystitis Arm pain, left Sciatica Eczema Obstructive sleep apnea Right groin pain Scoliosis of lumbar spine DDD (degenerative disc disease), lumbar Segmental and somatic dysfunction of pelvic region Segmental and somatic dysfunction of lumbar region Syncope and collapse Hypothyroidism Anxiety and depression Candidiasis of mouth Essential (primary) hypertension Bronchitis Change in bowel habit Nausea Tinnitus GERD (gastroesophageal reflux disease) BPH (benign prostatic hyperplasia) Atherosclerotic heart disease of [place] coronary artery without angina pectoris PVC's (premature ventricular contractions) Diverticulosis Hyperlipidemia Extensor tendon laceration of hand with open wound Home Medications ?Medication ?Instructions ?Recorded ?Last Taken ?Type olmesartan 5 mg tablet 5 mg PO QHS 08/16/21 Unknown History atorvastatin 40 mg tablet 40 mg PO QHS #90 tabs 12/26/21 Unknown Rx cereve moisrurizing lotion topical 02/26/22 Unknown History pimecrolimus 1 % topical cream 1 applic topical BID PRN 07/02/22 Unknown History cholecalciferol (vitamin D3) 25 25 mcg PO DAILY #90 caps 08/30/22 Unknown Rx mcg (1,000 unit) capsule famotidine 40 mg tablet 40 mg PO DAILY PRN 11/05/22 Unknown History donepezil 5 mg tablet 5 mg PO 05/28/23 Unknown History levothyroxine 100 mcg tablet 112 mcg PO DAILY 05/28/23 Unknown History sertraline 50 mg tablet 50 mg PO QDAY 01/09/24 Unknown History Allergy/AdvReac Type Severity Reaction Status Date / Time lactose AdvReac Intermediate GI upset Verified 01/17/24 09:56 milk AdvReac Intermediate Upset Verified 01/17/24 09:56 Stomach Family History Father No problems noted. Mother Alzheimer disease Anxiety Sister Alzheimer disease Surgical History S/P laparoscopic cholecystectomy Hx of cholecystectomy Hx of hand surgery History of left heart catheterization (06/29/08) H/O hernia repair Hx of squamous cell carcinoma excision Hx of transurethral resection of prostate History of appendectomy History of colectomy Social History household members: spouse housing: house current occupational status: retired pets and animals: No Smoking Status: Never smoker second hand exposure: No alcohol intake: current alcohol intake frequency: a few times a week Alcohol type: wine substance use type: does not use caffeine: Yes Type: coffee Number of servings: 1 what type of physical activity do you participate in: walking and other details: tredmill frequency: 3-4 times per week duration: 30-45 minutes/day seatbelt use: always do you feel safe at home: Yes ROS Eyes Eyes: Reports systems reviewed and no addt'l complaints, except as documented ENT HEENT: Reports systems reviewed and no addt'l complaints, except as documented Cardiovascular Cardiovascular: Reports systems reviewed and no addt'l complaints, except as documented Respiratory/Chest Respiratory/Chest: Reports systems reviewed and no addt'l complaints, except as documented Gastrointestinal Gastrointestinal: Reports systems reviewed and no addt'l complaints, except as documented Genitourinary Genitourinary: Reports systems reviewed and no addt'l complaints, except as documented Physical Exam Const oriented x3 and no apparent distress General Appearance: cooperative HEENT normocephalic Eyes PERRL Neck full ROM Chest inspection of chest normal Chest Narrative: Right-sided chest tube in place. There did not appear to be any evidence of air leak either on -20 suction or on waterseal Resp normal respiratory effort Effort and Inspection: able to speak in complete sentences Lab / Micro Data 01/18/24 06:13 01/18/24 06:13 Labs: Laboratory Results - last 24 hr 01/18/24 06:13: WBC 7.9, RBC 3.97 L, Hgb 11.8 L, Hct 34.5 L, MCV 86.9, MCH 29.7, MCHC 34.2, RDW Std Deviation 40.5, RDW Coeff of [place] 12.7, Plt Count 184, MPV 8.8, Immature Gran % (Auto) 0.400, Neut % (Auto) 80.5 H, Lymph % (Auto) 9.5 L, [place] % (Auto) 8.1, Eos % (Auto) 1.4, Baso % (Auto) 0.1, Absolute Neuts (auto) 6.4, Absolute Lymphs (auto) 0.75 L, Nucleated RBC % 0, Sodium 127 L, Potassium 4.1, Chloride 95 L, Carbon Dioxide 23.0, Anion Gap 9, BUN 12, Creatinine 0.82, Estim Creat Clear Calc 66.77, Est GFR (MDRD) Af Amer 114, Est GFR (MDRD) Non-Af 94, BUN/Creatinine Ratio 14.5, Glucose 108 H, Calcium 8.6, Total Bilirubin 1.60 H, AST 109 H, ALT 139 H, Alkaline Phosphatase 103, Total Protein 5.8 L, Albumin 3.6, Globulin 2.2, Albumin/Globulin Ratio 1.6 Imaging Radiology Impression Chest X-Ray 01/17/24 11:05 IMPRESSION: Stable large right pneumothorax. The tip of the small caliber chest tube is in the right upper quadrant laterally. Electronically Signed: Moustapha Decker MD at 12:53 EDT , Chest X-Ray 01/17/24 13:21 IMPRESSION: Elevation of the right hemidiaphragm. The small-caliber right-sided chest tube is seen overlying the right lower chest. Residual 20% right pneumothorax. Electronically Signed: Moustapha Decker MD at 13:46 EDT , Abdomen/Pelvis CT 01/17/24 13:42 IMPRESSION: The tip of the small caliber right-sided chest tube is noted in the inferior lateral aspect of the right pleural space. Hepatic cysts. Bilateral renal cysts. Electronically Signed: Moustapha Decker MD at 15:09 EDT , Chest CT 01/17/24 13:42 IMPRESSION: Persistent 10% right apical pneumothorax. Elevation of the right hemidiaphragm with atelectasis and/or infiltrate in the right lower lobe. Electronically Signed: Moustapha Decker MD at 15:06 EDT , Charges/Coding Visit Charges Inpatient E&M: 61800 Init Hosp L3
--- OUTSIDE RECORDS SUMMARY | 2024-01-18 14:36 | XMS RPT_ITS | CCD ---
Author Organization [facility] Care Team Providers Care Floor Coverings Salesperson Name Role Phone STEPHANIE RAYGOZA Unavailable Unavailable [...] on above: Take 1 tablet by [facility] once daily. vitamin e 268 mg oral capsule (3 sources) Start: 014 take 1 capsule by mouth twice daily alpha tocopheryl acetate (VITAMIN E) 400 unit capsule Take 1 capsule by mouth twice daily. 0 02/04/2014 Active Comment on above: Take 1 capsule by mo [facility] twice daily. zolpidem tartrate 10 [...] cardiovascular system; Translations: [Atherosclerotic heart disease of [place] coronary artery without angina pectoris] Onset: 6 [...] Test Name Value Interpretation Reference Range Facility [facility] 04-11-2022 CNPN Telephone (UCWSTR) JR PILLAI ([id number]) 1935 M Date Time Provider Department 04/11/22 CAROLINE FREIRE [facility] During your visit today, we recorded the following information about you: Charlotte Hernandez MA 04/11/2022 7:17 PM Signed ----- Message from Caroline Freire APRN.TERMITE TREATER HELPER sent at 04/10/2022 9:53 AM EST ----- [...] he wishes to obtain a PCP with [facility]. Charlotte Hernandez MA 04/11/2022 7:40 PM Signed [...] meds except metoprolol d/t tinnitus. Junito Cain Architectural Modeler Problem List As Of Date 04/11/2022 Noted [...] [N52. (more content not included)... Normal [facility] CNOVon 04-10-2022 CNOV Office Visit (UCWSTR ) JR PILLAI ([id number]) 1935 M Date Time Provider Department 04/10/22 8:45 AM [facility] During your visit today, we recorded the following information about you: Temperature Pulse Respiration Blood pressure 98.7 degrees 68/minute 16/minute 130/72 Weight 83 kg Caroline Freire APRN.TERMITE TREATER HELPER 04/10/2022 9:54 AM Signed Subjective HPI Jr Pillai is a 86 year old male who presents with 2 months of left sided chest pain. He is a patient of Dr. Bose of [facility] and Dr. Martinez for cardiology. He [...] joint. PCHG TETANUS DIPTHERIA STRESS TEST 11/15/[address] [facility] [address] Martinez ALLERGIES Patient has no [...] Appeara (more content not included)... Normal [facility] XR CHEST 2V FRONTAL/LATon XR CHEST [...] of the right hemidiaphragm. Right basilar atelectasis. Master Automotive Technician: VouchAR Transcribe Date/Time: Apr 10 2022 9:31A Dictated by : CHELSEY SUBRAMANIAN MD This examination was interpreted and the report reviewed and electronically signed by: CHELSEY SUBRAMANIAN MD on Apr 10 2022 9:34AM EST [id number] Normal [facility] XR Chest PA and Lateralon IMPRESSION: Elevation of the right hemidiaphragm. Right basilar atelectasis. Master Automotive Technician: VouchAR Transcribe Date/Time: Apr 10 2022 9:31A Dictated [...] OF RADIOLOGY Provider, Mathieu [facility] - 04/10/2022 * * *Final [...] of the right hemidiaphragm. Right basilar atelectasis. Master Automotive Technician: BRYAN Transcribe Date/Time: Apr 10 2022 9:31A Dictated by : CHELSEY SUBRAMANIAN MD This examination was interpreted and the report reviewed and electronically signed by: CHELSEY SUBRAMANIAN MD on Apr 10 2022 9:34AM EST [facility] Radiology Study observation (narrative) [facility] XR Chest PA and LateralOrder ed By: Ccf Provider on 04-10-2022 [facility] Vital Signs Date Time Vital Sign Value Performing Clinician Sandrai juan 04-10-2022 08:47-0500 Body temperature 98.71 [degF] Caroline Freire APRN.CNP Work Phone: [facility] 04-10-2022 08:47-0500 Body weight 83.01 kg Caroline Praisler-Wood SALES REPRESENTATIVE [employer].TERMITE TREATER HELPER Work Phone: [facility] 04-10-2022 08:47-0500 Diastolic blood pressure 72 mm[Hg] Caroline Praisler-Wood SALES REPRESENTATIVE [employer].TERMITE TREATER HELPER Work Phone: [facility] 04-10-2022 08:47-0500 Heart rate 68 /min Caroline Praisler-Wood SALES REPRESENTATIVE [employer].TERMITE TREATER HELPER Work Phone: [facility] 04-10-2022 08:47-0500 Respiratory rate 16 /min Caroline Praisler-Wood SALES REPRESENTATIVE [employer].TERMITE TREATER HELPER Work Phone: [facility] 04-10-2022 08:47-0500 SaO2% (BldA) [Mass fraction] 95 % Caroline Praisler-Wood SALES REPRESENTATIVE [employer].TERMITE TREATER HELPER Work Phone: [facility] 04-10-2022 08:47-0500 Systolic blood pressure 130 mm[Hg] Caroline Praisler-Wood SALES REPRESENTATIVE [employer].TERMITE TREATER HELPER Work Phone: [facility] Encounters Encounter Date Encounter Type Care Provider Facility Start: 04-11-2022 Telephone encounter Carolinesaba alonzo-Fran SALES REPRESENTATIVE [employer].TERMITE TREATER HELPER Work Phone: [facility] Comment on above: Results Start: 04-10-2022 End: 04-10-2022 ambulatory MAMADOU BOSE Facility:[facility] Start: 04-10-2022 End: 04-10-2022 Subsequent hospital visit by physician Dequan [facility] [place] Work Phone: Radiology Comment on above: Intercostal pain [R0 7.82] Start: 04-10-2022 End: 04-10-2022 Patient encounter procedure Caroline Praisler-Wood SALES REPRESENTATIVE [employer].TERMITE TREATER HELPER Work Phone: [facility] Comment on above: Intercostal pain (Pr imary Dx) Start: 03-19-2018 Patient encounter procedure STEPHANIE RAYGOZA Facility:[id number] Start: 10-23-2017 Patient encounter procedure STEPHANIE Nava RAYGOZA Facility:[id number] Start: 06-26-2017 Patient encounter procedure STEPHANIE RAYGOZA Facility:[id number] Start: 10-06-2013 End: 03-22-2016 Patient encounter procedure Xr [place] Work Phone: [facility] Procedures Date Procedure Procedure Detail Performing Clinician Start: 04-10-2022 Radiologic exam ches t 2 views Caroline Freire APRN.CNP Work Phone: Plan of Treatment Date Care Activity Detail Author Start: 03-10-2028 Urine microalbumin profile [facility] Start: 12-08-2023 Covid-19 Vaccine () Covid-19 Vaccine () [facility] Start: 12-08-2023 Influenza vaccination Influenza Vacc ine (#1) [facility] Start: 04-08-2023 Advance Directive Discussion Advance Directive Discussion [facility] Start: 04-08-2022 ADVANCE DIRECTIVE DISCUSSION ADVANCE DIRECTIVE DISCUSSION [facility] Start: 04-08-2022 DEPRESSION ASSESSMENT DEPRESSION ASS ESSMENT [facility] Start: 02-15-2018 DIABETES SCREEN DIABETES SCREEN [facility] Start: 02-15-2018 Diabetes Screening Diabetes Screenin g [facility] Start: 2012 RSV Vaccine (1 - 1-d ose 75+ series) RSV Vaccine (1 - 1-dose 75+ series) [facility] Start: 05-19-2008 SHINGRIX VACCINE (2 of 3) MORGAN GRIX VACCINE (2 of 3) [facility] Start: 08-31-1955 Depression Screening Depression Scre ening [facility] Immunizations Immunization Date Immunization Notes Care Provider Fa santy 04-02-2022 COVID-19 original vaccine, full dose, monovalent (MODERNA) Caroline Freire APRN.CNP Work Phone: [facility] 12-27-2021 influenza virus vacc ine, unspecified formulation Xr [place] Work Phone: [facility] 12-05-2020 influenza, high dose seasonal, preservative-free Caroline Freire APRN.TERMITE TREATER HELPER Work Phone: [facility] 11-30-2019 influenza, high dose seasonal, preservative-free Caroline Freire APRN.REINA Work Phone: [facility] Work Phone: 03-10-2018 pneumococcal polysaccharide vaccine, 23 valent Caroline Praisler-Wood SALES REPRESENTATIVE [employer].TERMITE TREATER HELPER Work Phone: [facility] 03-10-2018 tetanus toxoid, redu robinson diphtheria toxoid, and acellular pertussis vaccine, adsorbed Caroline Praisler-Wood SALES REPRESENTATIVE [employer].TERMITE TREATER HELPER Work Phone: [facility] 01-13-2018 influenza, high dose seasonal, preservative-free Caroline Praisler-Wood SALES REPRESENTATIVE [employer].TERMITE TREATER HELPER Work Phone: [facility] 02-18-2017 influenza, seasonal, injectable Caroline Praisler-Wood SALES REPRESENTATIVE [employer].TERMITE TREATER HELPER Work Phone: [facility] Work Phone: 02-18-2017 pneumococcal conjuga te vaccine, 13 valent Caroline Praisler-Wood SALES REPRESENTATIVE [employer].TERMITE TREATER HELPER Work Phone: [facility] Work Phone: 02-18-2017 tetanus toxoid, redu robinson diphtheria toxoid, and acellular pertussis vaccine, adsorbed Caroline Praisler-Wood SALES REPRESENTATIVE [employer].TERMITE TREATER HELPER Work Phone: [facility] Work Phone: 12-11-2016 influenza, high dose seasonal, preservative-free Caroline Praisler-Wood SALES REPRESENTATIVE [employer].TERMITE TREATER HELPER Work Phone: [facility] 01-25-2015 influenza, high dose seasonal, preservative-free Caroline Praisler-Wood SALES REPRESENTATIVE [employer].TERMITE TREATER HELPER Work Phone: [facility] 08-09-2014 pneumococcal conjuga te vaccine, 13 valent Caroline Praisler-Wood SALES REPRESENTATIVE [employer].TERMITE TREATER HELPER Work Phone: [facility] 12-23-2013 influenza, high dose seasonal, preservative-free Caroline Praisler-Wood SALES REPRESENTATIVE [employer].TERMITE TREATER HELPER Work Phone: [facility] 11-30-2012 influenza virus vacc ine, unspecified formulation Caroline Praisler-Wood SALES REPRESENTATIVE [employer].TERMITE TREATER HELPER Work Phone: [facility] 02-07-2012 influenza virus vacc ine, unspecified formulation Caroline Praisler-Wood SALES REPRESENTATIVE [employer].TERMITE TREATER HELPER Work Phone: [facility] 03-24-2008 zoster vaccine, live Caroline Freire APRN.TERMITE TREATER HELPER Work Phone: [facility] 02-12-2008 diphtheria and tetan us toxoids, adsorbed for pediatric use Caroline Freire APRN.TERMITE TREATER HELPER Work Phone: [facility] Work Phone: 02-14-2006 influenza virus vacc ine, unspecified formulation Caroline Freire APRN.TERMITE TREATER HELPER Work Phone: [facility] 02-06-2003 pneumococcal polysaccharide vaccine, 23 valent Caroline Freire APRN.TERMITE TREATER HELPER Work Phone: [facility] Payers Date Payer Category Payer Unknown [id number] 2021 Unknown [id number] 1935 Unknown [id number] 1935 Unknown [id number] 1935 Unknown [id number] Private Health Insurance [id number] Social History Date Type Detail Facility [facility]: [facility] Start: 09-14-2013 Tobacco use and exposure Smoke less tobacco non-user [facility] Start: 04-10-2022 Alcohol intake Current drinke r of alcohol (finding) [facility] Start: 04-10-2022 Alcohol intake Yandy griffin [facility] Start: 07-14-2012 Alcohol Comment 3-4 [facility] Start: 1935 Sex Assigned At Not on file [facility] Start: 04-10-2022 Tobacco use panel [facility] Note 04-11-2022 Telephone Encounter - Charlotte Hernandez MA - 04/11/2022 7:39 PM ESTTelephone Encounter - Charlotte Hernandez MA - 04/11/2022 7:17 PM EST Note Date & Type Note Facility 04-11-2022 Miscellaneous Notes Formattin g of this note might be different from the original. Left message for pt to call back. Charlotte Hernandez MA ----- Message from Caroline Freire APRN.TERMITE TREATER HELPER sent at 04/10/2022 9:53 AM EST ----- [...] he wishes to obtain a PCP with [facility]. documented in this encounter [facility] Progress note 04-10-2022 Note Date & Type Note Facility 04-10-2022 Note HNO ID: [id number] Author: RT Dylon(R) Service: ? Author Type: Waiter/Waitress Cafeteria Type: Progress Notes Filed: 04/10/2022 9:03 AM [...] Dylon(R) April 10, 2022 8:51 AM [facility] Progress note 04-10-2022 Note Date & Type Note Facility 04-10-2022 Note HNO ID: [id number] Author: Caroline Freire APRN.TERMITE TREATER HELPER Service: ? Author Type: Nurse Practitioner Type: Progress Notes Filed: 04/10/2022 9:54 AM Note Text: Subjective HPI Jr Pillai is a 86 year old male who presents with 2 months of left sided chest pain. He is a patient of Dr. Bose of [facility] and Dr. Martinez for cardiology. He [...] joint. PCHG TETANUS DIPTHERIA STRESS TEST 11/15/[address] [facility] [address] Martinez ALLERGIES Patient has no [...] Skin i (more content not included)... [facility] Instructions 04-10-2022 Patient Instructions Note Date [...] of the right hemidiaphragm. Right basilar atelectasis. Master Automotive Technician: BRYAN Transcribe Date/Time: Apr 10 2022 9:31A Dictated by : CHELSEY SUBRAMANIAN MD - ESTABLISH WITH PRIMARY CARE - NEW PATIENT Caroline Freire APRN.REINA documented in this encounter [facility] History of Present illness Narrative 04-10-2022 Caroline Freire APRN.TERMITE TREATER HELPER - 04/10/2022 8:46 AM EST Note Date & Type Note Facility 04-10-2022 History of Presen t illness Narrative Subjective HPI Jr Pillai is a 86 year old male who presents with 2 months of left sided chest pain. He is a patient of Dr. Bose of [facility] and Dr. Martinez for cardiology. He [...] joint. PCHG TETANUS DIPTHERIA STRESS TEST 11/15/[address] [facility] [address] Martinez ALLERGIES Patient has no [...] of the right hemidiaphragm. Right basilar atelectasis. Master Automotive Technician: BRYAN Transcribe Date/Time: Apr 10 2022 9:31A Dictated by : CHELSEY SUBRAMANIAN MD - ESTABLISH WITH PRIMARY CARE - NEW PATIENT Caroline Freier APRN.TERMITE TREATER HELPER documented in this encounter [facility] History of Past illness Narrative 11-16-2014 Note Date & Type Note Facility 11-16-2014 History of Past i llness Narrative Problem Noted Date Resolved Date Exertional chest pain 11/16/2014 03/22/2016 Overview: Stress Test 11/15/[address] [facility] [address] Martinez (scanned) No evidence of [...] of this encounter (statuses as of 04/12/2022) [facility] History of Past illness Narrative 11-16-2014 Note Date & Type Note Facility 11-16-2014 History of Past i llness Narrative Problem Noted Date Resolved Date Exertional chest pain 11/16/2014 03/22/2016 Overview: Stress Test 11/15/[address] [facility] [address] Martinez (scanned) No evidence of [...] of this encounter (statuses as of 04/13/2022) [facility] Evaluation note Note Date & Type Note Facility Evaluation note Diagnosis Intercostal pain- Primary Other chest pain documented in this encounter [facility] Evaluation note Note Date & Type Note Facility Evaluation note Diagnosis Intercostal pain Other chest pain documented in this encounter [facility] Summary Purpose Family History No Family History Records FoundNo Family History Records Found Advance Directives No Advanced Directives Records FoundNo Advanced Directives Records Found Reason for Referral Specialty Diagnoses / Procedures Referred By Contac t Referred To Contact Diagnoses Intercostal pain Procedures ESTABLISH WITH PRIMARY CARE NEW PATIENT OFFICE/OUTPATIENT [facility] MDM 60-74 MINUTES Caroline Freire, SALES REPRESENTATIVE [employer].TERMITE TREATER HELPER [address] [place] [address] Referral ID Status Reason Start Date Expiration Date Visits Requested Visits Authorized [id number] Pending Review PCP Requested Referral 04/10/2022 04/10/2023 1 1 Additional Source Comments (unrecognized sect ion and content) No Status Records FoundNo Status Records Found INFORMATION SOURCE (unrecogn ized section and content) DATE CREATED AUTHOR 03/21/2018 [facility] DATE CREATED AUTHOR 'S ORGANIZ ATION 04/13/2022 [facility] Source Comments (unrecognize d section and content) In the event this informatio n is protected by the Federal Confidentiality of Alcohol and Drug Abuse Patient Records regulations: The Federal rules restrict any use of the information to criminally investigate or prosecute any alcohol or drug abuse patient.[facility] the event this information is protected by the Federal Confidentiality of Alcohol and Drug Abuse Patient Records regulations: The Federal rules restrict any use of the information to criminally investigate or prosecute any alcohol or drug abuse patient.[facility] the event this information is protected by the Federal Confidentiality of Alcohol and Drug Abuse Patient Records regulations: The Federal rules restrict any use of the information to criminally investigate or prosecute any alcohol or drug abuse patient.[facility] Reason for Visit (unrecogniz ed section and content) Reason Comments Pain chest area x several months Reason Comments Results Care Teams (unrecognized sec tion and content) Floor Coverings Salesperson Relationship Specialty Start Date End Date Mamadou Bose MD [address] [place] [address] PCP - General Internal Medicine 04/10/22 Floor Coverings Salesperson Relationship Specialty Start Date End Date Mamadou Bose MD [address] [place], [place] [address] PCP - General Internal Medicine 04/10/22 Floor Coverings Salesperson Relationship Specialty Start Date End Date Mamadou Bose MD [address] [place], [place] [id number] PCP - General Internal Medicine 04/10/22 FOR [...] BE BASED ON THE PRIMARY CLINICAL RECORDS. [employer] [facility]. provides no warranty or guarantee of the accuracy or completeness of information in this document.
[2024-01-18] MEDS: 0.9% Saline Lock 10 ML Syringe IV (15:07)
[2024-01-18] MEDS: Ondansetron 4 MG/2 ML Vial IV (15:07)
[2024-01-18] MEDS: FLU VACCINE **HIGH DOSE** TV 24-25 180 MCG/0.5 ML SYRINGE IM (15:08)
--- NOTE | 2024-01-18 15:12 | PCM.PN.HOSP ---
Reason for Visit Reason for Visit: Shortness of breath Subjective Subjective Rosas is an 88-year-old white male who presented to the emergency department at [facility] on 01/17/2024 due to shortness of breath. On Saturday he began to feel unwell and on Saturday had some right-sided chest pain then Saturday he became short of breath. He saw his primary care physician on the day of presentation and there was concern for pneumothorax so a chest x-ray was done as an outpatient which did indeed show a pneumothorax and he was sent to the emergency department. A chest tube was placed in the emergency department by the ED physician. After chest tube placement, the patient reported he was feeling much better. He is having some intermittent nausea but nothing persistent or precluding him from eating. Vital signs on presentation showed temperature of 98, heart rate 65, respiratory was 18, blood pressure was 184/64 and pulse ox was 92% on room air. He was placed on 2 L nasal cannula which improved his oxygen saturations to 99%. CBC was overtly unremarkable. Chemistry panel showed some hyponatremia which appears to be somewhat new since December and has trended down slightly. Upon review of his medications as far as we can tell the only medication he takes that could cause this would be sertraline. He is noted today to have some transaminitis. Imaging on CT of the abdomen pelvis done on admission shows no abnormality liver and no other acute abnormalities. Chest x-ray did show large right sided pneumothorax. Pneumothorax is thought to be spontaneous. There is no trauma of which anyone is aware and has had no procedures performed. He does follow with pulmonary medicine and most recently saw Es Drake in the outpatient setting for his obstructive sleep apnea. Chest tube was placed in the emergency department and he was admitted to the telemetry floor. He had good resolution of his pneumothorax and was able to be placed to [facility] on 01/18/2024. Patient denied any complaints for me at the time my evaluation. He did have some nausea later in the day we did start some as needed Zofran. Objective Data Objective Data Vital Signs: Vital Signs Temp Pulse Resp BP Pulse Ox O2 Del Method O2 Flow Rate 98.4 F 58 L 16 142/65 H 97 Room Air 2 01/18/24 10:00 01/18/24 10:01/18/24 10:00 01/18/24 10:00 01/18/24 10:00 01/18/24 13:22 01/17/24 17:11 Oxygen Flow Rate (L/min) 2 Oxygen Delivery Method Room Air Weight: 80 kg Body Mass Index (BMI) 25.2 Intake & Output: Intake and Output for Last 24 Hours 01/16/24 01/17/24 01/18/24 23:59 23:59 23:59 Intake Total 240 / 240 675 / 675 Output Total 1100 / 1100 Balance 240 / -60 -425 / -425 Lab / Micro Data 01/18/24 06:13 01/18/24 06:13 Labs: Laboratory Results - last 24 hr 01/18/24 06:13: WBC 7.9, RBC 3.97 L, Hgb 11.8 L, Hct 34.5 L, MCV 86.9, MCH 29.7, MCHC 34.2, RDW Std Deviation 40.5, RDW Coeff of Eldon 12.7, Plt Count 184, MPV 8.8, Immature Gran % (Auto) 0.400, Neut % (Auto) 80.5 H, Lymph % (Auto) 9.5 L, Bowman % (Auto) 8.1, Eos % (Auto) 1.4, Baso % (Auto) 0.1, Absolute Neuts (auto) 6.4, Absolute Lymphs (auto) 0.75 L, Nucleated RBC % 0, Sodium 127 L, Potassium 4.1, Chloride 95 L, Carbon Dioxide 23.0, Anion Gap 9, BUN 12, Creatinine 0.82, Estim Creat Clear Calc 66.77, Est GFR (MDRD) Af Amer 114, Est GFR (MDRD) Non-Af 94, BUN/Creatinine Ratio 14.5, Glucose 108 H, Calcium 8.6, Total Bilirubin 1.60 H, AST 109 H, ALT 139 H, Alkaline Phosphatase 103, Total Protein 5.8 L, Albumin 3.6, Globulin 2.2, Albumin/Globulin Ratio 1.6 Physical Exam Const alert, no apparent distress, average body habitus and well nourished Constitutional Narrative: Mildly confused, pleasant, elderly white male, watching football, appears comfortable, nontoxic HEENT head/scalp atraumatic and moist oral mucous membranes Head and Scalp: normocephalic Resp normal respiratory effort, no retractions, no use of accessory muscles and clear to auscultation bilaterally Auscultation: Negative for rales, rhonchi or wheezes Cardio regular rate, regular rhythm, S1 normal heart sound, S2 normal heart sound, no murmurs, no rub, no gallops and no clicks GI normal to inspection, nondistended, normoactive bowel sounds, soft to palpation and non-tender Extremity no clubbing, cyanosis or edema Neuro moves all extremities and no focal motor deficits Sensorium / Orientation: awake, alert and oriented to person Psych Psych Narrative: Pleasantly confused Assessment & Plan Assessment/Plan (1) Pneumothorax on right: PLAN: Plan Acute spontaneous pneumothorax -Chest tube in place -No airleak noted and good breath sounds bilaterally -Chest tube is now to waterseal with plans for repeat chest x-ray in a.m. and if unremarkable will remove chest tube -Will need outpatient pulmonary medicine follow-up after discharge as etiology is unclear -Will hold home BiPAP for now to avoid positive pressure Hyponatremia -Etiology unclear but looks like it has been trending down slowly since early December -Check TSH as patient is on Synthroid at home -Check cortisol level -Check urine and serum osmolality, urine sodium and uric acid level -Only on 1 medication of which I can tell that could potentially cause hyponatremia and this is sertraline -Continue for now until workup is more complete Transaminitis -Appears to be new -Imaging on CT of the abdomen pelvis shows no abnormalities of the liver -Repeat lab in a.m. -If persistently elevated would recommend further outpatient workup Essential hypertension/hyperlipidemia -Continue home atorvastatin -Continue home ARB GERD -Continue home famotidine Hypothyroidism -Continue home levothyroxine Alzheimer's type dementia -Continue home donepezil -Start low-dose risperidone as he does have some sundowning Depression -Continue home sertraline for now but could be contributing to hyponatremia DVT prophylaxis -Enoxaparin added CODE STATUS -Full code as verified on admission Charges/Coding Visit Charges Inpatient E&M: 70645 Subs Hosp L2
[2024-01-18 16:30] LABS: Uric Acid 3.1 mg/dL (3.5-7.2)
[2024-01-18 16:38] LABS: Osmolality, Serum 262 mOsm/KG (280-301)
[2024-01-18 17:00] VITALS: BP 141/74; PULSE 63; RESP 16; TEMP 36.6; O2SAT 94
[2024-01-18 17:43] LABS: Osmolality, Urine 270 mOsm/KG
[2024-01-18 18:06] LABS: Urine Sodium 34 mmol/L (Not Establ.)
[2024-01-18] MEDS: Enoxaparin 40 MG/0.4 ML Syringe SC (20:37)
[2024-01-18] MEDS: Donepezil HCl 5 MG Tablet PO (20:37)
[2024-01-18] MEDS: RisperiDONE 0.5 MG Tablet PO (20:37)
[2024-01-18] MEDS: Atorvastatin Calcium 40 MG Tablet PO (20:37)
[2024-01-18] MEDS: Senna/Docusate Sodium 1 Tablet 2 TABLET PO (20:38)
[2024-01-18 23:00] VITALS: BP 135/64; PULSE 63; RESP 18; TEMP 36.4; O2SAT 95
--- NOTE | 2024-01-19 01:10 | RAD_ITS ---
EXAM: XR CHEST, 1 VIEW CLINICAL INDICATION: chest tube -- portable TECHNIQUE: Frontal view of the chest. COMPARISON: Single view chest 01/18/2024 FINDINGS: LUNGS AND PLEURAL SPACES: Persistent tiny right apical pneumothorax, less than 5%. Bibasilar airspace disease. No effusion. HEART: Mild enlargement of the cardiac silhouette. MEDIASTINUM: Central airways and mediastinal contour are unremarkable. BONES/JOINTS: Unremarkable. No acute fracture. SOFT TISSUES: Unremarkable. TUBES, LINES AND DEVICES: A small right chest tube is in place at the base of the right thorax. RAD/Chest 1 View (Portable) IMPRESSION: 1. Persistent tiny right apical pneumothorax, less than 5%. A small right chest tube is in place at the base of the right thorax. 2. Bibasilar airspace disease. Findings may indicate atelectasis or infection. Electronically Signed: Noel Rosen MD at 5:14 EDT ,
[2024-01-19 06:00] VITALS: BP 118/62; PULSE 62; RESP 18; TEMP 36.1; O2SAT 94
[2024-01-19] MEDS: Levothyroxine 112 MCG Tablet PO (06:12)
[2024-01-19 06:49] LABS: ALB/GLOB Ratio 1.4 RATIO (0.9-2.4); AST(SGOT) 56 U/L (15-37); Alanine Aminotransfer ALT/SGPT 94 U/L (16-61); Albumin, Serum 3.5 g/dL (3.2-5.0); Alkaline Phosphatase 92 U/L (45-117); Anion Gap 5 (5-15); BUN 11 mg/dL (7-18); BUN/Creat Ratio 12.8 RATIO (10-20); Calcium,Total 8.6 mg/dL (8.5-10.1); Chloride 98 mmol/L (98-107); Creatinine, Serum 0.86 mg/dL (0.70-1.30); EST Glomerular Filtration Rate 89 mL/min (>60); Est Glom Filt Rate - Afr Amer 108 mL/min (>60); Estimated Creatinine Clearance 63.66 ml/min; Globulin 2.5 g/dL (2.2-4.2); Glucose 104 mg/dL (74-106); Potassium 3.8 mmol/L (3.5-5.1); Sodium Level 127 mmol/L (136-145)
[2024-01-19 10:12] VITALS: BP 110/57; PULSE 72; RESP 18; TEMP 36.6; O2SAT 94
[2024-01-19] MEDS: Losartan Potassium 25 MG Tablet 12.5 MG PO (10:15)
[2024-01-19] MEDS: Sertraline 50 MG Tablet PO (10:15)
--- NOTE | 2024-01-19 12:20 | PCM.PN.SRG ---
Subjective Subjective Patient doing well. No complaints of shortness of breath or chest pain. This morning's chest x-ray showing tiny residual pneumothorax less than 5%. Patient continues to have no airleak from chest tube Objective Data Objective Data Vital Signs: Vital Signs Temp Pulse Resp BP Pulse Ox O2 Del Method O2 Flow Rate 97.9 F 72 18 110/57 L 94 Room Air 2 01/19/24 10:12 01/19/24 10:12 01/19/24 10:12 01/19/24 10:12 01/19/24 10:12 01/19/24 10:12 01/17/24 17:11 Oxygen Flow Rate (L/min) 2 Oxygen Delivery Method Room Air Weight: 176 lb 5.917 oz Body Mass Index (BMI) 25.2 Intake & Output: Intake and Output for Last 24 Hours 01/17/24 01/18/24 01/19/24 23:59 23:59 23:59 Intake Total 240 / 240 795 / 995 300 / 300 Output Total 1100 / 1850 1000 / 1000 Balance 240 / -60 -305 / -855 -700 / -700 Lab / Micro Data 01/18/24 06:13 01/19/24 06:04 Labs: Laboratory Results - last 24 hr 01/18/24 06:13: Serum Osmolality 262 L, Uric Acid 3.1 L, TSH 4.610 H 01/18/24 17:25: Urine Osmolality 270, Ur Random Sodium 34 01/19/24 06:04: Sodium 127 L, Potassium 3.8, Chloride 98, Carbon Dioxide 24.0, Anion Gap 5, BUN 11, Creatinine 0.86, Estim Creat Clear Calc 63.66, Est GFR (MDRD) Af Amer 108, Est GFR (MDRD) Non-Af 89, BUN/Creatinine Ratio 12.8, Glucose 104, Calcium 8.6, Total Bilirubin 1.40 H, AST 56 H, ALT 94 H, Alkaline Phosphatase 92, Total Protein 6.0 L, Albumin 3.5, Globulin 2.5, Albumin/Globulin Ratio 1.4 Radiography Diagnostic Testing: Radiology Impression Chest X-Ray 01/18/24 06:05 IMPRESSION: Small right-sided pneumothorax with significant decrease in size since the previous study. No mediastinal shift Stable right cardiophrenic angle atelectasis Left lung is clear Electronically Signed: Bossman Guzman MD at 15:30 EDT , Chest X-Ray 01/19/24 01:10 IMPRESSION: 1. Persistent tiny right apical pneumothorax, less than 5%. A small right chest tube is in place at the base of the right thorax. 2. Bibasilar airspace disease. Findings may indicate atelectasis or infection. Electronically Signed: Noel Rosen MD at 5:14 EDT , Physical Exam Narrative Right-sided chest tube remains in place. No air leak present Const oriented x3 and no apparent distress Resp normal respiratory effort and clear to auscultation bilaterally Assessment & Plan Assessment/Plan (1) Pneumothorax on right: PLAN: Plan The patient is an 88-year-old male who presented with a spontaneous right-sided pneumothorax. Chest tube was successfully placed by the ER staff. Patient has remained on waterseal for the past 24 hours. There is no airleak. However, there remains a very tiny persistent pneumothorax at the apex measuring less than 5%. I was hoping to remove the chest tube today however with the obtaining pneumothorax, I would prefer to wait until tomorrow morning before pulling the chest tube. My plan is to repeat a chest x-ray early tomorrow morning and if this appears stable, I would likely remove the chest tube early tomorrow morning. I would suggest repeating another chest x-ray around noon tomorrow and if this is stable, he could be discharged to home tomorrow afternoon. The patient and are in agreement with this plan Charges/Coding Visit Charges Inpatient E&M: 65422 Subs Hosp L2
--- NOTE | 2024-01-19 13:44 | PN.HOSP_ITS ---
Reason for Visit Reason for Visit: Shortness of breath Objective Data Objective Data Vital Signs: Vital Signs Temp Pulse Resp BP Pulse Ox O2 Del Method O2 Flow Rate 97.9 F 72 18 110/57 L 94 Room Air 2 01/19/24 10:12 01/19/24 10:12 01/19/24 10:12 01/19/24 10:12 01/19/24 10:12 01/19/24 10:12 01/17/24 17:11 Oxygen Flow Rate (L/min) 2 Oxygen Delivery Method Room Air Weight: 80 kg Body Mass Index (BMI) 25.2 Intake & Output: Intake and Output for Last 24 Hours 01/17/24 01/18/24 01/19/24 23:59 23:59 23:59 Intake Total 240 / 240 795 / 995 600 / 600 Output Total 1100 / 1850 1000 / 1000 Balance 240 / -60 -305 / -855 -400 / -400 Lab / Micro Data 01/18/24 06:13 01/19/24 06:04 Labs: Laboratory Results - last 24 hr 01/18/24 06:13: Serum Osmolality 262 L, Uric Acid 3.1 L, TSH 4.610 H 01/18/24 17:25: Urine Osmolality 270, Ur Random Sodium 34 01/19/24 06:04: Sodium 127 L, Potassium 3.8, Chloride 98, Carbon Dioxide 24.0, Anion Gap 5, BUN 11, Creatinine 0.86, Estim Creat Clear Calc 63.66, Est GFR (MDRD) Af Amer 108, Est GFR (MDRD) Non-Af 89, BUN/Creatinine Ratio 12.8, Glucose 104, Calcium 8.6, Total Bilirubin 1.40 H, AST 56 H, ALT 94 H, Alkaline Phosphatase 92, Total Protein 6.0 L, Albumin 3.5, Globulin 2.5, Albumin/Globulin Ratio 1.4 Radiography Diagnostic Testing: Radiology Impression Chest X-Ray 01/18/24 06:05 IMPRESSION: Small right-sided pneumothorax with significant decrease in size since the previous study. No mediastinal shift Stable right cardiophrenic angle atelectasis Left lung is clear Electronically Signed: Bossman Guzman MD at 15:30 EDT , Chest X-Ray 01/19/24 01:10 IMPRESSION: 1. Persistent tiny right apical pneumothorax, less than 5%. A small right chest tube is in place at the base of the right thorax. 2. Bibasilar airspace disease. Findings may indicate atelectasis or infection. Electronically Signed: Noel Rosen MD at 5:14 EDT , Physical Exam Const alert, no apparent distress, average body habitus and well nourished Constitutional Narrative: Mildly confused, pleasant, elderly white male, appears comfortable, nontoxic HEENT head/scalp atraumatic and moist oral mucous membranes Head and Scalp: normocephalic Resp normal respiratory effort, no retractions, no use of accessory muscles and clear to auscultation bilaterally Auscultation: Negative for rales, rhonchi or wheezes Cardio regular rate, regular rhythm, S1 normal heart sound, S2 normal heart sound, no murmurs, no rub, no gallops and no clicks GI normal to inspection, nondistended, normoactive bowel sounds, soft to palpation and non-tender Extremity no clubbing, cyanosis or edema Neuro moves all extremities Sensorium / Orientation: awake, alert and oriented to person Psych Psych Narrative: Pleasantly confused Assessment & Plan Assessment/Plan (1) Pneumothorax on right: PLAN: Plan Acute spontaneous pneumothorax -Chest tube in place -No airleak noted and good breath sounds bilaterally -Chest tube is now to waterseal and a.m. chest x-ray shows only 5% residual pneumo -Plan is for repeat imaging in a.m. 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--> hypoosmolar with elevated uric acid, urine sodium was 34 with urine osmolality of 270 -Hold home sertraline -Fluid restrict at discharge to 1500 cc daily, currently 1250 cc while here -Outpatient BMP in 3 to 5 days after discharge -Close outpatient follow-up with PCP after discharge Transaminitis -Appears to be new -Imaging on CT of the abdomen pelvis shows no abnormalities of the liver -Trended down today -Outpatient follow-up Essential hypertension/hyperlipidemia -Continue home atorvastatin -Continue home ARB GERD -Continue home famotidine Hypothyroidism -Continue home levothyroxine Alzheimer's type dementia -Continue home donepezil -Start low-dose risperidone as he does have some sundowning Depression -Continue home sertraline for now but could be contributing to hyponatremia DVT prophylaxis -Enoxaparin added CODE STATUS -Full code as verified on admission Charges/Coding Visit Charges Inpatient E&M: 58560 Subs Hosp L2
[2024-01-19] MEDS: Acetaminophen 500 MG Tablet 1000 MG PO (16:11)
[2024-01-19 17:04] VITALS: BP 151/74; PULSE 63; RESP 16; TEMP 36.9; O2SAT 92
[2024-01-19] MEDS: Enoxaparin 40 MG/0.4 ML Syringe SC (21:41)
[2024-01-19] MEDS: Atorvastatin Calcium 40 MG Tablet PO (21:42)
[2024-01-19] MEDS: RisperiDONE 0.5 MG Tablet PO (21:43)
[2024-01-19] MEDS: Donepezil HCl 5 MG Tablet PO (21:43)
[2024-01-19 22:50] VITALS: BP 144/70; PULSE 63; RESP 18; TEMP 35.8; O2SAT 94
[2024-01-19 22:51] VITALS: BP 144/70; PULSE 63; RESP 18; TEMP 35.8; O2SAT 94
--- NOTE | 2024-01-20 02:00 | RAD_ITS ---
EXAM: XR CHEST, 1 VIEW CLINICAL INDICATION: ptx ptx TECHNIQUE: Frontal view of the chest. COMPARISON: Chest x-ray 01/19/2024 and 09/19/2023. CT scan chest 01/17/2024. FINDINGS: LUNGS AND PLEURAL SPACES: A small right apical pneumothorax is seen on recent previous studies. The pneumothorax not identified on current exam. The lungs are underexpanded. There is chronic elevation of the dome of the right hemidiaphragm. There is chronic fibrosis or atelectasis in the left lung base. There is no demonstrated acute pulmonary infiltrate. No effusion. HEART: Unremarkable. Cardiac silhouette not enlarged. MEDIASTINUM: Central airways and mediastinal contour are unremarkable. BONES/JOINTS: Unremarkable. No acute fracture. SOFT TISSUES: Unremarkable. RAD/Chest 1 View (Portable) IMPRESSION: No currently visualized pneumothorax. No new abnormalities. Electronically Signed: Bryce Durham MD at 2:39 EDT Reading Location ID and State: [facility] / [place] , Service support ,
[2024-01-20 05:00] VITALS: BP 129/68; PULSE 66; RESP 18; TEMP 35.8; O2SAT 95
[2024-01-20] MEDS: Levothyroxine 112 MCG Tablet PO (05:07)
[2024-01-20] MEDS: Acetaminophen 500 MG Tablet 1000 MG PO (05:07)
[2024-01-20 07:44] LABS: Anion Gap 8 (5-15); BUN 13 mg/dL (7-18); BUN/Creat Ratio 14.8 RATIO (10-20); Calcium,Total 8.6 mg/dL (8.5-10.1); Chloride 96 mmol/L (98-107); Creatinine, Serum 0.88 mg/dL (0.70-1.30); EST Glomerular Filtration Rate 88 mL/min (>60); Est Glom Filt Rate - Afr Amer 106 mL/min (>60); Estimated Creatinine Clearance 62.22 ml/min; Glucose 117 mg/dL (74-106); Sodium Level 127 mmol/L (136-145)
--- NOTE | 2024-01-20 09:48 | PN.SURG_ITS ---
Subjective Subjective Patient seen earlier this morning and he was without any issues or complaints. Chest x-ray this morning showed resolution of his previous pneumothorax on the right. Objective Data Objective Data Vital Signs: Vital Signs Temp Pulse Resp BP Pulse Ox O2 Del Method O2 Flow Rate 96.5 F L 66 18 129/68 H 95 Room Air 2 01/20/24 05:00 01/20/24 05:00 01/20/24 05:00 01/20/24 05:00 01/20/24 05:00 01/20/24 05:00 01/17/24 17:11 Oxygen Flow Rate (L/min) 2 Oxygen Delivery Method Room Air Weight: 176 lb 5.917 oz Body Mass Index (BMI) 25.2 Intake & Output: Intake and Output for Last 24 Hours 01/18/24 01/19/24 01/20/24 23:59 23:59 23:59 Intake Total 795 / 995 600 / 1560 960 / 960 Output Total 1100 / 1850 1000 / 1300 300 / 300 Balance -305 / -855 -400 / 260 660 / 660 Lab / Micro Data 01/18/24 06:13 01/20/24 06:21 Labs: Laboratory Results - last 24 hr 01/20/24 06:21: Sodium 127 L, Potassium 4.0, Chloride 96 L, Carbon Dioxide 23.0, Anion Gap 8, BUN 13, Creatinine 0.88, Estim Creat Clear Calc 62.22, Est GFR (MDRD) Af Amer 106, Est GFR (MDRD) Non-Af 88, BUN/Creatinine Ratio 14.8, Glucose 117 H, Calcium 8.6 Radiography Diagnostic Testing: Radiology Impression Chest X-Ray 01/20/24 02:00 IMPRESSION: No currently visualized pneumothorax. No new abnormalities. Electronically Signed: Bryce Durham MD at 2:39 EDT , Physical Exam Const oriented x3 and no apparent distress Resp normal respiratory effort and clear to auscultation bilaterally Resp Narrative: Right-sided chest tube was removed without difficulty. Vaseline gauze and 4 x 4 gauze with tape dressing was applied. Assessment & Plan Assessment/Plan (1) Pneumothorax on right: PLAN: Plan The patient is an 88-year-old male who was admitted with a spontaneous right- sided pneumothorax. He had a chest tube placed in the emergency department which allowed for complete resolution of his pneumothorax. His right-sided chest tube was removed at the bedside this morning. I have ordered a repeat chest x-ray for around 11 AM this morning. If this is unremarkable, he can probably be discharged to home later today. I would suggest having him follow- up with pulmonary as an outpatient given the spontaneous nature of the pneumothorax without identifiable risk factors for pneumothorax such as COPD, emphysema etc. Charges/Coding Visit Charges Inpatient E&M: 77190 Subs Hosp L2
[2024-01-20 09:55] VITALS: BP 93/74; PULSE 66; RESP 17; TEMP 36.7; O2SAT 96
[2024-01-20] MEDS: Sertraline 50 MG Tablet PO (10:00)
--- NOTE | 2024-01-20 11:00 | RAD_ITS ---
STUDY: X-RAY CHEST REASON FOR EXAM: Male, 88 years old. chest tube removal (prior ptx) TECHNIQUE: Single AP portable view of the chest. COMPARISON: 01/20/2024 FINDINGS: The lungs are clear and expanded. Elevated right hemidiaphragm which is unchanged. Normal size heart. Normal mediastinum and neisha. Normal visualized pulmonary arteries. Normal visualized aortic arch and descending thoracic aorta. Normal visualized thoracic spine. Normal visualized ribs, clavicles, and shoulders. There is no demonstrated abnormality of the visualized soft tissue structures of the upper abdomen. RAD/Chest 1 View (Portable) IMPRESSION: No active disease. Electronically Signed: Hugo Best MD at 11:54 EDT ,
--- NOTE | 2024-01-20 11:57 | PCM.PN.BLA ---
Progress Note Post chest tube removal chest x-ray performed at 11 AM this morning shows that the right lung is fully expanded and no obvious pneumothorax remains. This was confirmed with radiology reading as well. The patient is cleared from a surgical standpoint for discharge. I would recommend follow-up with pulmonary as an outpatient given his negative pulmonary history and new spontaneous pneumothorax. Patient should return to the emergency room if shortness of breath and/or chest pain/discomfort returns.
--- NOTE | 2024-01-20 13:18 | DS.PCM_ITS ---
Providers Date of Admission: 01/17/24 Date of Discharge: 01/20/24 Primary Care Physician: Chetan Varghese MD Consultations 01/17/24 16:45 Consult: General Surgery Routine Consulting Provider: Tanner Snell Reason for Consult: Chest tube management- placed in ED by Dr. Allison EMERGENT Consult: No MD Notified: Yes Date Notified: 01/17/24 Time Notified: 16:52 Method of Notification: Verbal Reason For Visit: PNEUMOTHORAX Diagnosis Discharge Diagnosis (1) Pneumothorax on right: Status: Acute Code(s): J93.9 - Pneumothorax, unspecified Plan Patient is an 88-year-old gentleman who was sent to the emergency department with shortness of breath imaging studies demonstrated a large right-sided spontaneous pneumothorax patient had chest tube placed 1. Spontaneous pneumothorax ? Patient had a chest tube placed by general surgery removed on the morning of 01/20/2024 subsequent imaging studies demonstrated resolution of his spontaneous pneumothorax. Patient apparently uses BiPAP at home for sleep apnea and was instructed to hold off for a month. 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 Hyponatremia Chronic patient is on sertraline held on discharge instructed to follow-up with primary care physician prior to resumption. Was also instructed to follow-up with his primary care physician for repeat BMP within a week 3. Hypertension ? Blood pressure controlled, home medications continued with dose adjustment as needed 4. Assessment dyslipidemia 5. GERD ? On PPI 6. Hypothyroidism ? Patient is on levothyroxine home dose continued 7. Alzheimer's disease ? Patient is on donepezil continue 8. Depression ? Patient was accepted main this was held given his hyponatremia 9. DVT prophylaxis ? Enoxaparin Medications at Discharge Home Medications olmesartan 5 mg tablet 5 mg PO QHS 08/16/21 atorvastatin 40 mg tablet 40 mg PO QHS #90 tabs 12/26/21 cereve moisrurizing lotion topical 02/26/22 pimecrolimus 1 % topical cream 1 applic topical BID PRN 07/02/22 cholecalciferol (vitamin D3) 25 mcg (1,000 unit) capsule 25 mcg PO DAILY #90 caps 08/30/22 famotidine 40 mg tablet 40 mg PO DAILY PRN 11/05/22 donepezil 5 mg tablet 5 mg PO 05/28/23 levothyroxine 100 mcg tablet 112 mcg PO DAILY 05/28/23 sertraline 50 mg tablet 50 mg PO QDAY 01/09/24 Hospital Course Summary of Care Provided Minutes Spent on Discharge: 32 Physical Exam Narrative GENERAL: cooperative HEENT: Atraumatic; normocephalic EYES; Anicteric, Normal Conjunctiva NECK; supple, normal thyroid, RESPIRATORY: Diminished to auscultation CARDIOVASCULAR: Regular S1 S2, GI: soft, normoactive bowel sounds, : No Renal angle tenderness; EXTREMITIES: No edema, no clubbing, MUSCULOSKELETAL: no muscle wasting NEURO: Awake; no lateralizing signs. SKIN: No Rash PSYCH; Flat affect Weight / BMI Weight Weight: 80 kg Body Mass Index (BMI) 25.2 ABG / Lab / Microbiology Data 01/18/24 06:13 01/20/24 06:21 Laboratory: Laboratory Results - last 24 hr 01/20/24 06:21: Sodium 127 L, Potassium 4.0, Chloride 96 L, Carbon Dioxide 23.0, Anion Gap 8, BUN 13, Creatinine 0.88, Estim Creat Clear Calc 62.22, Est GFR (MDRD) Af Amer 106, Est GFR (MDRD) Non-Af 88, BUN/Creatinine Ratio 14.8, Glucose 117 H, Calcium 8.6 Radiography Diagnostic Testing: Radiology Impression Chest X-Ray 01/20/24 02:00 IMPRESSION: No currently visualized pneumothorax. No new abnormalities. Electronically Signed: Bryce Durham MD at 2:39 EDT , Chest X-Ray 01/20/24 11:00 IMPRESSION: No active disease. Electronically Signed: Hugo Best MD at 11:54 EDT , D/C Instructions Discharge Diet: No restrictions Discharge Activity: Return to Normal Activity Call your doctor if you observe: Fever of 101 or Higher, Shortness of breath, Fainting spells and Chest pain Meaningful Use Info Meaningful Use Meaningful Use Diagnoses (Choose all that apply): None applicable Ischemic Stroke Statin Dosing Therapy Reference: STATIN DOSE THERAPY REFERENCE: * Patients > 75 years receive moderate or high dose statin therapy. * Patients 75 years or YOUNGER should receive HIGH intensity statin dose unless contraindicated. You will be required to document reason for non-treatment if statin daily dose does not meet guidelines. HIGH DOSE STATIN THERAPY DAILY Atorvastatin > than or = to 40 mg Rosuvastatin > than or = to 20 mg Amlodipine + Atorvastatin > than or = to 2.5/40 mg Ezetimibe + Simvastatin 10/80 mg Simvastatin 80mg Discharge Plan Admission Admit Date/Time: 01/17/24 16:17 Primary Reason for Your Visit: Shortness of Breath Attending Provider: Benitez Kaufman Primary Care Provider: Chetan Varghese Consulting Providers: Tanner Snell; Beckie Quezada; Caprice Kumar Instructions Additional Instructions / Restrictions: 1. Please restrict your fluid intake to 1.5 L/day and call your primary care doctor to get a repeat basic metabolic profile done in the next 5 days to recheck your sodium level because they are low and have been low since early December. -We will hold the antidepressant sertraline until you can follow-up with your primary care physician because this can sometimes cause low sodium 2. Please call the pulmonary office as directed below the day after discharge home to schedule a follow-up appointment for a spontaneous pneumothorax of the right lung. 3. Hold off on using your BIPAP for 4 weeks per my discussion with the lung doctor to avoid aggravating the collapsed right lung. Discharge Orders/Prescriptions Prescriptions: Held sertraline 50 mg tablet 50 mg PO QDAY Hold Instructions: Until instructed to restart primary care physician No Action cereve moisrurizing lotion topical Rx Instructions: BID cholecalciferol (vitamin D3) 25 mcg (1,000 unit) capsule 25 mcg PO DAILY Qty: 90 3RF famotidine 40 mg tablet 40 mg PO DAILY PRN donepezil 5 mg tablet 5 mg PO Patient Comments: TAKE 1 TABLET BY MOUTHYONCE DAILYDY levothyroxine 100 mcg tablet 112 mcg PO DAILY olmesartan 5 mg Tablet 5 mg PO QHS atorvastatin 40 mg tablet 40 mg PO QHS Qty: 90 3RF pimecrolimus 1 % cream 1 applic topical BID PRN Referrals / Follow Up: Chetan Varghese MD [Primary Care Provider] - Within 1 Week (Hospital follow-up and low-sodium) Victorino Grossman DO [Med Staff - Active Staff] - Within 1 Month (Hospital follow-up for spontaneous pneumothorax of the right lung) Disposition Disposition (needs filled in before D/C Order can be placed): Home, Self Care Charges/Coding Visit Charges Inpatient E&M: 07297 Disch Hosp >30min
[2024-01-20 15:33] VITALS: BP 119/63; PULSE 62; RESP 17; TEMP 36.7; O2SAT 97
--- NOTE | 2024-01-20 15:36 | CASEMGMT ---
RN AMILCAR updated by [facility] WALKER that patient will need walker at discharge. RN CM in to discuss walker with patient, at bedside. Patient and agreeable to walker at discharge, prefer [employer]. Patient and deny further needs or help at discharge. MICHELLE FITZGERALD obtained script for walker and referral sent to [employer]. Walker provided to patient from [employer] [facility] [employer]. Patient and had no further questions or concerns.
== END 2024-01-20 15:56 | disposition home or self-care (01) | DRG 200 ==
LOC: ED 15:53 → PCU 16:11
PROVIDERS: Internal Medicine; Admitting Provider Internal Medicine; Emergency Provider Emergency Medicine; PCP Family Medicine; Visit Provider Internal Medicine
DX: J93.83 Other pneumothorax (principal); E22.2 Syndrome of inappropriate secretion of antidiuretic hormone; F05 Delirium due to known physiological condition; G30.9 Alzheimer's disease, unspecified; F32.A Depression, unspecified; I10 Essential (primary) hypertension; E03.9 Hypothyroidism, unspecified; F02.80 Dementia in other diseases classified elsewhere, unspecified severity, without behavioral disturbance, psychotic disturbance, mood disturbance, and anxiety; I25.10 Atherosclerotic heart disease of native coronary artery without angina pectoris; E78.5 Hyperlipidemia, unspecified; K21.9 Gastro-esophageal reflux disease without esophagitis; G47.33 Obstructive sleep apnea (adult) (pediatric); R11.0 Nausea; Z23 Encounter for immunization; R93.89 Abnormal findings on diagnostic imaging of other specified body structures; Z79.890 Hormone replacement therapy; Z79.899 Other long term (current) drug therapy
CPT/HCPCS: 32551; 36415; 71045; 71046; 71250; 74177; 80048; 80053; 82533; 83930; 83935; 84300; 84443; 84484; 84550; 85025; 90662; 93005; 97110; 97116; 97162; 97166; 97530; 97535; 99285; Q9967; A4216; J2405

== ENCOUNTER → 2024-01-17 | Outpatient (CLI) | payer MEDICARE, SELFPAY ==
--- NOTE | 2024-01-17 09:16 | RAD_ITS ---
STUDY: X-RAY CHEST REASON FOR EXAM: Male, 88 years old. SOB on exertion TECHNIQUE: PA and lateral views of the chest. COMPARISON: Comparison is made with prior study dated September 19, 2023. FINDINGS: Large right pneumothorax with almost complete collapse of the right lung. Increased markings at the left lung base suggestive of atelectasis. Normal size heart. Normal mediastinum and neisha. Normal visualized pulmonary arteries. Normal visualized aortic arch and descending thoracic aorta. Normal visualized thoracic spine. Normal visualized ribs, clavicles, and shoulders. There is no demonstrated abnormality of the visualized soft tissue structures of the upper abdomen. RAD/Chest PA and Lateral IMPRESSION: Large right pneumothorax with almost complete collapse of the right lung. I cannot rule out a tension pneumothorax. N.B. : The above Results were Read Back by Moustapha Decker MD to Chetan Varghese MD, and understanding confirmed on 01/17/2024 09:37:15 (ET). Electronically Signed: Moustapha Decker MD at 9:38 EDT ,
== END | disposition home or self-care (01) ==
LOC: MTRAD 09:16
PROVIDERS: PCP Family Medicine; Referring Provider Family Medicine; Visit Provider Family Medicine
DX: R06.02 Shortness of breath (principal); R11.0 Nausea
CPT/HCPCS: 71046

== ENCOUNTER → 2024-02-05 | Outpatient (CLI) | payer MEDICARE, SELFPAY | END | disposition home or self-care (01) | PROVIDERS: PCP Family Medicine; Referring Provider Family Medicine; Visit Provider Family Medicine | DX: R06.02 Shortness of breath (principal) | CPT/HCPCS: 94060; 94726; 94729 ==

== ENCOUNTER 2024-02-15 05:12 | Inpatient (IN) | payer MEDICARE, SELFPAY ==
[2024-02-15] VITALS (10 sets, daily range): BP systolic 122–163; BP diastolic 51–82; PULSE 61–77; RESP 14–26; TEMP 33.6–36.6; O2SAT 92–98; BMI 25.6; BMI 26.7
[2024-02-15] MEDS: Morphine 4 MG/ML Syringe IV (05:40)
[2024-02-15] MEDS: Ondansetron 4 MG/2 ML Vial IV (05:40)
--- NOTE | 2024-02-15 05:42 | EX.ED.DYSGE1 ---
HPI History of Present Illness Chief Complaint: Shortness of Breath Informant: patient and spouse/S.O. Narrative Narrative: Patient is a 88-year-old male with past medical history of hypertension hyperlipidemia and obstructive sleep apnea. He was seen roughly 1 month ago for sudden onset of shortness of breath and found to have a right sided pneumothorax. He had a chest tube placed and was admitted to the hospital. He states the pneumothorax resolved and he was informed that it was most likely the positive pressure of the CPAP which led to his pneumothorax as he did not have a lung procedure or trauma and he does not have a history of lung disease such as COPD or emphysema. He was advised to wait roughly 1 month before using the CPAP again. He states he used it for the first time last night as he was instructed he was allowed to use it as he is now 1 month out from the onset of the previous pneumothorax. He states that he went to bed feeling normal and then awoke shortly prior to arrival with shortness of breath and right sided chest discomfort. He states this feels very similar nature to his presentation 1 month ago and with concern he has developed a repeat pneumothorax presents for evaluation [facility] Medical History SCC (squamous cell carcinoma) Left-sided chest pain COVID-19 (11/11/21) Left hip pain Wears glasses Wears hearing aid Alzheimer disease Alcohol use Bladder disease Back pain History of hiatal hernia Gastric reflux Non-smoker CPAP (continuous positive airway pressure) dependence History of Holter monitoring History of echocardiogram History of stress test History of irregular heartbeat Cardiology follow-up encounter Cholelithiasis with chronic cholecystitis Arm pain, left Sciatica Eczema Obstructive sleep apnea Right groin pain Scoliosis of lumbar spine DDD (degenerative disc disease), lumbar Segmental and somatic dysfunction of pelvic region Segmental and somatic dysfunction of lumbar region Syncope and collapse Hypothyroidism Anxiety and depression Candidiasis of mouth Essential (primary) hypertension Bronchitis Change in bowel habit Nausea Tinnitus GERD (gastroesophageal reflux disease) BPH (benign prostatic hyperplasia) Atherosclerotic heart disease of [place] coronary artery without angina pectoris PVC's (premature ventricular contractions) Diverticulosis Hyperlipidemia Extensor tendon laceration of hand with open wound Home Medications ?Medication ?Instructions ?Recorded ?Last Taken ?Type olmesartan 5 mg tablet 5 mg PO QHS 08/16/21 Unknown History atorvastatin 40 mg tablet 40 mg PO QHS #90 tabs 12/26/21 Unknown Rx pimecrolimus 1 % topical cream 1 applic topical BID PRN 07/02/22 Unknown History cholecalciferol (vitamin D3) 25 25 mcg PO DAILY supplement #90 caps 08/30/22 Unknown Rx mcg (1,000 unit) capsule donepezil 5 mg tablet 5 mg PO DAILY Memory 05/28/23 Unknown History sertraline 50 mg tablet 50 mg PO QDAY 01/09/24 Unknown History levothyroxine 112 mcg tablet 112 mcg PO DAILY thyroid 01/20/24 Unknown History magnesium oxide 800 mg PO BID 02/15/24 Unknown History Allergy/AdvReac Type Severity Reaction Status Date / Time lactose AdvReac Intermediate GI upset Verified 01/17/24 09:56 milk AdvReac Intermediate Upset Verified 01/17/24 09:56 Stomach Family History Father No problems noted. Mother Alzheimer disease Anxiety Sister Alzheimer disease Surgical History S/P laparoscopic cholecystectomy Hx of cholecystectomy Hx of hand surgery History of left heart catheterization (06/29/08) H/O hernia repair Hx of squamous cell carcinoma excision Hx of transurethral resection of prostate History of appendectomy History of colectomy Social History household members: spouse housing: house current occupational status: retired pets and animals: No Smoking Status: Never smoker second hand exposure: No alcohol intake: current alcohol intake frequency: a few times a week Alcohol type: wine substance use type: does not use caffeine: Yes Type: coffee Number of servings: 1 what type of physical activity do you participate in: walking and other details: tredmill frequency: 3-4 times per week duration: 30-45 minutes/day seatbelt use: always do you feel safe at home: Yes ROS ROS ED Constitutional Constitutional ED: Denies chills or fever(s) Eyes Eyes: Denies change in vision ENT ENT ED: Denies rhinorrhea or sore throat Cardiovascular Cardiovascular: Reports chest pain and racing heartbeat; Denies palpitations Respiratory/Chest Respiratory/Chest: Reports dyspnea; Denies cough Gastrointestinal Gastrointestinal: Denies abdominal pain, diarrhea, nausea or vomiting Genitourinary Genitourinary ED: Denies dysuria Musculoskeletal Musculoskeletal: Reports back pain Integumentary Denies rash Neurologic Neurologic: Denies headache(s) Hematologic/Lymphatic Hematologic/Lymphatic: Denies easy bleeding or easy bruising Allergic/Immunologic Allergic/Immunologic ED: Denies mouth swelling or tongue swelling EXAM Physical Exam Const Vital Signs: 02/15/24 05:13 02/15/24 05:45 02/15/24 07:13 Temperature 92.4 F L Temperature Source Oral Pulse Rate 75 70 Respiratory Rate 26 H 16 Respiratory Effort Labored Respiratory Pattern Normal Blood Pressure 163/77 H 138/61 H Blood Pressure Mean 105 86 Pulse Ox 95 97 Oxygen Delivery Method Room Air Room Air Room Air Oxygen Flow Rate (L/min) 02/15/24 08:00 Temperature Temperature Source Pulse Rate 77 Respiratory Rate 14 Respiratory Effort Respiratory Pattern Blood Pressure 127/51 H Blood Pressure Mean 76 Pulse Ox 92 Oxygen Delivery Method Nasal Cannula Oxygen Flow Rate (L/min) 2 Positive well nourished and well developed General Appearance ED: well developed HEENT Reports moist mucous membranes HEENT Narrative: No tongue or lip swelling no oral lesions no airway edema or compromise No secondary findings in the posterior pharynx to suggest infection Eyes PERRL and EOMs intact bilaterally General Eye ED: Negative for scleral icterus Neck supple and no JVD Neck Narrative: No crepitance/subcutaneous emphysema palpated Chest Wall palpation of chest normal Chest Narrative: No bony deformity or crepitance noted Resp Resp Narrative: Patient is tachypneic with accessory muscle use. Breath sounds are normal in the left upper and lower lobe however they are not present in the right upper and lower lobe concerning for spontaneous pneumothorax. Cardio regular rate and regular rhythm Rate: other Other Details: Radial and carotid pulses are equal and symmetric Extremity normal to inspection Extremity Narrative: No asymmetric edema no pitting edema negative Homans' sign bilaterally Neuro CN's II-XII intact bilaterally and no sensory deficits noted Sensorium / Orientation: alert Motor Exam: strength 5/5 throughout Psych Mood & Affect: anxious Skin no rashes or lesions noted and no wounds General Skin Exam: Negative for jaundice MDM MDM MDM Narrative Medical decision making narrative: Patient arrived to the hospital hemodynamically stable but had sudden onset of right-sided chest pain and absent breath sound. This is consistent with a repeat spontaneous pneumothorax. There is concern it could be pneumonia or congestive heart failure or acute blood loss anemia or anxiety but exam and history is indicating it is a pneumothorax. Basic labs were obtained as well as a chest x-ray. Chest x-ray confirmed a complete right sided spontaneous pneumothorax. Secondary to this the case was discussed with general surgeon Dr. Snell. He agrees that because it is a spontaneous pneumothorax that a pigtail catheter is okay for resolution of the problem. Therefore this was placed as documented below. He feels that if there is improvement of the pneumothorax with the chest tube placement and the patient will be safe to stay here and therefore medicine was also contacted. The hospitalist evaluated the patient in the ER and they agree that as long as his pneumothorax is improving and general surgery is acceptable with being on consult that the patient can be admitted to this facility. The patient had a right sided pigtail chest tube catheter placed. The patient had his skin cleaned and prepped in sterile fashion with chlorhexidine. The area was anesthetized with 10 mL of 2% lidocaine with epinephrine in local fashion. He was then given 5 mg of IV Versed and 50 mcg of IV fentanyl. Following this a #11 blade was used to make 1/2 cm incision in between the fourth and fifth intercostal space of the right anterior lateral rib space. The 8 [place] pigtail catheter was then threaded into the opening and there was a spontaneous lozada of air indicating the catheter was in the proper space. The catheter was threaded to the hub without difficulty and then sutured in place with 2-0 silk sutures. It was then attached to the Pleur-evac and there was appropriate bubbling of the solution. The patient tolerated the procedure well without complication. History & Record Review Discussion w/independent historian: Patient and Significant other Lab Data Attestation: I reviewed the patient's lab results. Labs: Laboratory Results - last 24 hr 02/15/24 05:20 WBC 9.7 RBC 4.71 Hgb 14.2 Hct 41.6 MCV 88.3 MCH 30.1 MCHC 34.1 RDW Std Deviation 41.3 RDW Coeff of [place] 12.8 Plt Count 193 MPV 9.4 Immature Gran % (Auto) 0.400 Neut % (Auto) 75.6 H Lymph % (Auto) 13.2 L [place] % (Auto) 8.4 Eos % (Auto) 1.9 Baso % (Auto) 0.5 Absolute Neuts (auto) 7.3 Absolute Lymphs (auto) 1.28 Nucleated RBC % 0 Sodium 134 L Potassium 4.4 Chloride 104 Carbon Dioxide 24.0 Anion Gap 6 BUN 18 Creatinine 1.10 Estim Creat Clear Calc 49.77 Est GFR (MDRD) Af Amer 82 Est GFR (MDRD) Non-Af 67 BUN/Creatinine Ratio 16.4 Glucose 119 H Calcium 9.0 Magnesium 2.3 Radiography Diagnostic Testin view chest x-ray as interpreted by the emergency medicine physician reviewed a complete right sided pneumothorax without pneumonia or shifting of the mediastinum. Management Discussion w/another healthcare provider: Hospitalist and [employer]ate [employer] Att[employer] Discharge Plan Dx/Rx/DC Orders Clinical Impression: Recurrent spontaneous pneumothorax, GERD (gastroesophageal reflux disease), Essential (primary) hypertension, Obstructive sleep apnea, Hyperlipidemia Disposition Disposition: Acute Care Hospital [facility]
[2024-02-15 05:48] LABS: Absolute Lymphocyte Count 1.28 X10^3/uL (0.83-4.51); Absolute Neutrophil Count 7.3 X10^3/uL (2.0-7.7); Basophil# 0.05 X10^3/uL; Basophil% 0.5 % (0-1); Eosinophil# 0.18 X10^3/uL; Eosinophils% 1.9 % (0-5); Hematocrit 41.6 % (40-54); Hemoglobin 14.2 g/dL (13.0-16.5); Lymphocyte # 1.28 X10^3/ul (0.83-4.51); Lymphocyte % 13.2 % (19-41); Mean Corp Hgb Conc 34.1 g/dL (32-36); Mean Corpuscular Hgb 30.1 pg (27.0-32.0); Mean Corpuscular Volume 88.3 fL (80-94); Mean Platelet Vol. 9.4 fl (6.2-12.0); Monocyte# 0.81 X10^3/uL; Monocyte% 8.4 % (0-10); NRBC Flagged by Analyzer 0 % (0-5); Neutrophil # 7.31 X10^3/uL (2.7-7.7); Neutrophil % 75.6 % (47-70); Platelet Count 193 K/mm3 (150-450); RBC Distribution Width CV 12.8 % (11.6-14.6); RBC Distribution Width SD 41.3 fl (35.1-43.9); Red Blood Count 4.71 M/mm3 (4.6-6.2); White Blood Count 9.7 K/mm3 (4.4-11.0)
--- NOTE | 2024-02-15 05:50 | RAD_ITS ---
INDICATION: Right sided pneumothorax EXAMINATION/TECHNIQUE: X-RAY - XR Chest 2 Views COMPARISON: 01/20/2024 FINDINGS: LINES/DEVICES: None. LUNGS: Large right pneumothorax with collapsed right lung. No evidence of pleural effusions MEDIASTINUM AND CARDIOVASCULAR STRUCTURES: Cardiac silhouette not enlarged. Central airways and mediastinal contour are unremarkable. BONES AND SOFT TISSUES: Unremarkable. RAD/Chest PA and Lateral IMPRESSION: Large right pneumothorax with collapsed right lung. Electronically Signed: Andrzej Frazier MD at 8:36 EST ,
[2024-02-15 06:04] LABS: Anion Gap 6 (5-15); BUN 18 mg/dL (7-18); BUN/Creat Ratio 16.4 RATIO (10-20); Chloride 104 mmol/L (98-107); EST Glomerular Filtration Rate 67 mL/min (>60); Est Glom Filt Rate - Afr Amer 82 mL/min (>60); Estimated Creatinine Clearance 49.77 ml/min; Glucose 119 mg/dL (74-106); Magnesium 2.3 mg/dL (1.6-2.6); Potassium 4.4 mmol/L (3.5-5.1); Sodium Level 134 mmol/L (136-145)
--- NOTE | 2024-02-15 07:05 | PCM.HP.STD ---
HPI - General General Date of Admission: 02/15/24 Date of Service: 02/15/24 Chief Complaint: R sided chest pain, dyspnea. 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: Alzheimer's disease with associated dementia with unclear history of behavioral disturbance, HTN, HLD, Hypothyroidism, GERD, SHOSHANA, Anxiety and Depression/Chronic insomnia, BPH with obstructive pathology s/p TURP who presents to the [facility] ED on 02/15/24 with history of the evening prior to restarting his CPAP nightly as he had been off usage for 1 month per surgery recommendation as he had a right sided pneumothorax reporting that he had felt well and seem to be tolerating it but unfortunately he awoke shortly prior to ED arrival at 540 in the morning with significant sensation of dyspnea and right sided chest discomfort exactly like it had the month prior when he had pneumothorax prompting immediate ED reevaluation. Upon initial arrival patient reported right-sided chest pain 4-10 in severity, severe, sharp increasing up to 7 out of 10 in severity while in the ED. ED workup included T97.4, heart rate 75, BP 163/77, respiratory rate 26, 95% on room air, CBC with WBC 9.7, human 14.2, platelet 193 without marked shift, BMP with sodium 134, glucose 119 otherwise unremarkable, magnesium 2.3, chest x-ray with a large right-sided pneumothorax with near complete collapse of the right lung prompting ED physician to place a right sided pigtail catheter per general surgeon Dr. Snell recommendation with follow-up chest x-ray following placement with decreased right sided pneumothorax following chest tube insertion with atelectatic changes at the right lung base. In the ED patient was administered Zofran 4 mg IV x 1, morphine 4 mg IV x 1, Versed 5 mg IV x 1, local anesthetic as well as fentanyl 50 mcg IV x 1. Discussed case with general surgeon who noted given improvement following chest tube placement although aeration not significant upon evaluation felt patient appropriate for admission to [facility] for ongoing care status post chest tube placement. [facility] Medical History SCC (squamous cell carcinoma) Left-sided chest pain COVID-19 (11/11/21) Left hip pain Wears glasses Wears hearing aid Alzheimer disease Alcohol use Bladder disease Back pain History of hiatal hernia Gastric reflux Non-smoker CPAP (continuous positive airway pressure) dependence History of Holter monitoring History of echocardiogram History of stress test History of irregular heartbeat Cardiology follow-up encounter Cholelithiasis with chronic cholecystitis Arm pain, left Sciatica Eczema Obstructive sleep apnea Right groin pain Scoliosis of lumbar spine DDD (degenerative disc disease), lumbar Segmental and somatic dysfunction of pelvic region Segmental and somatic dysfunction of lumbar region Syncope and collapse Hypothyroidism Anxiety and depression Candidiasis of mouth Essential (primary) hypertension Bronchitis Change in bowel habit Nausea Tinnitus GERD (gastroesophageal reflux disease) BPH (benign prostatic hyperplasia) Atherosclerotic heart disease of [place] coronary artery without angina pectoris PVC's (premature ventricular contractions) Diverticulosis Hyperlipidemia Extensor tendon laceration of hand with open wound Home Medications ?Medication ?Instructions ?Recorded ?Last Taken ?Type olmesartan 5 mg tablet 5 mg PO QHS 08/16/21 Unknown History atorvastatin 40 mg tablet 40 mg PO QHS #90 tabs 12/26/21 Unknown Rx pimecrolimus 1 % topical cream 1 applic topical BID PRN skin 07/02/22 Unknown History irritation cholecalciferol (vitamin D3) 25 25 mcg PO DAILY supplement #90 caps 08/30/22 Unknown Rx mcg (1,000 unit) capsule donepezil 5 mg tablet 5 mg PO DAILY Memory 05/28/23 Unknown History sertraline 50 mg tablet 50 mg PO QDAY 01/09/24 Unknown History levothyroxine 112 mcg tablet 112 mcg PO DAILY thyroid 01/20/24 Unknown History magnesium oxide 800 mg PO BID 02/15/24 Unknown History Allergy/AdvReac Type Severity Reaction Status Date / Time lactose AdvReac Intermediate GI upset Verified 01/17/24 09:56 milk AdvReac Intermediate Upset Verified 01/17/24 09:56 Stomach Family History Father No problems noted. Mother Alzheimer disease Anxiety Sister Alzheimer disease Surgical History S/P laparoscopic cholecystectomy Hx of cholecystectomy Hx of hand surgery History of left heart catheterization (06/29/08) H/O hernia repair Hx of squamous cell carcinoma excision Hx of transurethral resection of prostate History of appendectomy History of colectomy Social History household members: spouse housing: house current occupational status: retired pets and animals: No Smoking Status: Never smoker second hand exposure: No alcohol intake: current alcohol intake frequency: a few times a week Alcohol type: wine substance use type: does not use caffeine: Yes Type: coffee Number of servings: 1 what type of physical activity do you participate in: walking and other details: tredmill frequency: 3-4 times per week duration: 30-45 minutes/day seatbelt use: always do you feel safe at home: Yes ROS ROS Narrative Admission Review of Systems: CONSTITUTIONAL: No weight loss, fever, chills, + weakness or fatigue. HEENT: Eyes: No visual loss, blurred vision, double vision or yellow sclerae. Ears, Nose, Throat: No hearing loss, sneezing, congestion, runny nose or sore throat. SKIN: No rash or itching, lesions, wounds. CARDIOVASCULAR: + Right-sided focal chest pain. No palpitations, edema, orthopnea, syncopal events. RESPIRATORY: + Dyspnea. No marked cough or sputum, wheezing, hemoptysis. GASTROINTESTINAL: No anorexia, nausea, vomiting or diarrhea, abdominal pain, melena, BRBPR. GENITOURINARY: No dysuria, frequency, urgency or retention. NEUROLOGICAL: + Underlying dementia with memory impairment. No headache, dizziness, syncope, paralysis, ataxia, numbness or tingling in the extremities, focal weakness, change in bowel or bladder control, seizure. MUSCULOSKELETAL:+ muscle, back pain, joint pain or stiffness. HEMATOLOGIC: No anemia. + Easy bleeding/bruising. LYMPHATICS: No enlarged nodes. No history of splenectomy. PSYCHIATRIC: + History of anxiety and depression, chronic insomnia. ENDOCRINOLOGIC: No reports of sweating, cold or heat intolerance. No polyuria or polydipsia. ALLERGIES: No history of asthma, hives, eczema or rhinitis. Vital Signs Vital Signs Vital Signs: 02/15/24 05:13 02/15/24 05:45 Temperature 92.4 F L Temperature Source Oral Pulse Rate 75 Respiratory Rate 26 H Respiratory Effort Labored Respiratory Pattern Normal Blood Pressure 163/77 H Blood Pressure Mean 105 Pulse Ox 95 Oxygen Delivery Method Room Air Room Air Weight Weight: 178 lb 12.718 oz Body Mass Index (BMI) 25.6 Physical Exam Narrative Physical Examination: General: Awake, alert, oriented to self, place and recent events, notes ongoing chest discomfort primarily to the right side, remains cooperative, laying in the ED bed, recent pain medication therefore patient notes currently the right sided chest pain is abating. Skin: Normal color, normal turgor, no icterus, no cyanosis. HEENT: AT/NC, EOMI, PERRLA, mildly dry MM, no carotid bruits or JVD noted. Lungs: Severely diminished on the right side/absent breath sounds, mildly increased respiratory rate but no distress, appropriate breath sounds through all [place] on the left side, no rales, ronchi or wheezing. Heart: Regular rate and rhythm; no gallop, rub audible. Abdomen: Soft, NTTP, ND, normal BS, no appreciated HSM. Extremities: No cyanosis, clubbing, or edema. Neurological: Patient awake, alert, oriented as noted, cognitive function intact although patient does have underlying Alzheimer's dementia of note but currently at baseline per spouse; pupils equally reactive to light and accommodation, cranial nerves grossly normal, moving all 4 extremities, no focal deficits, strength moderately to severely globally decreased secondary to his acute presentation. Psychiatric: Affect appears fatigued, notes less uncomfortable and it is improved with recent pain medication, no acute evidence of depressive or anxiety feelings but does have underlying history as well as chronic insomnia. Results Lab / Micro Data 02/15/24 05:20 02/15/24 05:20 Labs: Laboratory Results - last 24 hr 02/15/24 05:20: WBC 9.7, RBC 4.71, Hgb 14.2, Hct 41.6, MCV 88.3, MCH 30.1, MCHC 34.1, RDW Std Deviation 41.3, RDW Coeff of [place] 12.8, Plt Count 193, MPV 9.4, Immature Gran % (Auto) 0.400, Neut % (Auto) 75.6 H, Lymph % (Auto) 13.2 L, [place] % (Auto) 8.4, Eos % (Auto) 1.9, Baso % (Auto) 0.5, Absolute Neuts (auto) 7.3, Absolute Lymphs (auto) 1.28, Nucleated RBC % 0, Sodium 134 L, Potassium 4.4, Chloride 104, Carbon Dioxide 24.0, Anion Gap 6, BUN 18, Creatinine 1.10, Estim Creat Clear Calc 49.77, Est GFR (MDRD) Af Amer 82, Est GFR (MDRD) Non-Af 67, BUN/Creatinine Ratio 16.4, Glucose 119 H, Calcium 9.0, Magnesium 2.3 Assessment & Plan Assessment/Plan (1) Chest pain: PLAN: Plan 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: Alzheimer's disease with associated dementia with unclear history of behavioral disturbance, HTN, HLD, Hypothyroidism, GERD, SOHSHANA, Anxiety and Depression/Chronic insomnia, BPH with obstructive pathology s/p TURP who presents to the [facility] ED on 02/15/24 with history of the evening prior to restarting his CPAP nightly as he had been off usage for 1 month per surgery recommendation as he had a right sided pneumothorax reporting that he had felt well and seem to be tolerating it but unfortunately he awoke shortly prior to ED arrival at 540 in the morning with significant sensation of dyspnea and right sided chest discomfort exactly like it had the month prior when he had pneumothorax prompting immediate ED reevaluation. #1. Acute right-sided chest pain, dyspnea secondary to recurrent right-sided large pneumothorax with complete collapse of the right lung: Status post chest tube placement in the ED with some success as follow-up chest x-ray does have decreased right-sided pneumothorax, will admit to PCU, maintain on telemetry monitoring, continue chest tube with settings including suction style and centimeter water per surgery discretion, will plan repeat portable chest x-ray in a.m., continue oxygen supplementation, will have pain and nausea medications as needed, encourage aggressive I-S, stop usage of CPAP, PT/OT/case management consulted for discharge planning. #2. Alzheimer's disease with associated dementia with unclear history of behavioral disturbance: Complicates presentation, will continue patient home donepezil regimen, if any onset of agitation in the evenings may consider initiation of low-dose risperidone versus Seroquel, PT/.OT/CM consulted for discharge planning. #3. Hypertension: Will continue patient home on losartan regimen, PRN IV Hydralazine. #4. Hyperlipidemia: We will continue patient home statin therapy. #5. SHOSHANA: Deferring CPAP and given his current re-presentation following his first time using again, may need to stop completely unfortunately. #6. Anxiety and depression, insomnia: Had previously been on sertraline however during recent mission because of hyponatremia this was held, from records patient may be following outpatient with psychiatry, encourage continued outpatient follow-up and evaluation. #7. Hypothyroidism: We will continue patient home levothyroxine regimen. #8. BPH with obstructive pathology: Status post TURP, encourage continued outpatient follow-up with urology as previously arranged. #9. GERD: Not on any agent, will have as needed Mylanta for symptoms. #10. DVT Prophylaxis: SCDs, hold chemoprophylaxis given recent CT placement. #11. CODE status: Full Code. Charges/Coding Visit Charges Inpatient E&M: 06894 Init Hosp L3
[2024-02-15] MEDS: fentaNYL 100 MCG/2 ML Ampul 50 MCG IV (07:17)
[2024-02-15] MEDS: Midazolam 5 MG/ML Syringe IV (07:17)
[2024-02-15] MEDS: Lidocaine 2% /Epi 1:100 (20ml) 20 ML VIAL INFILT (07:19)
--- NOTE | 2024-02-15 08:15 | RAD_ITS ---
INDICATION: post chest tube insertion EXAMINATION/TECHNIQUE: X-RAY - XR Chest 1 View COMPARISON: Previous of the same date done earlier. FINDINGS: LINES/DEVICES: Small caliber chest tube in the right lower chest new since previous exam. LUNGS: Partially reexpanded right lung. Markedly decreased right pneumothorax. Atelectatic changes in the right lower lung. MEDIASTINUM AND CARDIOVASCULAR STRUCTURES: Cardiac silhouette not enlarged. Central airways and mediastinal contour are unremarkable. BONES AND SOFT TISSUES: Unremarkable. RAD/Chest 1 View (Portable) IMPRESSION: 1. Decreased right pneumothorax following insertion of right chest tube. 2. Atelectatic changes in the right lung base. Electronically Signed: Andrzej Frazier MD at 9:31 EST ,
[2024-02-15] MEDS: 0.9% Saline Lock 10 ML Syringe IV ×2 (10:40→15:15)
[2024-02-15] MEDS: Morphine 2 MG/ML Syringe IV ×2 (10:40→15:15)
[2024-02-15] MEDS: Levothyroxine 112 MCG Tablet PO (10:44)
[2024-02-15] MEDS: Donepezil HCl 5 MG Tablet PO (10:45)
[2024-02-15] MEDS: Magnesium Chloride 64 MG Delay Rel.Tablet 256 MG PO ×2 (10:45→21:00)
--- NOTE | 2024-02-15 12:02 | CON.PCM.SX_ITS ---
Assessment & Plan Assessment/Plan (1) Recurrent spontaneous pneumothorax: PLAN: Plan The patient is a 88-year-old male with a recurrent spontaneous right-sided pneumothorax. Recommend continued -20 suction and repeat chest x-ray in a.m. hopefully this recurrent spontaneous pneumothorax will resolve with conservative chest tube management. If this fails to resolve the pneumothorax, transferred to tertiary center might be warranted. HPI Consult Data Date of Consult: 02/15/24 HPI Narrative Reason for Consultation: Recurrent right spontaneous pneumothorax HPI Narrative: JR YE, is a 88 M who was admitted about a month ago for a right sided spontaneous pneumothorax. His only past medical history includes hypertension, hyperlipidemia and sleep apnea. Patient states that he was instructed to not use his CPAP for a month after his last pneumothorax. He used his CPAP for the first time in a month last night. He woke up early this morning with right- sided chest pain and shortness of breath. Who stated that this felt very much like his previous pneumothorax and so he presented to the emergency room earlier this morning. He was seen and evaluated by the ER staff. Chest x-ray was performed and showed probably 90% right sided pneumothorax. A small caliber chest tube was placed by the ER staff. This reexpanded the lung markedly. He is being admitted to the medical service and a consult was placed to surgery to assist with chest tube management. Patient is now resting comfortably on the floor. Chest tube is to -20 suction. He denies any shortness of breath [facility] Medical History SCC (squamous cell carcinoma) Left-sided chest pain COVID-19 (11/11/21) Left hip pain Wears glasses Wears hearing aid Alzheimer disease Alcohol use Bladder disease Back pain History of hiatal hernia Gastric reflux Non-smoker CPAP (continuous positive airway pressure) dependence History of Holter monitoring History of echocardiogram History of stress test History of irregular heartbeat Cardiology follow-up encounter Cholelithiasis with chronic cholecystitis Arm pain, left Sciatica Eczema Obstructive sleep apnea Right groin pain Scoliosis of lumbar spine DDD (degenerative disc disease), lumbar Segmental and somatic dysfunction of pelvic region Segmental and somatic dysfunction of lumbar region Syncope and collapse Hypothyroidism Anxiety and depression Candidiasis of mouth Essential (primary) hypertension Bronchitis Change in bowel habit Nausea Tinnitus GERD (gastroesophageal reflux disease) BPH (benign prostatic hyperplasia) Atherosclerotic heart disease of [place] coronary artery without angina pectoris PVC's (premature ventricular contractions) Diverticulosis Hyperlipidemia Extensor tendon laceration of hand with open wound Home Medications ?Medication ?Instructions ?Recorded ?Last Taken ?Type olmesartan 5 mg tablet 5 mg PO QHS 08/16/21 Unknown History atorvastatin 40 mg tablet 40 mg PO QHS #90 tabs 12/26/21 Unknown Rx pimecrolimus 1 % topical cream 1 applic topical BID PRN skin 07/02/22 Unknown History irritation cholecalciferol (vitamin D3) 25 25 mcg PO DAILY supplement #90 caps 08/30/22 Unknown Rx mcg (1,000 unit) capsule donepezil 5 mg tablet 5 mg PO DAILY Memory 05/28/23 Unknown History sertraline 50 mg tablet 50 mg PO QDAY 01/09/24 Unknown History levothyroxine 112 mcg tablet 112 mcg PO DAILY thyroid 01/20/24 Unknown History magnesium oxide 800 mg PO BID 02/15/24 Unknown History Allergy/AdvReac Type Severity Reaction Status Date / Time lactose AdvReac Intermediate GI upset Verified 01/17/24 09:56 milk AdvReac Intermediate Upset Verified 01/17/24 09:56 Stomach Family History Father No problems noted. Mother Alzheimer disease Anxiety Sister Alzheimer disease Surgical History S/P laparoscopic cholecystectomy Hx of cholecystectomy Hx of hand surgery History of left heart catheterization (06/29/08) H/O hernia repair Hx of squamous cell carcinoma excision Hx of transurethral resection of prostate History of appendectomy History of colectomy Social History household members: spouse housing: house current occupational status: retired pets and animals: No Smoking Status: Never smoker second hand exposure: No alcohol intake: current alcohol intake frequency: a few times a week Alcohol type: wine substance use type: does not use caffeine: Yes Type: coffee Number of servings: 1 what type of physical activity do you participate in: walking and other details: tredmill frequency: 3-4 times per week duration: 30-45 minutes/day seatbelt use: always do you feel safe at home: Yes Physical Exam Narrative He is alert and oriented x 3. He is in no acute distress. Right sided chest tube in place. There is no obvious air leak. Chest tube is to -20 suction. Lab / Micro Data 02/15/24 05:20 02/15/24 05:20 Labs: Laboratory Results - last 24 hr 02/15/24 05:20: WBC 9.7, RBC 4.71, Hgb 14.2, Hct 41.6, MCV 88.3, MCH 30.1, MCHC 34.1, RDW Std Deviation 41.3, RDW Coeff of [place] 12.8, Plt Count 193, MPV 9.4, Immature Gran % (Auto) 0.400, Neut % (Auto) 75.6 H, Lymph % (Auto) 13.2 L, [place] % (Auto) 8.4, Eos % (Auto) 1.9, Baso % (Auto) 0.5, Absolute Neuts (auto) 7.3, Absolute Lymphs (auto) 1.28, Nucleated RBC % 0, Sodium 134 L, Potassium 4.4, Chloride 104, Carbon Dioxide 24.0, Anion Gap 6, BUN 18, Creatinine 1.10, Estim Creat Clear Calc 49.77, Est GFR (MDRD) Af Amer 82, Est GFR (MDRD) Non-Af 67, BUN/Creatinine Ratio 16.4, Glucose 119 H, Calcium 9.0, Magnesium 2.3 Imaging Radiology Impression Chest X-Ray 02/15/24 05:50 IMPRESSION: Large right pneumothorax with collapsed right lung. Electronically Signed: Andrzej Frazier MD at 8:36 EST Reading Location ID and State: [facility] / [place] Tel , Service support , Chest X-Ray 02/15/24 08:15 IMPRESSION: 1. Decreased right pneumothorax following insertion of right chest tube. 2. Atelectatic changes in the right lung base. Electronically Signed: Andrzej Frazier MD at 9:31 EST , Charges/Coding Visit Charges Inpatient E&M: 08049 Init Hosp L2
[2024-02-15] MEDS: tiZANidine HCl 2 MG Tablet PO (12:56)
[2024-02-15] MEDS: Losartan Potassium 25 MG Tablet 12.5 MG PO (21:00)
[2024-02-15] MEDS: Atorvastatin Calcium 40 MG Tablet PO (21:00)
[2024-02-15] MEDS: Acetaminophen 325 MG Tablet 650 MG PO (21:00)
[2024-02-16 03:20] VITALS: BP 130/59; PULSE 62; RESP 18; TEMP 36.6; O2SAT 96
[2024-02-16] MEDS: Acetaminophen 325 MG Tablet 650 MG PO ×2 (03:20→15:04)
--- NOTE | 2024-02-16 04:38 | RAD_ITS ---
EXAM: XR CHEST, 1 VIEW CLINICAL INDICATION: PTX TECHNIQUE: Frontal view of the chest. COMPARISON: Single view chest 02/15/2024 FINDINGS: LUNGS AND PLEURAL SPACES: Bibasilar atelectasis. No pneumothorax. No effusion. HEART: Unremarkable. Cardiac silhouette not enlarged. MEDIASTINUM: Central airways and mediastinal contour are unremarkable. BONES/JOINTS: Unremarkable. No acute fracture. SOFT TISSUES: Unremarkable. TUBES, LINES AND DEVICES: Small right chest tube at the right lung base. RAD/Chest 1 View (Portable) IMPRESSION: Small right chest tube at the right lung base. No residual pneumothorax appreciated on this portable exam. Electronically Signed: Noel Rosen MD at 7:26 EST ,
[2024-02-16] MEDS: Levothyroxine 112 MCG Tablet PO (05:10)
[2024-02-16] MEDS: oxyCODONE 5 MG Tablet 2.5 MG PO ×2 (05:15→15:03)
[2024-02-16 06:22] LABS: Absolute Lymphocyte Count 0.88 X10^3/uL (0.83-4.51); Absolute Neutrophil Count 4.9 X10^3/uL (2.0-7.7); Basophil# 0.03 X10^3/uL; Basophil% 0.5 % (0-1); Eosinophil# 0.18 X10^3/uL; Eosinophils% 2.8 % (0-5); Hematocrit 37.9 % (40-54); Hemoglobin 12.9 g/dL (13.0-16.5); Lymphocyte # 0.88 X10^3/ul (0.83-4.51); Lymphocyte % 13.5 % (19-41); Mean Corpuscular Hgb 30.4 pg (27.0-32.0); Mean Corpuscular Volume 89.2 fL (80-94); Mean Platelet Vol. 8.7 fl (6.2-12.0); Monocyte# 0.57 X10^3/uL; Monocyte% 8.7 % (0-10); NRBC Flagged by Analyzer 0 % (0-5); Neutrophil # 4.85 X10^3/uL (2.7-7.7); Neutrophil % 74.2 % (47-70); Platelet Count 171 K/mm3 (150-450); RBC Distribution Width CV 12.9 % (11.6-14.6); RBC Distribution Width SD 42.2 fl (35.1-43.9); Red Blood Count 4.25 M/mm3 (4.6-6.2); White Blood Count 6.5 K/mm3 (4.4-11.0)
[2024-02-16 06:52] LABS: ALB/GLOB Ratio 1.4 RATIO (0.9-2.4); AST(SGOT) 72 U/L (15-37); Alanine Aminotransfer ALT/SGPT 91 U/L (16-61); Albumin, Serum 3.6 g/dL (3.2-5.0); Alkaline Phosphatase 76 U/L (45-117); Anion Gap 4 (5-15); BUN 16 mg/dL (7-18); Calcium,Total 8.9 mg/dL (8.5-10.1); Chloride 105 mmol/L (98-107); EST Glomerular Filtration Rate 75 mL/min (>60); Est Glom Filt Rate - Afr Amer 91 mL/min (>60); Estimated Creatinine Clearance 53.03 ml/min; Globulin 2.6 g/dL (2.2-4.2); Glucose 119 mg/dL (74-106); Potassium 4.4 mmol/L (3.5-5.1); Protein, Total 6.2 g/dL (6.4-8.2); Sodium Level 136 mmol/L (136-145)
--- NOTE | 2024-02-16 07:01 | PCM.PN.HOSP ---
Reason for Visit Reason for Visit: Diagnoses Other pneumothorax (02/15/24) Chest pain, unspecified (02/15/24) Subjective Subjective Patient with no acute events overnight per self and per nursing report. Patient is intermittently confused but frequently just asking for the information several times and no evidence of agitation overnight per discussion with staff. Currently he notes that the chest tube is mildly bothersome rating it 1-2 out of 10 but no pain to the right side. He feels significantly improved and denies any dyspnea. Patient denies fevers, chills, nausea, emesis, abdominal pain. Objective Data Objective Data Vital Signs: Vital Signs Temp Pulse Resp BP Pulse Ox O2 Del Method O2 Flow Rate 97.9 F 62 18 130/59 H 96 Nasal Cannula 2 02/16/24 03:20 02/16/24 03:20 02/16/24 03:20 02/16/24 03:20 02/16/24 03:20 02/16/24 03:25 02/16/24 03:25 Oxygen Flow Rate (L/min) 2 Oxygen Delivery Method Nasal Cannula Weight: 181 lb 3.52 oz Body Mass Index (BMI) 26.7 Intake & Output: Intake and Output for Last 24 Hours 02/14/24 02/15/24 02/16/24 23:59 23:59 23:59 Intake Total 400 / 400 Output Total 800 / 1275 475 / 475 Balance -400 / -875 -475 / -475 Lab / Micro Data 02/16/24 06:02 02/16/24 06:02 Labs: Laboratory Results - last 24 hr 02/16/24 06:02: WBC 6.5, RBC 4.25 L, Hgb 12.9 L, Hct 37.9 L, MCV 89.2, MCH 30.4, MCHC 34.0, RDW Std Deviation 42.2, RDW Coeff of [place] 12.9, Plt Count 171, MPV 8.7, Immature Gran % (Auto) 0.300, Neut % (Auto) 74.2 H, Lymph % (Auto) 13.5 L, [place] % (Auto) 8.7, Eos % (Auto) 2.8, Baso % (Auto) 0.5, Absolute Neuts (auto) 4.9, Absolute Lymphs (auto) 0.88, Nucleated RBC % 0, Sodium 136, Potassium 4.4, Chloride 105, Carbon Dioxide 27.0, Anion Gap 4 L, BUN 16, Creatinine 1.00, Estim Creat Clear Calc 53.03, Est GFR (MDRD) Af Amer 91, Est GFR (MDRD) Non-Af 75, BUN/Creatinine Ratio 16.0, Glucose 119 H, Calcium 8.9, Total Bilirubin 1.30 H, AST 72 H, ALT 91 H, Alkaline Phosphatase 76, Total Protein 6.2 L, Albumin 3.6, Globulin 2.6, Albumin/Globulin Ratio 1.4 Radiography Diagnostic Testing: Radiology Impression Chest X-Ray 02/15/24 05:50 IMPRESSION: Large right pneumothorax with collapsed right lung. Electronically Signed: Andrzej Frazier MD at 8:36 EST , Chest X-Ray 02/15/24 08:15 IMPRESSION: 1. Decreased right pneumothorax following insertion of right chest tube. 2. Atelectatic changes in the right lung base. Electronically Signed: Andrzej Frazier MD at 9:31 EST , Physical Exam Narrative Physical Examination: General: Awake, alert, oriented x 3, denies any dyspnea or chest discomfort at this time, noting only some irritation with the chest tube placement. Skin: Normal color, normal turgor, no icterus, no cyanosis. HEENT: AT/NC, EOMI, PERRLA, MMM. Lungs: Remains diminished, more so on the right side, no evidence of any distress and seems appropriate effort perez, chest tube in place, no rales, ronchi or wheezing. Heart: Regular rate and rhythm; no gallop, rub audible. Abdomen: Soft, NTTP, ND, normal BS, no appreciated HSM. Extremities: No cyanosis, clubbing, or edema. Neurological: Patient awake, alert, oriented as noted, cognitive function intact although patient does have underlying Alzheimer's dementia of note but currently at baseline per spouse; pupils equally reactive to light and accommodation, cranial nerves grossly normal, moving all 4 extremities, no focal deficits, strength moderately globally decreased, improving. Psychiatric: Affect appears more alert, interactive, no acute evidence of depressive or anxiety feelings but does have underlying history as well as chronic insomnia. 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 ED on 02/15/24 with history of the evening prior to restarting his CPAP nightly as he had been off usage for 1 month per surgery recommendation as he had a right sided pneumothorax reporting that he had felt well and seem to be tolerating it but unfortunately he awoke shortly prior to ED arrival at 540 in the morning with significant sensation of dyspnea and right sided chest discomfort exactly like it had the month prior when he had pneumothorax prompting immediate ED reevaluation. #1. Acute right-sided chest pain, dyspnea secondary to recurrent right-sided large pneumothorax with complete collapse of the right lung: Status post chest tube placement in the ED with some success as follow-up chest x-ray does have decreased right-sided pneumothorax, admitted to PCU, maintain on telemetry without event, continue chest tube settings per surgery discretion, repeat 02/16/2024 chest x-ray obtained with improved appearance from day prior follow-up but awaiting final read, continue oxygen supplementation, will have pain and nausea medications as needed, encourage aggressive I-S, PT/OT/case management consulted for discharge planning. From discussion with surgery patient will not use CPAP further given this is occurred twice and it is suspected to be the cause. #2. Alzheimer's disease with associated dementia with unclear history of behavioral disturbance: Complicates presentation, will continue patient home donepezil regimen, if any onset of agitation in the evenings may consider initiation of low-dose risperidone versus Seroquel, PT/.OT/CM consulted for discharge planning. #3. Hypertension: Will continue patient home on losartan regimen, PRN IV Hydralazine. #4. Hyperlipidemia: We will continue patient home statin therapy. #5. SHOSHANA: Given presentation as noted CPAP usage has been discontinued completely at this time. #6. Anxiety and depression, insomnia: Had previously been on sertraline however during recent mission because of hyponatremia this was held, from records patient may be following outpatient with psychiatry, encourage continued outpatient follow-up and evaluation. #7. Hypothyroidism: We will continue patient home levothyroxine regimen. #8. BPH with obstructive pathology: Status post TURP, encourage continued outpatient follow-up with urology as previously arranged. #9. GERD: Not on any agent, will have as needed Mylanta for symptoms. #10. DVT Prophylaxis: SCDs, given now 24 hours out from chest tube placement will initiate chemoprophylactic Lovenox dosing. #11. CODE status: Full Code. Charges/Coding Visit Charges Inpatient E&M: 22349 Subs Hosp L2
[2024-02-16 08:47] VITALS: BP 130/67; PULSE 60; RESP 18; TEMP 36.4; O2SAT 97
[2024-02-16] MEDS: Magnesium Chloride 64 MG Delay Rel.Tablet 256 MG PO ×2 (08:50→21:24)
[2024-02-16] MEDS: Donepezil HCl 5 MG Tablet PO (08:50)
[2024-02-16 10:08] VITALS: O2SAT 94
--- NOTE | 2024-02-16 11:14 | PN.SURG_ITS ---
Subjective Subjective Patient is doing well this morning. No new issues or problems. No chest pain or shortness of breath Objective Data Objective Data Vital Signs: Vital Signs Temp Pulse Resp BP Pulse Ox O2 Del Method O2 Flow Rate 97.5 F L 60 18 130/67 H 97 Room Air 2 02/16/24 08:47 02/16/24 08:47 02/16/24 08:47 02/16/24 08:47 02/16/24 08:47 02/16/24 08:47 02/16/24 03:25 Oxygen Flow Rate (L/min) 2 Oxygen Delivery Method Room Air Weight: 181 lb 3.52 oz Body Mass Index (BMI) 26.7 Intake & Output: Intake and Output for Last 24 Hours 02/14/24 02/15/24 02/16/24 23:59 23:59 23:59 Intake Total 400 / 400 Output Total 800 / 1275 475 / 475 Balance -400 / -875 -475 / -475 Lab / Micro Data 02/16/24 06:02 02/16/24 06:02 Labs: Laboratory Results - last 24 hr 02/16/24 06:02: WBC 6.5, RBC 4.25 L, Hgb 12.9 L, Hct 37.9 L, MCV 89.2, MCH 30.4, MCHC 34.0, RDW Std Deviation 42.2, RDW Coeff of [place] 12.9, Plt Count 171, MPV 8.7, Immature Gran % (Auto) 0.300, Neut % (Auto) 74.2 H, Lymph % (Auto) 13.5 L, [place] % (Auto) 8.7, Eos % (Auto) 2.8, Baso % (Auto) 0.5, Absolute Neuts (auto) 4.9, Absolute Lymphs (auto) 0.88, Nucleated RBC % 0, Sodium 136, Potassium 4.4, Chloride 105, Carbon Dioxide 27.0, Anion Gap 4 L, BUN 16, Creatinine 1.00, Estim Creat Clear Calc 53.03, Est GFR (MDRD) Af Amer 91, Est GFR (MDRD) Non-Af 75, BUN/Creatinine Ratio 16.0, Glucose 119 H, Calcium 8.9, Total Bilirubin 1.30 H, A ST 72 H, ALT 91 H, Alkaline Phosphatase 76, Total Protein 6.2 L, Albumin 3.6, Globulin 2.6, Albumin/Globulin Ratio 1.4 Physical Exam Narrative He is alert and oriented x 3. No acute distress. Right-sided chest tube in place. No evidence of air leak Assessment & Plan Assessment/Plan (1) Recurrent spontaneous pneumothorax: PLAN: Plan The patient is an 88-year-old male with a recurrent right spontaneous pneumothorax possibly related to CPAP use. Review of this morning's chest x-ray does not seem to show pneumothorax but will await final radiologist reading. If there is no pneumothorax, would likely place chest tube to waterseal and repeat another x-ray tomorrow morning and possibly discontinue chest tube tomorrow if the right lung remains inflated Charges/Coding Visit Charges Inpatient E&M: 06208 Subs Hosp L2
[2024-02-16 14:50] VITALS: BP 138/63; PULSE 66; RESP 18; TEMP 36.4; O2SAT 92
[2024-02-16 21:20] VITALS: BP 130/69; PULSE 73; RESP 16; TEMP 36.7; O2SAT 94
[2024-02-16] MEDS: Losartan Potassium 25 MG Tablet 12.5 MG PO (21:24)
[2024-02-16] MEDS: Atorvastatin Calcium 40 MG Tablet PO (21:24)
[2024-02-17 03:20] VITALS: BP 140/61; PULSE 66; RESP 16; TEMP 36.7; O2SAT 94
[2024-02-17] MEDS: Levothyroxine 112 MCG Tablet PO (04:59)
[2024-02-17] MEDS: Acetaminophen 325 MG Tablet 650 MG PO (04:59)
[2024-02-17] MEDS: Enoxaparin 40 MG/0.4 ML Syringe SC (04:59)
[2024-02-17 05:49] VITALS: BMI 26.8
[2024-02-17 06:41] LABS: Absolute Lymphocyte Count 1.05 X10^3/uL (0.83-4.51); Absolute Neutrophil Count 5.5 X10^3/uL (2.0-7.7); Basophil# 0.03 X10^3/uL; Basophil% 0.4 % (0-1); Eosinophil# 0.26 X10^3/uL; Eosinophils% 3.5 % (0-5); Hematocrit 39.3 % (40-54); Hemoglobin 12.9 g/dL (13.0-16.5); Lymphocyte # 1.05 X10^3/ul (0.83-4.51); Lymphocyte % 14.1 % (19-41); Mean Corp Hgb Conc 32.8 g/dL (32-36); Mean Corpuscular Hgb 29.5 pg (27.0-32.0); Mean Corpuscular Volume 89.7 fL (80-94); Mean Platelet Vol. 8.9 fl (6.2-12.0); Monocyte# 0.58 X10^3/uL; Monocyte% 7.8 % (0-10); NRBC Flagged by Analyzer 0 % (0-5); Neutrophil # 5.52 X10^3/uL (2.7-7.7); Neutrophil % 73.9 % (47-70); Platelet Count 175 K/mm3 (150-450); RBC Distribution Width SD 42.7 fl (35.1-43.9); Red Blood Count 4.38 M/mm3 (4.6-6.2); White Blood Count 7.5 K/mm3 (4.4-11.0)
--- NOTE | 2024-02-17 07:36 | RAD_ITS ---
INDICATION: Pneumothorax EXAMINATION/TECHNIQUE: X-RAY - XR Chest 1 View COMPARISON: February 14 and February 16, 2024 FINDINGS: LINES/DEVICES: There appears to be a right-sided chest tube projecting over the right lung base. LUNGS: There is persistent elevation of the right hemidiaphragm. There is improved aeration of the lungs. No pneumothorax. MEDIASTINUM AND CARDIOVASCULAR STRUCTURES: Cardiac silhouette not enlarged. Central airways and mediastinal contour are unremarkable. BONES AND SOFT TISSUES: Unremarkable. RAD/Chest 1 View (Portable) IMPRESSION: Improved aeration of the lungs. No apparent pneumothorax. Electronically Signed: Regina Flores MD at 8:10 EST ,
[2024-02-17 07:39] LABS: ALB/GLOB Ratio 1.5 RATIO (0.9-2.4); AST(SGOT) 43 U/L (15-37); Alanine Aminotransfer ALT/SGPT 64 U/L (16-61); Albumin, Serum 3.7 g/dL (3.2-5.0); Alkaline Phosphatase 71 U/L (45-117); Anion Gap 4 (5-15); BUN 18 mg/dL (7-18); BUN/Creat Ratio 17.5 RATIO (10-20); Calcium,Total 8.5 mg/dL (8.5-10.1); Chloride 107 mmol/L (98-107); Creatinine, Serum 1.03 mg/dL (0.70-1.30); EST Glomerular Filtration Rate 73 mL/min (>60); Est Glom Filt Rate - Afr Amer 88 mL/min (>60); Estimated Creatinine Clearance 51.48 ml/min; Globulin 2.5 g/dL (2.2-4.2); Glucose 113 mg/dL (74-106); Potassium 4.3 mmol/L (3.5-5.1); Protein, Total 6.2 g/dL (6.4-8.2); Sodium Level 137 mmol/L (136-145)
[2024-02-17] MEDS: Donepezil HCl 5 MG Tablet PO (08:43)
[2024-02-17] MEDS: Magnesium Chloride 64 MG Delay Rel.Tablet 256 MG PO (08:44)
[2024-02-17 08:51] VITALS: BP 129/67; PULSE 65; RESP 16; TEMP 36.1; O2SAT 95
[2024-02-17 08:55] VITALS: RESP 16; O2SAT 95
[2024-02-17 09:49] VITALS: O2SAT 95
--- NOTE | 2024-02-17 10:49 | PN_ITS ---
Progress Note This morning's chest x-ray was negative for any visible pneumothorax. Right- sided chest tube was removed without incident. Will order repeat chest x-ray later today to document stability. If this is unremarkable, patient can be discharged to home
[2024-02-17 12:40] VITALS: O2SAT 95
--- NOTE | 2024-02-17 13:40 | NURSING ---
Pt Requested fourth side rail to be up. Patient stated, I do not want to roll out of bed. Pt call light within reach. SHARRON Abdullahi
--- NOTE | 2024-02-17 14:00 | RAD_ITS ---
EXAM: XR CHEST, 1 VIEW CLINICAL INDICATION: Right pneumothorax. Status post chest tube removal. TECHNIQUE: Frontal view of the chest. COMPARISON: 02/17/2024 7:55 AM. FINDINGS: LUNGS AND PLEURAL SPACES: Marked elevation of the right hemidiaphragm. No pneumothorax. No suspicious infiltrates, consolidation or edema. No effusion. HEART: Unremarkable. Cardiac silhouette not enlarged. MEDIASTINUM: Central airways and mediastinal contour are unremarkable. BONES/JOINTS: Unremarkable. No acute fracture. SOFT TISSUES: Unremarkable. TUBES, LINES AND DEVICES: Small percutaneous drain catheter in the right lower chest is been removed. RAD/Chest 1 View (Portable) IMPRESSION: No pneumothorax or acute findings in the chest following removal of small percutaneous drain catheter in the right lower chest. Electronically Signed: Jesus Tolliver MD at 15:20 EST ,
--- NOTE | 2024-02-17 14:20 | CASEMGMT ---
MICHELLE FITZGERALD chart review: Patient was admitted 01/16-01/20/24 for pneumothorax. See assessment from 01/18/24. Patient was discharged home with FWW, family support and follow-up plans in place. Patient returned to [facility] ED on 02/15/24 for shortness of breath after using Cpap machine for the first time in 4 weeks and was admitted for right pneumothorax and received a chest tube. MICHELLE FITZGERALD in to discuss readmission with patient. Patient states he was told not to use Cpap for one month since last pneumothorax. Patient stated it had been 4 weeks and thought he was good to use cpap. Patient states he was taking medications as prescribed and attended follow-up appts. MICHELLE FITZGERALD reviewed therapy notes and no therapy recommended. Patient states he does not intend on using his cpap anymore. MICHELLE FITZGERALD encouraged patient to follow-up with pulmonology, patient voiced understanding. MICHELLE FITZGERALD called to update regarding conversation with patient, as he can be forgetful at time. states she is agreeable to discharge plan and confirms that patient has been to follow-up appts. had no further questions or concerns.
--- NOTE | 2024-02-17 15:34 | PCM.PN.BLA ---
Assessment & Plan Assessment/Plan (1) Recurrent spontaneous pneumothorax: PLAN: Chest tube was pulled at 10:50. Repeat Chest x-ray around 1400 pm today demonstrated no recurrent pneumothorax. Patient to leave chest tube dressing in place for 3 days and then remove. Patient to follow-up with his PCP in 1 week. No surgical follow-up in needed. Patient is ready for discharge.
--- NOTE | 2024-02-17 16:34 | PCM.DC ---
Discharge Instructions Diet Discharge Diet: No restrictions Activity Discharge Activity: Return to Normal Activity Weight Bearing Status: Full weight bearing Follow Up Care Test Results: Test results from this visit will be discussed in further detail at your follow-up appointment, if applicable. Discharge Plan Admission Admit Date/Time: 02/15/24 09:04 Primary Reason for Your Visit: Right pneumothorax Attending Provider: Teddy Jones Primary Care Provider: Chetan Varghese Consulting Providers: Tanner Snell; Alisha Beatty Instructions Additional Instructions / Restrictions: Leave Chest tube dressing in place for 3 days Follow-up with PCP in 1 week for a follow-up chest x-ray No high altitudes for 6 weeks Return to the ED if increased shortness of breath Discharge Orders/Prescriptions Prescriptions: Continued cholecalciferol (vitamin D3) 25 mcg (1,000 unit) capsule 25 mcg PO DAILY Qty: 90 3RF donepezil 5 mg tablet 5 mg PO DAILY sertraline 50 mg tablet 50 mg PO QDAY olmesartan 5 mg Tablet 5 mg PO QHS magnesium oxide 400 mg magnesium tablet 800 mg PO BID levothyroxine 112 mcg tablet 112 mcg PO DAILY atorvastatin 40 mg tablet 40 mg PO QHS Qty: 90 3RF pimecrolimus 1 % cream 1 applic topical BID PRN (Reason: skin irritation) Referrals / Follow Up: Chetan Varghese MD [Primary Care Provider] - 02/24/24 Es Verduzco NP, UNIT AIDE-C [Med Staff - [facility] Practice Prof] - Within 2 Weeks (call for appointment) Disposition Disposition (needs filled in before D/C Order can be placed): Home, Self Care
--- NOTE | 2024-02-17 16:37 | PCM.DC.SUM ---
Providers Date of Admission: 02/15/24 Date of Discharge: 02/17/24 Primary Care Physician: Chetan Varghese MD Consultations 02/15/24 09:32 Consult: General Surgery Routine Consulting Provider: Tanner Snell Reason for Consult: R PTX EMERGENT Consult: No MD Notified: Yes Date Notified: 02/15/24 Time Notified: 09:07 Method of Notification: Verbal Reason For Visit: R PTX Diagnosis Discharge Diagnosis (1) Recurrent spontaneous pneumothorax: Status: Acute Code(s): J93.83 - Other pneumothorax Plan 1. Right spontaneous pneumothorax-recurrent #2 essential hypertension #3 hypothyroidism #4 chronic dementia #5 hyperlipidemia Medications at Discharge Home Medications olmesartan 5 mg tablet 5 mg PO QHS 08/16/21 atorvastatin 40 mg tablet 40 mg PO QHS #90 tabs 12/26/21 pimecrolimus 1 % topical cream 1 applic topical BID PRN skin irritation 07/02/22 cholecalciferol (vitamin D3) 25 mcg (1,000 unit) capsule 25 mcg PO DAILY supplement #90 caps 08/30/22 donepezil 5 mg tablet 5 mg PO DAILY Memory 05/28/23 sertraline 50 mg tablet 50 mg PO QDAY 01/09/24 levothyroxine 112 mcg tablet 112 mcg PO DAILY thyroid 01/20/24 magnesium oxide 800 mg PO BID 02/15/24 Hospital Course Operations None Procedures - (Chest tube placement) Summary of Care Provided Minutes Spent on Discharge: 31 Hospital Course: This 88-year-old white male was seen in the emergency room at [facility] with complaints of a sudden onset of shortness of breath, he had been seen approximately a month prior and hospitalized due to a spontaneous right-sided pneumothorax. Patient stated he went to bed and awoke shortly prior to arrival in the emergency room with shortness of breath and right-sided chest discomfort. Labs were obtained and showed a normal CBC, patient's chemistry profile was unremarkable, chest x-ray was obtained which showed a complete right-sided pneumothorax, mediastinum was not shifted. A pigtail catheter was placed in the right chest cavity with reinflation of the lung noted, patient was admitted to PCU and seen in consultation by general surgery. There were no complications during the patient's hospitalization, on 02/17/2024, patient's chest tube was removed and there was no evidence of pneumothorax following this. On 02/17/2024, patient was seen and examined: On examination he appeared in good health and spirits, he shows signs of confusion. Vital signs as documented. Skin warm and dry and without overt rashes. Neck without JVD, neck was supple, trachea midline, thyroid was normal. Lungs clear bilaterally, normal air movement was noted. Heart exam notable for regular rhythm, normal sounds and absence of murmurs, rubs or gallops. Abdomen unremarkable and without evidence of organomegaly, masses, or abdominal aortic enlargement. Bowel sounds are present, abdomen is not distended. Extremities nonedematous, no cyanosis was noted, no clubbing was noted. Neuro: Cranial nerves II through XII are grossly intact, no focal motor deficits were noted, sensation to light touch and pinprick intact, motor exam 5/5 throughout. 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 Weight / BMI Weight Weight: 82.3 kg Body Mass Index (BMI) 26.8 ABG / Lab / Microbiology Data 02/17/24 05:54 02/17/24 05:54 Laboratory: Laboratory Results - last 24 hr 02/17/24 05:54: WBC 7.5, RBC 4.38 L, Hgb 12.9 L, Hct 39.3 L, MCV 89.7, MCH 29.5, MCHC 32.8, RDW Std Deviation 42.7, RDW Coeff of [place] 13.0, Plt Count 175, MPV 8.9, Immature Gran % (Auto) 0.300, Neut % (Auto) 73.9 H, Lymph % (Auto) 14.1 L, [place] % (Auto) 7.8, Eos % (Auto) 3.5, Baso % (Auto) 0.4, Absolute Neuts (auto) 5.5, Absolute Lymphs (auto) 1.05, Nucleated RBC % 0, Sodium 137, Potassium 4.3, Chloride 107, Carbon Dioxide 26.0, Anion Gap 4 L, BUN 18, Creatinine 1.03, Estim Creat Clear Calc 51.48, Est GFR (MDRD) Af Amer 88, Est GFR (MDRD) Non-Af 73, BUN/Creatinine Ratio 17.5, Glucose 113 H, Calcium 8.5, Total Bilirubin 1.10 H, AST 43 H, ALT 64 H, Alkaline Phosphatase 71, Total Protein 6.2 L, Albumin 3.7, Globulin 2.5, Albumin/Globulin Ratio 1.5 Radiography Diagnostic Testing: Radiology Impression Chest X-Ray 02/16/24 04:38 IMPRESSION: Small right chest tube at the right lung base. No residual pneumothorax appreciated on this portable exam. Electronically Signed: Noel Rosen MD at 7:26 EST , Chest X-Ray 02/17/24 07:36 IMPRESSION: Improved aeration of the lungs. No apparent pneumothorax. Electronically Signed: Regina Flores MD at 8:10 EST , Chest X-Ray 02/17/24 14:00 IMPRESSION: No pneumothorax or acute findings in the chest following removal of small percutaneous drain catheter in the right lower chest. Electronically Signed: Jesus Tolliver MD at 15:20 EST , D/C Instructions Discharge Diet: No restrictions Weight Bearing Status: Full weight bearing Meaningful Use Info Meaningful Use Meaningful Use Diagnoses (Choose all that apply): None applicable Ischemic Stroke Statin Dosing Therapy Reference: STATIN DOSE THERAPY REFERENCE: * Patients > 75 years receive moderate or high dose statin therapy. * Patients 75 years or YOUNGER should receive HIGH intensity statin dose unless contraindicated. You will be required to document reason for non-treatment if statin daily dose does not meet guidelines. HIGH DOSE STATIN THERAPY DAILY Atorvastatin > than or = to 40 mg Rosuvastatin > than or = to 20 mg Amlodipine + Atorvastatin > than or = to 2.5/40 mg Ezetimibe + Simvastatin 10/80 mg Simvastatin 80mg Discharge Plan Admission Admit Date/Time: 02/15/24 09:04 Primary Reason for Your Visit: Right pneumothorax Attending Provider: Teddy Jones Primary Care Provider: Chetan Varghese Consulting Providers: Tanner Snell; Alisha Beatty Instructions Additional Instructions / Restrictions: Leave Chest tube dressing in place for 3 days Follow-up with PCP in 1 week for a follow-up chest x-ray No high altitudes for 6 weeks Return to the ED if increased shortness of breath Discharge Orders/Prescriptions Prescriptions: Continued cholecalciferol (vitamin D3) 25 mcg (1,000 unit) capsule 25 mcg PO DAILY Qty: 90 3RF donepezil 5 mg tablet 5 mg PO DAILY sertraline 50 mg tablet 50 mg PO QDAY olmesartan 5 mg Tablet 5 mg PO QHS magnesium oxide 400 mg magnesium tablet 800 mg PO BID levothyroxine 112 mcg tablet 112 mcg PO DAILY atorvastatin 40 mg tablet 40 mg PO QHS Qty: 90 3RF pimecrolimus 1 % cream 1 applic topical BID PRN (Reason: skin irritation) Referrals / Follow Up: Chetan Varghese MD [Primary Care Provider] - 02/24/24 Es Verduzco NP, BUSINESS INTELLIGENCE DIRECTOR-C [Med Staff - [facility]] - Within 2 Weeks (call for appointment) Disposition Disposition (needs filled in before D/C Order can be placed): Home, Self Care Charges/Coding Visit Charges Inpatient E&M: 58035 Disch Hosp >30min
[2024-02-17 16:40] VITALS: BP 122/92; PULSE 67; RESP 14; TEMP 36.4; O2SAT 96
== END 2024-02-17 16:48 | disposition home or self-care (01) | DRG 200 ==
LOC: ED 08:28 → PCU 09:16
PROVIDERS: Admitting Provider Family Medicine; Emergency Provider Emergency Medicine; PCP Family Medicine; Visit Provider Internal Medicine
DX: J93.83 Other pneumothorax (principal); J98.19 Other pulmonary collapse; E03.9 Hypothyroidism, unspecified; G30.9 Alzheimer's disease, unspecified; I10 Essential (primary) hypertension; F32.A Depression, unspecified; E78.5 Hyperlipidemia, unspecified; I25.10 Atherosclerotic heart disease of native coronary artery without angina pectoris; K21.9 Gastro-esophageal reflux disease without esophagitis; G47.33 Obstructive sleep apnea (adult) (pediatric); F41.9 Anxiety disorder, unspecified; F02.80 Dementia in other diseases classified elsewhere, unspecified severity, without behavioral disturbance, psychotic disturbance, mood disturbance, and anxiety; F51.04 Psychophysiologic insomnia; Z79.890 Hormone replacement therapy; Z79.899 Other long term (current) drug therapy
CPT/HCPCS: 36415; 71045; 71046; 80048; 80053; 83735; 85025; 94668; 97162; 97165; 99252; 99284; A4216; G0463; J2405

== ENCOUNTER → 2024-05-20 | Outpatient (CLI) | payer MEDICARE, SELFPAY ==
--- NOTE | 2024-05-20 07:28 | CT_ITS ---
EXAM: CT Abdomen and Pelvis With Intravenous Contrast CLINICAL INDICATION: TECHNIQUE: Axial computed tomography images of the abdomen and pelvis with intravenous contrast. This CT exam was performed using one or more of the following dose reduction techniques: automated exposure control, adjustment of the mA and/or kV according to patient size, and/or use of iterative reconstruction technique. COMPARISON: CT Abdomen Pelvis dated 01/17/2024 FINDINGS: LUNG BASES: Right basilar atelectasis or scarring. ABDOMEN: LIVER: Hypodense lesion of the liver, likely cysts. Fatty infiltration of the liver. GALLBLADDER AND BILE DUCTS: Unremarkable. No calcified stones. No ductal dilation. PANCREAS: Unremarkable. No mass. No ductal dilation. SPLEEN: Unremarkable. No splenomegaly. ADRENALS: Unremarkable. No mass. KIDNEYS AND URETERS: Bilateral renal cysts largest measuring up to 1.5 cm. STOMACH AND BOWEL: Constipation with suggestion of fecal impaction of the rectum. No obstruction. No mucosal thickening. PELVIS: APPENDIX: No findings to suggest acute appendicitis. BLADDER: Unremarkable. No mass. REPRODUCTIVE: Unremarkable as visualized. ABDOMEN and PELVIS: INTRAPERITONEAL SPACE: Unremarkable. No free air. No significant fluid collection. BONES/JOINTS: No acute fracture. No dislocation. SOFT TISSUES: Umbilical hernia containing fat. Bilateral inguinal hernias. VASCULATURE: Scattered calcified atherosclerotic disease of aorta. No abdominal aortic aneurysm. LYMPH NODES: Unremarkable. No enlarged lymph nodes. CT/Abdomen/Pelvis WITH Contrast IMPRESSION: 1. Fatty liver with probable hepatic cysts. 2. Constipation with suggestion of fecal impaction of the rectum. 3. Umbilical hernia containing fat. 4. Bilateral inguinal hernias. 5. Bilateral renal cysts. Reading Location: [facility]
== END | disposition home or self-care (01) ==
LOC: CT 07:26
PROVIDERS: PCP Family Medicine; Referring Provider Family Medicine; Visit Provider Family Medicine
DX: R10.9 Unspecified abdominal pain (principal)
CPT/HCPCS: 74177; Q9967

== ENCOUNTER → 2024-12-11 | Outpatient (CLI) | payer MEDICARE, SELFPAY ==
[2024-12-11 13:03] LABS: Hematocrit 39.1 % (40-54); Hemoglobin 13.4 g/dL (13.0-16.5); Mean Corp Hgb Conc 34.3 g/dL (32-36); Mean Corpuscular Volume 88.1 fL (80-94); Mean Platelet Vol. 9.2 fl (6.2-12.0); Platelet Count 178 K/mm3 (150-450); RBC Distribution Width CV 13.5 % (11.6-14.6); RBC Distribution Width SD 43.8 fl (35.1-43.9); Red Blood Count 4.44 M/mm3 (4.6-6.2); White Blood Count 5.7 K/mm3 (4.4-11.0)
[2024-12-11 13:37] LABS: AST(SGOT) 25 U/L (<=37); Alanine Aminotransfer ALT/SGPT 16 U/L (<=46); Albumin, Serum 4.1 g/dL (3.4-4.8); Alkaline Phosphatase 67 U/L (40-129); BUN 21 mg/dL (4-19); BUN/Creat Ratio 17.7 RATIO (10-20); Calcium,Total 9.1 mg/dL (7.6-11.0); Cholesterol 204 mg/dL (<=200); Globulin 2.2 g/dL (2.2-4.2); Glucose 99 mg/dL (70-99); Triglycerides 113 mg/dL
[2024-12-11 13:38] LABS: Anion Gap 9 (5-15); Carbon Dioxide 22.3 mmol/L (21.0-32.0); Chloride 108 mmol/L (98-108); Low Density Lipoprotein Calc. 135 mg/dL; Potassium 4.6 mmol/L (3.3-5.1); Very Low Density Lipoprotein 23 mg/dL (5-40); cholesterol:hdl ratio screen 4.38
== END | disposition home or self-care (01) ==
LOC: MFPLAB 10:52
PROVIDERS: PCP Family Medicine; Visit Provider Family Medicine
DX: E87.1 Hypo-osmolality and hyponatremia (principal); E78.00 Pure hypercholesterolemia, unspecified; R73.09 Other abnormal glucose; I10 Essential (primary) hypertension; E03.9 Hypothyroidism, unspecified
CPT/HCPCS: 36415; 80053; 80061; 83036; 84439; 84443; 85027

== ENCOUNTER → 2025-03-22 | Outpatient (CLI) | payer MEDICARE, SELFPAY ==
--- NOTE | 2025-03-22 11:45 | RAD_ITS ---
PROCEDURE: THORACIC SPINE 3 VIEWS 03/22/2025 REASON FOR EXAM: Upper back pain TECHNIQUE: Procedure Code: RADSPT Modality: DX Procedure: THORACIC SPINE 3 VIEWS COMPARISON: None. FINDINGS: The thoracic kyphosis is mildly exaggerated. No significant compression deformity in the thoracic spine. No significant spondylolisthesis. Multilevel facet arthrosis. Multiple scattered anterior osteophytes. The visualized lungs are unremarkable. Bowel gas is visualized under the right diaphragm. RAD/Thoracic Spine 3 Views IMPRESSION: No significant spondylolisthesis in the thoracic spine. Degenerative changes. Reading Location: [id number]
== END | disposition home or self-care (01) ==
LOC: MTRAD 11:36
PROVIDERS: PCP Family Medicine; Referring Provider Family Medicine; Visit Provider Family Medicine
DX: M54.6 Pain in thoracic spine (principal)
CPT/HCPCS: 72072